=== PATIENT | male | born 1960 | race Caucasian/White ===

== ENCOUNTER → 2018-03-10 | Outpatient (CLI) | payer OTHER ==
[~2018-03-10] MED LIST: ASPI81TA28 PO; CIPR-255 PO; GLC/500 PO; GLIP2.5T11 PO; MAGN400T6 PO; OPTIRAY 320 IV PRN; SIMV5TAB2 PO
--- NOTE | 2018-03-10 11:16 | DIAGNOSTIC IMAGING REPORT ---
CT OF THE ABDOMEN AND PELVIS WITH AND WITHOUT CONTRAST HEMATURIA PROTOCOL CLINICAL HISTORY: Benign prostatic hyperplasia. Hematuria. COMPARISON STUDY: Renal ultrasound February 18, 2018. TECHNIQUE: Unenhanced and split bolus phase imaging of the abdomen and pelvis was performed. Injection of 119 cc Optiray 320 IV was uneventful. A dose lowering technique was utilized adhering to the principles of ALARA. CT DOSE: 1830.88 mGycm FINDINGS: Visualized portions of the lower chest demonstrate a 5 mm left lower lobe nodule on image 3 of 456 and a 4 mm right middle lobe nodule on image 16. The liver, spleen and pancreas are normal. There is no biliary or pancreatic ductal dilatation. Both adrenal glands are hypodense and enlarged. This represents a benign finding. These may reflect adenomas or hyperplasia. Caliber and wall thickness of small and large bowel are normal. Postoperative findings within the right colon are noted. A fat-containing hernia is noted. No abdominal or pelvic lymphadenopathy is present. Note is made of mild left hydroureteronephrosis with dilatation of the distal left ureter which may reflect a ureterocele. There is masslike abnormality within the left posterior inferior aspect the bladder which corresponds to the finding on renal ultrasound of February 18, 2018. This measures approximately 3.5 cm in size. There is no right hydronephrosis. Note is made of a tiny apparent filling defect within the anterior aspect of an upper pole calyx of the left kidney shown on axial image 140 of 456. No additional upper tract urothelial abnormality are present. There is extensive plaque of the abdominal aorta and branch vessels. No suspicious osseous lesions are present. IMPRESSION: 1. Mild left hydroureteronephrosis with dilatation of the distal left ureter suggestive of a ureterocele which is likely related to a left posterior inferior bladder mass, measuring approximately 3.5 cm. This is suspicious for a urothelial lesion such as transitional cell carcinoma. 2. Apparent tiny filling defect within an upper pole calyx of the left kidney. Although this may reflect a papilla, a tiny urothelial lesion could appear similar. 3. No evidence of metastatic disease within the abdomen or pelvis. 4. A few small nodules within visualized portions of the lower lungs which are likely benign. A follow-up chest CT in 6 months could be obtained to ensure stability. Electronically signed by: Ming Lemus M.D. 03/10/2018 11:15 AM Dictated Date/Time: 03/10/2018 10:44 AM
== END | disposition home or self-care (01) ==
LOC: C.CTS 09:49
PROVIDERS: ATTEND Urology
DX: N40.0 Benign prostatic hyperplasia without lower urinary tract symptoms (principal); N20.1 Calculus of ureter; R91.8 Other nonspecific abnormal finding of lung field

== ENCOUNTER → 2018-04-06 | Day surgery (SDC) | payer OTHER ==
[2018-03-24 09:19] VITALS: BMI 34.0
[2018-03-27 08:18] VITALS: BMI 31.0
--- NOTE | 2018-03-27 08:52 | PAT Medication Instructions ---
Service Date Mar 27, 2018. Current Home Medication List Aspirin (Aspirin Ec), 81 MG PO QPM Glipizide (Glipizide Er), 1 TAB PO BID Lisinopril/Hctz (Zestoretic 20MG/25MG), 1 TAB PO QAM Magnesium Oxide (Mag-Ox), 400 MG PO QPM Metformin Hcl (Glucophage), 1,000 MG PO BID Omeprazole (Omeprazole Dr), 400 MG PO QAM Simvastatin (Zocor), 20 MG PO QPM Medication Instructions For Your Scheduled Surgery - Check with surgeon for instructions: Aspirin (Aspirin Ec), 81 MG PO QPM - Hold the following medications the morning of surgery: Metformin Hcl (Glucophage), 1,000 MG PO BID Lisinopril/Hctz (Zestoretic 20MG/25MG), 1 TAB PO QAM Glipizide (Glipizide Er), 1 TAB PO BID - Take the following medications the morning of surgery with a sip of water: Omeprazole (Omeprazole Dr), 400 MG PO QAM - Take the following medications as scheduled the night before surgery: Simvastatin (Zocor), 20 MG PO QPM Metformin Hcl (Glucophage), 1,000 MG PO BID Magnesium Oxide (Mag-Ox), 400 MG PO QPM Glipizide (Glipizide Er), 1 TAB PO BID If you have any questions please call us at [phone] or [phone] or [phone]
--- NOTE | 2018-03-27 09:24 | DIAGNOSTIC IMAGING REPORT ---
CHEST 2 VIEWS ROUTINE CLINICAL HISTORY: pat preoperative evaluation COMPARISON STUDY: No previous studies for comparison. FINDINGS: The bones soft tissues and hemidiaphragms are normal. The cardiomediastinal silhouette is normal. The lungs are clear. The pulmonary vasculature is normal. IMPRESSION: Negative chest. The above report was generated using voice recognition software. It may contain grammatical, syntax or spelling errors. Electronically signed by: Silvestre James M.D. 03/27/2018 9:22 AM Dictated Date/Time: 03/27/2018 9:22 AM
[2018-03-27 10:06] LABS: BASO % 0.3 %; BASO ABS # 0.03 K/uL (0-0.2); EOS % 1.4 %; EOS ABS # 0.16 K/uL (0-0.5); HEMATOCRIT 44.9 % (42-52); HEMOGLOBIN 15.8 g/dL (14.0-18.0); IG# 0.05 K/uL (0.00-0.02); LYMPH % 22.6 %; LYMPH ABS # 2.66 K/uL (1.2-3.4); MEAN CELL VOLUME 87.4 fL (80-100); MEAN CORPUSCULAR HEMOGLOBIN 30.7 pg (25-34); MEAN CORPUSCULAR HGB CONC 35.2 g/dl (32-36); MEAN PLATELET VOLUME 11.1 fL (7.4-10.4); MONO % 8.8 %; MONO ABS # 1.04 K/uL (0.11-0.59); NEUT % 66.5 %; NEUT ABS # 7.85 K/uL (1.4-6.5); PLATELET COUNT 328 K/uL (130-400); RED CELL DISTRIBUTION WIDTH CV 12.8 % (11.5-14.5); WHITE BLOOD COUNT 11.79 K/uL (4.8-10.8)
[2018-03-27 10:11] LABS: CREATININE 1.4 mg/dl (0.60-1.40); POTASSIUM 4.5 mmol/L (3.5-5.1)
[2018-03-27 10:12] LABS: CALCIUM 9.8 mg/dl (8.5-10.1)
[2018-03-27 10:36] LABS: HEMOGLOBIN A1C 11.8 % (4.5-5.6)
[~2018-04-06] VITALS: Ht 170.2 cm; Wt 89.8 kg
[~2018-04-06] MED LIST changes: +ATROPINE SULFATE 0.1 MG/ML 5ML SYR IV PRN; -CIPR-255 PO; +CIPROFLOXACIN / D5W 400 MG IV SCH; +DEXAMETHASONE SOD INJ 4 MG/ML VIAL ONE; +EpHEDrine SULFATE INJ 50 MG/ML AMP IV PRN; +FENTANYL CITRATE INJ 50 MCG/1 ML 2 ML VIAL IV PRN; +FENTANYL CITRATE INJ 50 MCG/1 ML 2 ML VIAL ONE; +GLIP-199 PO; -GLIP2.5T11 PO; +HYDROmorphone INJ 1 MG/ML SYR IV PRN; +LACTATED RINGER'S 1000ML 1,000 ML IV SCH; +LIDOCAINE HCL 2% 2 ML VIAL (20MG/ML) ONE; +LISI-788 PO; +METHYLENE BLUE 0.5% 10 ML VIAL ONE; +MIDAZOLAM HCL 1 MG/ML 2ML VIAL ONE; +NURSING VERBAL MED ORDER ONE; +NovoLIN-R INSULIN PER UNIT CHARGE ONE; +OMEP-334 PO; +OMEPRAZOLE PO; +ONDANSETRON INJ 2 MG/ML 2 ML VIAL IV PRN; +ONDANSETRON INJ 2 MG/ML 2 ML VIAL ONE; -OPTIRAY 320 IV PRN; +OXYC-57 PO; +OXYCODONE/ACETAMINOPHEN 5-325 TAB PO PRN; +PHEN-876 PO; +PROPOFOL IV EMULSION 10 MG/ML 20 ML VIAL ONE; +SIMV20TA2 PO; -SIMV5TAB2 PO
[2018-04-06 08:25] VITALS: BP 153/81; PULSE 68; TEMP 36.7; O2SAT 96; Ht 170.2 cm; Wt 89.8 kg
--- NOTE | 2018-04-06 10:47 | History & Physical Bridge Note ---
H&P Re-Evaluation Bridge Note: I have examined the patient, reviewed the History & Physical and in the interval since the performance of the History & Physical I have noted the following changes of clinical significance: No changes noted
--- NOTE | 2018-04-06 12:19 | Discharge Instructions ---
Discharge Instructions Date of Service Apr 06, 2018. Visit Reason for Visit: Bladder Cancer Discharge Discharge Diagnosis / Problem: bladder tumor Discharge Goals Goal(s): Therapeutic intervention Activity Recommendations Activity Limitations: per Instructions/Follow-up section Lifting Limitations: gradually increase as tolerated Exercise/Sports Limitations: rest today May Resume Sexual Activity: after one week Shower/Bathe: no limitations Driving or Machine Use: resume 1 day after discharge Anesthesia . Post Anesthesia Instructions: If you have had General Anesthesia or IV Sedation: * Do not drive today. * Resume driving when surgeon permits. * Do not make important decisions or sign legal documents today. * Call surgeon for: 1. Temperature elevations greater than 101 degrees F. 2. Uncontrollable pain. 3. Excessive bleeding. 4. Persistent nausea and vomiting. 5. Medication intolerance (nausea, vomiting or rash). * For nausea and vomiting use only clear liquids such as: tea, soda, bouillon until nausea subsides, then gradually increase diet as tolerated. * If you have any concerns or questions, call your surgeon's office. If physician is unavailable and it is an emergency, call 911 or go to the nearest emergency room. . Diet Recommendations Recommended Home Diet: resume previous diet Procedures Procedures Performed: Transurethral Resection Bladder Tumor Pending Studies Studies pending at discharge: no Medical Emergencies . Who to Call and When: Medical Emergencies: If at any time you feel your situation is an emergency, please call 911 immediately. . Non-Emergent Contact Non-Emergency issues call your: Urologist Call Non-Emergent contact if: temperature is above 101.5, your pain is not controlled . . "Provider Documentation" section prepared by Estuardo Turner. . [place] Drug Monitoring Program Search Results: patient reviewed within database
--- NOTE | 2018-04-06 12:23 | [facility] Operative Report ---
Operative Report Operative Date Apr 06, 2018. Pre-Operative Diagnosis Bladder tumor Post-Operative Diagnosis Bladder tumor Procedure(s) Performed Transurethral Resection Bladder Tumor Surgeon Dr. Turner Kettle Room Helper Surgeon(s) none Estimated Blood Loss 0 cc Findings Cystoscopic exam revealed a normal anterior urethra prostatic fossa was moderately obstructing with kissing lateral lobes bladder showed a large tumor on the left lateral wall near the bladder neck. I was unable to locate a left ureteral orifice Specimens A: Bladder tumor Drains None Anesthesia Type General Complication(s) none Disposition yes Recovery Room / PACU Indications 58-year-old white male on evaluation for hematuria was found to have a bladder tumor being brought in for TURBT Description of Procedure After the induction of an adequate general anesthetic and appropriate timeout patient placed in the dorsolithotomy position. Lower abdomen and genitalia were prepped with Hibiclens and draped in a sterile fashion. Using a 22 Norwegian cystoscope routine cystoscopic exam was performed the above-noted findings with the 30 and 70 lenses. Next using a 24 Norwegian resection scope and bipolar loop the tumors resected in its entirety. I stayed away from the left trigone because I could not identify a left ureteral orifice bladder tumor fragments were evacuated from the bladder with an Bluwan evacuator any bleeding points were electrocoagulated final view revealed no bleeding from resection site patient's bladder was drained cystoscope and sheath were removed. All needle sponge and instrument counts were correct at the end of the case. Patient tolerated the procedure well was taken recovery room in stable condition I attest to the content of the Intraoperative Record and any orders documented therein. Any exceptions are noted below.
--- NOTE | 2018-04-06 12:55 | Anesthesiology Progress Note ---
Anesthesia Post Op Note Date & Time Apr 06, 2018 at 12:55 Vital Signs Pain Intensity: 0 Vital Signs Past 12 Hours Date Time Temp Pulse Resp B/P (MAP) Pulse Ox O2 Delivery O2 Flow Rate FiO2 04/06/18 12:47 63 18 04/06/18 12:47 62 18 92 04/06/18 12:46 36.5 64 19 124/67 (83) 94 Room Air 04/06/18 12:46 124/67 04/06/18 12:42 61 18 94 04/06/18 12:42 61 18 04/06/18 12:41 117/72 04/06/18 12:38 68 17 92 04/06/18 12:38 66 17 04/06/18 12:36 126/75 04/06/18 12:33 68 17 04/06/18 12:33 68 17 95 04/06/18 12:32 71 16 04/06/18 12:32 72 16 96 04/06/18 12:31 70 22 04/06/18 12:31 70 22 95 04/06/18 12:26 78 24 129/77 96 04/06/18 12:26 79 24 04/06/18 12:26 36.6 89 14 122/70 (82) 97 Oxymask 10 04/06/18 12:22 123/100 04/06/18 12:21 87 20 04/06/18 12:21 87 20 97 04/06/18 12:17 122/70 04/06/18 12:16 87 97 04/06/18 12:16 87 04/06/18 08:25 36.7 68 20 153/81 (105) 96 Room Air Notes Mental Status: alert / awake / arousable, participated in evaluation Pt Amnestic to Procedure: Yes Nausea / Vomiting: adequately controlled Pain: adequately controlled Airway Patency, RR, SpO2: stable & adequate BP & HR: stable & adequate Hydration State: stable & adequate Anesthetic Complications: no major complications apparent
[2018-04-06 13:05] VITALS: BP 129/62; PULSE 59; TEMP 36.3; O2SAT 96
[2018-04-06 13:35] VITALS: BP 123/72; PULSE 68; TEMP 36.5; O2SAT 92
== END | disposition home or self-care (01) ==
LOC: C.ACU 07:13
PROVIDERS: ATTEND Urology
DX: C67.2 Malignant neoplasm of lateral wall of bladder (principal); I10 Essential (primary) hypertension; E11.9 Type 2 diabetes mellitus without complications; F17.200 Nicotine dependence, unspecified, uncomplicated; E78.00 Pure hypercholesterolemia, unspecified; E66.9 Obesity, unspecified; Z68.31 Body mass index [BMI] 31.0-31.9, adult; Z79.82 Long term (current) use of aspirin

== ENCOUNTER 2019-01-29 09:14 | Inpatient (IN) ==
--- NOTE | 2019-01-29 05:58 | History & Physical Report ---
Date of Service January 29, 2019 History of Present Illness Chief Complaint: Gangene of right foot and right iliac artery occlusion Primary Care Provider: Donna Cano DO Chief Complaint rm#7 here for necrotic toe, right 5th. Has ulcerations on the left foot as well. States necrotic dark started a few months ago. Has pain prior. Wound clinic on Friday was placed on doxy and cipro bid for 21 says. Continues to smoke History of Present Illness I the pleasure of seeing Carlos today for evaluation of his lower extremities. As you know he is a 59-year-old diabetic white male with metastatic bladder cancer. He claims that about 3 months ago he started developing color changes in his feet. He is now developed a gangrene of the right foot and gangrenous ulcers of the left foot. He claims that the right foot has been getting red for the last week or so. He denies any drainage from the either foot. He claims that the ulcer on the heels started first during his chemotherapy. He does complain of claudication at various distances in both lower extremities. He does not have any rest pain at night. Review of Systems Review of systems 10 systems reviewed only positive findings are nausea loss of appetite diarrhea blood in his urine prostate problems and as per the HPI. Physical Exam Vitals & Measurements HR: 101 (Monitored) BP: 116/68 SpO2: 96% WT: 68.95 kg On physical exam patient is alert oriented x3 he is in no apparent distress. His blood pressure 122/68 on the left 160/60 in the right. He has normal body habitus. His lungs were clear. His rate has a regular rate and rhythm. Abdominal exam is benign without any aneurysmal dilatation of the aorta. His radials and carotids were +2 bilaterally. There are no carotid bruits. Femorals are +2. I cannot appreciate pedal pulses in the foot. Neurologic exam is grossly intact. Examinations of his feet shows gangrenous changes of the right fifth toe and gangrenous ulcer in the fifth metatarsal head. He also has gangrenous ulcers of the heels and lateral aspect of his right foot and metatarsal area. There is no drainage from either of these lesions. The right foot is erythematous to the dorsum of the foot. Assessment/Plan 1. Gangrene 2. Aorto-iliac disease 3. Atherosclerosis of [place] arteries of extremities with gangrene, bilateral legs At this point we ordered noninvasive lower extremity as well as a CTA of his abdominal aorta and runoff. Further treatment will be determined by these studies. He will require an amputation of the fifth toe of the right foot at the least. Thank you very much for letting us participate in the care of this patient. We will keep you informed as to his progress. Sincerely, Jordon Rajan MD Ordered: CT Angio Abdomen and Pelvis Problem List/Past Medical History Ongoing Arthritis Bladder cancer Diabetes mellitus, type II Diverticulitis Frequent urination GERD (gastroesophageal reflux disease) H/O sepsis Hematuria Hypercholesteremia Hypertension Rupture of bowel Spinal stenosis Tobacco user Ventral hernia Historical No qualifying data Procedure/Surgical History TURBT - Transurethral resection of bladder tumor (2018), Bladder, Colectomy, Colostomy, Insertion of implantable venous access port, Revision of colostomy. Medications Home acetaminophen-HYDROcodone 325 mg-10 mg oral tablet, 1 tab, PO, bid, PRN amLODIPine 10 mg oral tablet, 10 mg= 1 tab, PO, Daily Augmentin 500 mg-125 mg oral tablet, 1 tab, PO, q12h, Not taking ciprofloxacin 500 mg oral tablet, 500 mg= 1 tab, PO, q12h Colace 100 mg oral capsule, 100 mg= 1 cap, PO, bid doxycycline hyclate 100 mg oral tablet, 100 mg= 1 tab, PO, bid HumaLOG KwikPen 100 units/mL injectable solution, 6 unit, subQ, ac, 1 refills MiraLax oral powder for reconstitution, 17 g, PO, Daily Normal Saline Flush 0.9% injectable solution, See Instructions, 2 refills ondansetron 8 mg oral tablet, 8 mg= 1 tab, PO, tid, PRN oxyCODONE 5 mg oral tablet, 5 mg, PO, q4h, PRN prochlorperazine 10 mg oral tablet, 10 mg= 1 tab, PO, tid, PRN simvastatin 20 mg oral tablet, 20 mg= 1 tab, PO, qhs Tresiba FlexTouch 100 units/mL subcutaneous solution, 24 unit, subQ, Daily Tylenol 500 mg oral tablet, 1000 mg= 2 tab, PO, q8h Allergies NKA No Known Medication Allergies Social History Tobacco Current every day smoker Family History Diabetes...: Mother and Brother. Hypertension: Mother and Brother. Lyme disease: Brother. Prostate carcinoma: Father. Stroke: Brother. Signature Line Electronic Signature on File Electronically Reviewed/Signed by: Rafael Rajan MD Author Signature Dt/Tm:01/27/2019 11:51 AM Terrazzo Mechanic Zack Hernandez [facility] [place] [address], [address] [place] [address] EJS Result Type: Physician Consult Date of Service: January 27, 2019 11:51 EDT Authorization Status: Final Subject: Consult Note Author or Import Date: MD Rajan Eugene J on January 27, 2019 11:51 EDT Verified By: MD Rajan Eugene J on January 27, 2019 11:51 EDT Encounter info: [id number], [facility] [facility], 01/27/2019 - 01/27/2019 Allergies Allergy/AdvReac Type Severity Reaction Status Date / Time No Known Allergies Allergy Verified 11/30/18 09:42 Home Medications Home Medications Medication Instructions Recorded Confirmed Type magnesium oxide 500 mg PO HS 05/13/18 01/25/19 History simvastatin 20 mg PO HS 05/13/18 01/25/19 History amlodipine 10 mg tablet 10 mg PO DAILY 10/30/18 01/25/19 History insulin degludec (U-100) 100 24 units SQ DAILY ml 10/30/18 01/25/19 History unit/mL (3 mL) subcutaneous pen hydrocodone 10 mg-acetaminophen 1 tab PO Q12H PRN #60 tab 01/22/19 01/25/19 Rx 325 mg tablet ciprofloxacin 500 mg tablet 500 mg PO q12h 21 Days #42 tab 01/25/19 01/25/19 Rx doxycycline hyclate 100 mg tablet 100 mg PO bid 21 Days #42 tab 01/25/19 01/25/19 Rx Past Med/Surg History Medical History Bladder cancer (Chronic) Cancer (Chronic) NEWLY DX WITH BLADDER CANCER, BLOODY URINE, STARTED CHEMO APR 2018, FINISHED JULY 2018 Diabetes mellitus, type 2 (Chronic) Diverticulitis (Chronic) GERD (gastroesophageal reflux disease) (Chronic) Hypercholesteremia (Chronic) Hypertension (Chronic) Malignant neoplasm of bladder (Chronic) 04/06/19 TURBT 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 Hematuria (Resolved) Rupture of bowel (Resolved) H/O ruptured sigmoid colon which resulted in right transverse colostomy, a later surgery for sigmoid resection, and later colostomy reversal; Surgical History H/O cystoscopy (Resolved) History of colostomy reversal (Resolved) History of surgery (Resolved) A-PORT PLACEMENT Hx of colostomy (Resolved) RUPTURED DIVERTICULITIS Status post chemotherapy (Resolved) Chemo 05/20/18 thru 08/12/18 for bladder cancer Family History Mother Hypertension Diabetes Father , in his 60's Prostate cancer Brother Stroke Hypertension Diabetes Lyme disease Brother No problems noted. Brother No problems noted. Sister No problems noted. Sister No problems noted. Daughter Skin cancer Hypertension Hypothyroidism Social History Preferred Language: Sammarinese Communication Ability: Effective Visual Impairment: No Limitations Hearing Ability: Normal Beliefs That Will Affect Care: None marital status: Current Living Situation: Family current occupational status: unemployed current occupation: Disability Feels Safe at Home: Yes Smoking Status: Current every day smoker Tobacco Type: cigarettes Cigarettes Per Day: HX OF 1PPD X45 YEARS Second Hand Exposure: No Hx Alcohol Use: No Hx Substance Use: No caffeine: Yes (4 cups/day) during the past year weight has: decreased > 10 lbs
[~2019-01-29 09:14] MED LIST changes: -ASPI81TA28 PO; -ATROPINE SULFATE 0.1 MG/ML 5ML SYR IV PRN; +CEFAZOLIN 1000MG 1,000 MG/7.5 ML SYR IV SCH; +CEFAZOLIN 2000MG 2,000 MG/15 ML SYR IV SCH; -CIPROFLOXACIN / D5W 400 MG IV SCH; -DEXAMETHASONE SOD INJ 4 MG/ML VIAL ONE; -EpHEDrine SULFATE INJ 50 MG/ML AMP IV PRN; -FENTANYL CITRATE INJ 50 MCG/1 ML 2 ML VIAL IV PRN; -FENTANYL CITRATE INJ 50 MCG/1 ML 2 ML VIAL ONE; -GLC/500 PO; -GLIP-199 PO; -HYDROmorphone INJ 1 MG/ML SYR IV PRN; -LACTATED RINGER'S 1000ML 1,000 ML IV SCH; -LIDOCAINE HCL 2% 2 ML VIAL (20MG/ML) ONE; -LISI-788 PO; -MAGN400T6 PO; -METHYLENE BLUE 0.5% 10 ML VIAL ONE; -MIDAZOLAM HCL 1 MG/ML 2ML VIAL ONE; -NURSING VERBAL MED ORDER ONE; -NovoLIN-R INSULIN PER UNIT CHARGE ONE; -OMEP-334 PO; -OMEPRAZOLE PO; -ONDANSETRON INJ 2 MG/ML 2 ML VIAL IV PRN; -ONDANSETRON INJ 2 MG/ML 2 ML VIAL ONE; -OXYC-57 PO; -OXYCODONE/ACETAMINOPHEN 5-325 TAB PO PRN; +PATIENT'S HEIGHT AND/OR WEIGHT NEEDED SCH; -PHEN-876 PO; -PROPOFOL IV EMULSION 10 MG/ML 20 ML VIAL ONE; -SIMV20TA2 PO; +SODIUM CHLORIDE 0.9% 1000ML 1,000 ML IV SCH
--- NOTE | 2019-01-29 10:20 | History & Physical Bridge Note ---
Date of Service January 29, 2019 History & Physical Bridge Note I have examined the patient, reviewed the History & Physical and in the interval since the performance of the History & Physical I have noted the following changes of clinical significance: no changes noted
[2019-01-29 10:29] LABS: Creatinine Clr Calc Pharmacy 55.5 ml/min; Est GFR (African American) 66.7; Est GFR (Non-African American) 57.6
[2019-01-29] MEDS ORDERED: HEPARIN SOD (PORCINE) 1000 UNIT/ML 10 ML VIAL ONE (12:24)
[2019-01-29] MEDS ORDERED: LIDOCAINE HCL 1% 20 ML VIAL ONE (12:24)
[2019-01-29] MEDS ORDERED: fentaNYL citrate 100 MCG/2 ML VIAL ONE ×2 (12:43→13:35)
[2019-01-29] MEDS ORDERED: MIDAZOLAM HCL 1 MG/ML 2ML VIAL ONE ×2 (12:43→13:35)
[2019-01-29] MEDS ORDERED: VISIPAQUE IV PRN (14:08)
--- NOTE | 2019-01-29 14:09 | Post Operative Brief Note ---
Immediate Post Op Note v1 Date of Surgery January 29, 2019 Pre & Post Diagnosis Operation Date: 01/29/19 12:00 Pre-Op Diagnosis: Aortoiliac and lower extremity occlusive disease with gangrene Post-Op Diagnosis: Aortoiliac and lower extremity occlusive disease with gangrene Procedure Operation Date: 01/29/19 12:00 Actual Procedures p Aortogram, Bilateral Lower Extremity Runoff, Moderate Concious Sedation 1257 to(Bilateral) - Rafael Rajan MD Surgeon Rafael Rajan MD Timber Buyer none Estimated Blood Loss 20 Findings Consistent with Post-Op Diagnosis Anesthesia Type RN Sedation Complications none Disposition Accompanied Patient To Recovery: No Disposition: Recovery Room
--- NOTE | 2019-01-29 14:25 | Post Anesthesia Assessment ---
Date of Service January 29, 2019 Post Sedation Assessment Vital Signs Temp Pulse Pulse Resp BP BP Pulse Ox 01/29/19 14:22 90 01/29/19 14:20 99 H 20 142/82 H 90 01/29/19 14:15 101 H 20 143/87 H 94 01/29/19 14:10 102 H 20 145/89 H 94 01/29/19 14:05 99 H 20 148/80 H 94 01/29/19 14:00 93 H 20 139/84 92 01/29/19 13:55 100 H 20 153/86 H 92 01/29/19 13:50 100 H 20 148/89 H 92 01/29/19 13:45 100 H 20 154/97 H 92 01/29/19 13:40 97 H 20 134/81 92 01/29/19 13:35 102 H 21 143/81 H 96 01/29/19 13:30 100 H 21 143/86 H 96 01/29/19 13:25 98 H 20 121/81 93 01/29/19 13:20 102 H 20 144/86 H 93 01/29/19 13:15 88 20 147/83 H 92 01/29/19 13:10 99 H 18 120/75 91 01/29/19 13:05 95 H 18 122/75 94 01/29/19 13:00 94 H 18 129/78 94 01/29/19 12:55 94 H 18 144/91 H 95 01/29/19 12:50 95 H 18 136/96 93 01/29/19 12:48 94 H 18 133/84 91 01/29/19 09:50 36.9 C 94 H 20 134/78 99 Recovery Score Activity: Moves 4 extremities Respiration: Deep Breath/Cough Circulation: +/-20% PreAnes Value Consciousness: Fully Awake Oxygen Saturation: > 92% On Room Air Post Anesthesia Score: 10 Discharge Sedation Level of Care: Fast Track Phase II Post Sedation Plan On clinical assessment, the patient appears to have tolerated the sedation without complications. Patient is recovering as anticipated. Patient will continue to be monitored by nursing and may be discharged when sedation discharge criteria are met per below protocol. Upon Completions of procedure and additional 15 minutes continue every 5 minute vital signs and the P.A.R. score; then discharge to a Phase I or Fast Track to Phase II per the following guidelines: * Discharge Patient to appropriate Phase II area if PAR is 8 or greater or return to pre- procedure baseline. The post - procedure orders will be as directed. * If PAR score is less than 8 or not return to pre-procedure baseline then patient will follow Phase I monitoring till PAR is reached for Phase II. The Phase I may be done in procedure room or may call to secure a Phase I area. * If naloxone or flumazenil are used for reversal, hold in Phase I for continued monitoring from when last reversal dose was given for a minimum of 60 minutes or longer pending the nurse and/or physician discretion of patient condition before discharge to Phase II. Please call the Sedation Physician to re-evaluate and complete post-note for discharge to Phase II area. Do NOT discharge from procedure sedation or Phase 1 until post- sedation evaluation note is complete by procedure /sedation MD Sedation Discharge Instructions to be given to the patient at discharge to home.
[2019-01-29] MEDS ORDERED: OXYCODONE/ACETAMINOPHEN 5mg/325mg TAB PO PRN (14:35)
[2019-01-29] MEDS ORDERED: SODIUM CHLORIDE 0.9% 500 ML IV SCH (14:45)
--- NOTE | 2019-01-29 14:48 | Operative Report ---
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 Last few weeks he developed color changes in his feet. He has esch ars on his heels and his left lateral foot. He is also developed gangrene of the right fifth toe recently. When seen today he is now complaining of rest pain which is new. Aortography and possible intervention was recommended. I have discussed the risks options and benefits of the procedure with the patient. The patient understands the risks options and benefits and agrees to the procedure. Description of Procedure The patient was taken the angiogram suite placed in the supine position. After groins were prepped and draped in a sterile manner the patient was identified and a timeout was performed. Local anesthetic was administered to the right groin. Percutaneous puncture was made in right common femoral artery and a 5 [place] sheath inserted. 035 wire to pick there was passed up into the abdominal aorta. Aortography was performed which showed moderate disease of the right common iliac artery. There was occlusion just beyond the puncture site in the common femoral artery at the origin of the profunda femoral artery. The common femoral artery and right side does have filling defects consistent with heaped up plaque within the artery. we then anesthetized left groin puncture in the left common femoral artery again inserting a 5 [place] sheath. The left side had an occluded iliac artery from its origin down to the proximal external iliac artery. The distal external iliac artery was small in caliber. We tried multiple catheters multiple wires to get through the iliac occlusion all were unsuccessful. Wires were made some minimal. That point we did arteriography of the lower extremities. On the right side the superficial femoral artery is occluded from its origin down to the popliteal. There is a very short segment of popliteal its pain but then occluded again distally and reconstitutes at the trifurcation. Anterior tibial artery appears patent at least down to the distal third of the leg. On 1 of the views there is a hint that the dorsalis pedis artery is patent. The profunda femoris right side has the first branch patent and the rest of it is occluded with reconstitution distally. Left side as st ated previously left common iliac artery is occluded down to the proximal portion of the external iliac. The superficial femoral artery is patent down to just above the adductor hiatus and then occluded with reconstitution of the popliteal. It was hard to get contrast down below the popliteal however it appears to have severe infrapopliteal artery occlusive disease in all the infrapopliteal vessels. Both 5 [place] sheath was were pulled and pressure was applied to the groins. Sterile dressings were applied. Adequate hemostasis was noted. The patient left the operation room in satisfactory condition and tolerated the procedure well. All needle and sponge counts were correct at the end of the procedure. I attest to the content of the Intraoperative Record and any orders documented therein. Any exceptions are noted below.
[2019-01-29] MEDS ORDERED: HYDROCODONE/ACETAMINOPHEN 10/325 TAB PO PRN (15:03)
[2019-01-29] MEDS ORDERED: CARBOHYDRATES FOR HYPOGLYCEMIA PO PRN (15:05)
[2019-01-29] MEDS ORDERED: GLUCOSE 40% GEL 15 GM TUBE PO PRN (15:05)
[2019-01-29] MEDS ORDERED: GLUCAGON FOR INJ 1 MG VIAL SQ PRN (15:05)
[2019-01-29] MEDS ORDERED: GLUCOSE 10 TABS/TUBE PO PRN (15:05)
[2019-01-29] MEDS ORDERED: DEXTROSE 50% 50 ML SYRINGE IV PRN (15:05)
[2019-01-29] MEDS ORDERED: PHARMACY GLYCEMIC MGMT CONSULT PRN (15:22)
[2019-01-29] MEDS ORDERED: INSULIN GLARGINE SOLOSTAR 100 UNITS/ML 3 ML PEN SC ONE (16:30)
[2019-01-29] MEDS: NICOTINE 21 MG/24 HR TDSY TD SCH (18:38)
[2019-01-29] MEDS: INSULIN ASPART 100 UNITS/ML 3 ML PEN SC SCH ×2 (18:42→21:06)
[2019-01-29 18:53] LABS: Basophils # (auto) 0.02 K/uL (0-0.2); Basophils % (auto) 0.2 %; Eosinophils % (auto) 1.9 %; Hematocrit (blood only) 31.5 % (42-52); Hemoglobin 10.9 g/dL (14.0-18.0); Immature Granulocytes # (auto) 0.05 K/uL (0.00-0.02); Immature Granulocytes % (auto) 0.5 %; Lymphocytes # (auto) 1.78 K/uL (1.2-3.4); Lymphocytes % (auto) 16.9 %; Mean Corpuscular Volume 82.9 fL (80-100); Mean Platelet Volume 8.3 fL (7.4-10.4); Monocytes # (auto) 1.02 K/uL (0.11-0.59); Monocytes % (auto) 9.7 %; Neutrophils # (auto) 7.48 K/uL (1.4-6.5); Neutrophils % (auto) 70.8 %; Platelet Count 254 K/uL (130-400); RDW Coefficient of Variation 14.7 % (11.5-14.5); RDW Standard Deviation 44.8 fL (36.4-46.3); White Blood Count 10.55 K/uL (4.8-10.8)
[2019-01-29] MEDS ORDERED: HEPARIN IV BOLUS 5,000 UNITS in SYRINGE 0 ML IV ONE (19:00)
[2019-01-29 19:04] LABS: INR 1.1 (0.9-1.1); Partial Thromboplastin Ratio 0.9; Prothrombin Time 10.9 Seconds (9.0-12.0)
[2019-01-29 19:06] LABS: Mean Corpuscular Hgb Conc 34.6 g/dL (32-36)
[2019-01-29] MEDS: Heparin Adult STANDARD Wt-Based Dextrose 5% 25,000 units/500 mL IV SCH (19:28)
[2019-01-29] MEDS ORDERED: SIMVASTATIN 20 MG TAB PO SCH (21:00)
[2019-01-29] MEDS: CIPROFLOXACIN 500 MG TAB PO SCH (21:05)
[2019-01-29] MEDS ORDERED: MAGNESIUM OXIDE 400 MG TAB PO SCH (22:00)
[2019-01-30] MEDS ORDERED: INSULIN ASPART 100 UNITS/ML 3 ML PEN SC SCH
[2019-01-30 01:42] LABS: Partial Thromboplastin Ratio 1.3; Partial Thromboplastin Time 36.5 Seconds (21.0-31.0)
[2019-01-30] MEDS ORDERED: HEPARIN 100 UNIT/ML 5ML FLUSH FLUSH PRN (01:46)
[2019-01-30] MEDS ORDERED: Nursing to Pharmacy Communication ONE (01:50)
[2019-01-30] MEDS ORDERED: HEPARIN IV BOLUS 5,000 UNITS in SYRINGE 0 ML IV ONE (02:00)
[2019-01-30 08:33] LABS: Partial Thromboplastin Time 54.8 Seconds (21.0-31.0)
[2019-01-30] MEDS: CIPROFLOXACIN 500 MG TAB PO SCH (08:46)
[2019-01-30] MEDS: INSULIN ASPART 100 UNITS/ML 3 ML PEN SC SCH ×2 (08:49→13:16)
[2019-01-30] MEDS: NICOTINE 21 MG/24 HR TDSY TD SCH (08:49)
[2019-01-30] MEDS ORDERED: INSULIN GLARGINE SOLOSTAR 100 UNITS/ML 3 ML PEN SC SCH (09:00)
[2019-01-30] MEDS ORDERED: AMLODIPINE BESYLATE 5 MG TAB PO SCH (09:00)
--- NOTE | 2019-01-30 09:01 | Surgery Progress Note ---
Date of Service January 30, 2019 Assessment & Plan (1) Ischemic ulcer of both feet: Awaiting transfer to [facility] for surgical intervention of the lower extremities. Will transfer on heparin. Dr. Coates to receive patient. Subjective No new complaints Physical Exam Constitutional: WD/WN, vitals as above Respiratory: normal respiratory effort Auscultation: lungs clear to auscultation bilaterally Cardiovascular: RRR, no murmur, no edema Musculoskeletal: No changes in gangrenous changes. Erythema almost totally resolved. Neurologic: moves all extremities; no focal motor deficits Psychiatric: A+Ox3, euthymic affect Results & Data Vital Signs (Past 12 Hours) Vital Signs Temp Pulse Pulse Resp BP Pulse Ox 01/30/19 08:00 36.8 C 99 H 17 130/82 94 01/30/19 03:53 36.9 C 97 H 14 121/71 93 01/29/19 22:58 36.9 C 98 H 14 128/80 96 (1) Ischemic ulcer of both feet Non-pressure ulcer stage: unspecified non-pressure ulcer stage Qualified Code(s): L97.519 - Non-pressure chronic ulcer of other part of right foot with unspecified severity; L97.529 - Non-pressure chronic ulcer of other part of left foot with unspecified severity
--- NOTE | 2019-01-30 09:55 | Pharmacy Report ---
Glycemic Control Consultation - Date of Service January 30, 2019 - Scope Scope: Glycemic Pharmacist consulted by Dr Rajan on 01/29/19 for glycemic control and to write orders per [facility] inpatient glycemic control protocol - Objective Weight: 70 kg Accuchecks BSG (last 24hrs): 01/29/19 01/29/19 01/29/19 09:44 09:46 14:58 POC Glucose 392 H* 387 H* 310 H* 01/29/19 01/29/19 01/29/19 17:34 20:30 23:54 POC Glucose 293 H 270 H 90 01/30/19 01/30/19 01:55 08:24 POC Glucose 108 H 165 H Laboratory Data (last 24hrs): 01/29/19 10:04 Creatinine 1.34 Est Cr Clr Drug Dosing 55.5 - Recent Pertinent Medications Outpatient Anti-diabetic Regimen: * insulin degludec 24 units daily * A1c = 10.3 % 09/25/18 The patient is currently receiving: * Basal insulin: Lantus 24 units every 24 hours (given at dinnertime yesterday) * Correctional Insulin: Novolog Correction per scale ACHS Goal Range: Low 110 mg/dL - High 140 mg/dL Correction Factor: 20 mg/dL/unit * Prandial insulin: Per carb ratio of 1 unit per 7 grams CHO consumed Risk Factors for Insulin Resistance: * IV fluids: heparin infusion * Recent Surgery: POD 1 * Diet: T2DM - Assessment & Plan Assessment & Plan: ASSESSMENT: * Mr Bucio is a 59 y/o M with presumably poor diabetes control (recent HbA1C not available) who presents for an aortogram. Pre-surgical BSG was almost 400 mg/dL. Pharmacy consulted after surgery - blood sugar at dinner was 293 mg/dL. Started patient's home dose of Lantus (which actually equals weight-based stress of 2 lantus) plus weight-based stress of 3 Novolog. * Blood sugars dropped well overnight with patient receiving only 39 units of insulin yesterday. Fasting this morning was 165 mg/dL. Uncertain of patient's PO intake so reduced Lantus dose slightly to 20 units. Continue weight-based stress of 3 Novolog dosing. Patient for transfer today to [facility]. PLAN FOR INPATIENT GLYCEMIC CONTROL: * Basal insulin * Lantus 20 units SQ daily * Bolus insulin * NovoLog per scale ACHS or Q6hrs while NPO * Goal Range: Low 110 mg/dL - High 140 mg/dL * Correction Factor: 20 mg/dL/unit * Nutritional / Prandial insulin per carb ratio of 1 unit per 7 grams CHO consumed RECOMMENDATIONS FOR DISCHARGE * obtain more recent HbA1C. * unable to make more specific recommendations without understanding patient's current control. * Please note that the plan above was derived based on current level of insulin resistance and hospital stress. These recommendations are appropriate for inpatient admission only. Plan of care upon discharge will need to be reassessed to avoid potential outpatient hypo/hyperglycemia. Thank you.
[2019-01-30] MEDS: Heparin Adult STANDARD Wt-Based Dextrose 5% 25,000 units/500 mL IV SCH (13:18)
--- NOTE | 2019-02-02 10:58 | Discharge Summary ---
Date of Service February 02, 2019 Admission HPI Per Admitting Provider Chief Complaint rm#[id number] here for necrotic toe, right 5th. Has ulcerations on the left foot as well. States necrotic dark started a few months ago. Has pain prior. Wound clinic on Friday was placed on doxy and cipro bid for 21 says. Continues to smoke History of Present Illness I the pleasure of seeing Carlos today for evaluation of his lower extremities. As you know he is a 59-year-old diabetic white male with metastatic bladder cancer. He claims that about 3 months ago he started developing color changes in his feet. He is now developed a gangrene of the right foot and gangrenous ulcers of the left foot. He claims that the right foot has been getting red for the last week or so. He denies any drainage from the either foot. He claims that the ulcer on the heels started first during his chemotherapy. He does complain of claudication at various distances in both lower extremities. He does not have any rest pain at night. Admission Exam Per Admitting Provider On physical exam patient is alert oriented x3 he is in no apparent distress. His blood pressure 122/68 on the left 160/60 in the right. He has normal body habitus. His lungs were clear. His rate has a regular rate and rhythm. Abdominal exam is benign without any aneurysmal dilatation of the aorta. His radials and carotids were +2 bilaterally. There are no carotid bruits. Femorals are +2. I cannot appreciate pedal pulses in the foot. Neurologic exam is grossly intact. Examinations of his feet shows gangrenous changes of the right fifth toe and gangrenous ulcer in the fifth metatarsal head. He also has gangrenous ulcers of the heels and lateral aspect of his right foot and metatarsal area. There is no drainage from either of these lesions. The right foot is erythematous to the dorsum of the foot. Principal Diagnosis 1. s/p aortogram without intervention 2. Severe atherosclerosis with BLE ischemia and gangrene Discharge Exam Constitutional WD/WN, vitals as above Respiratory normal respiratory effort Auscultation: lungs clear to auscultation bilaterally Cardiovascular RRR, no murmur, no edema Neurologic moves all extremities; no focal motor deficits Psychiatric A+Ox3, euthymic affect Discharge Data Allergies Allergy/AdvReac Type Severity Reaction Status Date / Time No Known Allergies Allergy Verified 01/29/19 09:43 Consultations 01/30/19 11:52 Burn CD for patient Routine Procedures Performed Operation Date: 01/29/19 12:00 Actual Procedures p Aortogram, Bilateral Lower Extremity Runoff, Moderate Concious Sedation 1257 to 1422(Bilateral) - Rafael Rajan MD Ordered Studies 01/29/19 07:32 EV angio UE BI Routine Hospital Course (1) Ischemic ulcer of both feet: Pt underwent aortogram without intervention d/t severity of atherosclerotic disease. D/T severity of BLE ischemia and severity of disease, pt will require open surgery and is accepted in transfer to [facility]. Awaiting transfer to [facility] for surgical intervention of the lower extremities. Will transfer on heparin. Dr. Coates to receive patient. 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 and rest pain right foot Discharge Goals: Therapeutic intervention Activity: As commented below Activity Comment: transferred to acute care facility Non-emergency contact: Surgeon Call non-emergency contact if: you have any medication questions Follow-up/Referrals: Donna Cano DO [Primary Care Provider] - Diet: Carb Consistent or DM2 and Heart Healthy Addtl Provider Instructions: Patient to be transferred to [facility] Prescriptions: New nicotine [Nicoderm CQ] 21 mg/24 hr Patch 24 Hour 21 mg transdermal QAM Qty: 14 RF: 0 Continued amlodipine 10 mg tablet 10 mg PO DAILY RF: 0 Tresiba FlexTouch U-100 100 unit/mL (3 mL) insulin pen 24 units SQ DAILY RF: 0 ciprofloxacin HCl 500 mg tablet 500 mg PO q12h 21 Days Qty: 42 RF: 0 hydrocodone-acetaminophen 10-325 mg tablet 1 tab PO Q12H PRN (Reason: pain) Qty: 60 RF: 0 simvastatin 20 mg Tablet 20 mg PO HS RF: 0 magnesium oxide 500 mg Tablet 500 mg PO HS RF: 0 Stand-Alone Forms: [facility] Discharge Orders: Discharge Order (Routine); Ordered 01/29/19 Ordered By: Rafael Rajan Admission Data Admit Date/Time: 01/29/19 14:35 Attending Provider: Rafael Rajan Admit Provider: Rafael Rajan Primary Care Provider: Donna Cano Service: Surgical Services Other Interventions: Discharge Summary Assessment (RN) Last Done: 01/29/19 16:02 Discharge Summary Assessment (RN) Last Done: 01/30/19 13:24 DC Date/Time DO NOT enter until pt leaves facility: 01/30/19 14:30
== END 2019-01-30 14:30 | disposition short-term general hospital (02) | DRG 594 ==
LOC: ASU 09:14 → 3N 14:35
DX: I10 Essential (primary) hypertension; E78.00 Pure hypercholesterolemia, unspecified; C67.5 Malignant neoplasm of bladder neck; I77.9 Disorder of arteries and arterioles, unspecified; K21.9 Gastro-esophageal reflux disease without esophagitis; Z83.3 Family history of diabetes mellitus; Z80.42 Family history of malignant neoplasm of prostate; F17.210 Nicotine dependence, cigarettes, uncomplicated; Z82.49 Family history of ischemic heart disease and other diseases of the circulatory system; L97.519 Non-pressure chronic ulcer of other part of right foot with unspecified severity; M48.061 Spinal stenosis, lumbar region without neurogenic claudication; L97.529 Non-pressure chronic ulcer of other part of left foot with unspecified severity

== ENCOUNTER 2019-04-22 10:26 | Inpatient (IN) ==
[2019-04-22 11:15] LABS: Basophils # (auto) 0.04 K/uL (0-0.2); Basophils % (auto) 0.4 %; Eosinophils # (auto) 0.55 K/uL (0-0.5); Eosinophils % (auto) 5.7 %; Hematocrit (blood only) 30.5 % (42-52); Hemoglobin 10.3 g/dL (14.0-18.0); Immature Granulocytes # (auto) 0.02 K/uL (0.00-0.02); Immature Granulocytes % (auto) 0.2 %; Lymphocytes # (auto) 1.47 K/uL (1.2-3.4); Lymphocytes % (auto) 15.3 %; Mean Corpuscular Hgb Conc 33.8 g/dL (32-36); Mean Corpuscular Volume 82.7 fL (80-100); Mean Platelet Volume 8.9 fL (7.4-10.4); Monocytes # (auto) 0.98 K/uL (0.11-0.59); Monocytes % (auto) 10.2 %; Neutrophils # (auto) 6.55 K/uL (1.4-6.5); Neutrophils % (auto) 68.2 %; Platelet Count 342 K/uL (130-400); RDW Standard Deviation 48.4 fL (36.4-46.3); Red Blood Count 3.69 M/uL (4.7-6.1); White Blood Count 9.61 K/uL (4.8-10.8)
[2019-04-22 11:29] LABS: Partial Thromboplastin Ratio 1.1; Partial Thromboplastin Time 29.6 Seconds (21.0-31.0)
[2019-04-22 11:31] LABS: Alanine Aminotransferase 52 U/L (12-78); Albumin Level 3.2 gm/dl (3.4-5.0); Aspartate Aminotransferase 21 U/L (15-37); BUN Creatinine Ratio 21.8 (10-20); Blood Urea Nitrogen 34 mg/dl (7-18); Calcium 8.2 mg/dl (8.5-10.1); Carbon Dioxide 18 mmol/L (21-32); Chloride 112 mmol/L (98-107); Est GFR (African American) 55.1; Est GFR (Non-African American) 47.5; Glucose 170 mg/dl (70-99); Potassium 4.1 mmol/L (3.5-5.1); Sodium 138 mmol/L (136-145)
[2019-04-22 11:34] LABS: Albumin Globulin Ratio 0.8 (0.9-2); Alkaline Phosphatase 111 U/L (45-117); Bilirubin,Total 0.2 mg/dl (0.2-1); Total Protein 7.2 gm/dl (6.4-8.2)
[2019-04-22 11:55] LABS: INR 1.1 (0.9-1.1); Prothrombin Time 11.4 Seconds (9.0-12.0)
--- NOTE | 2019-04-22 13:10 | Ultrasound Report ---
ULTRASOUND RIGHT GROIN VASCULAR CLINICAL HISTORY: Recent arterial bypass and angioplasty. Bleeding. COMPARISON STUDY: Right lower extremity arterial ultrasound dated 01/28/2019. The CT angiogram of the right lower extremity dated 04/18/2019. TECHNIQUE: Real-time, grayscale, and color Doppler sonography of the right groin is performed. FINDINGS: There is a large complex collection identified in the right groin at the site of interest w hich measures 12.8 x 4.8 x 4.3 cm. There is a pseudoaneurysm at this site which measures 2.8 x 1.1 x 1.9 cm, and this is located near the common femoral artery anastomosis of the lower externally bypass . The neck of the pseudoaneurysm measures 0.2 cm. The right common femoral artery is patent with [place] measuring up to 349 cm/s. The right external iliac artery is patent with velocities measuring up to 221 cm/s. The bypass in the right groin is patent with velocities measuring up to 594 cm/s in t he proximal thigh. IMPRESSION: 1. There is a large hematoma in the right groin with associated pseudocyst as detailed above. The hem atoma appears increased in size from the 04/18/2019 CT scan. 2. The bypass is patent noting elevated velocities. Dictated: 04/22/2019 12:52 PM Transcribed: 04/22/2019 1:03 PM Sharla [id number] Ranjit Electronically signed by: Antwon Osborn M.D. 04/22/2019 1:08 PM
[2019-04-22] MEDS ORDERED: fentaNYL citrate 100 MCG/2 ML VIAL IV STA (16:17)
[2019-04-22] MEDS ORDERED: SODIUM CHLORIDE 0.9% 1000ML 500 ML IV ONE (16:54)
--- NOTE | 2019-04-22 16:54 | Emergency Department Note ---
Entered by Yolanda Morris acting as a scribe for Matthew Singh MD History of Present Illness General Chief complaint: Bleeding Stated complaint: BLEEDING FROM LEGS Time Seen by Provider: 04/22/19 11:11 Source: patient History of Present Illness Provider complaint: bleeding Onset (ago): day(s) 1 Location: abdomen, lower extremity and right Pain Consistency: + intermittent Maximum Pain Intensity: 10 Quality: + other (bleeding) Associated symptoms: + denies other symptoms The patient is a 59 y/o male w/ PMHx of hematomas and diabetes, who presents to the ED w/ CC of intermittent bleeding wounds on the right leg beginning prior to arrival. The patient states that his two smaller wounds were redressed yesterday by the home nurse and at 1am the bandages were soaked with blood when he changed them, then this morning prior to arrival the bleeding became worse and he came to the emergency department. He was seen three days ago for the same issue by Dr. Singh. Denies any other symptoms. Home Medications Home Medications Medication Instructions Recorded Confirmed Type ondansetron HCl 4 mg tablet 4 mg PO BID PRN 03/10/19 04/22/19 History insulin glargine (U-100) 100 22 unit SUBCUT BID #1 ml 03/19/19 04/22/19 History unit/mL (3 mL) subcutaneous pen simvastatin 20 mg tablet 20 mg PO HS #90 tab 04/12/19 04/22/19 Rx amlodipine [Norvasc] 10 mg PO QAM 04/18/19 04/22/19 History cadexomer iodine [Iodosorb] 40 g TOP MOWEFR 04/18/19 04/22/19 History insulin lispro [Humalog KwikPen 12 units SQ AC 04/18/19 04/22/19 History Insulin] prochlorperazine maleate 10 mg PO Q6H PRN 04/18/19 04/22/19 History [Compazine] rivaroxaban [Xarelto] 20 mg PO QAM 04/18/19 04/22/19 History sulfamethoxazole-trimethoprim 2 tab PO BID 04/18/19 04/22/19 History [Bactrim DS] hydrocodone 5 mg-acetaminophen 325 1 tab PO Q6H PRN #30 tab 04/21/19 04/22/19 Rx mg tablet Allergies Allergy/AdvReac Type Severity Reaction Status Date / Time No Known Allergies Allergy Verified 04/22/19 12:06 Past Med/Surg History Medical History Ischemic ulcer of both feet (Acute) Bladder cancer metastasized to bone (Chronic) Bladder cancer (Chronic) Cancer (Chronic) NEWLY DX WITH BLADDER CANCER, BLOODY URINE, STARTED CHEMO APR 2018, FINISHED JULY 2018 Diabetes mellitus, type 2 (Chronic) Diverticulitis (Chronic) GERD (gastroesophageal reflux disease) (Chronic) Hypercholesteremia (Chronic) Hypertension (Chronic) Malignant neoplasm of bladder (Chronic) 04/06/19 TURBT 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 Hematuria (Resolved) Rupture of bowel (Resolved) H/O ruptured sigmoid colon which resulted in right transverse colostomy, a later surgery for sigmoid resection, and later colostomy reversal; Surgical History H/O cystoscopy (Resolved) History of colostomy reversal (Resolved) History of surgery (Resolved) A-PORT PLACEMENT Hx of colostomy (Resolved) RUPTURED DIVERTICULITIS Status post chemotherapy (Resolved) Chemo 05/20/18 thru 08/12/18 for bladder cancer Family History Mother Hypertension Diabetes Father , in his 60's Prostate cancer Brother Stroke Hypertension Diabetes Lyme disease Brother No problems noted. Brother No problems noted. Sister No problems noted. Sister No problems noted. Daughter Skin cancer Hypertension Hypothyroidism Social History Preferred Language: [place] Communication Ability: Effective Visual Impairment: No Limitations Hearing Ability: Normal Lap Regulator Required: No Beliefs That Will Affect Care: None marital status: Current Living Situation: Family current occupational status: unemployed current occupation: Disability Feels Safe at Home: Yes Smoking Status: Current every day smoker Tobacco Type: cigarettes ; Cigarettes Per Day: HX OF 1PPD X45 YEARS ; Second Hand Exposure: No ; Hx Alcohol Use: No Hx Substance Use: No caffeine: Yes (4 cups/day) during the past year weight has: decreased > 10 lbs Review of Systems See HPI for pertinent positives & negatives. and A total of 10 systems reviewed and were otherwise negative Physical Exam Vital Signs Vital Signs - 24 hr 04/22/19 10:36 04/22/19 10:53 04/22/19 10:54 Temperature 36.7 C Temperature Source Oral Sepsis Recent Fever Within 48 Hours No Sepsis New/Unexplained Change in Mental Status No Sepsis Action Taken by Nursing No Action Required Pulse Rate 91 H 84 79 Pulse Rate from SpO2 Sensor 84 79 Respiratory Rate 20 19 18 Blood Pressure 133/67 157/72 H Blood Pressure Mean 89 100 Pulse Oximetry 99 97 97 Oxygen Delivery Method Room Air 04/22/19 11:00 04/22/19 11:10 04/22/19 11:20 Temperature Temperature Source Sepsis Recent Fever Within 48 Hours Sepsis New/Unexplained Change in Mental Status Sepsis Action Taken by Nursing Pulse Rate 79 85 84 Pulse Rate from SpO2 Sensor 76 86 84 Respiratory Rate 18 19 14 Blood Pressure 142/86 H Blood Pressure Mean 104 Pulse Oximetry 97 96 96 Oxygen Delivery Method 04/22/19 11:30 04/22/19 11:33 04/22/19 11:40 Temperature Temperature Source Sepsis Recent Fever Within 48 Hours Sepsis New/Unexplained Change in Mental Status Sepsis Action Taken by Nursing Pulse Rate 78 80 Pulse Rate from SpO2 Sensor 78 80 Respiratory Rate 19 17 Blood Pressure 145/84 H Blood Pressure Mean 104 Pulse Oximetry 98 94 94 Oxygen Delivery Method Room Air 04/22/19 11:50 04/22/19 12:00 04/22/19 12:59 Temperature Temperature Source Sepsis Recent Fever Within 48 Hours Sepsis New/Unexplained Change in Mental Status Sepsis Action Taken by Nursing Pulse Rate 84 80 89 Pulse Rate from SpO2 Sensor 85 80 Respiratory Rate 18 22 Blood Pressure 152/72 H 143/71 H Blood Pressure Mean 98 95 Pulse Oximetry 93 96 Oxygen Delivery Method 04/22/19 13:00 04/22/19 13:10 04/22/19 13:20 Temperature Temperature Source Sepsis Recent Fever Within 48 Hours Sepsis New/Unexplained Change in Mental Status Sepsis Action Taken by Nursing Pulse Rate 89 92 H 85 Pulse Rate from SpO2 Sensor Respiratory Rate Blood Pressure 138/71 Blood Pressure Mean 93 Pulse Oximetry Oxygen Delivery Method 04/22/19 13:30 04/22/19 13:40 04/22/19 13:50 Temperature Temperature Source Sepsis Recent Fever Within 48 Hours Sepsis New/Unexplained Change in Mental Status Sepsis Action Taken by Nursing Pulse Rate 95 H 92 H 97 H Pulse Rate from SpO2 Sensor Respiratory Rate Blood Pressure 147/81 H Blood Pressure Mean 103 Pulse Oximetry Oxygen Delivery Method 04/22/19 14:00 04/22/19 14:10 04/22/19 14:20 Temperature Temperature Source Sepsis Recent Fever Within 48 Hours Sepsis New/Unexplained Change in Mental Status Sepsis Action Taken by Nursing Pulse Rate 90 90 92 H Pulse Rate from SpO2 Sensor Respiratory Rate Blood Pressure 127/70 Blood Pressure Mean 89 Pulse Oximetry Oxygen Delivery Method 04/22/19 14:30 04/22/19 14:40 04/22/19 14:50 Temperature Temperature Source Sepsis Recent Fever Within 48 Hours Sepsis New/Unexplained Change in Mental Status Sepsis Action Taken by Nursing Pulse Rate 94 H 95 H 91 H Pulse Rate from SpO2 Sensor Respiratory Rate Blood Pressure 142/77 H Blood Pressure Mean 98 Pulse Oximetry Oxygen Delivery Method 04/22/19 15:00 04/22/19 15:30 04/22/19 16:00 Temperature Temperature Source Sepsis Recent Fever Within 48 Hours Sepsis New/Unexplained Change in Mental Status Sepsis Action Taken by Nursing Pulse Rate 88 88 97 H Pulse Rate from SpO2 Sensor Respiratory Rate Blood Pressure 139/72 151/75 H 145/76 H Blood Pressure Mean 94 100 99 Pulse Oximetry Oxygen Delivery Method 04/22/19 16:30 Temperature Temperature Source Sepsis Recent Fever Within 48 Hours Sepsis New/Unexplained Change in Mental Status Sepsis Action Taken by Nursing Pulse Rate 92 H Pulse Rate from SpO2 Sensor Respiratory Rate Blood Pressure 142/74 H Blood Pressure Mean 96 Pulse Oximetry Oxygen Delivery Method GENERAL: Well appearing, well nourished, NAD, non-toxic. EYE EXAM: Normal conjunctiva. PERRL, no anisocoria and EOM's grossly intact w/o pain. OROPHARYNX: Moist mucus membranes. Grossly normal dentition. NECK: Supple, no nuchal rigidity, no adenopathy, non-tender. No signs of meningismus. LUNGS: Clear to auscultation. Normal chest wall mechanics. HEART: NSR, no MRG. ABDOMEN: Abdomen soft, non-tender, normo-active bowel sounds, no masses, no rebound or guarding. Non-healing but noninfectious appearing wound 2 x 2cm on right lower abdomen. BACK: No CVA TTP. SKIN: No rashes and no bruising. UPPER EXTREMITIES: Upper extremities are grossly normal. LOWER EXTREMITIES: No pitting edema. No calf pain. Bilateral foot bandages in place. Two separate slightly bleeding wounds over medial thigh .5 cm x.5 cm each . NEURO EXAM: A&O x3, cranial nerves II-XII grossly intact, normal speech, moves all 4 extremities on command w/o issue. Course 1123: Past medical records reviewed. The patient was evaluated in room C03. A complete history and physical exam was performed. 1408: I spoke with Gisele Durán vascular COURTNEY, she recommends no compression and continued blood thinner for the patient. 1431: I spoke with Dr. [facility] vascular. He will evaluate for further management. Administered Medications Discontinued Medications Fentanyl Citrate (Fentanyl Citrate) 50 mcg IV NOW STA Stop: 04/22/19 16:18 Last Admin: 04/22/19 16:44 Dose: 50 mcg Documented by: [id number] Medical Decision Making Medical Records Attestation: I reviewed the patient's medical records. Transferred to [facility] where he had a right iliofemoral endarterectomy. 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 Completed in January. Home Medications Current Medication List: was personally reviewed by me Laboratory Data Attestation: I reviewed the patient's lab results. Result diagrams: 04/22/19 10:54 04/22/19 10:54 Lab Results 04/22/19 04/22/19 04/22/19 Range/Units 10:15 10:54 10:54 WBC 9.61 (4.8-10.8) K/uL RBC 3.69 L (4.7-6.1) M/uL Hgb 10.3 L (14.0-18.0) g/dL Hct 30.5 L (42-52) % MCV 82.7 (80-100) fL MCH 27.9 (25-34) pg MCHC 33.8 (32-36) g/dL RDW Std Deviation 48.4 H (36.4-46.3) fL RDW Coeff of Diane 16.0 H (11.5-14.5) % Plt Count 342 (130-400) K/uL MPV 8.9 (7.4-10.4) fL Immature Gran % (Auto) 0.2 % Neut % (Auto) 68.2 % Lymph % (Auto) 15.3 % [place] % (Auto) 10.2 % Eos % (Auto) 5.7 % Baso % (Auto) 0.4 % Immature Gran # (Auto) 0.02 (0.00-0.02) K/uL Neut # (Auto) 6.55 H (1.4-6.5) K/uL Lymph # (Auto) 1.47 (1.2-3.4) K/uL [place] # (Auto) 0.98 H (0.11-0.59) K/uL Eos # (Auto) 0.55 H (0-0.5) K/uL Baso # (Auto) 0.04 (0-0.2) K/uL PT 11.4 (9.0-12.0) Seconds INR 1.1 (0.9-1.1) APTT (21.0-31.0) Seconds PTT Ratio Sodium (136-145) mmol/L Potassium (3.5-5.1) mmol/L Chloride (98-107) mmol/L Carbon Dioxide (21-32) mmol/L Anion Gap (3-11) BUN (7-18) mg/dl Creatinine (0.6-1.4) mg/dl Est Cr Clr Drug Dosing Est GFR ( Amer) Est GFR (Non-Af Amer) BUN/Creatinine Ratio (10-20) Glucose (70-99) mg/dl Calcium (8.5-10.1) mg/dl Total Bilirubin (0.2-1) mg/dl AST (15-37) U/L ALT (12-78) U/L Alkaline Phosphatase (45-117) U/L Total Protein (6.4-8.2) gm/dl Albumin (3.4-5.0) gm/dl Globulin (2.5-4.0) gm/dl Albumin/Globulin Ratio (0.9-2) Blood Type A Positive Antibody Screen NEGATIVE 04/22/19 04/22/19 Range/Units 10:54 10:54 WBC (4.8-10.8) K/uL RBC (4.7-6.1) M/uL Hgb (14.0-18.0) g/dL Hct (42-52) % MCV (80-100) fL MCH (25-34) pg MCHC (32-36) g/dL RDW Std Deviation (36.4-46.3) fL RDW Coeff of Diane (11.5-14.5) % Plt Count (130-400) K/uL MPV (7.4-10.4) fL Immature Gran % (Auto) % Neut % (Auto) % Lymph % (Auto) % [place] % (Auto) % Eos % (Auto) % Baso % (Auto) % Immature Gran # (Auto) (0.00-0.02) K/uL Neut # (Auto) (1.4-6.5) K/uL Lymph # (Auto) (1.2-3.4) K/uL [place] # (Auto) (0.11-0.59) K/uL Eos # (Auto) (0-0.5) K/uL Baso # (Auto) (0-0.2) K/uL PT (9.0-12.0) Seconds INR (0.9-1.1) APTT 29.6 (21.0-31.0) Seconds PTT Ratio 1.1 Sodium 138 (136-145) mmol/L Potassium 4.1 (3.5-5.1) mmol/L Chloride 112 H (98-107) mmol/L Carbon Dioxide 18 L (21-32) mmol/L Anion Gap 8.0 (3-11) BUN 34 H (7-18) mg/dl Creatinine 1.57 H (0.6-1.4) mg/dl Est Cr Clr Drug Dosing Not Reportable Est GFR ( Amer) 55.1 Est GFR (Non-Af Amer) 47.5 BUN/Creatinine Ratio 21.8 H (10-20) Glucose 170 H (70-99) mg/dl Calcium 8.2 L (8.5-10.1) mg/dl Total Bilirubin 0.2 (0.2-1) mg/dl AST 21 (15-37) U/L ALT 52 (12-78) U/L Alkaline Phosphatase 111 (45-117) U/L Total Protein 7.2 (6.4-8.2) gm/dl Albumin 3.2 L (3.4-5.0) gm/dl Globulin 4.0 (2.5-4.0) gm/dl Albumin/Globulin Ratio 0.8 L (0.9-2) Blood Type Antibody Screen Imaging Data Radiologist's Impression: Radiology results as stated below per my review and the radiologist's interpretation: ULTRASOUND RIGHT GROIN VASCULAR CLINICAL HISTORY: Recent arterial bypass and angioplasty. Bleeding. COMPARISON STUDY: Right lower extremity arterial ultrasound dated 01/28/2019. The CT angiogram of the right lower extremity dated 04/18/2019. TECHNIQUE: Real-time, grayscale, and color Doppler sonography of the right groin is performed. FINDINGS: There is a large complex collection identified in the right groin at the site of interest which measures 12.8 x 4.8 x 4.3 cm. There is a pseudoaneu rysm at this site which measures 2.8 x 1.1 x 1.9 cm, and this is located near the common femoral artery anastomosis of the lower externally bypass. The neck of the pseudoaneurysm measures 0.2 cm. The right common femoral artery is patent with velocities measuring up to 349 cm/s. The right external iliac artery is patent with velocities measuring up to 221 cm/s. The bypass in the right groin is patent with velocities measuring up to 594 cm/s in the proximal thigh. IMPRESSION: 1. There is a large hematoma in the right groin with associated pseudocyst as detailed above. The hematoma appears increased in size from the 04/18/2019 CT scan. 2. The bypass is patent noting elevated velocities. Dictated: 04/22/2019 12:52 PM Transcribed: 04/22/2019 1:03 PM Sharla [id number] [email or web address] Electronically signed by: Antwon Osborn M.D. 04/22/2019 1:08 PM Blood Pressure Blood Pressure Findings: Elevated blood pressure Blood Pressure Disposition: Referred to patients primary care provider MDM Narrative Differential diagnosis: coagulopathy, med side effect, pseudoaneurysm, non- healing wound, hematoma The patient is a 59 y/o male w/ PMHx of hematomas and diabetes, who presents to the ED w/ CC of intermittent bleeding wounds on the right leg beginning prior to arrival. Patient was seen and evaluated the bedside. I did see and evaluate this patient several days ago and the patient presented with similar symptoms with bleeding from the right lower extremity. The patient did have a prior angioplasty. Patient did have an ultrasound completed which does show a pseudo-aneurysm and associated hematoma which is enlarging. I did speak with the on-call vascular surgery PA and then subsequently did speak with the on-call vascular surgeon Dr. Rajan who will admit the patient. Patient was admitted to Dr. Rajan. They stated that they would hold the Xarelto but no further compression measures to be applied. Patient did have a slightly decreased bicarb and creatinine was rising but still showed CKD stage III. Patient was ordered some IV fluids. Impression & Plan Bleeding from wound, Anemia, Hematoma of thigh, History of anticoagulant use Discharge Plan Visit Data Chief Complaint: Bleeding Stated Complaint: BLEEDING FROM LEGS ED Provider: Matthew Singh Discharge Problem: Bleeding from wound, Anemia, Hematoma of thigh, History of anticoagulant use Patient Disposition: Being Evaluated by Hospitalist Forms Stand Alone Forms: My [facility] Prescriptions Prescriptions: No Action ondansetron HCl [Zofran] 4 mg tablet 4 mg PO BID PRN (Reason: Nausea) RF: 0 simvastatin 20 mg tablet 20 mg PO HS Qty: 90 RF: 3 hydrocodone-acetaminophen 5-325 mg tablet 1 tab PO Q6H PRN (Reason: pain) Qty: 30 RF: 0 Lantus Solostar U-100 Insulin 100 unit/mL (3 mL) insulin pen 22 unit subcut BID Qty: 1 RF: 0 Iodosorb 0.9 % gel 40 g TOP MOWEFR RF: 0 prochlorperazine maleate [Compazine] 10 mg tablet 10 mg PO Q6H PRN (Reason: nausea and vomiting) RF: 0 sulfamethoxazole-trimethoprim [Bactrim DS] 800-160 mg tablet 2 tab PO BID RF: 0 amlodipine [Norvasc] 10 mg tablet 10 mg PO QAM RF: 0 insulin lispro [Humalog KwikPen Insulin] 100 unit/mL insulin pen 12 units SQ AC RF: 0 Xarelto 20 mg tablet 20 mg PO QAM RF: 0 Referrals Referrals: Donna Cano DO [Primary Care Provider] - Discharge Problem: Anemia Qualifiers: Anemia type: unspecified type Qualified Code(s): D64.9 - Anemia, unspecified Hematoma of thigh Qualifiers: Encounter type: initial encounter Laterality: right Qualified Code(s): S70.11XA - Contusion of right thigh, initial encounter The scribe's documentation has been prepared under my direction and personally reviewed by me in its entirety. I confirm that the note above accurately reflects all work, treatment, procedures, and medical decision making performed by me.
[2019-04-22] MEDS ORDERED: SODIUM CHLORIDE 0.9% 1000ML 1,000 ML IV SCH (18:00)
[2019-04-22] MEDS ORDERED: ONDANSETRON 4 MG TAB PO PRN (18:01)
[2019-04-22] MEDS ORDERED: PROCHLORPERAZINE MALEATE 10 MG TAB PO PRN (18:01)
[2019-04-22] MEDS ORDERED: DEXTROSE 50% 50 ML SYRINGE IV PRN (18:30)
[2019-04-22] MEDS ORDERED: GLUCOSE 10 TABS/TUBE PO PRN (18:30)
[2019-04-22] MEDS ORDERED: GLUCAGON FOR INJ 1 MG VIAL IM PRN (18:30)
[2019-04-22] MEDS ORDERED: GLUCOSE 40% GEL 15 GM TUBE PO PRN (18:30)
[2019-04-22] MEDS: INSULIN ASPART 100 UNITS/ML 3 ML PEN SC SCH (19:13)
[2019-04-22 19:30] LABS: Basophils # (auto) 0.05 K/uL (0-0.2); Basophils % (auto) 0.6 %; Eosinophils # (auto) 0.43 K/uL (0-0.5); Eosinophils % (auto) 5.1 %; Hematocrit (blood only) 29.3 % (42-52); Hemoglobin 9.8 g/dL (14.0-18.0); Immature Granulocytes # (auto) 0.03 K/uL (0.00-0.02); Immature Granulocytes % (auto) 0.4 %; Lymphocytes # (auto) 1.61 K/uL (1.2-3.4); Lymphocytes % (auto) 19.1 %; Mean Corpuscular Hgb Conc 33.4 g/dL (32-36); Mean Corpuscular Volume 82.8 fL (80-100); Mean Platelet Volume 8.7 fL (7.4-10.4); Monocytes # (auto) 0.69 K/uL (0.11-0.59); Monocytes % (auto) 8.2 %; Neutrophils % (auto) 66.6 %; Platelet Count 320 K/uL (130-400); RDW Coefficient of Variation 15.9 % (11.5-14.5); Red Blood Count 3.54 M/uL (4.7-6.1); White Blood Count 8.41 K/uL (4.8-10.8)
[2019-04-22 19:50] LABS: BUN Creatinine Ratio 20.9 (10-20); Calcium 8.3 mg/dl (8.5-10.1); Creatinine Clr Calc Pharmacy 46.2 ml/min; Est GFR (African American) 53.5; Est GFR (Non-African American) 46.1; Potassium 4.3 mmol/L (3.5-5.1)
[2019-04-22 19:53] LABS: INR 1.2 (0.9-1.1); Prothrombin Time 11.7 Seconds (9.0-12.0)
[2019-04-22] MEDS: INSULIN GLARGINE SOLOSTAR 100 UNITS/ML 3 ML PEN SQ SCH (21:04)
[2019-04-22] MEDS: SULFAMETHOXAZOLE/TRIMETHOPRIM DS 800/160MG TAB PO SCH (21:07)
[2019-04-22] MEDS: SIMVASTATIN 20 MG TAB PO SCH (21:07)
[2019-04-22 21:33] LABS: Appearance Urine Turbid (Clear); Bacteria Urine Automated 3+ (Negative); Bilirubin Urine Negative (Negative); Blood Urine 3+ (Negative); Color Urine Orange; Epithelial Cell Urine Auto 20-30 /lpf (0-5); Glucose Urine UA Negative (Negative); Ketones Urine Negative (Negative); Leukocyte Esterase Urine 3+ (Negative); Nitrite Urine Positive (Negative); Specific Gravity Urine 1.018 (1.000-1.030); Urobilinogen Urine Negative (Negative); WBC Urine Automated >30 /hpf (0-5)
[2019-04-22 22:03] LABS: Protein Urine 2+ (Negative)
[2019-04-22 22:06] LABS: Triple Phosphate Crystal Urine Present (None Prsent)
[2019-04-22] MEDS: OXYCODONE/ACETAMINOPHEN 5mg/325mg TAB PO PRN (22:46)
[2019-04-23] MEDS ORDERED: VANCOMYCIN HCL 1,500 MG in SODIUM CHLORIDE 0.9% 500 ML IV SCH (06:00)
[2019-04-23] MEDS ORDERED: CEFAZOLIN 1000MG 1,000 MG/7.5 ML SYR IV SCH (06:00)
--- NOTE | 2019-04-23 07:35 | History & Physical Report ---
Date of Service April 23, 2019 Assessment & Plan (1) Pseudoaneurysm of femoral artery: Patient is admitted at this time. Will undergo exploration of the groin in the a.m. He will be started on antibiotics. I have discussed the risks options and benefits of the procedure with the patient. The patient understands the risks options and benefits and agrees to the procedure. History of Present Illness Chief Complaint: Bleeding right groin. Primary Care Provider: Donna Cano DO This is a 59-year-old gentleman who underwent right iliofemoral endarterectomy and patch as well as a right femoropopliteal bypass in January of this year at [place]. He returns to the hospital today with bleeding from his right groin and increasing hematoma of the thigh. He does have a small opening in the thigh wound. Claims the bleeding has been off and on but has been gotten progressively worse. Is admitted this time for observation and exploration of the wound. Allergies Allergy/AdvReac Type Severity Reaction Status Date / Time No Known Allergies Allergy Verified 04/22/19 12:06 Home Medications Home Medications Medication Instructions Recorded Confirmed Type ondansetron HCl 4 mg tablet 4 mg PO BID PRN 03/10/19 04/22/19 History insulin glargine (U-100) 100 22 unit SUBCUT BID #1 ml 03/19/19 04/22/19 History unit/mL (3 mL) subcutaneous pen simvastatin 20 mg tablet 20 mg PO HS #90 tab 04/12/19 04/22/19 Rx amlodipine [Norvasc] 10 mg PO QAM 04/18/19 04/22/19 History cadexomer iodine [Iodosorb] 40 g TOP MOWEFR 04/18/19 04/22/19 History insulin lispro [Humalog KwikPen 12 units SQ AC 04/18/19 04/22/19 History Insulin] prochlorperazine maleate 10 mg PO Q6H PRN 04/18/19 04/22/19 History [Compazine] rivaroxaban [Xarelto] 20 mg PO QAM 04/18/19 04/22/19 History sulfamethoxazole-trimethoprim 2 tab PO BID 04/18/19 04/22/19 History [Bactrim DS] hydrocodone 5 mg-acetaminophen 325 1 tab PO Q6H PRN #30 tab 04/21/19 04/22/19 Rx mg tablet Past Med/Surg History Medical History Ischemic ulcer of both feet (Acute) Bladder cancer metastasized to bone (Chronic) Bladder cancer (Chronic) Cancer (Chronic) NEWLY DX WITH BLADDER CANCER, BLOODY URINE, STARTED CHEMO APR 2018, FINISHED JULY 2018 Diabetes mellitus, type 2 (Chronic) Diverticulitis (Chronic) GERD (gastroesophageal reflux disease) (Chronic) Hypercholesteremia (Chronic) Hypertension (Chronic) Malignant neoplasm of bladder (Chronic) 04/06/19 TURBT 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 Hematuria (Resolved) Rupture of bowel (Resolved) H/O ruptured sigmoid colon which resulted in right transverse colostomy, a later surgery for sigmoid resection, and later colostomy reversal; Surgical History H/O cystoscopy (Resolved) History of colostomy reversal (Resolved) History of surgery (Resolved) A-PORT PLACEMENT Hx of colostomy (Resolved) RUPTURED DIVERTICULITIS Status post chemotherapy (Resolved) Chemo 05/20/18 thru 08/12/18 for bladder cancer Family History Mother Hypertension Diabetes Father , in his 60's Prostate cancer Brother Stroke Hypertension Diabetes Lyme disease Brother No problems noted. Brother No problems noted. Sister No problems noted. Sister No problems noted. Daughter Skin cancer Hypertension Hypothyroidism Social History Preferred Language: Sudanese Communication Ability: Effective Visual Impairment: No Limitations Hearing Ability: Normal Kid Club Attendant Required: No Beliefs That Will Affect Care: None marital status: Current Living Situation: Family Current Living Situation Comment: mother and brother current occupational status: unemployed current occupation: Disability Other Information That Helps Us Care for You: No Feels Safe at Home: Yes Safety Concerns: Feels Safe At This Time Smoking Status: Current every day smoker Tobacco Type: cigarettes ; Cigarettes Per Day: HX OF 1PPD X45 YEARS ; Do You Dip or Chew Tobacco: No ; Second Hand Exposure: No ; Tobacco Cessation Education Requested by Patient: No Hx Alcohol Use: No Hx Substance Use: No caffeine: Yes (4 cups/day) during the past year weight has: decreased > 10 lbs Review of Systems All systems reviewed & are unremarkable except as noted in HPI & below Physical Exam Constitutional: WD/WN, vitals as above Neck: trachea midline Respiratory: normal respiratory effort, lungs clear to auscultation Cardiovascular: RRR, no murmur, no edema Extremities: normal capillary refill There is bleeding noted on the dressing from the right groin. The thigh wound also has a small open area. Gastrointestinal (Abdomen): normal bowel sounds, soft, nontender, no hepatosplenomegaly Skin: no rashes, warm and dry Neurologic: patellar DTR's 2+ bilat, sensation intact and PERRL, EOMI, accommodation nl, no face palsy, no dysarthria Psychiatric: A+Ox3, euthymic affect Results & Data Vital Signs (Past 12 Hours) Vital Signs Temp Pulse Resp BP Pulse Ox 04/22/19 23:07 36.7 C 88 16 154/73 H 95 Ultrasound shows pseudoaneurysm right groin.
[2019-04-23] MEDS ORDERED: VANCOMYCIN CONSULT ACTIVE PRN ×2 (07:40→14:49)
--- NOTE | 2019-04-23 07:42 | History & Physical Bridge Note ---
Date of Service April 23, 2019 History & Physical Bridge Note I have examined the patient, reviewed the History & Physical and in the interval since the performance of the History & Physical I have noted the following changes of clinical significance: no changes noted
[2019-04-23] MEDS: INSULIN GLARGINE SOLOSTAR 100 UNITS/ML 3 ML PEN SQ SCH ×2 (08:46→20:03)
[2019-04-23] MEDS: SULFAMETHOXAZOLE/TRIMETHOPRIM DS 800/160MG TAB PO SCH (08:47)
[2019-04-23] MEDS: AMLODIPINE BESYLATE 5 MG TAB PO SCH (08:47)
--- NOTE | 2019-04-23 10:30 | Anesthesiology Consultation ---
Date of Service April 23, 2019 Assessment & Plan (1) Encounter for pre-operative examination: Chart Review Chart Review: Acceptable Risk for Surgery and Patient NOT seen in Pre Admission Testing Consults Requested none History Surgery Operation Date: 04/23/19 11:10 Proposed Procedures p Right Groin Exploration - aRfael Rajan MD Height/Weight Height: 5 ft 7 in Weight: 78.6 kg Allergies Allergy/AdvReac Type Severity Reaction Status Date / Time No Known Allergies Allergy Verified 04/22/19 12:06 Medications Home Medications Medication Instructions Recorded Confirmed Last Taken ondansetron HCl 4 mg tablet 4 mg PO BID PRN 03/10/19 04/22/19 04/18/19 insulin glargine (U-100) 100 22 unit SUBCUT BID #1 ml 03/19/19 04/22/19 04/22/19 unit/mL (3 mL) subcutaneous pen simvastatin 20 mg tablet 20 mg PO HS #90 tab 04/12/19 04/22/19 04/21/19 amlodipine [Norvasc] 10 mg PO QAM 04/18/19 04/22/19 04/22/19 cadexomer iodine [Iodosorb] 40 g TOP MOWEFR 04/18/19 04/22/19 04/21/19 insulin lispro [Humalog KwikPen 12 units SQ AC 04/18/19 04/22/19 04/22/19 08:00 Insulin] prochlorperazine maleate 10 mg PO Q6H PRN 04/18/19 04/22/19 Unknown [Compazine] rivaroxaban [Xarelto] 20 mg PO QAM 04/18/19 04/22/19 04/22/19 sulfamethoxazole-trimethoprim 2 tab PO BID 04/18/19 04/22/19 04/22/19 [Bactrim DS] hydrocodone 5 mg-acetaminophen 325 1 tab PO Q6H PRN #30 tab 04/21/19 04/22/19 04/22/19 08:00 mg tablet Active Medications Generic Name Dose Route Start Last Admin Trade Name Freq PRN Reason Stop Dose Admin Amlodipine Besylate 10 mg 04/23/19 09:00 04/23/19 08:47 Norvasc PO 05/23/19 08:59 10 mg QAM REYNALDO Administration Sodium Chloride 1,000 mls @ 50 mls/hr 04/22/19 18:00 04/23/19 08:50 Nss 1000ml IV 04/23/19 13:59 0 mls/hr .Q20H REYNALDO Infusion Vancomycin HCl 1,500 mg/ 530 mls @ 200 mls/hr 04/23/19 06:00 04/23/19 08:45 Sodium Chloride IV 04/23/19 18:00 200 mls/hr PREOP REYNALDO Administration Insulin Aspart 12 units 04/22/19 19:00 04/22/19 19:13 Novolog Flexpen SC 05/22/19 18:59 12 units AC REYNALDO Administration Insulin Glargine 22 units 04/22/19 21:00 04/23/19 08:46 Lantus Solostar Pen SQ 05/22/19 20:59 22 units BID REYNALDO Administration Miscellaneous 1 ea 04/23/19 00:00 04/22/19 23:22 Order Awaiting Action N/A 05/23/19 00:00 Not Given QS REYNALDO Oxycodone/Acetaminophen 1 tab 04/22/19 22:33 04/22/19 22:46 Percocet 5mg/325mg PO 05/06/19 22:32 1 tab Q4H PRN Administration Pain Simvastatin 20 mg 04/22/19 21:00 04/22/19 21:07 Zocor PO 05/22/19 20:59 20 mg HS REYNALDO Administration Trimethoprim/Sulfamethoxazole 2 tab 04/22/19 21:00 04/23/19 08:47 Septra Ds 800/160mg Tab PO 05/02/19 20:59 2 tab BID REYNALDO Administration NPO Date Last Intake of Fluids: 04/23/19 Time Last Intake of Fluids: 00:00 Date Last Intake of Solids: 04/23/19 Time Last Intake of Solids: 00:00 Past Medical History Medical History Ischemic ulcer of both feet (Acute) Bladder cancer metastasized to bone (Chronic) Bladder cancer (Chronic) Cancer (Chronic) NEWLY DX WITH BLADDER CANCER, BLOODY URINE, STARTED CHEMO APR 2018, FINISHED JULY 2018 Diabetes mellitus, type 2 (Chronic) Diverticulitis (Chronic) GERD (gastroesophageal reflux disease) (Chronic) Hypercholesteremia (Chronic) Hypertension (Chronic) Malignant neoplasm of bladder (Chronic) 04/06/19 TURBT 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 Hematuria (Resolved) Rupture of bowel (Resolved) H/O ruptured sigmoid colon which resulted in right transverse colostomy, a later surgery for sigmoid resection, and later colostomy reversal; Exercise / Class Metabolic Activity III < 4 Walking/Shop/Light housework Past Family History Family History Mother Hypertension Diabetes Father , in his 60's Prostate cancer Brother Stroke Hypertension Diabetes Lyme disease Brother No problems noted. Brother No problems noted. Sister No problems noted. Sister No problems noted. Daughter Skin cancer Hypertension Hypothyroidism Past Surgical History Surgical History H/O cystoscopy (Resolved) History of colostomy reversal (Resolved) History of surgery (Resolved) A-PORT PLACEMENT Hx of colostomy (Resolved) RUPTURED DIVERTICULITIS Status post chemotherapy (Resolved) Chemo 05/20/18 thru 08/12/18 for bladder cancer Past Anesthesia History No Hx of Anesthesia Complications and No Family Hx of Anesthesia Complications History of PONV No Hx of PONV and No Hx of Motion Sickness Social History Smoking Status: Current every day smoker tobacco type: cigarettes Smoking cigarettes per day: HX OF 1PPD X45 YEARS Do You Dip or Chew Tobacco: No Hx Alcohol Use: No Alcohol type: beer alcohol intake frequency: holidays/special occasions only Hx Substance Use: No substance use type: does not use Physical Exam Vital Signs Last Vital Signs Temp 36.9 C 04/23/19 10:50 Pulse 94 H 04/23/19 10:50 Resp 20 04/23/19 10:50 BP 109/82 04/23/19 10:50 Pulse Ox 95 04/23/19 10:50 Testing Laboratory Results 04/22/19 19:09 04/22/19 19:09 PT 11.7 Seconds (9.0-12.0) 04/22/19 19:09 INR 1.2 (0.9-1.1) H 04/22/19 19:09 APTT 29.6 Seconds (21.0-31.0) 04/22/19 10:54 Urine Color [place] 04/22/19 20:08 Urine Appearance Turbid (Clear) A 04/22/19 20:08 Urine pH 8.0 (4.5-7.5) H 04/22/19 20:08 Ur Specific [place] 1.018 (1.000-1.030) 04/22/19 20:08 Urine Protein 2+ (Negative) H 04/22/19 20:08 Urine Glucose (UA) Negative (Negative) 04/22/19 20:08 Urine Ketones Negative (Negative) 04/22/19 20:08 Urine Nitrite Positive (Negative) A 04/22/19 20:08 Ur Leukocyte Esterase 3+ (Negative) H 04/22/19 20:08 Urine WBC (Auto) >30 /hpf (0-5) H 04/22/19 20:08 Urine RBC (Auto) 10-30 /hpf (0-4) H 04/22/19 20:08 U Hyaline Cast (Auto) 1-5 /lpf (0-5) 04/22/19 20:08 U Epithel Cells (Auto) 20-30 /lpf (0-5) H 04/22/19 20:08 Urine Bacteria (Auto) 3+ (Negative) H 04/22/19 20:08 Blood Type A Positive 04/22/19 10:54 Antibody Screen NEGATIVE 04/22/19 10:54 04/23/19 06:02 POC Glucose 112 H Electrocardiogram Date: 03/27/18 Findings: + NSR @ (72) and + RBBB 09/11/2018. HR 72. Normal sinus rhythm Right superior axis deviation Incomplete right bundle branch block Abnormal ECG When compared with ECG of 27-MAR-2018 08:09, No significant change was found Confirmed by SARAN CASAREZ ([id number]) on 09/11/2018 6:15:54 PM Echocardiogram Date: 02/02/19 LV Function: normal RWMA: + none EF 60%
[2019-04-23] MEDS ORDERED: SODIUM CHLORIDE 0.9% 250 ML IV PRN (11:35)
[2019-04-23] MEDS ORDERED: VISIPAQUE IV PRN (12:15)
[2019-04-23] MEDS ORDERED: SURGICEL ABSORB HEMOSTAT 2IN X 14IN TOP ONE (12:15)
[2019-04-23] MEDS ORDERED: BUPIVACAINE/EPINEPHRINE 0.5% MPF 1:200,000 10 ML VIAL INFIL PRN (12:18)
[2019-04-23] MEDS ORDERED: XYLOCAINE 1%/SOD BICARB 20 ML VIAL INFIL ONE (12:19)
[2019-04-23] MEDS ORDERED: HEPARIN SOD (PORCINE) 1000 UNIT/ML 10 ML VIAL IV ONE (12:20)
[2019-04-23] MEDS ORDERED: GELATIN SPONGE SZ 100 EXT PRN (12:20)
[2019-04-23] MEDS ORDERED: BACITRACIN INJ 50,000 UNIT VIAL ONE (12:43)
[2019-04-23] MEDS ORDERED: GELATIN SPONGE SZ 100 EXT ONE (13:10)
[2019-04-23] MEDS ORDERED: BUPIVACAINE/EPINEPHRINE 0.5% MPF 1:200,000 10 ML VIAL INFIL ONE (13:11)
[2019-04-23] MEDS ORDERED: VISIPAQUE IV ONE (13:12)
--- NOTE | 2019-04-23 13:14 | Post Operative Brief Note ---
Immediate Post Op Note v1 Date of Surgery April 23, 2019 Pre & Post Diagnosis Operation Date: 04/23/19 11:10 Pre-Op Diagnosis: Pseudoaneurysm of right femoral artery Post-Op Diagnosis: Pseudoaneurysm of right femoral artery Procedure Operation Date: 04/23/19 11:10 Actual Procedures p Repair of Pseduoaneurysm of Right Femoral Artery with bovine patch(Right) - Rafael Rajan MD Surgeon Rafael Rajan MD Sponge Diver MD E[facility],PAC Estimated Blood Loss 200 Findings Consistent with Post-Op Diagnosis Drains Ricardo Catheter Anesthesia Type General Complications none Disposition Accompanied Patient To Recovery: No Disposition: Recovery Room
--- NOTE | 2019-04-23 13:30 | Operative Report ---
Post Operative Report Pre & Post Diagnosis Operation Date: 04/23/19 11:10 Pre-Op Diagnosis: Pseudoaneurysm of right femoral artery Post-Op Diagnosis: Pseudoaneurysm of right femoral artery Procedure Operation Date: 04/23/19 11:10 Actual Procedures p Repair of Pseduoaneurysm of Right Femoral Artery with bovine patch(Right) - Rafael Rajan MD Surgeon Rafael Rajan MD Manager Solution MD Cassandra L.Minarchick,PAC Estimated Blood Loss 200 Findings Consistent with Post-Op Diagnosis Specimens Wound cultures Description of Procedure Indications: Carlos Bucio is a 59-year-old gentleman who underwent right iliofemoral endarterectomy and patch as well as a right femoropopliteal bypass in January of this year at [facility]. He returns to the hospital today with bleeding from his right groin and increasing hematoma of the thigh. The decision was made to take him to the operating room for operative expiration of the right groin. The risks and benefits of this procedure were explained to the patient, and consent was obtained. The right leg was marked prior to the patient proceed to the operating room. Operative Details: The patient was brought to the operating room laid in supine position with his arms extended. General anesthesia was induced the patient was safely endotracheal intubated. The right groin was then prepped extending onto the right lower abdomen. Patient was then draped in standard fashion. A surgical timeout was performed at this time and the patient identified.. A #10 scalpel was then used to open right groin along the prior incision, our incision was carried slightly above and below the previous incision. Electrocautery was then used to carry incision down through subcutaneous tissues until the hematoma cavity was encountered. This was entered bluntly with a finger, clot was immediately evacuated followed by pulsatile bleeding. He was controlled with finger pressure will remainder of the cavity was opened to expose the common femoral artery, prior anastomosis, and vein graft. Blunt dissection was then used to isolate the common femoral, taking care on the medial portion as there is adherence of the femoral vein noted. Once sufficient space have been cleared a clamp was then placed across the common femoral artery. This was able to control the bleeding and we have to inspect the area of the anastomosis closely. A hole was identified just distal to anastomosis on the vein, measuring approximately 2 mm. This area was not continuous with the arterial anastomosis. There did not appear to be any evidence of gross infection or purulence present, but wound cultures were taken at the level of the anastomosis. Based on the location and size of the defect the decision was made to repair this with a bovine pericardial patch. Angled Robison scissors were then used to extend the hole in the vein distally and proximally onto the common femoral. There is no significant clot or thrombus present within the ANIMAL HUSBANDMAN, but there is also noted to be minimal backbleeding from the graft. 3000 units of IV heparin were given at this time. A #3 Axel catheter was used to perform thrombectomy of the graft, and after 2 passes there was noted to be improvement in the backbleeding. A bulldog clamp was then placed across the vein graft for distal control. Prior to sewing in the bovine patch there was noted to be a hole on the other side of the graft directly opposite of the original hole noted.. This was closed in a running longitudinal fashion using 6-0 Prolene. Next the the permanent pericardial patch was sewn into place in a running fashion using 6-0 Prolene. Prior to completing this the area was flushed with heparinized saline. Our clamps were removed there is prompt filling of the graft with excellent pulse, and Doppler signals present in the profunda and distal graft. There were 3 areas of bleeding along the suture line of the bovine graft which were controlled with interrupted 6-0 Prolene in a [id number] fashion. We next used electrocautery to control small areas of hemorrhage from the hematoma cavity. Once we were satisfied with hemostasis the wound was irrigated with 500 cc of antibiotic infused irrigation. The wound was then closed with a deep layer of 20 Vicryl to reapproximate the tissues overlying the artery and graft. A layer of 3-0 Vicryl was then used to close the superficial subcutaneous tissues. The skin was then closed with a stapler. A clean dressing was then applied. At the end of the procedure the patient had a strong Doppler signals presents the DP on the right foot. All sponge, needle and instrument counts were correct. The patient was then awakened from general anesthesia, safely extubated, and transported to PACU. Dr. Rajan was scrubbed and present for the duration of the procedure. I attest to the content of the Intraoperative Record and any orders documented therein. Any exceptions are noted below.
--- NOTE | 2019-04-23 14:48 | Anesthesiology Progress Note ---
Date of Service April 23, 2019 Anesthesia Post Procedure Vital Signs Vital Signs: Temp Pulse Pulse Pulse Pulse Resp BP 04/23/19 14:20 73 16 04/23/19 14:05 36.5 C 73 16 04/23/19 13:55 78 18 04/23/19 13:45 78 18 04/23/19 13:37 36.3 C L 86 18 04/23/19 10:50 36.9 C 94 H 20 04/23/19 07:44 36.4 C L 92 H 22 04/22/19 23:07 36.7 C 88 16 04/22/19 17:13 36.2 C L 95 H 18 04/22/19 16:30 92 H 142/74 H 04/22/19 16:00 97 H 145/76 H 04/22/19 15:30 88 151/75 H 04/22/19 15:00 88 139/72 04/22/19 14:50 91 H BP Pulse Ox 04/23/19 14:20 133/67 100 04/23/19 14:05 139/75 100 04/23/19 13:55 134/73 100 04/23/19 13:45 127/72 100 04/23/19 13:37 133/79 100 04/23/19 10:50 109/82 95 04/23/19 07:44 150/80 H 95 04/22/19 23:07 154/73 H 95 04/22/19 17:13 155/71 H 94 04/22/19 16:30 04/22/19 16:00 04/22/19 15:30 04/22/19 15:00 04/22/19 14:50 Pain Intensity Generalized: Pain Intensity: 7 Right Groin: Pain Intensity: 6 Transfer of Care Handoff Completed per policy Notes Mental Status: alert / awake / arousable and participated in evaluation Patient Amnestic to Procedure: Yes Nausea / Vomiting: adequately controlled Pain: adequately controlled Airway Patency, RR, SpO2: stable & adequate BP & HR: stable & adequate Hydration State: stable & adequate Anesthetic Complications: no major complications apparent and Pt Satisfied with anesthetic care
[2019-04-23] MEDS ORDERED: LACTATED RINGER'S 1,000 ML IV SCH (14:49)
[2019-04-23] MEDS ORDERED: MoRPHine SULFATE 4 MG/ML 1 ML CARP\\VIAL IV PRN (14:49)
--- NOTE | 2019-04-23 14:56 | Critical Care Consultation ---
Date of Consultation April 23, 2019 Assessment & Plan (1) Pseudoaneurysm of femoral artery: Reasonal Critically Ill: Carlos is a 59-year-old male with a past medical history of bladder cancer with metastasis to bone (TCC and SCC), type 2 diabetes mellitus, hypertension, hyperlipidemia, and sigmoid colon rupture status post right transverse colectomy who had a right iliofemoral endarterectomy and patch with right femoropopliteal January 2019 at [facility]. He has had intermittent bleeding and pain at his right surgical site and was admitted to [facility] today for a right groin bleeding and hematoma, now status post bovine patch repair of a right femoral pseudoaneurysm. He has been transferred to the ICU for postoperative care. Neuro - [facility] ICU: NEGATIVE Analgesia: Oxycodone/APAP 5/325 Q4H PRN, Morphine 1-2mg IV Q2H PRN Cardiac/Vascular - Right femoral pseudoaneurysm s/p bovine patch repair Hemodynamically stable, operative site with surgical dressing C/D/I 200 cc Intra-Op blood loss, hemoglobin stable Neurovascular checks per protocol CBC daily HTN - Continue LIBRARY PAGE amlodipine 10 mg every morning Respiratory - No history of pulmonary disease Current daily tobacco use Nicotine 7 mcg patch as needed GI - History of transverse colectomy 2/2 sigmoid rupture No ostomy Type II diabetic diet as tolerated RENAL/LYTES - Sodium 140, potassium 4.3 Acute kidney injury, suspect prerenal - Creatinine 1.61 from baseline of approximately 1, BUN 20 with ratio 22.820.9 this month CBC as above Encourage p.o. intake -Renal dose adjustments for creatinine clearance 46.2 BMP daily UTI as noted below - Urinary tract infection Turbid urine with 2+ protein, 3+ blood, nitrites, 3+ leukocyte esterase, and 3+ bacteria on admission High colony counts of to 2x gram-negative bacilli, on Bactrim LIBRARY PAGE ?resistance Rocephin 2 g daily, will also cover wound infections as noted below Pending speciation/sensitivities ENDO - Type 2 diabetes mellitus, insulin-dependent Continue glargine 22 units twice daily Continue LIBRARY PAGE aspart 12 units AC/at bedtime Glucose checks per protocol BMP daily Continue simvastatin 20 mg daily Patient has a history of type 2 diabetes with hypertension, may benefit from addition of BETHANIE as outpatient. Would not recommend this at this time in the setting of JEAN. HEME - Preop hemoglobin 9.8, repeat on transfer 9.9. Currently stable CBC daily Continue to monitor for clinical signs of bleeding ID - UTI as above, Rocephin 1g daily Bilateral diabetic wound infections on Bactrim LIBRARY PAGE. On vancomycin per surgical team, Rocephin on board as above INTEGUMENTARY - Bilateral diabetic wound infections Right foot status post fifth amputation with ulceration at amputation site. Well dressed with surgical dressing and without surrounding erythema. - Left heel with grade 2-3 foot ulcer, no surrounding erythema or purulent discharge Known to wound clinic and on Bactrim LIBRARY PAGE. Antibiotic treatment as above. LINES/IV ACCESS - PIVs intact. DVT PROPHYLAXIS - Pharmacologic anticoagulation held in the postoperative period with 200 cc Intra-Op bleeding and hematoma presentation. SCDs/ambulate. Code Status: Full Code Thank you for allowing us to be part of this patient's care. Please refer to Dr. Muñoz's documentation for any further recommendations. (2) Hematoma: (3) Bleeding from wound: (4) Surgical wound, non healing: (5) Bladder cancer metastasized to bone: (6) Ischemic ulcer of both feet: (7) Hematoma of thigh: (8) History of anticoagulant use: (9) Peripheral arterial disease: Supervising Physician Co-Signing Physician Notes Asked by Dr. Rajan to assist in critical care management of this patient status post repair of a pseudoaneurysm recent femoral endarterectomy. Patient was seen and examined at the bedside. EMR was reviewed. History is obtained from the patient as well as review the EMR. The patient is a 59-year-old male who underwent endarterectomy in January at [facility]. He presented to the hospital with bleeding from the right groin and a an enlarging thigh hematoma. He was taken to the OR where he was found to have a small hole just distal to the anastomosis. This was repaired using bovine pericardial patch. Patient was extubated and transferred to the ICU for monitoring. Evaluation in the emergency room did reveal evidence of a urinary tract infection but the patient did not have clear symptoms. He is under the care of infectious disease for several diabetic foot ulcers and has been on Bactrim therapy and followed at the wound care clinic. Recommendations: 1. Postoperative repair of a pseudoaneurysm: Management per vascular surgery. Continue to trend hemoglobin and hematocrit. 2. Evidence of urinary tract infection on labs. Seems reasonable to continue Rocephin and Bactrim for now. Cultures from the patient's surgical repair are also pending and will be followed. 3. Diabetes: Continue glycemic control per protocol. 4. Hypertension: Continue outpatient medications and follow. 5. Activity and diet per surgery. We will continue to follow in the ICU overnight. If he does well, he can likely transfer to the floor in the morning. Will sign off once he leaves the intensive care History of Present Illness Reason for Consultation: post op pseudoaneurysm Requesting Physician: Rafael Rajan MD Attending Physician: Rafael Rajan MD History of Present Illness Carlos is a 59-year-old male with a past medical history of bladder cancer with metastasis to bone (TCC and SCC), type 2 diabetes mellitus, hypertension, hyperlipidemia, and sigmoid colon rupture status post right transverse colectomy who had a right iliofemoral endarterectomy and patch with right femoropopliteal January 2019 at [facility]. He has had intermittent bleeding and pain at his right surgical site and was admitted to [facility] today for a right groin bleeding and hematoma, now status post bovine patch r epair of a right femoral pseudoaneurysm. He has been transferred to the ICU for postoperative care. He reports he has 1/10 pain in his right groin at the surgical site, improved from prior. He also reports he is a little bit tired. Denies other symptoms. Denies fever, chills, sweats. Denies nausea, vomiting, diarrhea, constipation. Denies chest pain, chest pressure, shortness of breath, difficulty breathing, lightheadedness, dizziness, and sore throat. He does not have a cough. He endorses groin pain at the surgical site, but denies abdominal pain. He endorses chronic swelling in his legs and feet which he believes are baseline for him. Denies focal weakness, denies numbness/tingling. Denies rash. He is hungry and would like something to eat and drink at time of visit. No other questions or concerns at bedside. Past medical history: As above LIBRARY PAGE medications: Amlodipine 10 mg daily, hydrocodoneacetaminophen, insulin glargine, insulin lispro, Compazine, rivaroxaban, simvastatin. He was started on Bactrim "not too long ago "but is not sure why, thinks it was related to his groin. Social history: Current tobacco use. 1 pack/day, since teenage years (at least 40 years). Denies alcohol use. Reports last drink was greater than 1 year ago. Denies recreational drugs. Lives in [place] with his mother. Should he be unable to make decisions he would prefer his mother or his daughter to be his decision maker. Family history: Reviewed. Endorses family history of hypertension, diabetes, prostate cancer, stroke, and hypothyroidism as noted in his chart. CODE STATUS: Full code. Reviewed with patient. Allergies Allergy/AdvReac Type Severity Reaction Status Date / Time No Known Allergies Allergy Verified 04/22/19 12:06 Home Medications Home Medications Medication Instructions Recorded Confirmed Type ondansetron HCl 4 mg tablet 4 mg PO BID PRN 03/10/19 04/22/19 History insulin glargine (U-100) 100 22 unit SUBCUT BID #1 ml 03/19/19 04/22/19 History unit/mL (3 mL) subcutaneous pen simvastatin 20 mg tablet 20 mg PO HS #90 tab 04/12/19 04/22/19 Rx amlodipine [Norvasc] 10 mg PO QAM 04/18/19 04/22/19 History cadexomer iodine [Iodosorb] 40 g TOP MOWEFR 04/18/19 04/22/19 History insulin lispro [Humalog KwikPen 12 units SQ AC 04/18/19 04/22/19 History Insulin] prochlorperazine maleate 10 mg PO Q6H PRN 04/18/19 04/22/19 History [Compazine] rivaroxaban [Xarelto] 20 mg PO QAM 04/18/19 04/22/19 History sulfamethoxazole-trimethoprim 2 tab PO BID 04/18/19 04/22/19 History [Bactrim DS] hydrocodone 5 mg-acetaminophen 325 1 tab PO Q6H PRN #30 tab 04/21/19 04/22/19 Rx mg tablet Patient History Medical History Ischemic ulcer of both feet (Acute) Bladder cancer metastasized to bone (Chronic) Bladder cancer (Chronic) Cancer (Chronic) NEWLY DX WITH BLADDER CANCER, BLOODY URINE, STARTED CHEMO APR 2018, FINISHED JULY 2018 Diabetes mellitus, type 2 (Chronic) Diverticulitis (Chronic) GERD (gastroesophageal reflux disease) (Chronic) Hypercholesteremia (Chronic) Hypertension (Chronic) Malignant neoplasm of bladder (Chronic) 04/06/19 TURBT 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 Hematuria (Resolved) Rupture of bowel (Resolved) H/O ruptured sigmoid colon which resulted in right transverse colostomy, a later surgery for sigmoid resection, and later colostomy reversal; Surgical History H/O cystoscopy (Resolved) History of colostomy reversal (Resolved) History of surgery (Resolved) A-PORT PLACEMENT Hx of colostomy (Resolved) RUPTURED DIVERTICULITIS Status post chemotherapy (Resolved) Chemo 05/20/18 thru 08/12/18 for bladder cancer Family History Mother Hypertension Diabetes Father , in his 60's Prostate cancer Brother Stroke Hypertension Diabetes Lyme disease Brother No problems noted. Brother No problems noted. Sister No problems noted. Sister No problems noted. 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 Beliefs That Will Affect Care: None marital status: Current Living Situation: Family Current Living Situation Comment: mother and brother current occupational status: unemployed current occupation: Disability Other Information That Helps Us Care for You: No Feels Safe at Home: Yes Safety Concerns: Feels Safe At This Time Smoking Status: Current every day smoker Tobacco Type: cigarettes ; Cigarettes Per Day: HX OF 1PPD X45 YEARS ; Do You Dip or Chew Tobacco: No ; Second Hand Exposure: No ; Tobacco Cessation Education Requested by Patient: No Hx Alcohol Use: No Hx Substance Use: No caffeine: Yes (4 cups/day) during the past year weight has: decreased > 10 lbs Review of Systems Review of Systems: All systems reviewed & are unremarkable except as noted in HPI & below Physical Exam Physical Exam: General: A&Ox3. NAD. Cooperative. HEENT: Atraumatic, normocephalic. EOM intact without nystagmus. Acuity grossly intact. No visual field cuts. Pupils constricted, 1-2 mm equal and reactive to light. No facial asymmetry. Facial sensation intact. Facial strength intact to eyebrow raise, squint, smile without asymmetry or deficit. Hearing grossly intact. Pulm: Crackles appreciated in right lower lobe, coarse breath sounds bilaterally in upper anterior mohr. Symmetrical chest rise. No increased work of breathing. Cardiac: RRR, -mrg. Radial pulses intact and symmetrical. Abdominal: Nontender, nondistended, soft. BS present. : Left nephrostomy bag in place draining turbid fluid. Ricardo catheter in place draining clear yellow urine. Extremity: Surgical dressing over right groin, C/D/I. No surrounding warmth or erythema. No purulence or discharge. Surrounding area nontender to palpation. 1+ edema in the ankles bilaterally. Healed ulcerations of the right anterior medrano appreciated. PT pulses intact bilaterally. Tour Leader strength, finger flexion/extension, elbow flexion, ankle plantar flexion/dorsiflexion intact 5/5. Sensation to soft touch intact in distal extremities bilaterally without deficit. Right fifth toe status post amputation, covered with dressing. Underlying skin of the right toe with ulcer, well-dressed. Left posterior lateral heel with wound dressing in place, ulcer without surrounding erythema/discharge present underneath Results & Data Vital Signs (Past 12 Hours) Vital Signs Temp Pulse Resp BP Pulse Ox 04/23/19 14:20 73 16 133/67 100 04/23/19 14:05 36.5 C 73 16 139/75 100 04/23/19 13:55 78 18 134/73 100 04/23/19 13:45 78 18 127/72 100 04/23/19 13:37 36.3 C L 86 18 133/79 100 04/23/19 10:50 36.9 C 94 H 20 109/82 95 04/23/19 07:44 36.4 C L 92 H 22 150/80 H 95 PG Care Time/CCT Total # of Minutes Spent Total Time Spent with Patient: Total time spent is greater than 50% in coordination of care (as documented) at patient's floor/unit and/or counseling patient: Resident Activity Tracking Resident Involvement: Resident Care Provided Care Provided: Adult Hospital Medicine (1) Ischemic ulcer of both feet Non-pressure ulcer stage: unspecified non-pressure ulcer stage Qualified Code(s): L97.519 - Non-pressure chronic ulcer of other part of right foot with unspecified severity; L97.529 - Non-pressure chronic ulcer of other part of left foot with unspecified severity (2) Surgical wound, non healing Encounter type: initial encounter Qualified Code(s): T81.89XA - Other complications of procedures, not elsewhere classified, initial encounter (3) Hematoma of thigh Encounter type: initial encounter Laterality: right Qualified Code(s): S70.11XA - Contusion of right thigh, initial encounter
[2019-04-23] MEDS ORDERED: MoRPHine SULFATE 2 MG/ML CARP IV PRN (14:58)
[2019-04-23 15:17] LABS: Basophils # (auto) 0.05 K/uL (0-0.2); Basophils % (auto) 0.5 %; Eosinophils % (auto) 5.2 %; Hematocrit (blood only) 30.4 % (42-52); Hemoglobin 9.9 g/dL (14.0-18.0); Immature Granulocytes # (auto) 0.01 K/uL (0.00-0.02); Immature Granulocytes % (auto) 0.1 %; Lymphocytes # (auto) 1.94 K/uL (1.2-3.4); Mean Corpuscular Hgb Conc 32.6 g/dL (32-36); Mean Corpuscular Volume 84.7 fL (80-100); Mean Platelet Volume 8.3 fL (7.4-10.4); Monocytes # (auto) 0.96 K/uL (0.11-0.59); Monocytes % (auto) 9.9 %; Neutrophils # (auto) 6.24 K/uL (1.4-6.5); Neutrophils % (auto) 64.3 %; Platelet Count 278 K/uL (130-400); RDW Coefficient of Variation 15.8 % (11.5-14.5); RDW Standard Deviation 49.3 fL (36.4-46.3); Red Blood Count 3.59 M/uL (4.7-6.1)
--- NOTE | 2019-04-23 16:10 | Pharmacy Report ---
Pharmacy Abx Initial Consult - Date of Service April 23, 2019 - Pharmacy Dosing Scope Date of Consult: 04/23/19 Consultation requested by: Dr. Rajan Pharmacy is consulted to initiate Vancomycin IV dosing therapy, order appropriate labs and adjust drug dose/frequency. - Subjective The patient is a 59 year old M admitted on 04/22/19 14:35. - Objective Height: 5 ft 7 in Weight: 78.6 kg Vital Signs (Past 12hrs): Vital Signs Temp Pulse Pulse Resp BP BP Pulse Ox 04/23/19 15:15 36.7 C 72 16 133/71 90 04/23/19 15:00 68 8 L 130/66 95 04/23/19 14:45 36.4 C L 72 10 L 131/71 94 04/23/19 14:31 80 15 04/23/19 14:20 73 16 133/67 100 04/23/19 14:05 36.5 C 73 16 139/75 100 04/23/19 13:55 78 18 134/73 100 04/23/19 13:45 78 18 127/72 100 04/23/19 13:37 36.3 C L 86 18 133/79 100 04/23/19 10:50 36.9 C 94 H 20 109/82 95 04/23/19 07:44 36.4 C L 92 H 22 150/80 H 95 Lab Results (24hrs): Laboratory Tests (24 Hours) 04/23/19 04/22/19 04/22/19 15:05 19:09 19:09 WBC 9.70 8.41 Neut # (Auto) 6.24 5.60 Creatinine 1.61 H Est Cr Clr Drug Dosing 46.2 Micro Results: 04/23/19 12:05 Gram Stain - Final Leg,Right Aerobic and Anaerobic Culture - Pending - Risk Factors for Resistance * Antimicrobial use within the last 90 days: Bactrim - Assessment & Plan Assessment 59 year old M admitted for bleeding from thigh wound after recent surgery. He is currently post op after repair of R femoral artery pseudoaneurysm. 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 Of note, patient has history of Bladder cancer with bone mets. Urine culture indicates UTI as well- Rocephin IV ordered for this. Vancomycin started preop and continued post op for possible Cellulitis. Renal function is poor with S.Creatinine = 1.61 Crcl = 46 today. Plan Vancomycin IV * Estimated PK Parameters: Vd 0.7 L/kg, Sameer 0.043 hr-1, t1/2 16 hr * Loading dose: 1500 mg (19 mg/kg) IV given at 08:45 AM today. * Maintenance dose: 1250 mg IV (15 mg/kg) every 24 hours started for tomorrow at 06:00 AM * If renal function worsens, may need to stop ongoing q24h Vanc and order single doses based on random levels. Will monitor. * Goal trough level for Cellulitis: ~ 15 mcg/mL * A trough level was not ordered today. If renal function remains stable or improves, will order a trough before 3rd dose of Vanc. Pharmacy will continue to follow and will adjust dose/frequency as necessary. Thank you.
[2019-04-23] MEDS: cefTRIAXone SODIUM 1,000 MG in DEXTROSE 5% 50 ML IV SCH (16:15)
[2019-04-23] MEDS: INSULIN ASPART 100 UNITS/ML 3 ML PEN SC SCH (17:10)
[2019-04-23] MEDS: OXYCODONE/ACETAMINOPHEN 5mg/325mg TAB PO PRN ×2 (18:10→23:55)
[2019-04-23] MEDS: SIMVASTATIN 20 MG TAB PO SCH (20:04)
[2019-04-24 04:23] LABS: Basophils # (auto) 0.07 K/uL (0-0.2); Basophils % (auto) 0.8 %; Eosinophils # (auto) 0.48 K/uL (0-0.5); Eosinophils % (auto) 5.3 %; Hematocrit (blood only) 28.3 % (42-52); Hemoglobin 9.3 g/dL (14.0-18.0); Immature Granulocytes # (auto) 0.02 K/uL (0.00-0.02); Immature Granulocytes % (auto) 0.2 %; Lymphocytes # (auto) 1.56 K/uL (1.2-3.4); Lymphocytes % (auto) 17.1 %; Mean Corpuscular Hgb Conc 32.9 g/dL (32-36); Mean Corpuscular Volume 84.2 fL (80-100); Mean Platelet Volume 8.5 fL (7.4-10.4); Monocytes # (auto) 0.94 K/uL (0.11-0.59); Monocytes % (auto) 10.3 %; Neutrophils # (auto) 6.03 K/uL (1.4-6.5); Neutrophils % (auto) 66.3 %; Platelet Count 288 K/uL (130-400); RDW Coefficient of Variation 16.1 % (11.5-14.5); RDW Standard Deviation 49.3 fL (36.4-46.3); Red Blood Count 3.36 M/uL (4.7-6.1)
[2019-04-24 04:41] LABS: BUN Creatinine Ratio 23.4 (10-20); Calcium 7.8 mg/dl (8.5-10.1); Creatinine Clr Calc Pharmacy 53.5 ml/min; Est GFR (African American) 63.8; Est GFR (Non-African American) 55.1; Potassium 4.4 mmol/L (3.5-5.1)
[2019-04-24] MEDS: OXYCODONE/ACETAMINOPHEN 5mg/325mg TAB PO PRN ×4 (05:28→19:42)
[2019-04-24] MEDS ORDERED: VANCOMYCIN HCL 1,250 MG in SODIUM CHLORIDE 0.9% 250 ML IV SCH (06:00)
[2019-04-24] MEDS: CARBOHYDRATES FOR HYPOGLYCEMIA PO PRN ×4 (07:51→17:55)
[2019-04-24] MEDS: AMLODIPINE BESYLATE 5 MG TAB PO SCH (07:55)
[2019-04-24] MEDS: cefTRIAXone SODIUM 1,000 MG in DEXTROSE 5% 50 ML IV SCH (07:56)
--- NOTE | 2019-04-24 08:53 | Surgery Progress Note ---
Date of Service April 24, 2019 Assessment & Plan (1) Pseudoaneurysm of femoral artery: Patient is postoperative day 1 from repair of a pseudoaneurysm right femoral artery. The anastomotic site was intact and incorporated. There were 2 holes in the vein graft itself approximately 2 to 3 cm beyond the anastomosis. These were repaired with a patch of bovine pericardium. Culture results are still pending but the Gram stain showed no organisms seen. We will transfer him to the floor and continue his antibiotics until the final culture results are known. Subjective Patient has no complaints today. He claims his right groin right leg are feeling much better today. Physical Exam Constitutional: WD/WN, vitals as above Respiratory: normal respiratory effort, lungs clear to auscultation Cardiovascular: RRR, no murmur, no edema Extremities: normal capillary refill Skin: + incision (Dressing is dry and intact.) Psychiatric: Orientation: alert and oriented x 3 Results & Data Vital Signs (Past 12 Hours) Vital Signs Temp Pulse Resp BP Pulse Ox 04/24/19 06:00 82 12 119/63 91 04/24/19 05:00 96 H 14 129/70 94 04/24/19 04:00 36.7 C 88 16 139/69 94 04/24/19 03:00 82 16 113/71 93 04/24/19 02:00 83 14 142/62 H 92 04/24/19 01:00 88 14 133/68 95 04/24/19 00:00 36.7 C 87 18 109/54 L 96 04/23/19 23:00 84 18 135/73 95 04/23/19 22:00 83 16 117/66 93 04/23/19 21:00 86 19 109/66 94
[2019-04-24] MEDS: INSULIN GLARGINE SOLOSTAR 100 UNITS/ML 3 ML PEN SQ SCH ×2 (09:30→20:46)
[2019-04-24] MEDS: INSULIN ASPART 100 UNITS/ML 3 ML PEN SC SCH ×3 (09:30→16:30)
--- NOTE | 2019-04-24 09:34 | Critical Care Progress Note ---
Date of Service April 24, 2019 Assessment & Plan (1) Pseudoaneurysm of femoral artery: (2) Hematoma: (3) Bleeding from wound: (4) Surgical wound, non healing: (5) Bladder cancer metastasized to bone: (6) Ischemic ulcer of both feet: (7) Hematoma of thigh: (8) History of anticoagulant use: (9) Peripheral arterial disease: Review of Systems Review of Systems: All systems reviewed & are unremarkable except as noted in HPI & below Results & Data Vital Signs (Past 12 Hours) Vital Signs Temp Pulse Resp BP Pulse Ox 04/24/19 09:00 83 12 122/70 93 04/24/19 08:00 36.9 C 76 8 L 127/69 93 04/24/19 07:00 84 10 L 129/65 92 04/24/19 06:00 82 12 119/63 91 04/24/19 05:00 96 H 14 129/70 94 04/24/19 04:00 36.7 C 88 16 139/69 94 04/24/19 03:00 82 16 113/71 93 04/24/19 02:00 83 14 142/62 H 92 04/24/19 01:00 88 14 133/68 95 04/24/19 00:00 36.7 C 87 18 109/54 L 96 04/23/19 23:00 84 18 135/73 95 04/23/19 22:00 83 16 117/66 93 PG Care Time/CCT Total # of Minutes Spent Total Time Spent with Patient: Total time spent is greater than 50% in coordination of care (as documented) at patient's floor/unit and/or counseling patient: (1) Surgical wound, non healing Encounter type: initial encounter Qualified Code(s): T81.89XA - Other complications of procedures, not elsewhere classified, initial encounter (2) Ischemic ulcer of both feet Non-pressure ulcer stage: unspecified non-pressure ulcer stage Qualified Code(s): L97.519 - Non-pressure chronic ulcer of other part of right foot with unspecified severity; L97.529 - Non-pressure chronic ulcer of other part of left foot with unspecified severity (3) Hematoma of thigh Encounter type: initial encounter Laterality: right Qualified Code(s): S70.11XA - Contusion of right thigh, initial encounter
[2019-04-24] MEDS: ERTAPENEM SODIUM 1,000 MG in SODIUM CHLORIDE 0.9% 50 ML IV SCH (16:02)
[2019-04-24] MEDS: HEPARIN 100 UNIT/ML 5ML FLUSH FLUSH PRN (16:45)
[2019-04-24] MEDS: SIMVASTATIN 20 MG TAB PO SCH (20:44)
[2019-04-25] MEDS: OXYCODONE/ACETAMINOPHEN 5mg/325mg TAB PO PRN ×3 (06:29→20:00)
--- NOTE | 2019-04-25 09:11 | Surgery Progress Note ---
Date of Service April 25, 2019 Assessment & Plan (1) Pseudoaneurysm of femoral artery: Patient is postoperative day 2 from repair of a pseudoaneurysm right femoral artery. Cultures taken from the groin at the time of surgery were positive. Antibiotics were changed yesterday to appropriate coverage. We will consult infectious disease for their input as far as antibiotic therapy. Patient is eager to go home but I convinced him to stay until disease evaluates to see what type of antibiotic coverage is needed. Subjective Patient has no complaints today. Right leg is feeling much better. Physical Exam Skin: no rashes, warm and dry + incision (There is a moderate amount of serosanguineous drainage on the dressing right groin. This is the first postop dressing. There is no drainage noted on inspection of the wound at this point.) Psychiatric: A+Ox3, euthymic affect Orientation: alert and oriented x 3 Results & Data Vital Signs (Past 12 Hours) Vital Signs Temp Pulse Resp BP Pulse Ox 04/25/19 07:14 36.6 C 82 18 136/71 95 04/25/19 00:00 37.1 C 92 H 16 128/66 95
[2019-04-25] MEDS: INSULIN ASPART 100 UNITS/ML 3 ML PEN SC SCH ×3 (09:30→17:18)
[2019-04-25] MEDS: INSULIN GLARGINE SOLOSTAR 100 UNITS/ML 3 ML PEN SQ SCH ×2 (09:30→17:17)
[2019-04-25] MEDS: RIVAROXABAN 20 MG TAB PO SCH (10:39)
[2019-04-25] MEDS: AMLODIPINE BESYLATE 5 MG TAB PO SCH (10:39)
[2019-04-25] MEDS: ERTAPENEM SODIUM 1,000 MG in SODIUM CHLORIDE 0.9% 50 ML IV SCH (15:06)
[2019-04-25] MEDS: HEPARIN 100 UNIT/ML 5ML FLUSH FLUSH PRN (15:45)
[2019-04-25] MEDS: SIMVASTATIN 20 MG TAB PO SCH (19:58)
[2019-04-26] MEDS: OXYCODONE/ACETAMINOPHEN 5mg/325mg TAB PO PRN (07:32)
[2019-04-26] MEDS: INSULIN ASPART 100 UNITS/ML 3 ML PEN SC SCH ×2 (08:53→11:48)
[2019-04-26] MEDS: INSULIN GLARGINE SOLOSTAR 100 UNITS/ML 3 ML PEN SQ SCH (08:54)
[2019-04-26] MEDS: AMLODIPINE BESYLATE 5 MG TAB PO SCH (08:58)
[2019-04-26] MEDS: RIVAROXABAN 20 MG TAB PO SCH (08:59)
[2019-04-26] MEDS ORDERED: LINEZOLID 600 MG TAB PO SCH (10:45)
--- NOTE | 2019-04-26 10:45 | Surgery Progress Note ---
Date of Service April 26, 2019 Assessment & Plan (1) Pseudoaneurysm of femoral artery: doing well ID saw patient today. Suggested a course of antibiotics. Will d/c today on antibiotics. He will follow up with ID and us as outpatient. Subjective Patient has no complaints today. Physical Exam Skin: + wound and + incision (only minimal drainage from wound. Foot viable.) Results & Data Vital Signs (Past 12 Hours) Vital Signs Temp Pulse Pulse Resp BP Pulse Ox 04/26/19 07:45 36.7 C 77 14 144/74 H 95 04/25/19 23:39 36.7 C 77 16 137/66 94
--- NOTE | 2019-04-26 10:55 | Infectious Disease Consult ---
Date of Consultation April 26, 2019 Assessment & Plan (1) Pseudoaneurysm of femoral artery: will start zyvox. unclear significance of rare corynebacterium but has been > 1 culture resently, will treatt. can stop ertapenem. would give 14 days abx and follow in wound center. ok for d/c from ID standpoint. Discussed with primary. If zyvox is too espensive, clinda 300mg po tid would be alternative. History of Present Illness Attending Physician: Rafael Rajan MD pt admitted after he noted bleeding from recent right groin surgical site (surgery done in January at [facility] [place]). denies trauma to area. was last seen by ID at wound center on 04/07 - being treated with bactrim for foot infection, doing well. denies f/c. was taking to OR for repair, tolerated well. now has min pain, no bleeding, no drainage. OR culture growing rare corynebacterium, has had oupt cultures 03/31 and 04/07 growing the same. He did have urine culture here as well growing protesu and EBBL K. oxytoca, on ertapenem, tolerating well. lara r emains in place. denies cp, sob, cough, najera, no abd pain, no n/v/d. For d/c later today, ID consulted for abx for d/c Allergies Allergy/AdvReac Type Severity Reaction Status Date / Time No Known Allergies Allergy Verified 04/22/19 12:06 Home Medications Home Medications Medication Instructions Recorded Confirmed Type ondansetron HCl 4 mg tablet 4 mg PO BID PRN 03/10/19 04/22/19 History insulin glargine (U-100) 100 22 unit SUBCUT BID #1 ml 03/19/19 04/22/19 History unit/mL (3 mL) subcutaneous pen simvastatin 20 mg tablet 20 mg PO HS #90 tab 04/12/19 04/22/19 Rx amlodipine [Norvasc] 10 mg PO QAM 04/18/19 04/22/19 History cadexomer iodine [Iodosorb] 40 g TOP MOWEFR 04/18/19 04/22/19 History insulin lispro [Humalog KwikPen 12 units SQ AC 04/18/19 04/22/19 History Insulin] prochlorperazine maleate 10 mg PO Q6H PRN 04/18/19 04/22/19 History [Compazine] rivaroxaban [Xarelto] 20 mg PO QAM 04/18/19 04/22/19 History sulfamethoxazole-trimethoprim 2 tab PO BID 04/18/19 04/22/19 History [Bactrim DS] hydrocodone 5 mg-acetaminophen 325 1 tab PO Q6H PRN #30 tab 04/21/19 04/22/19 Rx mg tablet blood sugar diagnostic strips #10 ea 04/23/19 04/23/19 History lancets 33 gauge #100 ea 04/23/19 04/23/19 History pen needle, diabetic 32 gauge x #10 ea 04/23/19 04/23/19 History 5" hydrocodone-acetaminophen 1 tab PO Q6H PRN #30 tab 04/26/19 Rx Patient History Medical History Ischemic ulcer of both feet (Acute) Bladder cancer metastasized to bone (Chronic) Bladder cancer (Chronic) Cancer (Chronic) NEWLY DX WITH BLADDER CANCER, BLOODY URINE, STARTED CHEMO APR 2018, FINISHED JULY 2018 Diabetes mellitus, type 2 (Chronic) Diverticulitis (Chronic) GERD (gastroesophageal reflux disease) (Chronic) Hypercholesteremia (Chronic) Hypertension (Chronic) Malignant neoplasm of bladder (Chronic) 04/06/19 TURBT 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 Hematuria (Resolved) Rupture of bowel (Resolved) H/O ruptured sigmoid colon which resulted in right transverse colostomy, a later surgery for sigmoid resection, and later colostomy reversal; Surgical History H/O cystoscopy (Resolved) History of colostomy reversal (Resolved) History of surgery (Resolved) A-PORT PLACEMENT Hx of colostomy (Resolved) RUPTURED DIVERTICULITIS Status post chemotherapy (Resolved) Chemo 05/20/18 thru 08/12/18 for bladder cancer Family History Mother Hypertension Diabetes Father , in his 60's Prostate cancer Brother Stroke Hypertension Diabetes Lyme disease Brother No problems noted. Brother No problems noted. Sister No problems noted. Sister No problems noted. 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 Beliefs That Will Affect Care: None marital status: Current Living Situation: Family Current Living Situation Comment: mother and brother current occupational status: unemployed current occupation: Disability Other Information That Helps Us Care for You: No Feels Safe at Home: Yes Safety Concerns: Feels Safe At This Time Smoking Status: Current every day smoker Tobacco Type: cigarettes ; Cigarettes Per Day: HX OF 1PPD X45 YEARS ; Do You Dip or Chew Tobacco: No ; Second Hand Exposure: No ; Tobacco Cessation Education Requested by Patient: No Hx Alcohol Use: No Hx Substance Use: No caffeine: Yes (4 cups/day) during the past year weight has: decreased > 10 lbs Review of Systems Review of Systems: All systems reviewed & are unremarkable except as noted in HPI & below Physical Exam Constitutional: WD/WN, vitals as above Eyes: PERRL, conjunctivae normal, anicteric sclerae ENMT: external ear and nose normal, oropharynx normal Neck: normal visual inspection Respiratory: normal respiratory effort, lungs clear to auscultation Cardiovascular: RRR, no murmur, no edema Gastrointestinal (Abdomen): normal bowel sounds, soft, nontender, no hepatosplenomegaly Musculoskeletal: no cyanosis or clubbing, extremities motor strength 5/5 Skin: no rashes, warm and dry Psychiatric: A+Ox3, euthymic affect Results & Data Vital Signs (Past 12 Hours) Vital Signs Temp Pulse Pulse Resp BP Pulse Ox 04/26/19 07:45 36.7 C 77 14 144/74 H 95 04/25/19 23:39 36.7 C 77 16 137/66 94 Laboratory Results Microbiology 04/23/19 12:05 Leg,Right Gram Stain - Final 04/23/19 12:05 Leg,Right Aerobic and Anaerobic Culture - Preliminary Corynebacterium species 04/22/19 20:08 Urine,Clean Catch Urine Culture - Final Klebsiella oxytoca ESBL Proteus mirabilis PG Care Time/CCT Total # of Minutes Spent Total Time Spent with Patient: Total time spent is greater than 50% in coordination of care (as documented) at patient's floor/unit and/or counseling patient:
--- NOTE | 2019-04-28 15:17 | Discharge Summary ---
Date of Service April 28, 2019 Admission HPI Per Admitting Provider This is a 59-year-old gentleman who underwent right iliofemoral endarterectomy and patch as well as a right femoropopliteal bypass in January of this year at [facility]. He returns to the hospital today with bleeding from his right groin and increasing hematoma of the thigh. He does have a small opening in the thigh wound. Claims the bleeding has been off and on but has been gotten progressively worse. Is admitted this time for observation and exploration of the wound. Admission Exam Per Admitting Provider Constitutional: WD/WN, vitals as above Neck: trachea midline Respiratory: normal respiratory effort, lungs clear to auscultation Cardiovascular: RRR, no murmur, no edema Extremities: normal capillary refill There is bleeding noted on the dressing from the right groin. The thigh wound also has a small open area. Gastrointestinal (Abdomen): normal bowel sounds, soft, nontender, no hepatosplenomegaly Skin: no rashes, warm and dry Neurologic: patellar DTR's 2+ bilat, sensation intact and PERRL, EOMI, accommodation nl, no face palsy, no dysarthria Psychiatric: A+Ox3, euthymic affect Principal Diagnosis 1. s/p R groin pseudoaneurysm repair with bovine patch 2. R groin pseudoaneurysm Discharge Exam Constitutional WD/WN, vitals as above Neck trachea midline Respiratory normal respiratory effort, lungs clear to auscultation Cardiovascular RRR, no murmur, no edema Extremities: normal capillary refill Gastrointestinal (Abdomen) normal bowel sounds, soft, nontender, no hepatosplenomegaly Skin no rashes, warm and dry + wound and + incision (only minimal drainage from wound. Foot viable.) Neurologic patellar DTR's 2+ bilat, sensation intact and PERRL, EOMI, accommodation nl, no face palsy, no dysarthria Psychiatric A+Ox3, euthymic affect Orientation: alert and oriented x 3 Discharge Data Allergies Allergy/AdvReac Type Severity Reaction Status Date / Time No Known Allergies Allergy Verified 04/22/19 12:06 Consultations 04/22/19 14:29 ED Decision to Admit Stat 04/23/19 14:49 Consult Infection Prevention Coordinator Routine 04/24/19 08:00 Consult Case Management - Discharge Planning Routine 04/25/19 09:06 Consult Infectious Diseases Routine Procedures Performed Operation Date: 04/23/19 11:10 Actual Procedures p Repair of Pseduoaneurysm of Right Femoral Artery with bovine patch(Right) - Rafael Rajan MD Ordered Studies 04/22/19 11:33 US arterial duplex LE RT Stat Hospital Course (1) Pseudoaneurysm of femoral artery: Pt doing well POD #2. ID saw patient today. Suggested a course of antibiotics. Will d/c today on antibiotics. He will follow up with ID and us as outpatient. Total Time Total Time Spent Total Time Spent (In Minutes): 15 minutes Total Time Includes: Examination of the Patient, Discharge Planning, Medication Reconciliation and Communication With Other Providers Discharge Plan Discharge Items Patient Disposition: Home - Home Health Services Reason For Visit: THIGH HEMATOMA, HX OF ANTOCOAGULANT THERAPY,ANEMIA Activity: Per Instructions section Bathing Comment: May shower Non-emergency contact: Surgeon Follow-up/Referrals: Donna Cano DO [Primary Care Provider] - Carine Rizzo DO [Physician] - (Follow up with Infectious Diseae. 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 Pending Studies at Discharge: No Stand-Alone Forms: My [facility] Medications and DC Order Prescriptions: New hydrocodone-acetaminophen 5-300 mg tablet 1 tab PO Q6H PRN (Reason: pain) Qty: 30 RF: 0 clindamycin HCl 300 mg capsule 300 mg PO TID 21 Days Qty: 63 RF: 0 Continued ondansetron HCl [Zofran] 4 mg tablet 4 mg PO BID PRN (Reason: Nausea) RF: 0 simvastatin 20 mg tablet 20 mg PO HS Qty: 90 RF: 3 hydrocodone-acetaminophen 5-325 mg tablet 1 tab PO Q6H PRN (Reason: pain) Qty: 30 RF: 0 insulin glargine 100 unit/mL (3 mL) insulin pen 22 unit subcut BID Qty: 1 RF: 0 pen needle, diabetic [BD Ultra-Fine Fely Pen Needle] 32 gauge x 5/32" needle .ROUTE .MEDSUPPLY Qty: 10 RF: 0 lancets [OneTouch Delica Lancets] 33 gauge misc .ROUTE .MEDSUPPLY Qty: 100 RF: 0 OneTouch Ultra Blue Test Strip strip .ROUTE .MEDSUPPLY Qty: 10 RF: 0 Iodosorb 0.9 % gel 40 g TOP MOWEFR RF: 0 prochlorperazine maleate [Compazine] 10 mg tablet 10 mg PO Q6H PRN (Reason: nausea and vomiting) RF: 0 amlodipine [Norvasc] 10 mg tablet 10 mg PO QAM RF: 0 insulin lispro [Humalog KwikPen Insulin] 100 unit/mL insulin pen 12 units SQ AC RF: 0 Discontinued sulfamethoxazole-trimethoprim [Bactrim DS] 800-160 mg tablet 2 tab PO BID RF: 0 No Action Xarelto 20 mg tablet 20 mg PO QAM Qty: 30 RF: 5 Discharge Orders: Discharge Order (Routine); Ordered 04/26/19 Ordered By: Rafael Rajan Admission Data Admit Date/Time: 04/25/19 14:46 Attending Provider: Rafael Rajan Admit Provider: Rafael Rajan Primary Care Provider: Donna Cano Other Providers: Rafael Rajan ; Antwon Osorio ; Kenneth Yepez ; Pete Petersen ; Evan Whelan ; Oseas Ruiz ; Randy Muñoz ; Joo Marin ; Dionicio Beth ; Shannan Smith ; Cm Ruth ; Fransisco Tran ; Estuardo Moreno ; Raciel Lynn ; Jamir Jameson ; Stef Lebron ; Carine Rizzo Other Interventions: Discharge Summary Assessment (RN) Last Done: 04/26/19 11:51 DC Date/Time DO NOT enter until pt leaves facility: 04/26/19 16:00
--- NOTE | 2019-04-29 10:56 | Communication Note ---
Date of Service: April 29, 2019 Pseudoaneurysm of right femoral artery, a complication of care secondary to right femoropopliteal bypass. The pseudoaneurysm was from disruption of the distal end of an infected graft.
== END 2019-04-26 16:00 | disposition home health service (06) | DRG 253 ==
LOC: 3N 10:26 → ED 10:26 → 3N 16:57 → 1E 04-23 14:57 → 3N 04-24 10:06

== ENCOUNTER 2020-12-05 17:26 | Inpatient (IN) ==
[2020-12-05 18:23] LABS: Basophils # (auto) 0.06 K/uL (0-0.2); Basophils % (auto) 0.6 %; Eosinophils % (auto) 7.9 %; Hematocrit (blood only) 40.3 % (42-52); Hemoglobin 14.3 g/dL (14.0-18.0); Immature Granulocytes # (auto) 0.02 K/uL (0.00-0.02); Immature Granulocytes % (auto) 0.2 %; Lymphocytes # (auto) 1.81 K/uL (1.2-3.4); Lymphocytes % (auto) 17.8 %; Mean Corpuscular Hemoglobin 30.6 pg (25-34); Mean Corpuscular Hgb Conc 35.5 g/dL (32-36); Mean Corpuscular Volume 86.1 fL (80-100); Mean Platelet Volume 9.7 fL (7.4-10.4); Monocytes # (auto) 1.09 K/uL (0.11-0.59); Monocytes % (auto) 10.7 %; Neutrophils # (auto) 6.38 K/uL (1.4-6.5); Neutrophils % (auto) 62.8 %; Platelet Count 314 K/uL (130-400); RDW Coefficient of Variation 13.5 % (11.5-14.5); RDW Standard Deviation 42.7 fL (36.4-46.3); Red Blood Count 4.68 M/uL (4.7-6.1); White Blood Count 10.16 K/uL (4.8-10.8)
[2020-12-05 18:26] LABS: Base Excess VBG -10.3 mEq/L; Oxygen Saturation VBG 80.1 %; pH VBG 7.3 (7.36-7.41)
[2020-12-05 18:44] LABS: Alanine Aminotransferase 79 U/L (12-78); Albumin Level 3.4 gm/dl (3.4-5.0); Aspartate Aminotransferase 29 U/L (15-37); BUN Creatinine Ratio 23.5 (10-20); Blood Urea Nitrogen 72 mg/dl (7-18); Calcium 7.8 mg/dl (8.5-10.1); Carbon Dioxide 15 mmol/L (21-32); Chloride 116 mmol/L (98-107); Creatinine Clr Calc Pharmacy 26.6 ml/min; Est GFR (African American) 24.4; Est GFR (Non-African American) 21.1; Glucose 87 mg/dl (70-99); Lipase 365 U/L (73-393); Potassium 4.2 mmol/L (3.5-5.1); Sodium 140 mmol/L (136-145)
[2020-12-05 18:49] LABS: Albumin Globulin Ratio 0.9 (0.9-2); Alkaline Phosphatase 121 U/L (45-117); Bilirubin,Total 0.2 mg/dl (0.2-1); Total Protein 7.4 gm/dl (6.4-8.2); Troponin I < 0.015 ng/ml (0-0.045)
--- NOTE | 2020-12-05 18:59 | Emergency Department Note ---
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 Patient states he went for routine blood work and has a follow-up appoint with the cancer center this coming week. Evidently kidney function was much worse and referred here. Patient states been eating and drinking okay. States has been urinating normally without hematuria. Patient s tates he has some chronic lower abdominal discomfort but also noted a little bit of right flank pain that is new. Denies any significant shortness of breath or chest pain. Denies any fever or URI symptoms. Patient denies significant NSAID usage. Patient is on lisinopril. Patient reports she has some intermittent chronic watery diarrhea. REVIEW OF SYSTEMS: A total of 10 review of systems was obtained and negative except as stated above in the HPI. PAST MEDICAL HISTORY: As noted above MEDICATIONS: Reviewed home medication list SOCIAL HISTORY: Smoker, lives at home PHYSICAL EXAM: GENERAL: alert and oriented in no acute distress in chair in room Head: normocephalic and atraumatic EYES: No injection, discharge or icterus. NECK: Trachea midline. Supple. LUNGS: Airway patent. No retractions. Breath sounds clear with good air entry bilaterally. HEART: Regular rate and rhythm. No chest wall tenderness ABDOMEN: Soft and non-tender, without guarding or rebound. Prior surgical scars are appreciated without significant surrounding erythema. BACK: . No bilateral flank tenderness. SKIN: Acyanotic, warm, dry, without rashes EXTREMITIES: Without swelling, tenderness or deformity in the lower extremities NEUROLOGICAL: No focal deficits. No aphasia. No facial droop or slurred speech. Ambulatory. EK beats minute sinus rhythm with occasional PVC. No acute ST segment elevation or depression appreciated with a right bundle branch block and a left axis. QTC 447. CONTINUOUS CARDIAC MONITORING: was ordered and showed a heart rate of 70s to 90s bpm in normal sinus rhythm rare PVC Patient's laboratory studies and imaging reviewed. Differential includes Infection, dehydration, metabolic abnormality, hypo/hyperglycemia, electrolyte disturbance, anemia, hypoxia, cardiac sources, intracerebral event, toxicologic, neurologic, as well as other pathologies. IMPRESSION/MEDICAL DECISION MAKING: Given the patient's significant history as well as some complaint of right flank pain with renal dysfunction CT abdomen pelvis was ordered. Repeat blood work to ensure no lab abnormality was completed. No significant leukocytosis or anemia noted. Slight acidosis with pH of 7.3 and a CO2 of 71 is noted. Elevated BUN at 72 with a creatinine of 3 is noted. No evidence of significant cardiac dysfunction and no hyperkalemia noted. Urinalysis questionable for infection an d given a dose of Rocephin. Patient does report a little bit of burning with urination. Covid test was completed and negative. Chest x-ray obtained of the patient's not having significant symptoms of pulmonary edema or fluid overload. Radiology report for this reviewed. CT of the abdomen pelvis per radiology report shows likely some chronic perinephric stranding without evidence of ureteral stones or hydronephrosis. We will challenge the patient with a small IV fluid bolus. Given the significant change in renal dysfunction discussed with the patient further observation here. The hospitalist was contacted as he was in agreement for further observation. Unclear etiology of his right flank pain at this point but it is fairly minimal. DIAGNOSIS: Acute on chronic renal dysfunction, acute UTI, right flank pain DISPOSITION: Hospitalist will evaluate Patient was agreeable with this plan. Past Med/Surg History Medical History Bladder cancer metastasized to bone Cancer Chronic kidney disease, stage 3 (moderate) Diabetes mellitus, type 2 Diverticulitis Elevated liver enzymes GERD (gastroesophageal reflux disease) H/O sepsis Hematuria History of pseudoaneurysm Hypercholesteremia Hypertension Ischemic ulcer of both feet Malignant neoplasm of bladder Rupture of bowel Spinal stenosis Ventral hernia Surgical History H/O cystoscopy History of bladder surgery (04/06/18) History of colostomy reversal History of surgery Hx of colostomy S/P aneurysm repair (04/2019) S/P femoropopliteal bypass surgery (01/2019) Status post chemotherapy Family History Mother Hypertension Diabetes Father , in his 60's Prostate cancer Brother Stroke Hypertension Diabetes Lyme disease Brother No problems noted. Brother No problems noted. Sister No problems noted. Sister No problems noted. Daughter Skin cancer Hypertension Hypothyroidism Social History Smoking Status: Heavy tobacco smoker Tobacco Type: Cigarettes Age Started Using Tobacco: 14; packs per day: 1; Years Smoked: 46; Cigarettes Per Day: 20; Second Hand Exposure: Yes; Hx Alcohol Use: No Hx Substance Use: No Preferred Language: [place] Communication Ability: Effective Visual Impairment: No Limitations Hearing Ability: Normal Piece Hand Required: No Beliefs That Will Affect Care: None marital status: Current Living Situation: Parent Current Living Situation Comment: Lives at home with mom current occupational status: unemployed current occupation: Disability Feels Safe at Home: Yes Childhood Exposure to Second-Hand Smoke: No caffeine: Yes (4 cups/day) during the past year weight has: decreased > 10 lbs Dental Care, Regularly: No Physical Activity Frequency: Daily Physical Activity Frequency Comment: house work Seatbelt Use: always Sunscreen Use: No Assistive Devices: None Allergies Allergies Allergy/AdvReac Type Severity Reaction Status Date / Time No Known Allergies Allergy Verified 12/05/20 18:31 Home Meds Home Medications Medication Instructions Recorded Confirmed aspirin 81 mg tablet,delayed 81 mg PO DAILY 06/30/20 12/05/20 release simvastatin 20 mg PO QDD 12/05/20 12/05/20 Previous Rx's Medication Instructions Recorded blood sugar diagnostic #360 ea 04/14/20 pen needle, diabetic 32 gauge x #100 ea 09/11/20" insulin glargine 100 unit/mL (3 12 unit SUBCUT BIDM 90 Days #18 ml 10/04/20 mL) subcutaneous pen insulin lispro 100 unit/mL 6 unit SQ BIDM #15 ml 10/04/20 subcutaneous pen amlodipine 10 mg tablet 10 mg PO DAILY #90 tab 10/24/20 lancets 33 gauge #100 ea 11/02/20 lisinopril 2.5 mg tablet 2.5 mg PO DAILY #90 tab 11/02/20 Results & Data (ED) Vital Signs Vital Signs - 24 hr 12/05/20 17:30 12/05/20 18:19 12/05/20 19:59 Temperature 36.3 C L Temperature Source Temporal Artery Scan Pulse Rate 90 73 71 Pulse Rate from SpO2 Sensor 73 71 Respiratory Rate 20 14 10 L Respiratory Effort / Characteristics Non-Labored Respiratory Depth Normal Blood Pressure 124/68 157/71 H 162/69 H Blood Pressure Mean 86 99 100 Pulse Oximetry 97 97 97 Oxygen Delivery Method Room Air Sepsis Recent Fever Within 48 Hours No Sepsis New/Unexplained Change in Mental Status N/A Sepsis Action Taken by Nursing No Action Required 12/05/20 20:00 Temperature Temperature Source Pulse Rate 67 Pulse Rate from SpO2 Sensor 67 Respiratory Rate 12 Respiratory Effort / Characteristics Respiratory Depth Blood Pressure 159/72 H Blood Pressure Mean 101 Pulse Oximetry 98 Oxygen Delivery Method Sepsis Recent Fever Within 48 Hours Sepsis New/Unexplained Change in Mental Status Sepsis Action Taken by Nursing Laboratory Data Result diagrams: 12/05/20 18:13 12/05/20 18:13 Lab Results 12/05/20 12/05/20 12/05/20 Range/Units 18:13 18:13 18:13 WBC 10.16 (4.8-10.8) K/uL RBC 4.68 L (4.7-6.1) M/uL Hgb 14.3 (14.0-18.0) g/dL Hct 40.3 L (42-52) % MCV 86.1 (80-100) fL MCH 30.6 (25-34) pg MCHC 35.5 (32-36) g/dL RDW Std Deviation 42.7 (36.4-46.3) fL RDW Coeff of Diane 13.5 (11.5-14.5) % Plt Count 314 (130-400) K/uL MPV 9.7 (7.4-10.4) fL Immature Gran % (Auto) 0.2 % Neut % (Auto) 62.8 % Lymph % (Auto) 17.8 % Bibb % (Auto) 10.7 % Eos % (Auto) 7.9 % Baso % (Auto) 0.6 % Neut # (Auto) 6.38 (1.4-6.5) K/uL Lymph # (Auto) 1.81 (1.2-3.4) K/uL Bibb # (Auto) 1.09 H (0.11-0.59) K/uL Eos # (Auto) 0.80 H (0-0.5) K/uL Baso # (Auto) 0.06 (0-0.2) K/uL Immature Gran # (Auto) 0.02 (0.00-0.02) K/uL VBG pH (7.36-7.41) VBG pCO2 (38-50) mmHg VBG pO2 mmHg VBG HCO3 mmol/L VBG O2 Saturation % VBG Base Excess mEq/L Barometric Pressure mm/Hg Sodium 140 (136-145) mmol/L Potassium 4.2 (3.5-5.1) mmol/L Chloride 116 H (98-107) mmol/L Carbon Dioxide 15 L (21-32) mmol/L Anion Gap 9.0 (3-11) BUN 72 H (7-18) mg/dl Creatinine 3.06 H (0.6-1.4) mg/dl Est Cr Clr Drug Dosing 26.6 ml/min Est GFR ( Amer) 24.4 Est GFR (Non-Af Amer) 21.1 BUN/Creatinine Ratio 23.5 H (10-20) Glucose 87 (70-99) mg/dl Lactate 0.6 (0.4-2.0) mmol/L Calcium 7.8 L (8.5-10.1) mg/dl Phosphorus 5.2 H (2.5-4.9) mg/dl Magnesium 2.0 (1.8-2.4) mg/dl Total Bilirubin 0.2 (0.2-1) mg/dl AST 29 (15-37) U/L ALT 79 H (12-78) U/L Alkaline Phosphatase 121 H (45-117) U/L Total Creatine Kinase 270 (39-308) U/L Troponin I < 0.015 (0-0.045) ng/ml Total Protein 7.4 (6.4-8.2) gm/dl Albumin 3.4 (3.4-5.0) gm/dl Globulin 4.0 (2.5-4.0) gm/dl Albumin/Globulin Ratio 0.9 (0.9-2) Lipase 365 (73-393) U/L Urine Color Urine Appearance (Clear) Urine pH (4.5-7.5) Ur Specific [place] (1.000-1.030) Urine Protein (Negative) Urine Glucose (UA) (Negative) Urine Ketones (Negative) Urine Blood (Negative) Urine Nitrite (Negative) Urine Bilirubin (Negative) Urine Urobilinogen (Negative) Ur Leukocyte Esterase (Negative) Urine WBC (Auto) (0-5) /hpf Urine RBC (Auto) (0-4) /hpf U Hyaline Cast (Auto) (0-5) /lpf U Epithel Cells (Auto) (0-5) /lpf Urine Bacteria (Auto) (Negative) Urine Yeast COVID-19 Eval Order SARS-CoV-2 (PCR) (Negative) Influenza Type A (PCR) (Neg) Influenza Type B (PCR) (Neg) RSV (RT-PCR) (Neg) 12/05/20 12/05/20 12/05/20 Range/Units 18:13 18:50 18:51 WBC (4.8-10.8) K/uL RBC (4.7-6.1) M/uL Hgb (14.0-18.0) g/dL Hct (42-52) % MCV (80-100) fL MCH (25-34) pg MCHC (32-36) g/dL RDW Std Deviation (36.4-46.3) fL RDW Coeff of Diane (11.5-14.5) % Plt Count (130-400) K/uL MPV (7.4-10.4) fL Immature Gran % (Auto) % Neut % (Auto) % Lymph % (Auto) % Bibb % (Auto) % Eos % (Auto) % Baso % (Auto) % Neut # (Auto) (1.4-6.5) K/uL Lymph # (Auto) (1.2-3.4) K/uL Bibb # (Auto) (0.11-0.59) K/uL Eos # (Auto) (0-0.5) K/uL Baso # (Auto) (0-0.2) K/uL Immature Gran # (Auto) (0.00-0.02) K/uL VBG pH 7.30 L (7.36-7.41) VBG pCO2 31 L (38-50) mmHg VBG pO2 43 mmHg VBG HCO3 15 mmol/L VBG O2 Saturation 80.1 % VBG Base Excess -10.3 mEq/L Barometric Pressure 727.5 mm/Hg Sodium (136-145) mmol/L Potassium (3.5-5.1) mmol/L Chloride (98-107) mmol/L Carbon Dioxide (21-32) mmol/L Anion Gap (3-11) BUN (7-18) mg/dl Creatinine (0.6-1.4) mg/dl Est Cr Clr Drug Dosing ml/min Est GFR ( Amer) Est GFR (Non-Af Amer) BUN/Creatinine Ratio (10-20) Glucose (70-99) mg/dl Lactate (0.4-2.0) mmol/L Calcium (8.5-10.1) mg/dl Phosphorus (2.5-4.9) mg/dl Magnesium (1.8-2.4) mg/dl Total Bilirubin (0.2-1) mg/dl AST (15-37) U/L ALT (12-78) U/L Alkaline Phosphatase (45-117) U/L Total Creatine Kinase (39-308) U/L Troponin I (0-0.045) ng/ml Total Protein (6.4-8.2) gm/dl Albumin (3.4-5.0) gm/dl Globulin (2.5-4.0) gm/dl Albumin/Globulin Ratio (0.9-2) Lipase (73-393) U/L Urine Color Yellow Urine Appearance Turbid A (Clear) Urine pH 6.0 (4.5-7.5) Ur Specific [place] 1.017 (1.000-1.030) Urine Protein 3+ H (Negative) Urine Glucose (UA) Trace H (Negative) Urine Ketones Negative (Negative) Urine Blood 2+ H (Negative) Urine Nitrite Negative (Negative) Urine Bilirubin Negative (Negative) Urine Urobilinogen Negative (Negative) Ur Leukocyte Esterase 3+ H (Negative) Urine WBC (Auto) >30 H (0-5) /hpf Urine RBC (Auto) 10-30 H (0-4) /hpf U Hyaline Cast (Auto) 5-10 H (0-5) /lpf U Epithel Cells (Auto) 10-20 H (0-5) /lpf Urine Bacteria (Auto) 2+ H (Negative) Urine Yeast Not Reportable COVID-19 Eval Order CovFluRsv at [facility] SARS-CoV-2 (PCR) (Negative) Influenza Type A (PCR) (Neg) Influenza Type B (PCR) (Neg) RSV (RT-PCR) (Neg) 12/05/20 Range/Units 18:51 WBC (4.8-10.8) K/uL RBC (4.7-6.1) M/uL Hgb (14.0-18.0) g/dL Hct (42-52) % MCV (80-100) fL MCH (25-34) pg MCHC (32-36) g/dL RDW Std Deviation (36.4-46.3) fL RDW Coeff of Diane (11.5-14.5) % Plt Count (130-400) K/uL MPV (7.4-10.4) fL Immature Gran % (Auto) % Neut % (Auto) % Lymph % (Auto) % Bibb % (Auto) % Eos % (Auto) % Baso % (Auto) % Neut # (Auto) (1.4-6.5) K/uL Lymph # (Auto) (1.2-3.4) K/uL Bibb # (Auto) (0.11-0.59) K/uL Eos # (Auto) (0-0.5) K/uL Baso # (Auto) (0-0.2) K/uL Immature Gran # (Auto) (0.00-0.02) K/uL VBG pH (7.36-7.41) VBG pCO2 (38-50) mmHg VBG pO2 mmHg VBG HCO3 mmol/L VBG O2 Saturation % VBG Base Excess mEq/L Barometric Pressure mm/Hg Sodium (136-145) mmol/L Potassium (3.5-5.1) mmol/L Chloride (98-107) mmol/L Carbon Dioxide (21-32) mmol/L Anion Gap (3-11) BUN (7-18) mg/dl Creatinine (0.6-1.4) mg/dl Est Cr Clr Drug Dosing ml/min Est GFR ( Amer) Est GFR (Non-Af Amer) BUN/Creatinine Ratio (10-20) Glucose (70-99) mg/dl Lactate (0.4-2.0) mmol/L Calcium (8.5-10.1) mg/dl Phosphorus (2.5-4.9) mg/dl Magnesium (1.8-2.4) mg/dl Total Bilirubin (0.2-1) mg/dl AST (15-37) U/L ALT (12-78) U/L Alkaline Phosphatase (45-117) U/L Total Creatine Kinase (39-308) U/L Troponin I (0-0.045) ng/ml Total Protein (6.4-8.2) gm/dl Albumin (3.4-5.0) gm/dl Globulin (2.5-4.0) gm/dl Albumin/Globulin Ratio (0.9-2) Lipase (73-393) U/L Urine Color Urine Appearance (Clear) Urine pH (4.5-7.5) Ur Specific [place] (1.000-1.030) Urine Protein (Negative) Urine Glucose (UA) (Negative) Urine Ketones (Negative) Urine Blood (Negative) Urine Nitrite (Negative) Urine Bilirubin (Negative) Urine Urobilinogen (Negative) Ur Leukocyte Esterase (Negative) Urine WBC (Auto) (0-5) /hpf Urine RBC (Auto) (0-4) /hpf U Hyaline Cast (Auto) (0-5) /lpf U Epithel Cells (Auto) (0-5) /lpf Urine Bacteria (Auto) (Negative) Urine Yeast COVID-19 Eval Order SARS-CoV-2 (PCR) NEGATIVE (Negative) Influenza Type A (PCR) Negative (Neg) Influenza Type B (PCR) Negative (Neg) RSV (RT-PCR) Negative (Neg) Administered Medications Lactated Ringer's (Lr) 1,000 mls @ 125 mls/hr IV .Q8H [facility] Stop: 12/06/20 13:57 Last Admin: 12/05/20 22:37 Dose: 125 mls/hr Documented by: [id number] Miscellaneous (Carbohydrates For Hypoglycemia ) 15 - 30 gm PO UD PRN PRN Reason: Hypoglycemia Protocol Stop: 01/04/21 21:57 Last Admin: 12/05/20 22:15 Dose: 15 gm Documented by: [id number] Discontinued Medications Ceftriaxone Sodium (Rocephin) 2,000 mg in 70 mls @ 140 mls/hr IV NOW STA Stop: 12/05/20 20:07 Last Infusion: 12/05/20 20:29 Dose: 0 mls/hr Documented by: [id number] Admin: 12/05/20 19:59 Dose: 140 mls/hr Documented by: [id number] Sodium Chloride (Nss 1000ml) 1,000 mls @ 999 mls/hr IV .Q1H1M ONE Stop: 12/05/20 20:56 Last Infusion: 12/05/20 22:38 Dose: 0 mls/hr Documented by: [id number] Admin: 12/05/20 19:59 Dose: 999 mls/hr Documented by: [id number] Imaging Data Radiologist's Impression: Abdomen/Pelvis CT 12/05/20 18:[address] WITHOUT CONTRAST CT DOSE: 599.49 mGy.cm HISTORY: R flank pain, acute renal dysfx , hx bladder cancer TECHNIQUE: Multiaxial CT images of the abdomen and pelvis were performed without contrast. A dose lowering technique was utilized adhering to the principles of ALARA. COMPARISON STUDY: Abdomen and pelvis CT 08/15/2020. FINDINGS: The lung bases are clear. No pneumoperitoneum. No pneumatosis. There are few scattered patchy areas of sclerosis seen within the visualized osseous structures. This is consistent with osteoblastic metastatic disease and is not significantly changed. This most pronounced at the S1 level and left inferior pubic ramus. No fractures. Small fat-containing right-sided ventral hernia, unchanged. Postoperative changes again noted within the right groin. Slight prominent low-density right inguinal lymph nodes remain stable. Mild bladder wall thickening, unchanged. Bilateral adrenal gland nodule/adenomatous are also stable. No change in the bilateral perinephric edema. There is a punctate nonobstructing stone within the lower pole the left kidney. No right renal calculi identified. No ureteral stones. No hydronephrosis. The unenhanced liver, gallbladder, pancreas, spleen are unremarkable. Mild retroperitoneal lymphadenopathy remains unchanged. There is dense calcified plaque within the normal caliber abdominal aorta. Suboptimal evaluation for bowel pathology due to the lack of intravenous and oral contrast. However, there is no definite bowel w all thickening or obstruction. A few colonic diverticula. No evidence for acute diverticulitis. Postoperative changes within the right colon. IMPRESSION: 1. Left-sided nephrolithiasis. No ureteral stones. No hydronephrosis. 2. No change in the mild perinephric fat stranding/edema. This is likely chronic. Recommend correlation with urinalysis to exclude an infectious process. 3. No change in the mild retroperitoneal lymphadenopathy. 4. Stable osteoblastic metastatic disease. 5. Stable mild bladder wall thickening. 6. Additional findings as described above. ACT 112: Negative or not required by law. Electronically signed by: Raman Ramon M.D. 12/05/2020 7:29 PM Chest X-Ray 12/05/20 18:33 XR chest 1V portable HISTORY: flank pain COMPARISON: Chest 04/18/2019. FINDINGS: Left subclavian Port-A-Cath terminates in the distal SVC. The heart is normal in size. No pleural effusions. No pneumothorax. No new focal lung consolidations to suggest pneumonia. No evidence for pulmonary edema. IMPRESSION: No acute process. ACT 112: Negative or not required by law. Electronically signed by: Raman Ramon M.D. 12/05/2020 7:02 PM Discharge Plan Visit Data Chief Complaint: Abnormal Labs/Diagnostic Testing Stated Complaint: BAD KIDNEY LAB/SENT [facility] ED Provider: Kushal Templeton Discharge Problem: Acute kidney injury superimposed on CKD, Acute UTI Patient Disposition: Admitted As Inpatient Discharge Instructions Interventions: ED Discharge Assessment Last Done: 12/05/20 21:43
--- NOTE | 2020-12-05 19:04 | XRay Report ---
XR chest 1V portable HISTORY: flank pain COMPARISON: Chest 04/18/2019. FINDINGS: Left subclavian Port-A-Cath terminates in the distal SVC. The heart is normal in size. No p leural effusions. No pneumothorax. No new focal lung consolidations to suggest pneumonia. No evidence for pulmonary edema. IMPRESSION: No acute process. ACT 112: Negative or not required by law. Electronically signed by: Raman Ramon M.D. 12/05/2020 7:02 PM
[2020-12-05 19:07] LABS: Appearance Urine Turbid (Clear); Bacteria Urine Automated 2+ (Negative); Bilirubin Urine Negative (Negative); Blood Urine 2+ (Negative); Color Urine Yellow; Glucose Urine UA Trace (Negative); Ketones Urine Negative (Negative); Leukocyte Esterase Urine 3+ (Negative); Nitrite Urine Negative (Negative); Protein Urine 3+ (Negative); Specific Gravity Urine 1.017 (1.000-1.030); Urobilinogen Urine Negative (Negative); WBC Urine Automated >30 /hpf (0-5)
--- NOTE | 2020-12-05 19:30 | CT Scan Report ---
ABDOMEN AND PELVIS CT WITHOUT CONTRAST CT DOSE: 599.49 mGy.cm HISTORY: R flank pain, acute renal dysfx , hx bladder cancer TECHNIQUE: Multiaxial CT images of the abdomen and pelvis were performed without contrast. A dose lo wering technique was utilized adhering to the principles of ALARA. COMPARISON STUDY: Abdomen and pelvis CT 08/15/2020. FINDINGS: The lung bases are clear. No pneumoperitoneum. No pneumatosis. There are few scattered patc hy areas of sclerosis seen within the visualized osseous structures. This is consistent with osteobla stic metastatic disease and is not significantly changed. This most pronounced at the S1 level and le ft inferior pubic ramus. No fractures. Small fat-containing right-sided ventral hernia, unchanged. Po stoperative changes again noted within the right groin. Slight prominent low-density right inguinal l ymph nodes remain stable. Mild bladder wall thickening, unchanged. Bilateral adrenal gland nodule/isrrael nomatous are also stable. No change in the bilateral perinephric edema. There is a punctate nonobstru cting stone within the lower pole the left kidney. No right renal calculi identified. No ureteral sto reinaldo. No hydronephrosis. The unenhanced liver, gallbladder, pancreas, spleen are unremarkable. Mild re troperitoneal lymphadenopathy remains unchanged. There is dense calcified plaque within the normal ca liber abdominal aorta. Suboptimal evaluation for bowel pathology due to the lack of intravenous and o ral contrast. However, there is no definite bowel wall thickening or obstruction. A few colonic diver ticula. No evidence for acute diverticulitis. Postoperative changes within the right colon. IMPRESSION: 1. Left-sided nephrolithiasis. No ureteral stones. No hydronephrosis. 2. No change in the mild perinephric fat stranding/edema. This is likely chronic. Recommend correlati on with urinalysis to exclude an infectious process. 3. No change in the mild retroperitoneal lymphadenopathy. 4. Stable osteoblastic metastatic disease. 5. Stable mild bladder wall thickening. 6. Additional findings as described above. ACT 112: Negative or not required by law. Electronically signed by: Raman Ramon M.D. 12/05/2020 7:29 PM
[2020-12-05 19:33] LABS: Influenza A virus by PCR Negative (Neg); Influenza B virus by PCR Negative (Neg); RSV by PCR Negative (Neg); SARS CoV2 RNA(COVID-19) InHosp NEGATIVE (Negative)
[2020-12-05] MEDS ORDERED: cefTRIAXone SODIUM 2,000 MG/70 ML BAG IV STA (19:38)
[2020-12-05] MEDS ORDERED: SODIUM CHLORIDE 0.9% 1000ML 1,000 ML IV ONE (19:56)
--- NOTE | 2020-12-05 20:40 | History & Physical Report ---
Date of Service December 05, 2020 Assessment & Plan (1) Acute kidney injury superimposed on CKD: Elevated BUN and Cr on routine labs today. BUN=72 from baseline of appx 35 and Cr of 3.06 from baseline of 1.5. Suspect multifactorial cause to include volume loss from dehydration, decreased PO intake as well as Lisinopril use. Patient does not take NSAIDS. -Check CK -Check urine Na and Cr to calculate FeNA -LR at 125mL/hr x 2 liters -BMP q 12 hours -Avoid nephrotoxic agents -Renal dosing where needed Present on Admission?: Yes (2) Diarrhea: Patient endorses intermittent watery diarrhea. No recent antibiotic use. No medication changes. Patient drinks bottled water only. He has history of immune mediated colitis associated with Nivolumab. Patient with non-anion gap metabolic acidosis with pH=7.3 on VBG, HCO3=15. -Check c. diff -Check stool culture -IVF and electrolyte repletion Present on Admission?: Yes (3) Hypercholesteremia: Chronic. Stable -Continue Simvastatin Present on Admission?: Yes (4) Hypertension: Mildly elevated BP at present -Continue Amlodipine -Hold Lisinopril for now in setting of JEAN Present on Admission?: Yes (5) Diabetes mellitus, type 2: Chronic. BSG=87 at present -Will reduce Lantus to 10 u BID for now -ISS -Goal blood sugar 100 - 140 Present on Admission?: Yes (6) Bladder cancer metastasized to bone: Chronic. 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 Patient had routine blood work performed today at the request of the [facility] and was called this afternoon and instructed to come to the ER due to abnormal kidney function. Patient states that he overall feels well. He reports a slight change in the taste of food as well as decreased PO intake. He does admit to intermittent diarrhea, watery, non-bloody which has been ongoing for months as well as intermittent chills, dysuria and right flank pain. He denies CP/palpitations /cough/SOB. Denies abdominal pain/nausea/vomiting. He has received his Covid- 19 vaccination. No additional complaints at this time. ER Course: Ceftriaxone, NSS Allergies Allergy/AdvReac Type Severity Reaction Status Date / Time No Known Allergies Allergy Verified 12/05/20 18:31 Home Medications Medication Instructions Recorded Confirmed Type blood sugar diagnostic #360 ea 04/14/20 06/30/20 Rx aspirin 81 mg tablet,delayed 81 mg PO DAILY 06/30/20 12/05/20 History release pen needle, diabetic 32 gauge x #100 ea 09/11/20 Rx /32" insulin glargine 100 unit/mL (3 12 unit SUBCUT BIDM 90 Days #18 ml 10/04/20 12/05/20 Rx mL) subcutaneous pen insulin lispro 100 unit/mL 6 unit SQ BIDM #15 ml 10/04/20 12/05/20 Rx subcutaneous pen amlodipine 10 mg tablet 10 mg PO DAILY #90 tab 10/24/20 12/05/20 Rx lancets 33 gauge #100 ea 11/02/20 Rx lisinopril 2.5 mg tablet 2.5 mg PO DAILY #90 tab 11/02/20 12/05/20 Rx simvastatin 20 mg PO QDD 12/05/20 12/05/20 History Past Med/Surg History Medical History Bladder cancer metastasized to bone Cancer Chronic kidney disease, stage 3 (moderate) Diabetes mellitus, type 2 Diverticulitis Elevated liver enzymes GERD (gastroesophageal reflux disease) H/O sepsis Hematuria History of pseudoaneurysm Hypercholesteremia Hypertension Ischemic ulcer of both feet Malignant neoplasm of bladder Rupture of bowel Spinal stenosis Ventral hernia Surgical History H/O cystoscopy History of bladder surgery (04/06/18) History of colostomy reversal History of surgery Hx of colostomy S/P aneurysm repair (04/2019) S/P femoropopliteal bypass surgery (01/2019) Status post chemotherapy Family History Mother Hypertension Diabetes Father , in his 60's Prostate cancer Brother Stroke Hypertension Diabetes Lyme disease Brother No problems noted. Brother No problems noted. Sister No problems noted. Sister No problems noted. Daughter Skin cancer Hypertension Hypothyroidism Social History Smoking Status: Current every day smoker Tobacco Type: Cigarettes Age Started Using Tobacco: 14; packs per day: 1; Years Smoked: 46; Cigarettes Per Day: 20; Second Hand Exposure: No; Hx Alcohol Use: No Hx Substance Use: No Preferred Language: [place]an Communication Ability: Effective Visual Impairment: No Limitations Hearing Ability: Normal Sales Representative Public Utilities Required: No Beliefs That Will Affect Care: None marital status: Current Living Situation: Family Current Living Situation Comment: mother and brother current occupational status: unemployed current occupation: Disability Feels Safe at Home: Yes Childhood Exposure to Second-Hand Smoke: No caffeine: Yes (4 cups/day) during the past year weight has: decreased > 10 lbs Dental Care, Regularly: No Physical Activity Frequency: Daily Physical Activity Frequency Comment: house work Seatbelt Use: always Sunscreen Use: No Assistive Devices: None Review of Systems Review of Systems: All systems reviewed & are unremarkable except as noted in HPI & below +dysuria +chills +decreased oral intake Physical Exam Physical Exam: General: patient resting comfortably, NAD, non-toxic in appearance, AA&O x 4 Skin: warm, dry, intact, scattered bruising on forearms HEENT: NC/AT, PERRL, EOMI, anicteric sclera, conjunctiva without injection, external ear normal to inspection and nontender, nares patent, slightly dry mucus membranes, dentition intact, no oropharyngeal lesions, neck supple, trachea midline, no LAD, no thyromegaly, no JVD Heart: +S1/S2, regular, no m/r/g Lungs: coarse rhonchi bilaterally with scattered end-expiratory wheezing Abd: +BS, soft, NT/ND, no masses/organomegaly/ascites Ext: warm, 2+ pulses in UE/LE bilaterally, no clubbing/cyanosis, trace pitting edema on RLE Neuro: nonfocal, patient AA&O x 4, speech intact, no facial droop, moving all extremities on command with equal strength 5/5 Results & Data Results & Data ([facility]) Vital Signs (Past 12 Hours) Vital Signs Temp Pulse Resp BP Pulse Ox 12/05/20 17:30 36.3 C L 90 20 124/68 97 Laboratory Results Lab Results 12/05/20 12/05/20 12/05/20 Range/Units 18:13 18:13 18:13 WBC 10.16 (4.8-10.8) K/uL RBC 4.68 L (4.7-6.1) M/uL Hgb 14.3 (14.0-18.0) g/dL Hct 40.3 L (42-52) % MCV 86.1 (80-100) fL MCH 30.6 (25-34) pg MCHC 35.5 (32-36) g/dL RDW Std Deviation 42.7 (36.4-46.3) fL RDW Coeff of Diane 13.5 (11.5-14.5) % Plt Count 314 (130-400) K/uL MPV 9.7 (7.4-10.4) fL Immature Gran % (Auto) 0.2 % Neut % (Auto) 62.8 % Lymph % (Auto) 17.8 % [place] % (Auto) 10.7 % Eos % (Auto) 7.9 % Baso % (Auto) 0.6 % Neut # (Auto) 6.38 (1.4-6.5) K/uL Lymph # (Auto) 1.81 (1.2-3.4) K/uL [place] # (Auto) 1.09 H (0.11-0.59) K/uL Eos # (Auto) 0.80 H (0-0.5) K/uL Baso # (Auto) 0.06 (0-0.2) K/uL Immature Gran # (Auto) 0.02 (0.00-0.02) K/uL VBG pH (7.36-7.41) VBG pCO2 (38-50) mmHg VBG pO2 mmHg VBG HCO3 mmol/L VBG O2 Saturation % VBG Base Excess mEq/L Barometric Pressure mm/Hg Sodium 140 (136-145) mmol/L Potassium 4.2 (3.5-5.1) mmol/L Chloride 116 H (98-107) mmol/L Carbon Dioxide 15 L (21-32) mmol/L Anion Gap 9.0 (3-11) BUN 72 H (7-18) mg/dl Creatinine 3.06 H (0.6-1.4) mg/dl Est Cr Clr Drug Dosing 26.6 ml/min Est GFR ( Amer) 24.4 Est GFR (Non-Af Amer) 21.1 BUN/Creatinine Ratio 23.5 H (10-20) Glucose 87 (70-99) mg/dl Lactate 0.6 (0.4-2.0) mmol/L Calcium 7.8 L (8.5-10.1) mg/dl Magnesium 2.0 (1.8-2.4) mg/dl Total Bilirubin 0.2 (0.2-1) mg/dl AST 29 (15-37) U/L ALT 79 H (12-78) U/L Alkaline Phosphatase 121 H (45-117) U/L Troponin I < 0.015 (0-0.045) ng/ml Total Protein 7.4 (6.4-8.2) gm/dl Albumin 3.4 (3.4-5.0) gm/dl Globulin 4.0 (2.5-4.0) gm/dl Albumin/Globulin Ratio 0.9 (0.9-2) Lipase 365 (73-393) U/L Urine Color Urine Appearance (Clear) Urine pH (4.5-7.5) Ur Specific [place] (1.000-1.030) Urine Protein (Negative) Urine Glucose (UA) (Negative) Urine Ketones (Negative) Urine Blood (Negative) Urine Nitrite (Negative) Urine Bilirubin (Negative) Urine Urobilinogen (Negative) Ur Leukocyte Esterase (Negative) Urine WBC (Auto) (0-5) /hpf Urine RBC (Auto) (0-4) /hpf U Hyaline Cast (Auto) (0-5) /lpf U Epithel Cells (Auto) (0-5) /lpf Urine Bacteria (Auto) (Negative) Urine Yeast COVID-19 Eval Order SARS-CoV-2 (PCR) (Negative) Influenza Type A (PCR) (Neg) Influenza Type B (PCR) (Neg) RSV (RT-PCR) (Neg) 12/05/20 12/05/20 12/05/20 Range/Units 18:13 18:50 18:51 WBC (4.8-10.8) K/uL RBC (4.7-6.1) M/uL Hgb (14.0-18.0) g/dL Hct (42-52) % MCV (80-100) fL MCH (25-34) pg MCHC (32-36) g/dL RDW Std Deviation (36.4-46.3) fL RDW Coeff of Diane (11.5-14.5) % Plt Count (130-400) K/uL MPV (7.4-10.4) fL Immature Gran % (Auto) % Neut % (Auto) % Lymph % (Auto) % [place] % (Auto) % Eos % (Auto) % Baso % (Auto) % Neut # (Auto) (1.4-6.5) K/uL Lymph # (Auto) (1.2-3.4) K/uL [place] # (Auto) (0.11-0.59) K/uL Eos # (Auto) (0-0.5) K/uL Baso # (Auto) (0-0.2) K/uL Immature Gran # (Auto) (0.00-0.02) K/uL VBG pH 7.30 L (7.36-7.41) VBG pCO2 31 L (38-50) mmHg VBG pO2 43 mmHg VBG HCO3 15 mmol/L VBG O2 Saturation 80.1 % VBG Base Excess -10.3 mEq/L Barometric Pressure 727.5 mm/Hg Sodium (136-145) mmol/L Potassium (3.5-5.1) mmol/L Chloride (98-107) mmol/L Carbon Dioxide (21-32) mmol/L Anion Gap (3-11) BUN (7-18) mg/dl Creatinine (0.6-1.4) mg/dl Est Cr Clr Drug Dosing ml/min Est GFR ( Amer) Est GFR (Non-Af Amer) BUN/Creatinine Ratio (10-20) Glucose (70-99) mg/dl Lactate (0.4-2.0) mmol/L Calcium (8.5-10.1) mg/dl Magnesium (1.8-2.4) mg/dl Total Bilirubin (0.2-1) mg/dl AST (15-37) U/L ALT (12-78) U/L Alkaline Phosphatase (45-117) U/L Troponin I (0-0.045) ng/ml Total Protein (6.4-8.2) gm/dl Albumin (3.4-5.0) gm/dl Globulin (2.5-4.0) gm/dl Albumin/Globulin Ratio (0.9-2) Lipase (73-393) U/L Urine Color Yellow Urine Appearance Turbid A (Clear) Urine pH 6.0 (4.5-7.5) Ur Specific [place] 1.017 (1.000-1.030) Urine Protein 3+ H (Negative) Urine Glucose (UA) Trace H (Negative) Urine Ketones Negative (Negative) Urine Blood 2+ H (Negative) Urine Nitrite Negative (Negative) Urine Bilirubin Negative (Negative) Urine Urobilinogen Negative (Negative) Ur Leukocyte Esterase 3+ H (Negative) Urine WBC (Auto) >30 H (0-5) /hpf Urine RBC (Auto) 10-30 H (0-4) /hpf U Hyaline Cast (Auto) 5-10 H (0-5) /lpf U Epithel Cells (Auto) 10-20 H (0-5) /lpf Urine Bacteria (Auto) 2+ H (Negative) Urine Yeast Not Reportable COVID-19 Eval Order CovFluRsv at [facility] SARS-CoV-2 (PCR) (Negative) Influenza Type A (PCR) (Neg) Influenza Type B (PCR) (Neg) RSV (RT-PCR) (Neg) 12/05/20 Range/Units 18:51 WBC (4.8-10.8) K/uL RBC (4.7-6.1) M/uL Hgb (14.0-18.0) g/dL Hct (42-52) % MCV (80-100) fL MCH (25-34) pg MCHC (32-36) g/dL RDW Std Deviation (36.4-46.3) fL RDW Coeff of Diane (11.5-14.5) % Plt Count (130-400) K/uL MPV (7.4-10.4) fL Immature Gran % (Auto) % Neut % (Auto) % Lymph % (Auto) % [place] % (Auto) % Eos % (Auto) % Baso % (Auto) % Neut # (Auto) (1.4-6.5) K/uL Lymph # (Auto) (1.2-3.4) K/uL [place] # (Auto) (0.11-0.59) K/uL Eos # (Auto) (0-0.5) K/uL Baso # (Auto) (0-0.2) K/uL Immature Gran # (Auto) (0.00-0.02) K/uL VBG pH (7.36-7.41) VBG pCO2 (38-50) mmHg VBG pO2 mmHg VBG HCO3 mmol/L VBG O2 Saturation % VBG Base Excess mEq/L Barometric Pressure mm/Hg Sodium (136-145) mmol/L Potassium (3.5-5.1) mmol/L Chloride (98-107) mmol/L Carbon Dioxide (21-32) mmol/L Anion Gap (3-11) BUN (7-18) mg/dl Creatinine (0.6-1.4) mg/dl Est Cr Clr Drug Dosing ml/min Est GFR ( Amer) Est GFR (Non-Af Amer) BUN/Creatinine Ratio (10-20) Glucose (70-99) mg/dl Lactate (0.4-2.0) mmol/L Calcium (8.5-10.1) mg/dl Magnesium (1.8-2.4) mg/dl Total Bilirubin (0.2-1) mg/dl AST (15-37) U/L ALT (12-78) U/L Alkaline Phosphatase (45-117) U/L Troponin I (0-0.045) ng/ml Total Protein (6.4-8.2) gm/dl Albumin (3.4-5.0) gm/dl Globulin (2.5-4.0) gm/dl Albumin/Globulin Ratio (0.9-2) Lipase (73-393) U/L Urine Color Urine Appearance (Clear) Urine pH (4.5-7.5) Ur Specific [place] (1.000-1.030) Urine Protein (Negative) Urine Glucose (UA) (Negative) Urine Ketones (Negative) Urine Blood (Negative) Urine Nitrite (Negative) Urine Bilirubin (Negative) Urine Urobilinogen (Negative) Ur Leukocyte Esterase (Negative) Urine WBC (Auto) (0-5) /hpf Urine RBC (Auto) (0-4) /hpf U Hyaline Cast (Auto) (0-5) /lpf U Epithel Cells (Auto) (0-5) /lpf Urine Bacteria (Auto) (Negative) Urine Yeast COVID-19 Eval Order SARS-CoV-2 (PCR) NEGATIVE (Negative) Influenza Type A (PCR) Negative (Neg) Influenza Type B (PCR) Negative (Neg) RSV (RT-PCR) Negative (Neg) Diagnostic Findings XR chest 1V portable HISTORY: flank pain COMPARISON: Chest 04/18/2019. FINDINGS: Left subclavian Port-A-Cath terminates in the distal SVC. The heart is normal in size. No pleural effusions. No pneumothorax. No new focal lung consolidations to suggest pneumonia. No evidence for pulmonary edema. IMPRESSION: No acute process. ACT 112: Negative or not required by law. Electronically signed by: Raman Ramon M.D. 12/05/2020 7:02 PM Dictated: 12/05/201900 ABDOMEN AND PELVIS CT WITHOUT CONTRAST CT DOSE: 599.49 mGy.cm HISTORY: R flank pain, acute renal dysfx , hx bladder cancer TECHNIQUE: Multiaxial CT images of the abdomen and pelvis were performed without contrast. A dose lowering technique was utilized adhering to the principles of ALARA. COMPARISON STUDY: Abdomen and pelvis CT 08/15/2020. FINDINGS: The lung bases are clear. No pneumoperitoneum. No pneumatosis. There are few scattered patchy areas of sclerosis seen within the visualized osseous structures. This is consistent with osteoblastic metastatic disease and is not significantly changed. This most pronounced at the S1 level and left inferior pubic ramus. No fractures. Small fat-containing right-sided ventral hernia, unchanged. Postoperative changes again noted within the right groin. Slight prominent low-density right inguinal lymph nodes remain stable. Mild bladder wall thickening, unchanged. Bilateral adrenal gland nodule/adenomatous are also stable. No change in the bilateral perinephric edema. There is a punctate nonobstructing stone within the lower pole the left kidney. No right renal calculi identified. No ureteral stones. No hydronephrosis. The unenhanced liver, gallbladder, pancreas, spleen are unremarkable. Mild retroperitoneal lymphadenopathy remains unchanged. There is dense calcified plaque within the normal caliber abdominal aorta. Suboptimal evaluation for bowel pathology due to the lack of intravenous and oral contrast. However, there is no definite bowel wall thickening or obstruction. A few colonic diverticula. No evidence for acute diverticulitis. Postoperative changes within the right colon. IMPRESSION: 1. Left-sided nephrolithiasis. No ureteral stones. No hydronephrosis. 2. No change in the mild perinephric fat stranding/edema. This is likely chronic. Recommend correlation with urinalysis to exclude an infectious process. 3. No change in the mild retroperitoneal lymphadenopathy. 4. Stable osteoblastic metastatic disease. 5. Stable mild bladder wall thickening. 6. Additional findings as described above. ACT 112: Negative or not required by law. Electronically signed by: Raman Ramon M.D. 12/05/2020 7:29 PM Dictated: 12/05/201913Transcribed: 12/05/201913 ECG Additional Comments: SR at 73 bpm with PVCs, left axis deviation, RBBB, no acute ischemic changes Code Status & VTE Plan VTE Prophylaxis Plan VTE Prophylaxis will be ordered: Yes PG Care Time/CCT Total # of Minutes Spent Total Time Spent with Patient: Total time spent is greater than 50% in coordination of care (as documented) at patient's floor/unit and/or counseling patient: Coding Level of Care Code 30809 Initial Inpt Care Lvl 3 Diagnoses Acute kidney injury superimposed on CKD N17.9; N18.9 Diarrhea R19.7 Diarrhea type: unspecified type Hypercholesteremia E78.00 Hypertension I10 Hypertension type: unspecified Diabetes mellitus, type 2 E11.42; Z79.4 Diabetes mellitus terminal system operator insulin use: with terminal system operator use Diabetes mellitus complication status: with neurologic complications Diabetes mellitus complication detail: with polyneuropathy Bladder cancer metastasized to bone C67.9; C79.51 (1) Hypertension Hypertension type: unspecified Qualified Code(s): I10 - Essential (primary) hypertension (2) Diabetes mellitus, type 2 Diabetes mellitus terminal system operator insulin use: with halfway use Diabetes mellitus complication status: with neurologic complications Diabetes mellitus complication detail: with polyneuropathy Qualified Code(s): E11.42 - Type 2 diabetes mellitus with diabetic polyneuropathy; Z79.4 - skilled nursing (current) use of insulin (3) Diarrhea Diarrhea type: unspecified type Qualified Code(s): R19.7 - Diarrhea, unspecified
[2020-12-05] MEDS ORDERED: GLUCOSE 40% GEL 15 GM TUBE PO PRN (21:58)
[2020-12-05] MEDS ORDERED: GLUCOSE 10 TABS/TUBE PO PRN (21:58)
[2020-12-05] MEDS ORDERED: GLUCAGON FOR INJ 1 MG VIAL SQ PRN (21:58)
[2020-12-05] MEDS ORDERED: ACETAMINOPHEN 325 MG TAB PO PRN (21:58)
[2020-12-05] MEDS ORDERED: DEXTROSE 50% 50 ML SYRINGE IV PRN (21:58)
[2020-12-05] MEDS: CARBOHYDRATES FOR HYPOGLYCEMIA PO PRN (22:15)
[2020-12-05 22:23] LABS: Creatine Kinase 270 U/L (39-308); Phosphorus 5.2 mg/dl (2.5-4.9)
[2020-12-05] MEDS: LACTATED RINGER'S 1,000 ML IV SCH (22:37)
[2020-12-05] MEDS: INSULIN ASPART 100 UNITS/ML 3 ML PEN SC SCH (22:51)
[2020-12-05] MEDS: HEPARIN SOD 5,000 UNIT/0.5 ML VIAL SQ SCH (23:49)
[2020-12-06] MEDS: LACTATED RINGER'S 1,000 ML IV SCH ×2 (07:12→17:38)
[2020-12-06 07:42] LABS: Alanine Aminotransferase 62 U/L (12-78); Albumin Level 2.7 gm/dl (3.4-5.0); Aspartate Aminotransferase 29 U/L (15-37); BUN Creatinine Ratio 25.4 (10-20); Bilirubin Direct < 0.1 mg/dl (0-0.2); Blood Urea Nitrogen 67 mg/dl (7-18); Calcium 7.7 mg/dl (8.5-10.1); Carbon Dioxide 16 mmol/L (21-32); Chloride 118 mmol/L (98-107); Creatinine Clr Calc Pharmacy 30.8 ml/min; Est GFR (African American) 29.1; Est GFR (Non-African American) 25.1; Glucose 107 mg/dl (70-99); Potassium 4.1 mmol/L (3.5-5.1); Sodium 141 mmol/L (136-145)
[2020-12-06 07:51] LABS: Alkaline Phosphatase 101 U/L (45-117); Bilirubin,Total 0.2 mg/dl (0.2-1); Total Protein 5.8 gm/dl (6.4-8.2)
--- NOTE | 2020-12-06 07:57 | Hospitalist Progress Note ---
Date of Service December 06, 2020 Assessment & Plan (1) Acute kidney injury superimposed on CKD: baseline ckd 3. jean improving with hydration and cessation of lory i Elevated BUN and Cr. Suspect multifactorial cause to include volume loss from dehydration, decreased PO intake as well as Lisinopril use. Patient does not take NSAIDS. -abnormal urine will check for infection Continues on-LR at 125mL/hr -Renal dosing where needed (2) Diarrhea: Patient endorses intermittent watery diarrhea. No recent antibiotic use. No medication changes. Patient drinks bottled water only. He has history of immune mediated colitis associated with Nivolumab. Patient with non-anion gap metabolic acidosis -negative c. diff -pending stool culture -IVF and electrolyte repletion (3) Hypercholesteremia: Chronic. Stable -Continue Simvastatin (4) Hypertension: Mildly elevated BP at present -Continue Amlodipine -Hold Lisinopril for now in setting of JEAN (5) Diabetes mellitus, type 2: Chronic. BSG=87 at present -Will reduce Lantus to 10 u BID for now -ISS -Goal blood sugar 100 - 140 (6) Bladder cancer metastasized to bone: Chronic. Patient follows with Oncology Ppx - Heparin due to renal dysfunction Code - Full per discussion with patient Dispo - Admit to medical Admission and Anticipated Discharge Date Admission Date: December 05, 2020 Subjective Patient feels diarrhea has resolved his stool starting to firm up he wants to go home however he was educated that his renal function although improved is not near his baseline it would be better for him to spend another day in the hospital to continue his hydration improve his renal function. He is agreeable to stay till the morning on 10/09/2020 Review of Systems Review of Systems: Mild distress and fatigue no headache, blurry or double vision no speech or swallowing issues no chest pain, pressure or palpitations no shortness of breath, cough or wheezes no abdominal pain, nausea or vomiting, resolving diarrhea no dysuria, hematuria or frequency no focal joint pain or swelling no back pain, CVA tenderness or radicular pain no bruising, bleeding or rashes no focal signs of weakness or numbness or altered sensation no complaints of anxiety or depression.. Physical Exam Physical Exam: The patient appeared well nourished and normally developed. Vital signs as documented. Head exam is normocephalic atraumatic no scleral icterus Neck is without JVD, thyromegaly, or carotid bruits. Lungs are clear to auscultation, no focal loss of breath sounds Cardiac exam, Rhythm is regular.. No murmurs, rubs or gallops. Abdominal exam reveals normal bowel sounds, soft non tender, no masses Extremities are nonedematous and both pedal pulses are present Neurologic exam is alert and oriented, no focal loss of strength or sensation Skin is without bruises or rashes Psychologically is without concerns for anxiety or depression Results & Data Results & Data ([facility]) Vital Signs (Past 12 Hours) Vital Signs Temp Pulse Pulse Resp BP BP BP 12/06/20 07:31 97.7 F 70 20 161/76 H 12/05/20 22:01 97.5 F L 86 16 139/89 12/05/20 21:00 71 14 146/79 H 12/05/20 20:30 75 16 174/78 H 12/05/20 20:00 67 12 159/72 H 12/05/20 19:59 71 10 L 162/69 H Pulse Ox 12/06/20 07:31 97 12/05/20 22:01 96 12/05/20 21:00 96 12/05/20 20:30 97 12/05/20 20:00 98 12/05/20 19:59 97 PG Care Time/CCT Total # of Minutes Spent Total Time Spent with Patient: Total time spent is greater than 50% in coordination of care (as documented) at patient's floor/unit and/or counseling patient: Coding Level of Care Code 52249 Subseq Hosp Care Lvl 2 Diagnoses Acute kidney injury superimposed on CKD N17.9; N18.9 Diarrhea R19.7 Diarrhea type: unspecified type Hypercholesteremia E78.00 Hypertension I10 Hypertension type: unspecified Diabetes mellitus, type 2 E11.42; Z79.4 Diabetes mellitus complication detail: with polyneuropathy Diabetes mellitus complication status: with neurologic complications Diabetes mellitus fci insulin use: with fci use Bladder cancer metastasized to bone C67.9; C79.51 (1) Diabetes mellitus, type 2 Diabetes mellitus complication detail: with polyneuropathy Diabetes mellitus complication status: with neurologic complications Diabetes mellitus intermediate project manager insulin use: with intermediate project manager use Qualified Code(s): E11.42 - Type 2 diabetes mellitus with diabetic polyneuropathy; Z79.4 - [facility]DC (current) use of insulin (2) Diarrhea Diarrhea type: unspecified type Qualified Code(s): R19.7 - Diarrhea, unspecified (3) Hypertension Hypertension type: unspecified Qualified Code(s): I10 - Essential (primary) hypertension
[2020-12-06] MEDS: amLODIPine BESYLATE 5 MG TAB PO SCH (08:28)
[2020-12-06] MEDS: HEPARIN SOD 5,000 UNIT/0.5 ML VIAL SQ SCH ×2 (08:29→21:15)
[2020-12-06] MEDS: ASPIRIN 81 MG ECTAB PO SCH (08:29)
[2020-12-06] MEDS: INSULIN GLARGINE SOLOSTAR 100 UNITS/ML 3 ML PEN SQ SCH ×2 (08:48→18:06)
[2020-12-06] MEDS: INSULIN ASPART 100 UNITS/ML 3 ML PEN SC SCH ×4 (08:49→21:26)
--- NOTE | 2020-12-06 14:32 | Electrocardiogram Report ---
Test Reason : Blood Pressure : / mmHG Vent. Rate : 073 BPM Atrial Rate : 073 BPM P-R Int : 188 ms QRS Dur : 112 ms QT Int : 406 ms P-R-T Axes : -24 -87 043 degrees QTc Int : 447 ms Sinus rhythm with occasional Premature ventricular complexes Left axis deviation Incomplete right bundle branch block Inferior infarct , age undetermined Abnormal ECG When compared with ECG of 25-DEC-2019 13:38, Premature ventricular complexes are now Present Confirmed by Blane Box ([id number]) on 12/06/2020 2:31:35 PM Referred By: Donna Cano Confirmed By:Tony Box
[2020-12-06] MEDS ORDERED: SIMVASTATIN 20 MG TAB PO SCH (16:30)
[2020-12-06] MEDS ORDERED: cefTRIAXone SODIUM 2,000 MG in DEXTROSE 5% 50 ML IV SCH (20:00)
[2020-12-07] MEDS: LACTATED RINGER'S 1,000 ML IV SCH (02:14)
[2020-12-07] MEDS: CARBOHYDRATES FOR HYPOGLYCEMIA PO PRN (07:39)
[2020-12-07 07:43] LABS: BUN Creatinine Ratio 24.9 (10-20); Calcium 7.3 mg/dl (8.5-10.1); Creatinine Clr Calc Pharmacy 34.2 ml/min; Est GFR (African American) 33.1; Est GFR (Non-African American) 28.5; Potassium 3.9 mmol/L (3.5-5.1)
[2020-12-07 08:10] LABS: BUN Creatinine Ratio 23.6 (10-20); Creatinine Clr Calc Pharmacy 33.1 ml/min; Est GFR (African American) 31.8; Est GFR (Non-African American) 27.4; Magnesium 1.7 mg/dl (1.8-2.4); Potassium 4.1 mmol/L (3.5-5.1)
[2020-12-07] MEDS: ASPIRIN 81 MG ECTAB PO SCH (09:25)
[2020-12-07] MEDS: amLODIPine BESYLATE 5 MG TAB PO SCH (09:25)
[2020-12-07] MEDS: INSULIN ASPART 100 UNITS/ML 3 ML PEN SC SCH (09:44)
[2020-12-07] MEDS: INSULIN GLARGINE SOLOSTAR 100 UNITS/ML 3 ML PEN SQ SCH (09:45)
--- NOTE | 2020-12-07 16:10 | Discharge Summary ---
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 Patient had routine blood work performed today at [facility] of [facility] and was called this afternoon and instructed to come to the ER due to abnormal kidney function. Patient states that he overall feels well. He reports a slight change in the taste of food as well as decreased PO intake. He does admit to intermittent diarrhea, watery, non-bloody which has been ongoing for months as well as intermittent chills, dysuria and right flank pain. He denies C P/palpitations/cough/SOB. Denies abdominal pain/nausea/vomiting. He has received his Covid-19 vaccination. No additional complaints at this time. ER Course: Ceftriaxone, NSS Principal Diagnosis ATN with acute kidney injury superimposed on CKD 3 secondary to volume losses from diarrhea resolving Discharge Exam The patient appeared well Vital signs as documented. Lungs are clear to auscultation and appear unlabored Cardiac exam, Rhythm is regular.. No murmurs, rubs or gallops. Abdominal exam reveals normal bowel sounds, soft non tender, no masses Extremities are nonedematous and both pedal pulses are normal. Neurologic exam is alert and oriented, no focal loss of strength or sensation Skin is without bruises or rashes Psychologically is without concerns for anxiety or depression. Discharge Data Allergies Allergy/AdvReac Type Severity Reaction Status Date / Time No Known Allergies Allergy Verified 12/05/20 18:31 Consultations 12/05/20 19:56 ED Decision to Admit Stat Ordered Studies 12/05/20 18:03 CT abd pelvis wo con Stat Hospital Course (1) Acute kidney injury superimposed on CKD: baseline ckd 3. jean improving with hydration and cessation of lory i Elevated BUN and Cr. Suspect multifactorial cause to include volume loss from dehydration, decreased PO intake as well as Lisinopril use. Patient does not take NSAIDS. -abnormal urine shows Proteus mirabilis treated with amoxicillin for infection Patient was requested to stay in the hospital slightly bit longer for hydration and improvement of his renal functions he demanded to go home was subsequently discharged (2) Diarrhea: Resolved negative for infectious etiologies -negative c. diff (3) Hypercholesteremia: Chronic. Stable -Continue Simvastatin (4) Hypertension: Mildly elevated BP at present -Continue Amlodipine -Hold Lisinopril at the time of discharge (5) Diabetes mellitus, type 2: Continue home diabetic management (6) Bladder cancer metastasized to bone: Chronic. Patient follows with Oncology Code - Full per discussion with patient Total Time Total Time Spent Total Time Spent (In Minutes): It required greater than 30 minutes to prepare this patient for discharge Discharge Plan Discharge Items Patient Disposition: Home - Self-Care Reason For Visit: JEAN Discharge Diagnosis: acute kidney injury Activity: Resume your previous activity Non-emergency contact: Primary Care Provider Call non-emergency contact if: you have any medication questions and your symptoms worsen Follow-up/Referrals: Donna Cano DO [Primary Care Provider] - 12/14/20 3:20 pm Diet: Regular Ambulatory Orders: Basic Metabolic Panel (Routine) Timeframe: 1 Day Location: Determined by Patient Ordered By: Jb Ferrell Attending Provider Instructions: drink plenty of fluids have outpt lab work 12/08/[address] Cano in one week do not take your lisinopril until instructed otherwise by Dr Cano you have a urinary tract infection and need to complete your antibiotics that are sent to your pharmacy Pending Studies at Discharge: No Stand-Alone Forms: [employer], Smoking Cessation Medications and DC Order Prescriptions: New amoxicillin 500 mg tablet 500 mg PO TID 10 Days Qty: 30 RF: 0 Continued (DME) OneTouch Ultra Blue Test Strip Strip See Dose Instructions .ROUTE .MEDSUPPLY Qty: 360 RF: 3 (DME) pen needle, diabetic [BD Ultra-Fine Fely Pen Needle] 32 gauge x 5/32" needle See Dose Instructions .ROUTE .MEDSUPPLY Qty: 100 RF: 3 insulin lispro [Humalog KwikPen Insulin] 100 unit/mL insulin pen 6 unit SQ BIDM Qty: 15 RF: 3 insulin glargine 100 unit/mL (3 mL) insulin pen 12 unit subcut BIDM 90 Days Qty: 18 RF: 1 amlodipine [Norvasc] 10 mg tablet 10 mg PO DAILY Qty: 90 RF: 1 (DME) lancets [OneTouch Delica Lancets] 33 gauge misc See Dose Instructions .ROUTE .MEDSUPPLY Qty: 100 RF: 3 aspirin 81 mg tablet,delayed release (DR/EC) 81 mg PO DAILY RF: 0 simvastatin 20 mg tablet 20 mg PO QDD RF: 0 Discontinued lisinopril 2.5 mg tablet 2.5 mg PO DAILY Qty: 90 RF: 1 Discharge Orders: Discharge Order (Routine); Ordered 12/07/20 Ordered By: Jb Hudson/Other Patient Handouts: Healthy Kidneys Admission Data Admit Date/Time: 12/05/20 20:29 Attending Provider: Jb Moralez Admit Provider: Sharon Marcial Primary Care Provider: Donna Cano Other Providers: Sharon Marcial Other Interventions: Discharge Summary Assessment (RN) Last Done: 12/07/20 09:33 Coding Level of Care Code D/C Day Management >30 mins Diagnoses Acute kidney injury superimposed on CKD N17.9; N18.9 Diarrhea R19.7 Diarrhea type: unspecified type Hypercholesteremia E78.00 Hypertension I10 Hypertension type: unspecified Diabetes mellitus, type 2 E11.42; Z79.4 Diabetes mellitus nursing home insulin use: with nursing home use Diabetes mellitus complication status: with neurologic complications Diabetes mellitus complication detail: with polyneuropathy Bladder cancer metastasized to bone C67.9; C79.51
== END 2020-12-07 11:20 | disposition home or self-care (01) | DRG 683 ==
LOC: ED 17:26 → 3N 20:29 → SUATTDRO 20:29 → 3N 21:43

== ENCOUNTER 2022-08-30 23:15 | Inpatient (IN) ==
[2022-08-30] MEDS ORDERED: ALBUT/IPRATROP 3MG/0.5MG NEB 3 ML VIAL NEB STA (23:56)
[2022-08-30] MEDS ORDERED: methylPREDNISolone 125 MG/2 ML VIAL IV STA (23:56)
--- NOTE | 2022-08-30 23:58 | Emergency Department Note ---
Impression & Plan Acute renal failure ADMIT ED Provider Note HPI: The patient is a chronically ill-appearing 62-year-old gentleman with history of COPD, hypertension, type 2 diabetes, peripheral artery disease, who presents emergency department with a chief complaint of fall and confusion. Patient also complains of shortness of breath on arrival. He is a poor historian. Patient has diminished breath sounds bilaterally, he was placed on oxygen mask on arrival secondary to increased work of breathing and difficulty with pulse ox. On my initial assessment the patient is alert to verbal stimuli, ambulates all extremities spontaneously, he is unable to provide me with much useful history otherwise. Patient arrives with blood pressure greater than 100 systolic, he is not tachycardic. ROS: - Per HPI *Outpatient medications and allergy history reviewed. *Pertinent external medical records reviewed. PE: General: Alert, frail-appearing HEENT: Normocephalic, trachea midline Eyes: Extraocular eye movement is intact, no scleral erythema Pulmonary: Clear to auscultation bilaterally, no wheezing Cardio: Regular rate and rhythm GI: Abdomen is soft, nontender : No suprapubic tenderness MSK: No evidence of trauma or malformation of the extremities, no edema Skin: No evidence of rash, multiple contusions to the bilateral upper extremities Neuro: Alert, no focal deficits Psychiatric: Cooperative compliance monitor: - An order was placed for continuous cardiac monitoring - Patient was noted to be in sinus rhythm with a rate of 85 EKG: (As interpreted by myself): Rate: 69 Rhythm: Normal sinus rhythm Intervals: PA interval 200 ms, QRS 138 ms, QTC [address] changes: No ST elevation Time: 2336 Interventions provided in ED: -Sodium bicarbonate drip, calcium gluconate, IV fluid bolus Medical Decision Making: Patient presented to the emergency department with altered mentation, on my initial assessment the patient is alert to verbal stimuli but unable to provide me with any coherent history. IV was established, lab work obtained, patient was placed on pvc monitor, he remained stable with oxygen mask in place. Patient was briefly trialed on BiPAP but despite IV Ativan he was unable to tolerate the mask. He was therefore placed back on oxygen mask. Lab work shows evidence of metabolic derangement, patient has creatinine of approximately 15, serum bicarbonate level of 4, BUN of 277, potassium is within normal limits, calcium is low at 4.5, blood sugar slightly elevated at 202, anion gap elevation at 36 likely secondary to uremia. Patient was also noted to be hypothermic and therefore Josue hugger warming blanket was placed. Troponin is elevated at 151, EKG does not show any acute ischemic changes, patient did not complain of any chest discomfort. I suspect this may be demand ischemia also in the setting of renal failure. Patient was initiated on a sodium bicarbonate drip as his venous blood gas does show a pH of 7.03 with attempt at respiratory compensation with CO2 of 18. I suspect that his metabolic acidosis is secondary to his renal failure. We will send for toxic alcohol work-up and serum awesome. Ricardo catheter was placed with approximately 500 cc of urine drained. CT imaging of the head does not show any evidence of any acute intracranial process, CT imaging of the abdomen pelvis otherwise does not show any evidence of any acute surgical abnormality. Patient's last creatinine on record was from April was approximately 3, unclear if this was a chronic/ongoing process or if there was an issue that caused him to acutely become uremic with renal failure. I suspect this has been ongoing. His hemoglobin is also noted to be low at 8.5, occult stool is positive however the patient has not had any gross GI bleeding, he has not had any hematemesis or blood per rectum while here in the ED. I discussed the patient's presentation with on-call nephrology, Dr. Crespo, he was in agreement for evaluation of the patient in the morning for possible dialysis. Patient will be admitted to the ICU overnight. Case was also discussed with Dr. Marcial of the [facility] group hospitalist service as well as the ICU midlevel provider, Oseas Ramirez. Patient was placed for admission to the ICU in fair condition. * CRITICAL CARE TIME: ( 120 ) minutes -Time spent at the bedside, interpretation of diagnostic studies, EKG, and lab work, management of patient with metabolic acidosis secondary to renal failure with significantly low serum bicarbonate level (4) requiring initiation of sodium bicarbonate drip, discussion with subspecialty physicians/nephrology, discussion with other physicians and arrangement of admission to the ICU Diagnosis: 1. Acute renal failure 2. Uremia, acute 3. Metabolic acidosis 4. Anemia, acute 5. Occult positive stool 6. Elevated troponin level 7. Hypocalcemia, acute Disposition: Admission Silvestre Medina DO Emergency Medicine Past Med/Surg History Medical History Bladder cancer metastasized to bone Cancer NEWLY DX WITH BLADDER CANCER, BLOODY URINE, STARTED CHEMO APR 2018, FINISHED JULY 2018 Chronic kidney disease, stage 3 (moderate) COPD (chronic obstructive pulmonary disease) Diabetes mellitus, type 2 Diverticulitis Elevated liver enzymes GERD (gastroesophageal reflux disease) H/O sepsis Related to ruptured sigmoid colon. Hematuria History of pseudoaneurysm 04/23/19- Repair of pseudoaneurysm of right femoral artery with bovine patch by Dr. 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 Rupture of bowel H/O ruptured sigmoid colon which resulted in right transverse colostomy, a later surgery for sigmoid resection, and later colostomy reversal; Spinal stenosis LUMBAR Stage 3b chronic kidney disease Ventral hernia Vitamin D deficiency Surgical History H/O cystoscopy History of bladder surgery (04/06/18) TURBT History of colostomy reversal History of surgery A-PORT PLACEMENT Hx of colostomy RUPTURED DIVERTICULITIS S/P aneurysm repair (04/2019) repair of pseudoaneurysm at the end of the bypass graft in right lower extremity S/P femoropopliteal bypass surgery (01/2019) right iliofemoral endarterectomy, right common femoral to popliteal artery bypass Status post chemotherapy Chemo 05/20/18 thru 08/12/18 for bladder cancer Family History Mother Hypertension Diabetes Father , in his 60's Prostate cancer Brother Stroke Hypertension Diabetes Lyme disease Brother No problems noted. Brother No problems noted. Sister No problems noted. Sister No problems noted. Daughter Skin cancer Hypertension Hypothyroidism Denies family history of Ovarian cancer Myocardial infarction Breast cancer Colorectal cancer Social History Smoking Status: Current every day smoker Tobacco Type: Cigarettes Age Started Using Tobacco: 14; packs per day: 1; Cigarettes Per Day: 20; Second Hand Exposure: Yes; Hx Alcohol Use: No Hx Substance Use: No Preferred Language: French Communication Ability: Effective Visual Impairment: No Limitations Hearing Ability: Normal Oracle Database Administrator Required: No Beliefs That Will Affect Care: None marital status: Current Living Situation: Parent Current Living Situation Comment: Lives at home with mom current occupational status: unemployed current occupation: Disability Feels Safe at Home: Yes Childhood Exposure to Second-Hand Smoke: No Diet Comment: regular caffeine: Yes (4 cups/day) during the past year weight has: remained stable Dental Care, Regularly: No Physical Activity Frequency: Daily Physical Activity Frequency Comment: house work Seatbelt Use: always Sunscreen Use: No Assistive Devices: None Allergies Allergies Allergy/AdvReac Type Severity Reaction Status Date / Time lisinopril AdvReac Intermediate diarrhea, Verified 08/31/22 02:11 stomach cramping and pain losartan AdvReac Intermediate Diarrhea Verified 08/31/22 02:11 Home Meds Home Medications Medication Instructions Recorded Confirmed bumetanide 2 mg tablet 2 mg PO DAILY 07/03/22 08/31/22 valsartan 320 mg tablet (Diovan) 320 mg PO DAILY 07/03/22 08/31/22 amlodipine 10 mg tablet 10 mg PO DAILY 08/31/22 08/31/22 furosemide 20 mg tablet 40 mg PO DAILY 08/31/22 08/31/22 simvastatin 40 mg tablet 40 mg PO QPM 08/31/22 08/31/22 Previous Rx's Medication Instructions Recorded aspirin 81 mg tablet,delayed 81 mg PO DAILY #90 tabs 04/26/21 release pen needle, diabetic 32 gauge x #100 ea 03/14/22" (BD Ultra-Fine Fely Pen Needle) hydralazine 25 mg tablet 25 mg PO TID #90 tabs 05/06/22 blood sugar diagnostic #360 ea 06/17/22 lancets 33 gauge (OneTouch Delica #100 ea 07/02/22 Lancets) ipratropium 20 mcg-albuterol 100 1 puff inhalation QID #4 grams 07/03/22 mcg/actuation mist for inhalation (Combivent Respimat) insulin lispro 100 unit/mL 6 unit (0.06 mL) subcut BIDM #15 mL 07/15/22 subcutaneous pen (Humalog KwikPen (U-100) Insulin) insulin glargine 100 unit/mL (3 12 unit (0.12 mL) subcut BIDM 90 08/05/22 mL) subcutaneous pen days #18 mL Results & Data (ED) Vital Signs Vital Signs - 24 hr 08/30/22 23:20 08/30/22 23:07 08/31/22 00:15 Temperature Temperature Source Pulse Rate 69 69 Pulse Rate [Apical] 69 Pulse Rate from SpO2 Sensor Respiratory Rate 20 19 26 H Respiratory Effort / Characteristics Labored Short of Breath Labored Short of Breath Spontaneous Labored Respiratory Depth Deep Deep Deep Respiratory Pattern Tachypnea Blood Pressure 101/49 L Blood Pressure [Right Arm] 101/49 L Blood Pressure Mean 66 Blood Pressure Mean [Right Arm] 66 Pulse Oximetry 100 100 98 Oxygen Delivery Method Oxymask Oxymask Oxygen Flow Rate 4 2 Fraction of Inspired Oxygen 100 Sepsis New/Unexplained Change in Mental Status Yes Sepsis Action Taken by Nursing No Action Required Oxygen Flow Rate - Titration Fraction of Inspired Oxygen - Titration Pulse Oximetry Post Tiitration 08/31/22 00:17 08/31/22 02:05 08/30/22 23:30 Temperature 31.4 C L Temperature Source Rectal Pulse Rate 67 Pulse Rate [Apical] 69 Pulse Rate from SpO2 Sensor 67 Respiratory Rate 26 H 24 Respiratory Effort / Characteristics Spontaneous Labored Respiratory Depth Respiratory Pattern Blood Pressure Blood Pressure [Right Arm] Blood Pressure Mean Blood Pressure Mean [Right Arm] Pulse Oximetry 98 100 Oxygen Delivery Method BiPAP Oxygen Flow Rate Fraction of Inspired Oxygen 100 Sepsis New/Unexplained Change in Mental Status Sepsis Action Taken by Nursing Oxygen Flow Rate - Titration Fraction of Inspired Oxygen - Titration Pulse Oximetry Post Tiitration 08/31/22 00:00 08/31/22 00:30 08/31/22 01:00 Temperature Temperature Source Pulse Rate 67 67 68 Pulse Rate [Apical] Pulse Rate from SpO2 Sensor 68 Respiratory Rate 19 20 18 Respiratory Effort / Characteristics Respiratory Depth Respiratory Pattern Blood Pressure 106/59 L Blood Pressure [Right Arm] Blood Pressure Mean 74 Blood Pressure Mean [Right Arm] Pulse Oximetry 100 Oxygen Delivery Method Oxygen Flow Rate Fraction of Inspired Oxygen Sepsis New/Unexplained Change in Mental Status Sepsis Action Taken by Nursing Oxygen Flow Rate - Titration Fraction of Inspired Oxygen - Titration Pulse Oximetry Post Tiitration 08/31/22 01:20 08/31/22 02:01 08/31/22 02:32 Temperature Temperature Source Pulse Rate 67 72 Pulse Rate [Apical] Pulse Rate from SpO2 Sensor 70 Respiratory Rate 20 20 Respiratory Effort / Characteristics Respiratory Depth Respiratory Pattern Blood Pressure 130/57 L 109/51 L Blood Pressure [Right Arm] Blood Pressure Mean 81 70 Blood Pressure Mean [Right Arm] Pulse Oximetry 100 Oxygen Delivery Method Oxygen Flow Rate Fraction of Inspired Oxygen Sepsis New/Unexplained Change in Mental Status Sepsis Action Taken by Nursing Oxygen Flow Rate - Titration Fraction of Inspired Oxygen - Titration Pulse Oximetry Post Tiitration 08/31/22 02:32 08/31/22 03:00 08/31/22 03:00 Temperature 32.2 C L Temperature Source Pulse Rate 72 72 Pulse Rate [Apical] Pulse Rate from SpO2 Sensor 71 Respiratory Rate 28 H 24 Respiratory Effort / Characteristics Respiratory Depth Respiratory Pattern Blood Pressure 109/51 L 114/64 114/64 Blood Pressure [Right Arm] Blood Pressure Mean 70 80 80 Blood Pressure Mean [Right Arm] Pulse Oximetry 100 100 Oxygen Delivery Method Oxymask Oxymask Oxygen Flow Rate 10 10 Fraction of Inspired Oxygen Sepsis New/Unexplained Change in Mental Status Sepsis Action Taken by Nursing Oxygen Flow Rate - Titration Fraction of Inspired Oxygen - Titration Pulse Oximetry Post Tiitration 08/31/22 03:30 08/31/22 04:00 08/31/22 04:32 Temperature 32.4 C L Temperature Source Pulse Rate 76 76 Pulse Rate [Apical] Pulse Rate from SpO2 Sensor 76 Respiratory Rate 18 22 Respiratory Effort / Characteristics Respiratory Depth Respiratory Pattern Blood Pressure 120/48 L 121/61 Blood Pressure [Right Arm] Blood Pressure Mean 72 81 Blood Pressure Mean [Right Arm] Pulse Oximetry 100 100 Oxygen Delivery Method Oxymask Oxygen Flow Rate 10 Fraction of Inspired Oxygen Sepsis New/Unexplained Change in Mental Status Sepsis Action Taken by Nursing Oxygen Flow Rate - Titration 8 Fraction of Inspired Oxygen - Titration Pulse Oximetry Post Tiitration 96 08/31/22 06:14 08/31/22 04:30 08/31/22 05:00 Temperature Temperature Source Pulse Rate 78 79 Pulse Rate [Apical] Pulse Rate from SpO2 Sensor 82 79 Respiratory Rate 20 18 Respiratory Effort / Characteristics Respiratory Depth Respiratory Pattern Blood Pressure 117/64 117/60 Blood Pressure [Right Arm] Blood Pressure Mean 81 79 Blood Pressure Mean [Right Arm] Pulse Oximetry 100 100 100 Oxygen Delivery Method Oxymask Oxygen Flow Rate 10 Fraction of Inspired Oxygen Sepsis New/Unexplained Change in Mental Status Sepsis Action Taken by Nursing Oxygen Flow Rate - Titration Fraction of Inspired Oxygen - Titration 4 Pulse Oximetry Post Tiitration 100 08/31/22 05:30 08/31/22 06:00 Temperature Temperature Source Pulse Rate 80 81 Pulse Rate [Apical] Pulse Rate from SpO2 Sensor 81 82 Respiratory Rate 20 24 Respiratory Effort / Characteristics Respiratory Depth Respiratory Pattern Blood Pressure 104/54 L 118/62 Blood Pressure [Right Arm] Blood Pressure Mean 70 80 Blood Pressure Mean [Right Arm] Pulse Oximetry 100 100 Oxygen Delivery Method Oxygen Flow Rate Fraction of Inspired Oxygen Sepsis New/Unexplained Change in Mental Status Sepsis Action Taken by Nursing Oxygen Flow Rate - Titration Fraction of Inspired Oxygen - Titration Pulse Oximetry Post Tiitration Laboratory Data 08/30/22 23:45 08/30/22 23:45 Lab Results 08/30/22 08/30/22 08/30/22 Range/Units 00:28 00:28 23:45 WBC 13.79 H (4.8-10.8) K/ul RBC 2.92 L (4.63-6.08) M/uL Hgb 8.5 L (14.0-18.0) g/dl Hct 23.6 L (40.1-51.0) % MCV 80.8 (80.0-100.0) fL MCH 29.1 (25.0-34.0) pg MCHC 36.0 (32.0-36.0) g/dL RDW Std Deviation 46.8 H (36.4-46.3) fL RDW Coeff of Diane 16.0 H (11.5-14.5) % Plt Count 390 (130-400) K/uL MPV 10.7 (9.4-12.4) fL Immature Gran % (Auto) 1.9 % Neut % (Auto) 89.1 % Lymph % (Auto) 2.9 % Giles % (Auto) 5.9 % Eos % (Auto) 0.1 % Baso % (Auto) 0.1 % Neut # (Auto) 12.27 H (1.4-6.5) K/uL Lymph # (Auto) 0.40 L (1.2-3.4) K/uL Giles # (Auto) 0.82 (0.24-0.82) K/uL Eos # (Auto) 0.02 (0-0.50) K/uL Baso # (Auto) 0.02 (0-0.2) K/uL Immature Gran # (Auto) 0.26 H (0.00-0.02) K/uL Absolute Nucleated RBC 0.02 H (0-0) K/uL Nucleated RBC % (auto) 0.1 % PT (9.0-12.0) Seconds INR (0.9-1.1) VBG pH (7.36-7.41) VBG pCO2 (38-50) mmHg VBG pO2 mmHg VBG HCO3 mmol/L VBG O2 Saturation % VBG Base Excess mEq/L Sodium (136-145) mmol/L Potassium (3.5-5.1) mmol/L Chloride (98-107) mmol/L Carbon Dioxide (21-32) mmol/L Anion Gap (3-11) BUN (6-23) mg/dl Creatinine (0.6-1.4) mg/dl Est Cr Clr Drug Dosing ml/min Est GFR ( Amer) ml/min Est GFR (Non-Af Amer) ml/min BUN/Creatinine Ratio (10-20) Glucose (70-99(Fasting)) mg/dl Osmolality (280-300) mOsm/kg Lactate 1.7 (0.4-2.0) mmol/L Calcium (8.5-10.1) mg/dl Magnesium (1.7-2.4) mg/dl Total Bilirubin (0.2-1.0) mg/dl Direct Bilirubin AST (13-39) U/L ALT (7-52) U/L Alkaline Phosphatase (34-104) U/L Troponin I High Sens (0-20) pg/ml Total Protein (6.0-8.3) gm/dl Albumin (3.4-5.0) gm/dl Procalcitonin 1.11 H (0-0.5) ng/ml Urine Color Urine Appearance (Clear) Urine pH (4.5-7.5) Ur Specific [place] (1.000-1.030) Urine Protein (Negative) Urine Glucose (UA) (Negative) Urine Ketones (Negative) Urine Blood (Negative) Urine Nitrite (Negative) Urine Bilirubin (Negative) Urine Urobilinogen (Negative) Ur Leukocyte Esterase (Negative) Urine WBC (Auto) (0-5) /hpf Urine RBC (Auto) (0-4) /hpf U Hyaline Cast (Auto) (0-5) /lpf U Epithel Cells (Auto) (0-5) /lpf Urine Bacteria (Auto) (Negative) Ethyl Alcohol mg/dL (<10.0) mg/dl SARS-CoV-2 (PCR) (Negative) Influenza Type A (PCR) (Neg) Influenza Type B (PCR) (Neg) RSV (RT-PCR) (Neg) Blood Type Antibody Screen 08/30/22 08/30/22 08/31/22 Range/Units 23:45 23:45 00:59 WBC (4.8-10.8) K/ul RBC (4.63-6.08) M/uL Hgb (14.0-18.0) g/dl Hct (40.1-51.0) % MCV (80.0-100.0) fL MCH (25.0-34.0) pg MCHC (32.0-36.0) g/dL RDW Std Deviation (36.4-46.3) fL RDW Coeff of Diane (11.5-14.5) % Plt Count (130-400) K/uL MPV (9.4-12.4) fL Immature Gran % (Auto) % Neut % (Auto) % Lymph % (Auto) % Giles % (Auto) % Eos % (Auto) % Baso % (Auto) % Neut # (Auto) (1.4-6.5) K/uL Lymph # (Auto) (1.2-3.4) K/uL Giles # (Auto) (0.24-0.82) K/uL Eos # (Auto) (0-0.50) K/uL Baso # (Auto) (0-0.2) K/uL Immature Gran # (Auto) (0.00-0.02) K/uL Absolute Nucleated RBC (0-0) K/uL Nucleated RBC % (auto) % PT 16.5 H (9.0-12.0) Seconds INR 1.6 H (0.9-1.1) VBG pH 7.03 L (7.36-7.41) VBG pCO2 18 L (38-50) mmHg VBG pO2 77 mmHg VBG HCO3 5 mmol/L VBG O2 Saturation 93.7 % VBG Base Excess -24.3 mEq/L Sodium 141 (136-145) mmol/L Potassium 3.7 (3.5-5.1) mmol/L Chloride 101 (98-107) mmol/L Carbon Dioxide 4 L* (21-32) mmol/L Anion Gap 36 H (3-11) BUN 277 H (6-23) mg/dl Creatinine 14.48 H* (0.6-1.4) mg/dl Est Cr Clr Drug Dosing 5.5 ml/min Est GFR ( Amer) 3.7 ml/min Est GFR (Non-Af Amer) 3.2 ml/min BUN/Creatinine Ratio 19.1 (10-20) Glucose 202 H (70-99(Fasting)) mg/dl Osmolality (280-300) mOsm/kg Lactate (0.4-2.0) mmol/L Calcium 4.5 L* (8.5-10.1) mg/dl Magnesium 1.5 L (1.7-2.4) mg/dl Total Bilirubin 0.4 (0.2-1.0) mg/dl Direct Bilirubin TNP AST 32 (13-39) U/L ALT 93 H (7-52) U/L Alkaline Phosphatase 140 H (34-104) U/L Troponin I High Sens 151.2 H* (0-20) pg/ml Total Protein 6.6 (6.0-8.3) gm/dl Albumin 3.1 L (3.4-5.0) gm/dl Procalcitonin (0-0.5) ng/ml Urine Color Urine Appearance (Clear) Urine pH (4.5-7.5) Ur Specific [place] (1.000-1.030) Urine Protein (Negative) Urine Glucose (UA) (Negative) Urine Ketones (Negative) Urine Blood (Negative) Urine Nitrite (Negative) Urine Bilirubin (Negative) Urine Urobilinogen (Negative) Ur Leukocyte Esterase (Negative) Urine WBC (Auto) (0-5) /hpf Urine RBC (Auto) (0-4) /hpf U Hyaline Cast (Auto) (0-5) /lpf U Epithel Cells (Auto) (0-5) /lpf Urine Bacteria (Auto) (Negative) Ethyl Alcohol mg/dL (<10.0) mg/dl SARS-CoV-2 (PCR) (Negative) Influenza Type A (PCR) (Neg) Influenza Type B (PCR) (Neg) RSV (RT-PCR) (Neg) Blood Type Antibody Screen 08/31/22 08/31/22 08/31/22 Range/Units 00:59 00:59 01:52 WBC (4.8-10.8) K/ul RBC (4.63-6.08) M/uL Hgb (14.0-18.0) g/dl Hct (40.1-51.0) % MCV (80.0-100.0) fL MCH (25.0-34.0) pg MCHC (32.0-36.0) g/dL RDW Std Deviation (36.4-46.3) fL RDW Coeff of Dinae (11.5-14.5) % Plt Count (130-400) K/uL MPV (9.4-12.4) fL Immature Gran % (Auto) % Neut % (Auto) % Lymph % (Auto) % Giles % (Auto) % Eos % (Auto) % Baso % (Auto) % Neut # (Auto) (1.4-6.5) K/uL Lymph # (Auto) (1.2-3.4) K/uL Giles # (Auto) (0.24-0.82) K/uL Eos # (Auto) (0-0.50) K/uL Baso # (Auto) (0-0.2) K/uL Immature Gran # (Auto) (0.00-0.02) K/uL Absolute Nucleated RBC (0-0) K/uL Nucleated RBC % (auto) % PT (9.0-12.0) Seconds INR (0.9-1.1) VBG pH (7.36-7.41) VBG pCO2 (38-50) mmHg VBG pO2 mmHg VBG HCO3 mmol/L VBG O2 Saturation % VBG Base Excess mEq/L Sodium (136-145) mmol/L Potassium (3.5-5.1) mmol/L Chloride (98-107) mmol/L Carbon Dioxide (21-32) mmol/L Anion Gap (3-11) BUN (6-23) mg/dl Creatinine (0.6-1.4) mg/dl Est Cr Clr Drug Dosing ml/min Est GFR ( Amer) ml/min Est GFR (Non-Af Amer) ml/min BUN/Creatinine Ratio (10-20) Glucose (70-99(Fasting)) mg/dl Osmolality (280-300) mOsm/kg Lactate (0.4-2.0) mmol/L Calcium (8.5-10.1) mg/dl Magnesium 1.4 L (1.7-2.4) mg/dl Total Bilirubin (0.2-1.0) mg/dl Direct Bilirubin AST (13-39) U/L ALT (7-52) U/L Alkaline Phosphatase (34-104) U/L Troponin I High Sens (0-20) pg/ml Total Protein (6.0-8.3) gm/dl Albumin (3.4-5.0) gm/dl Procalcitonin (0-0.5) ng/ml Urine Color Yellow Urine Appearance Clear (Clear) Urine pH 5.0 (4.5-7.5) Ur Specific [place] 1.014 (1.000-1.030) Urine Protein 2+ H (Negative) Urine Glucose (UA) Trace H (Negative) Urine Ketones Negative (Negative) Urine Blood 3+ H (Negative) Urine Nitrite Negative (Negative) Urine Bilirubin Negative (Negative) Urine Urobilinogen Negative (Negative) Ur Leukocyte Esterase Negative (Negative) Urine WBC (Auto) 1-5 (0-5) /hpf Urine RBC (Auto) 0-4 (0-4) /hpf U Hyaline Cast (Auto) 0 (0-5) /lpf U Epithel Cells (Auto) 0-5 (0-5) /lpf Urine Bacteria (Auto) Negative (Negative) Ethyl Alcohol mg/dL (<10.0) mg/dl SARS-CoV-2 (PCR) (Negative) Influenza Type A (PCR) (Neg) Influenza Type B (PCR) (Neg) RSV (RT-PCR) (Neg) Blood Type A Positive Antibody Screen NEGATIVE 08/31/22 08/31/22 08/31/22 Range/Units 01:53 01:53 04:40 WBC (4.8-10.8) K/ul RBC (4.63-6.08) M/uL Hgb (14.0-18.0) g/dl Hct (40.1-51.0) % MCV (80.0-100.0) fL MCH (25.0-34.0) pg MCHC (32.0-36.0) g/dL RDW Std Deviation (36.4-46.3) fL RDW Coeff of Diane (11.5-14.5) % Plt Count (130-400) K/uL MPV (9.4-12.4) fL Immature Gran % (Auto) % Neut % (Auto) % Lymph % (Auto) % Giles % (Auto) % Eos % (Auto) % Baso % (Auto) % Neut # (Auto) (1.4-6.5) K/uL Lymph # (Auto) (1.2-3.4) K/uL Giles # (Auto) (0.24-0.82) K/uL Eos # (Auto) (0-0.50) K/uL Baso # (Auto) (0-0.2) K/uL Immature Gran # (Auto) (0.00-0.02) K/uL Absolute Nucleated RBC (0-0) K/uL Nucleated RBC % (auto) % PT (9.0-12.0) Seconds INR (0.9-1.1) VBG pH (7.36-7.41) VBG pCO2 (38-50) mmHg VBG pO2 mmHg VBG HCO3 mmol/L VBG O2 Saturation % VBG Base Excess mEq/L Sodium (136-145) mmol/L Potassium (3.5-5.1) mmol/L Chloride (98-107) mmol/L Carbon Dioxide (21-32) mmol/L Anion Gap (3-11) BUN (6-23) mg/dl Creatinine (0.6-1.4) mg/dl Est Cr Clr Drug Dosing ml/min Est GFR ( Amer) ml/min Est GFR (Non-Af Amer) ml/min BUN/Creatinine Ratio (10-20) Glucose (70-99(Fasting)) mg/dl Osmolality 393 H* (280-300) mOsm/kg Lactate (0.4-2.0) mmol/L Calcium (8.5-10.1) mg/dl Magnesium (1.7-2.4) mg/dl Total Bilirubin (0.2-1.0) mg/dl Direct Bilirubin AST (13-39) U/L ALT (7-52) U/L Alkaline Phosphatase (34-104) U/L Troponin I High Sens (0-20) pg/ml Total Protein (6.0-8.3) gm/dl Albumin (3.4-5.0) gm/dl Procalcitonin (0-0.5) ng/ml Urine Color Urine Appearance (Clear) Urine pH (4.5-7.5) Ur Specific [place] (1.000-1.030) Urine Protein (Negative) Urine Glucose (UA) (Negative) Urine Ketones (Negative) Urine Blood (Negative) Urine Nitrite (Negative) Urine Bilirubin (Negative) Urine Urobilinogen (Negative) Ur Leukocyte Esterase (Negative) Urine WBC (Auto) (0-5) /hpf Urine RBC (Auto) (0-4) /hpf U Hyaline Cast (Auto) (0-5) /lpf U Epithel Cells (Auto) (0-5) /lpf Urine Bacteria (Auto) (Negative) Ethyl Alcohol mg/dL < 10.0 (<10.0) mg/dl SARS-CoV-2 (PCR) NEGATIVE (Negative) Influenza Type A (PCR) Negative (Neg) Influenza Type B (PCR) Negative (Neg) RSV (RT-PCR) Negative (Neg) Blood Type Antibody Screen Administered Medications Sodium Bicarbonate 100 meq/ (Sterile Water) 1,100 mls @ 200 mls/hr IV .Q5H30M REYNALDO Stop: 09/30/22 00:59 Last Admin: 08/31/22 01:19 Dose: 200 mls/hr Documented By: ERMA Discontinued Medications Albuterol (Albut/Ipratrop 3mg/0.5mg Neb 3 Ml Vial) 3 ml NEB NOW STA; Protocol Stop: 08/30/22 23:57 Last Admin: 08/31/22 00:20 Dose: 3 ml Documented By: RAVI Sodium Chloride (Nss 1000ml) 1,000 mls @ 999 mls/hr IV .Q1H1M ONE Stop: 08/31/22 01:33 Last Infusion: 08/31/22 01:50 Dose: 0 mls/hr Documented By: Admin: 08/31/22 00:45 Dose: 999 mls/hr Documented By: RAISA Calcium Gluconate () 1,000 mg in 60 mls @ 240 mls/hr IV NOW STA Stop: 08/31/22 01:14 Last Infusion: 08/31/22 01:50 Dose: 0 mls/hr Documented By: Admin: 08/31/22 01:19 Dose: 240 mls/hr Documented By: ERMA Lorazepam (Lorazepam 2 Mg/1 Ml Vial) 1 mg IV NOW STA Stop: 08/31/22 00:10 Last Admin: 08/31/22 00:20 Dose: 1 mg Documented By: RAISA Lorazepam (Lorazepam 2 Mg/1 Ml Vial) 1 mg IV NOW STA Stop: 08/31/22 00:11 Last Admin: 08/31/22 00:38 Dose: Not Given Documented By: RAISA Methylprednisolone (Methylprednisolone 125 Mg/2 Ml Vial) 125 mg IV NOW STA Stop: 08/30/22 23:57 Last Admin: 08/31/22 00:09 Dose: 125 mg Documented By: RAISA Imaging Data Radiologist's Impression: Chest X-Ray 08/30/22 23:56 SINGLE VIEW CHEST CLINICAL HISTORY: Sepsis FINDINGS: An AP, portable, upright chest radiograph is compared to study dated 12/05/2020 and correlated with chest CT dated 05/04/2022. A left subclavian central venous infusion port is unchanged in position. The heart is enlarged noting atherosclerotic calcification of the thoracic aorta. There is pulmonary vascular congestion. Mild bilateral airspace opacities likely represent pulmonary edema. Emphysema and chronic interstitial thickening is similar to previous. No large pleural effusion is seen. There is dependent atelectasis. No pneumothorax is seen. The skeletal structures are osteopenic. The bony thorax is grossly intact. There is advanced atherosclerotic calcification of the carotid bulbs. IMPRESSION: 1. Cardiomegaly and emphysema with evidence of congestive failure. 2. Mild bilateral airspace opacities likely represent pulmonary edema. Correlate clinically for evidence of a superimposed infectious/inflammatory pneumonitis. Radiographic follow-up to resolution is recommended. ACT 112: Negative or not required by law. Electronically signed by: Antwon Osborn M.D. 08/31/2022 12:[address] 08/30/22 23:57 CT head/brain wo con CLINICAL HISTORY: 62 years-old Male with fall. Acute head trauma status post fall TECHNIQUE: Multiple axial CT images of the head were obtained without contrast. A dose lowering technique was utilized adhering to the principles of ALARA. CT DOSE: 1842.80 mGy.cm COMPARISON: None. FINDINGS: No acute intracranial hemorrhage, midline shift, intracranial mass, hydrocephalus, territorial ischemia or abnormal extra-axial collection. Motion degraded exam. The calvarium is intact. The paranasal sinuses, mastoid air cells, and middle ear cavities are clear. IMPRESSION: Motion degraded exam. No acute intracranial abnormality or calvarial fracture identified. ACT 112: Negative or not required by law. The above report was generated using voice recognition software. It may contain grammatical, syntax or spelling errors. Electronically signed by: Marlon Weller M.D. 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 A dose lowering technique was utilized adhering to the principles of ALARA. COMPARISON STUDY: CT abdomen and pelvis 05/06/2022 FINDINGS: Study is degraded by lack of contrast, upper extremity positioning and respiratory motion artifact. Cardiomegaly with coronary arterial calcifications. Trace pericardial effusion. Intralobular septal thickening with mild groundglass densities of the lung bases. No pneumatosis or pneumoperitoneum. The unenhanced spleen, mildly atrophic pancreas and unenhanced liver appear unremarkable. Distended gallbladder. Unchanged adrenal gland thickening. Bilateral renal vascular calcifications with nonspecific bilateral perinephric stranding. Mild prostamegaly. Unremarkable appearance of the urinary bladder. Extensive atherosclerosis of the aorta and branch vessels. Pathologic retroperitoneal lymphadenopathy appears generally stable. No bowel obstruction identified. Gastric wall thickening again noted. Trace perirectal stranding with nonspecific rectal wall thickening. Colonic diverticulosis without acute diverticulitis. The appendix is not definitively seen. Moderate generalized mesenteric and body wall edema. Multifocal osteoblastic skeletal metastasis redemonstrated. No acute pathologic fractures identified. Lumbar levoscoliosis. IMPRESSION: 1. Limited exam as above. No ureteral calculi or hydronephrosis identified. 2. Mild rectal wall thickening with perirectal stranding. Findings may be secondary to partial distention versus a nonspecific proctitis. 3. Cardiomegaly with pulmonary edema redemonstrated. 4. Stable appearance of the pathologic retroperitoneal lymphadenopathy with multifocal osteoblastic skeletal metastasis redemonstrated. 5. Additional findings as above. ACT 112: Negative or not required by law. The above report was generated using voice recognition software. It may contain grammatical, syntax or spelling errors. Electronically signed by: Marlon Weller M.D. 08/31/2022 3:09 AM Discharge Plan Visit Data Chief Complaint: Fall Stated Complaint: Weakness, Confusion, Fall ED Provider: Silvestre Medina Discharge Problem: Acute renal failure Patient Disposition: Admitted As Inpatient Forms Stand Alone Forms: My [facility] Prescriptions Prescriptions: No Action aspirin 81 mg tablet,delayed release (DR/EC) 81 mg PO DAILY Qty: 90 1RF (DME) pen needle, diabetic [BD Ultra-Fine Fely Pen Needle] 32 gauge x 5/32" needle See Dose Instructions .ROUTE .MEDSUPPLY Qty: 100 3RF Dose Instruction: As directed Rx Instructions: Test 1-3 times daily or as needed hydralazine 25 mg tablet 25 mg PO TID Qty: 90 2RF Rx Instructions: LAST FILLED 07/01/22 FOR 30 TABS/30 DAYS (DME) blood sugar diagnostic Strip See Dose Instructions .ROUTE .MEDSUPPLY Qty: 360 3RF Rx Instructions: Test blood sugars 4 times a day (DME) lancets [OneTouch Delica Lancets] 33 gauge misc See Dose Instructions .ROUTE .MEDSUPPLY Qty: 100 3RF Rx Instructions: Testing blood sugar 4 times daily insulin lispro [Humalog KwikPen Insulin] 100 unit/mL insulin pen 6 unit SQ BIDM Qty: 15 3RF Rx Instructions: Takes with breakfast and evening meal insulin glargine 100 unit/mL (3 mL) insulin pen 12 unit subcut BIDM 90 Days Qty: 18 1RF Rx Instructions: With breakfast and evening meal patient changed dose valsartan [Diovan] 320 mg tablet 320 mg PO DAILY bumetanide 2 mg tablet 2 mg PO DAILY Combivent Respimat 20-100 mcg/actuation mist 1 puff inhalation QID Qty: 4 4RF Rx Instructions: space evenly during waking hours simvastatin 40 mg tablet 40 mg PO QPM amlodipine 10 mg tablet 10 mg PO DAILY furosemide 20 mg tablet 40 mg PO DAILY Referrals Referrals: Donna Cano DO [Primary Care Provider] -
[2022-08-31 00:02] LABS: Basophils # (auto) 0.02 K/uL (0-0.2); Basophils % (auto) 0.1 %; Eosinophils # (auto) 0.02 K/uL (0-0.50); Eosinophils % (auto) 0.1 %; Hematocrit (blood only) 23.6 % (40.1-51.0); Hemoglobin 8.5 g/dl (14.0-18.0); Immature Granulocytes # (auto) 0.26 K/uL (0.00-0.02); Immature Granulocytes % (auto) 1.9 %; Lymphocytes % (auto) 2.9 %; Mean Corpuscular Hemoglobin 29.1 pg (25.0-34.0); Mean Corpuscular Volume 80.8 fL (80.0-100.0); Mean Platelet Volume 10.7 fL (9.4-12.4); Monocytes # (auto) 0.82 K/uL (0.24-0.82); Monocytes % (auto) 5.9 %; Neutrophils # (auto) 12.27 K/uL (1.4-6.5); Neutrophils % (auto) 89.1 %; Nucleated RBC # (auto) 0.02 K/uL (0-0); Nucleated RBC % (auto) 0.1 %; Platelet Count 390 K/uL (130-400); RDW Standard Deviation 46.8 fL (36.4-46.3); Red Blood Count 2.92 M/uL (4.63-6.08); White Blood Count 13.79 K/ul (4.8-10.8)
[2022-08-31] MEDS ORDERED: LORazepam 2 MG/1 ML VIAL IV STA ×2 (00:09→00:10)
[2022-08-31 00:12] LABS: INR 1.6 (0.9-1.1); Prothrombin Time 16.5 Seconds (9.0-12.0)
[2022-08-31] MEDS ORDERED: SODIUM CHLORIDE 0.9% 1000ML 1,000 ML IV ONE (00:33)
[2022-08-31 00:47] LABS: Creatinine Clr Calc Pharmacy 5.5 ml/min; Est GFR (African American) 3.7 ml/min; Est GFR (Non-African American) 3.2 ml/min
[2022-08-31 00:48] LABS: Alanine Aminotransferase 93 U/L (7-52); Albumin Level 3.1 gm/dl (3.4-5.0); Alkaline Phosphatase 140 U/L (34-104); Anion Gap 36 (3-11); Aspartate Aminotransferase 32 U/L (13-39); BUN Creatinine Ratio 19.1 (10-20); Bilirubin,Total 0.4 mg/dl (0.2-1.0); Blood Urea Nitrogen 277 mg/dl (6-23); Calcium 4.5 mg/dl (8.5-10.1); Carbon Dioxide 4 mmol/L (21-32); Chloride 101 mmol/L (98-107); Glucose 202 mg/dl (70-99(Fasting)); Magnesium 1.5 mg/dl (1.7-2.4); Potassium 3.7 mmol/L (3.5-5.1); Sodium 141 mmol/L (136-145); Total Protein 6.6 gm/dl (6.0-8.3); Troponin I High Sensitivity 151.2 pg/ml (0-20)
--- NOTE | 2022-08-31 00:49 | XRay Report ---
SINGLE VIEW CHEST CLINICAL HISTORY: Sepsis FINDINGS: An AP, portable, upright chest radiograph is compared to study dated 12/05/2020 and correlat ed with chest CT dated 05/04/2022. A left subclavian central venous infusion port is unchanged in posi tion. The heart is enlarged noting atherosclerotic calcification of the thoracic aorta. There is pulm onary vascular congestion. Mild bilateral airspace opacities likely represent pulmonary edema. Emphys ramila and chronic interstitial thickening is similar to previous. No large pleural effusion is seen. Th ere is dependent atelectasis. No pneumothorax is seen. The skeletal structures are osteopenic. The [place] thorax is grossly intact. There is advanced atherosclerotic calcification of the carotid bulbs. IMPRESSION: 1. Cardiomegaly and emphysema with evidence of congestive failure. 2. Mild bilateral airspace opacities likely represent pulmonary edema. Correlate clinically for evide nce of a superimposed infectious/inflammatory pneumonitis. Radiographic follow-up to resolution is re commended. ACT 112: Negative or not required by law. Electronically signed by: Antwon Osborn M.D. 08/31/2022 12:47 AM
[2022-08-31] MEDS ORDERED: CALCIUM GLUCONATE 1,000 MG/60 ML BAG IV STA (01:00)
[2022-08-31 01:13] LABS: Base Excess VBG -24.3 mEq/L; HCO3 VBG 5 mmol/L; Oxygen Saturation VBG 93.7 %; PCO2 VBG 18 mmHg (38-50); PO2 VBG 77 mmHg; pH VBG 7.03 (7.36-7.41)
[2022-08-31] MEDS: SODIUM BICARBONATE 8.4% 100 MEQ in WATER, STERILE 1,000 ML IV SCH ×2 (01:19→06:35)
[2022-08-31 02:45] LABS: Appearance Urine Clear (Clear); Bacteria Urine Automated Negative (Negative); Bilirubin Urine Negative (Negative); Blood Urine 3+ (Negative); Cast Urine Automated 0 /lpf (0-5); Color Urine Yellow; Epithelial Cell Urine Auto 0-5 /lpf (0-5); Glucose Urine UA Trace (Negative); Ketones Urine Negative (Negative); Leukocyte Esterase Urine Negative (Negative); Nitrite Urine Negative (Negative); Protein Urine 2+ (Negative); RBC Urine Automated 0-4 /hpf (0-4); Specific Gravity Urine 1.014 (1.000-1.030); Urobilinogen Urine Negative (Negative)
--- NOTE | 2022-08-31 02:48 | CT Scan Report ---
CT head/brain wo con CLINICAL HISTORY: 62 years-old Male with fall. Acute head trauma status post fall TECHNIQUE: Multiple axial CT images of the head were obtained without contrast. A dose lowering tech nique was utilized adhering to the principles of ALARA. CT DOSE: 1842.80 mGy.cm COMPARISON: None. FINDINGS: No acute intracranial hemorrhage, midline shift, intracranial mass, hydrocephalus, territorial ischem ia or abnormal extra-axial collection. Motion degraded exam. The calvarium is intact. The paranasal sinuses, mastoid air cells, and middle ear cavities are clear . IMPRESSION: Motion degraded exam. No acute intracranial abnormality or calvarial fracture identified . ACT 112: Negative or not required by law. The above report was generated using voice recognition software. It may contain grammatical, syntax o r spelling errors. Electronically signed by: Marlon Weller M.D. 08/31/2022 2:46 AM
--- NOTE | 2022-08-31 03:11 | CT Scan Report ---
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 A dose lo wering technique was utilized adhering to the principles of ALARA. COMPARISON STUDY: CT abdomen and pelvis 05/06/2022 FINDINGS: Study is degraded by lack of contrast, upper extremity positioning and respiratory motion a rtifact. Cardiomegaly with coronary arterial calcifications. Trace pericardial effusion. Intralobular septal t hickening with mild groundglass densities of the lung bases. No pneumatosis or pneumoperitoneum. The unenhanced spleen, mildly atrophic pancreas and unenhanced liver appear unremarkable. Distended gallb ladder. Unchanged adrenal gland thickening. Bilateral renal vascular calcifications with nonspecific bilateral perinephric stranding. Mild prostamegaly. Unremarkable appearance of the urinary bladder. E xtensive atherosclerosis of the aorta and branch vessels. Pathologic retroperitoneal lymphadenopathy appears generally stable. No bowel obstruction identified. Gastric wall thickening again noted. Trace perirectal stranding with nonspecific rectal wall thickening. Colonic diverticulosis without acute diverticulitis. The appendi x is not definitively seen. Moderate generalized mesenteric and body wall edema. Multifocal osteoblas tic skeletal metastasis redemonstrated. No acute pathologic fractures identified. Lumbar levoscoliosi s. IMPRESSION: 1. Limited exam as above. No ureteral calculi or hydronephrosis identified. 2. Mild rectal wall thickening with perirectal stranding. Findings may be secondary to partial disten tion versus a nonspecific proctitis. 3. Cardiomegaly with pulmonary edema redemonstrated. 4. Stable appearance of the pathologic retroperitoneal lymphadenopathy with multifocal osteoblastic s keletal metastasis redemonstrated. 5. Additional findings as above. ACT 112: Negative or not required by law. The above report was generated using voice recognition software. It may contain grammatical, syntax o r spelling errors. Electronically signed by: Marlon Weller M.D. 08/31/2022 3:09 AM
--- NOTE | 2022-08-31 03:16 | History & Physical Report ---
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 Patient is unable to provide history or participate with exam at this time given severity of illness and recent Ativan administration. History obtained through chart review and discussion with ER staff. 1. Neurology - patient nearly obtunded. Multifactorial. Mostly secondary to uremia and acute renal failure superimposed on chronic kidney disease. HDJ=821 and Cr=14.48. No focal deficits reported during ER evaluation. CT of the head is NEGATIVE for acute intracranial abnormality. -Will follow cultures although doubt infectious etiology at this time -Check Procalcitonin -Check TSH -Check Ammonia level -Frequent orientation -Management of acute renal failure as below 2. Cardiovascular - Patient with extensive history of peripheral vascular disease. 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 He had repair of pseudoaneurysm with bovine patch in 04/2019. He was previously following with Dr. Rajan. He has history of HTN as well as HLP Elevated troponin today of 151.2 in setting of JEAN on CKD. No acute ischemic changes present on EKG -Telemetry monitoring -Repeat troponin with AM labs -Continue ASA 81mg po daily -Continue Simvastatin 40mg po daily -Holding antihypertensive agents for now to include Valsartan, Hydralazine and Amlodipine -Holding diuretics Lasix and Bumex 3. Pulmonary - patient with COPD diagnosis based on history and exam. PFTs recommended in the past and declined. He continues to smoke. Diffuse wheezing present on exam. -DuoNebs q 4 hours -Albuterol q 2 hours PRN -Supplemental O2 as needed with goal O2 of 90% 4. Gastrointestinal - Patient with Heme POSITIVE stools in the ER. No brent blood per rectum. Hemorrhoids appreciated. Hgb presently 8.5, Hct=23.8. CT of the abdomen with mild rectal wall thickening with perirectal stranding possibly secondary to partial distention versus nonspecific proctitis. -Monitor CBC -Transfuse for active bleeding or significant drop in Hgb <8 5. Nephrology - patient with CKD-III at baseline with baseline BUN of appx 50 and Cr of 2.5. He presents today in acute renal failure - BUN of 277 and Cr of 14.48. Ricardo has been placed with return of 450mL of urine. Most likely multifactorial - prerenal in setting of poor oral intake, potentially renal toxic medications Valsartan, Bumex and Lasix as well. CT of the abdomen comments on bilateral renal vascular calcifications with non specific bilateral perinephric stranding. Mild prostamegaly. UA with 3+ blood and protein, absence of RBCs - ?myoglobinuria. No suggestion for UTI. Labs with high anion gap metabolic acidosis with pH=7.03 and HCO3=4, AG of 36. K is normal at 3.7 -Maintain Ricardo catheter with strict I/Os -Check CK -Check Lactate -Check serum osmolality to calculate osmolar gap -Check PO4 and ionized calcium -Check Urine microscopic, Na and Urea -Continue Bicarbonate drip -Trend BMP and VBG q 4 hours -Placement of HD catheter when patient is transferred to MICU (will need to obtain consent from family) -Plan for HD in AM -Nephrology consultation appreciated 6. Heme - patient with normochromic, normocytic anemia with Hgb=8.5 and Hct=23.8 - significantly decreased from prior values of 12.2 and 36.4, resp ectively on 04/25/22. Heme + stools with hemorrhoids - may be contributing to GI losses Coagulopathy with INR of 1.6 History of metastatic bladder cancer - he follows with [facility]. 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 He completed chemotherapy x 4 cycles in 2017 with recurrence in 2018. He was treated with immunotherapy and developed colitis in 2019. Followup CTs with no evidence of progressive metastatic disease. Known pulmonary nodules, sclerotic T10 vertebra, multifocal osseous disease and shotty retroperitoneal lymph nodes -Monitor -Transfusion if active bleed, Hgb <8 -Monitor INR 7. Endocrine - patient with Type II DM on insulin therapy at home. Overall well controlled. Last HgbA1C= 6.1 on 04/25/22 -Hyperglycemia protocol per MICU 8. ID - patient with leukocytosis WBC=13.79, he is tachypneic and hypothermic as well. No obvious source of infection -Cultures sent will follow -Check procalcitonin -Hold antibiotics for now -Continue warming blanket, core temperature monitoring History of Present Illness Chief Complaint: fall and confusion Primary Care Provider: Donna Cano DO Carlos Bucio is a 62yo male with history of COPD, HTN, DM, CKD-III, Peripheral arterial disease and bladder cancer presenting from home with confusion. Patient nearly obtunded during my encounter. Is unable to provide history or participate in exam. History obtained through discussion with ER staff, nursing and chart review. Patient reportedly slid out of a chair at home and was very confused. He has not been eating or drinking over the last week. His mother called EMS. Per EMS, patient with increased work of breathing. He was administered a DuoNeb in the field as well as a trial of CPAP and NRB. Blood sugar 267. Upon arrival to the ER patient hypothermic with T=31.6, tachypneic, HD stable. He had a brief trial of BiPAP but was unable to tolerate the mask. Currently on Oxymask 10 L/m with adequate oxygenation. Josue hugger warming blanket in place. Lab values as below show acute renal failure with high anion gap metabolic acidosis. pH=7.03, initial serum HCO3=4. AEP=061 and Cr=14.48. Ricardo catheter was placed with return of appx 450mL of clear, yellow urine. Bicarbonate drip started in the ER. ER Course: Solumedrol 125mg IV Albuterol 3mL neb Ativan 1mg IV NSS x 1L bolus Sodium bicarbonate 100mEq in H20 at 200mL/hr Calcium gluconate 1gm Allergies Allergy/AdvReac Type Severity Reaction Status Date / Time lisinopril AdvReac Intermediate diarrhea, Verified 08/31/22 02:11 stomach cramping and pain losartan AdvReac Intermediate Diarrhea Verified 08/31/22 02:11 Home Medications Medication Instructions Recorded Confirmed Type aspirin 81 mg tablet,delayed 81 mg PO DAILY #90 tabs 04/26/21 08/31/22 Rx release pen needle, diabetic 32 gauge x #100 ea 03/14/22 07/03/22 Rx 5/32" (BD Ultra-Fine Fely Pen Needle) hydralazine 25 mg tablet 25 mg PO TID #90 tabs 05/06/22 08/31/22 Rx blood sugar diagnostic #360 ea 06/17/22 07/03/22 Rx lancets 33 gauge (OneTouch Delica #100 ea 07/02/22 07/03/22 Rx Lancets) bumetanide 2 mg tablet 2 mg PO DAILY 07/03/22 08/31/22 History ipratropium 20 mcg-albuterol 100 1 puff inhalation QID #4 grams 07/03/22 08/31/22 Rx mcg/actuation mist for inhalation (Combivent Respimat) valsartan 320 mg tablet (Diovan) 320 mg PO DAILY 07/03/22 08/31/22 History insulin lispro 100 unit/mL 6 unit (0.06 mL) subcut BIDM #15 mL 07/15/22 08/31/22 Rx subcutaneous pen (Humalog KwikPen (U-100) Insulin) insulin glargine 100 unit/mL (3 12 unit (0.12 mL) subcut BIDM 90 08/05/22 08/31/22 Rx mL) subcutaneous pen days #18 mL amlodipine 10 mg tablet 10 mg PO DAILY 08/31/22 08/31/22 History furosemide 20 mg tablet 40 mg PO DAILY 08/31/22 08/31/22 History simvastatin 40 mg tablet 40 mg PO QPM 08/31/22 08/31/22 History Past Med/Surg History Medical History Bladder cancer metastasized to bone Cancer NEWLY DX WITH BLADDER CANCER, BLOODY URINE, STARTED CHEMO APR 2018, FINISHED JULY 2018 Chronic kidney disease, stage 3 (moderate) COPD (chronic obstructive pulmonary disease) Diabetes mellitus, type 2 Diverticulitis Elevated liver enzymes GERD (gastroesophageal reflux disease) H/O sepsis Related to ruptured sigmoid colon. Hematuria History of pseudoaneurysm 04/23/19- Repair of pseudoaneurysm of right femoral artery with bovine patch by Dr. 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 Rupture of bowel H/O ruptured sigmoid colon which resulted in right transverse colostomy, a later surgery for sigmoid resection, and later colostomy reversal; Spinal stenosis LUMBAR Stage 3b chronic kidney disease Ventral hernia Vitamin D deficiency Surgical History H/O cystoscopy History of bladder surgery (04/06/18) TURBT History of colostomy reversal History of surgery A-PORT PLACEMENT Hx of colostomy RUPTURED DIVERTICULITIS S/P aneurysm repair (04/2019) repair of pseudoaneurysm at the end of the bypass graft in right lower extremity S/P femoropopliteal bypass surgery (01/2019) right iliofemoral endarterectomy, right common femoral to popliteal artery bypass Status post chemotherapy Chemo 05/20/18 thru 08/12/18 for bladder cancer Family History Mother Hypertension Diabetes Father , in his 60's Prostate cancer Brother Stroke Hypertension Diabetes Lyme disease Brother No problems noted. Brother No problems noted. Sister No problems noted. Sister No problems noted. Daughter Skin cancer Hypertension Hypothyroidism Denies family history of Ovarian cancer Myocardial infarction Breast cancer Colorectal cancer Social History Smoking Status: Current every day smoker Tobacco Type: Cigarettes Age Started Using Tobacco: 14; packs per day: 1; Cigarettes Per Day: 20; Second Hand Exposure: Yes; Hx Alcohol Use: No Hx Substance Use: No Preferred Language: Bulgarian Communication Ability: Effective Visual Impairment: No Limitations Hearing Ability: Normal Weaving Instructor Required: No Beliefs That Will Affect Care: None marital status: Current Living Situation: Parent Current Living Situation Comment: Lives at home with mom current occupational status: unemployed current occupation: Disability Feels Safe at Home: Yes Childhood Exposure to Second-Hand Smoke: No Diet Comment: regular caffeine: Yes (4 cups/day) during the past year weight has: remained stable Dental Care, Regularly: No Physical Activity Frequency: Daily Physical Activity Frequency Comment: house work Seatbelt Use: always Sunscreen Use: No Assistive Devices: None Review of Systems Review of Systems: Unobtainable due to reduced consciousness Physical Exam Physical Exam: General: ill appearing male patient, confused and nearly obtunded, unable to answer questions or follow commands Skin: warm, dry, intact, bruising present on bilateral forearms, some mild dusky discoloration noted on plantar surfaces of feet bilaterally HEENT: NC/AT, PERRL, anicteric sclera, conjunctiva without injection, external ear normal to inspection and nontender, nares patent, dry mucus membranes, no oropharyngeal lesions, neck supple, trachea midline, no LAD, no thyromegaly, no JVD Heart: +S1/S2, regular, no m/r/g, left chest port in place Lungs: equal air entry bilaterally, diffuse wheezing, no rales Abd: +BS, soft, ND, patient winces with deep abdominal palpation, no organomegaly, reducible umbilical hernia Ext: warm, 2+ pulses in UE/LE bilaterally 1+ pitting edema of bilateral LE, surgical absence of right 5th toe Neuro: nearly obtunded. Patient opens eyes to verbal and tactile stimuli, moving all extremities with equal strength Results & Data Results & Data ([facility]) Vital Signs (Past 12 Hours) Vital Signs Temp Pulse Pulse Resp BP BP Pulse Ox 08/31/22 03:00 32.2 C L 72 24 114/64 100 08/31/22 03:00 114/64 08/31/22 02:32 72 28 H 109/51 L 100 08/31/22 02:32 109/51 L 08/31/22 02:01 72 20 130/57 L 100 08/31/22 01:20 67 20 08/31/22 01:00 68 18 100 08/31/22 00:30 67 20 106/59 L 08/31/22 00:00 67 19 08/30/22 23:30 67 24 100 08/31/22 02:05 31.4 C L 08/31/22 00:17 69 26 H 98 08/31/22 00:15 69 26 H 98 08/30/22 23:07 69 19 101/49 L 100 08/30/22 23:20 69 20 101/49 L 100 O2 Del Method O2 Flow Rate FiO2 08/31/22 03:00 Oxymask 10 08/31/22 03:00 08/31/22 02:32 Oxymask 10 08/31/22 02:32 08/31/22 02:01 08/31/22 01:20 08/31/22 01:00 08/31/22 00:30 08/31/22 00:00 08/30/22 23:30 08/31/22 02:05 08/31/22 00:17 BiPAP 100 08/31/22 00:15 100 08/30/22 23:07 Oxymask 2 08/30/22 23:20 Oxymask 4 Laboratory Results Laboratory Results WBC 13.79 K/ul (4.8-10.8) H 08/30/22 23:45 RBC 2.92 M/uL (4.63-6.08) L 08/30/22 23:45 Hgb 8.5 g/dl (14.0-18.0) L 08/30/22 23:45 Hct 23.6 % (40.1-51.0) L 08/30/22 23:45 MCV 80.8 fL (80.0-100.0) 08/30/22 23:45 MCH 29.1 pg (25.0-34.0) 08/30/22 23:45 MCHC 36.0 g/dL (32.0-36.0) 08/30/22 23:45 RDW Std Deviation 46.8 fL (36.4-46.3) H 08/30/22 23:45 RDW Coeff of Diane 16.0 % (11.5-14.5) H 08/30/22 23:45 Plt Count 390 K/uL (130-400) 08/30/22 23:45 MPV 10.7 fL (9.4-12.4) 08/30/22 23:45 Immature Gran % (Auto) 1.9 % 08/30/22 23:45 Neut % (Auto) 89.1 % 08/30/22 23:45 Lymph % (Auto) 2.9 % 08/30/22 23:45 [place] % (Auto) 5.9 % 08/30/22 23:45 Eos % (Auto) 0.1 % 08/30/22 23:45 Baso % (Auto) 0.1 % 08/30/22 23:45 Neut # (Auto) 12.27 K/uL (1.4-6.5) H 08/30/22 23:45 Lymph # (Auto) 0.40 K/uL (1.2-3.4) L 08/30/22 23:45 [place] # (Auto) 0.82 K/uL (0.24-0.82) 08/30/22 23:45 Eos # (Auto) 0.02 K/uL (0-0.50) 08/30/22 23:45 Baso # (Auto) 0.02 K/uL (0-0.2) 08/30/22 23:45 Immature Gran # (Auto) 0.26 K/uL (0.00-0.02) H 08/30/22 23:45 Absolute Nucleated RBC 0.02 K/uL (0-0) H 08/30/22 23:45 Nucleated RBC % (auto) 0.1 % 08/30/22 23:45 PT 16.5 Seconds (9.0-12.0) H 08/30/22 23:45 INR 1.6 (0.9-1.1) H 08/30/22 23:45 VBG pH 7.03 (7.36-7.41) L 08/31/22 00:59 VBG pCO2 18 mmHg (38-50) L 08/31/22 00:59 VBG pO2 77 mmHg 08/31/22 00:59 VBG HCO3 5 mmol/L 08/31/22 00:59 VBG O2 Saturation 93.7 % 08/31/22 00:59 VBG Base Excess -24.3 mEq/L 08/31/22 00:59 Sodium 141 mmol/L (136-145) 08/30/22 23:45 Potassium 3.7 mmol/L (3.5-5.1) 08/30/22 23:45 Chloride 101 mmol/L (98-107) 08/30/22 23:45 Carbon Dioxide 4 mmol/L (21-32) L* 08/30/22 23:45 Anion Gap 36 (3-11) H 08/30/22 23:45 BUN 277 mg/dl (6-23) H 08/30/22 23:45 Creatinine 14.48 mg/dl (0.6-1.4) H* 08/30/22 23:45 Est Cr Clr Drug Dosing 5.5 ml/min 08/30/22 23:45 Est GFR ( Amer) 3.7 ml/min 08/30/22 23:45 Est GFR (Non-Af Amer) 3.2 ml/min 08/30/22 23:45 BUN/Creatinine Ratio 19.1 (10-20) 08/30/22 23:45 Glucose 202 mg/dl (70-99(Fasting)) H 08/30/22 23:45 Lactate 1.7 mmol/L (0.4-2.0) 08/30/22 00:28 Calcium 4.5 mg/dl (8.5-10.1) L* 08/30/22 23:45 Magnesium 1.4 mg/dl (1.7-2.4) L 08/31/22 00:59 Total Bilirubin 0.4 mg/dl (0.2-1.0) 08/30/22 23:45 Direct Bilirubin TNP 08/30/22 23:45 AST 32 U/L (13-39) 08/30/22 23:45 ALT 93 U/L (7-52) H 08/30/22 23:45 Alkaline Phosphatase 140 U/L (34-104) H 08/30/22 23:45 Troponin I High Sens 151.2 pg/ml (0-20) H* 08/30/22 23:45 Total Protein 6.6 gm/dl (6.0-8.3) 08/30/22 23:45 Albumin 3.1 gm/dl (3.4-5.0) L 08/30/22 23:45 Procalcitonin 1.11 ng/ml (0-0.5) H 08/30/22 00:28 Urine Color Yellow 08/31/22 01:52 Urine Appearance Clear (Clear) 08/31/22 01:52 Urine pH 5.0 (4.5-7.5) 08/31/22 01:52 Ur Specific [place] 1.014 (1.000-1.030) 08/31/22 01:52 Urine Protein 2+ (Negative) H 08/31/22 01:52 Urine Glucose (UA) Trace (Negative) H 08/31/22 01:52 Urine Ketones Negative (Negative) 08/31/22 01:52 Urine Blood 3+ (Negative) H 08/31/22 01:52 Urine Nitrite Negative (Negative) 08/31/22 01:52 Urine Bilirubin Negative (Negative) 08/31/22 01:52 Urine Urobilinogen Negative (Negative) 08/31/22 01:52 Ur Leukocyte Esterase Negative (Negative) 08/31/22 01:52 Urine WBC (Auto) 1-5 /hpf (0-5) 08/31/22 01:52 Urine RBC (Auto) 0-4 /hpf (0-4) 08/31/22 01:52 U Hyaline Cast (Auto) 0 /lpf (0-5) 08/31/22 01:52 U Epithel Cells (Auto) 0-5 /lpf (0-5) 08/31/22 01:52 Urine Bacteria (Auto) Negative (Negative) 08/31/22 01:52 Ethyl Alcohol mg/dL < 10.0 mg/dl (<10.0) 08/31/22 01:53 Blood Type A Positive 08/31/22 00:59 Antibody Screen NEGATIVE 08/31/22 00:59 Impressions Chest X-Ray 08/30/22 23:56 SINGLE VIEW CHEST CLINICAL HISTORY: Sepsis FINDINGS: An AP, portable, upright chest radiograph is compared to study dated 12/05/2020 and correlated with chest CT dated 05/04/2022. A left subclavian central venous infusion port is unchanged in position. The heart is enlarged noting atherosclerotic calcification of the thoracic aorta. There is pulmonary vascular congestion. Mild bilateral airspace opacities likely represent pulmonary edema. Emphysema and chronic interstitial thickening is similar to previous. No large pleural effusion is seen. There is dependent atelectasis. No pneumothorax is seen. The skeletal structures are osteopenic. The bony thorax is grossly intact. There is advanced atherosclerotic calcification of the carotid bulbs. IMPRESSION: 1. Cardiomegaly and emphysema with evidence of congestive failure. 2. Mild bilateral airspace opacities likely represent pulmonary edema. Correlate clinically for evidence of a superimposed infectious/inflammatory pneumonitis. Radiographic follow-up to resolution is recommended. ACT 112: Negative or not required by law. Electronically signed by: Antwon Osborn M.D. 08/31/2022 12:[address] 08/30/22 23:57 CT head/brain wo con CLINICAL HISTORY: 62 years-old Male with fall. Acute head trauma status post fall TECHNIQUE: Multiple axial CT images of the head were obtained without contrast. A dose lowering technique was utilized adhering to the principles of ALARA. CT DOSE: 1842.80 mGy.cm COMPARISON: None. FINDINGS: No acute intracranial hemorrhage, midline shift, intracranial mass, hydrocephalus, territorial ischemia or abnormal extra-axial collection. Motion degraded exam. The calvarium is intact. The paranasal sinuses, mastoid air cells, and middle ear cavities are clear. IMPRESSION: Motion degraded exam. No acute intracranial abnormality or calvaria l fracture identified. ACT 112: Negative or not required by law. The above report was generated using voice recognition software. It may contain grammatical, syntax or spelling errors. Electronically signed by: Marlon Weller M.D. 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 A dose lowering technique was utilized adhering to the principles of ALARA. COMPARISON STUDY: CT abdomen and pelvis 05/06/2022 FINDINGS: Study is degraded by lack of contrast, upper extremity positioning and respiratory motion artifact. Cardiomegaly with coronary arterial calcifications. Trace pericardial effusion. Intralobular septal thickening with mild groundglass densities of the lung bases. No pneumatosis or pneumoperitoneum. The unenhanced spleen, mildly atrophic pancreas and unenhanced liver appear unremarkable. Distended ga llbladder. Unchanged adrenal gland thickening. Bilateral renal vascular calcifications with nonspecific bilateral perinephric stranding. Mild prostamegaly. Unremarkable appearance of the urinary bladder. Extensive atherosclerosis of the aorta and branch vessels. Pathologic retroperitoneal lymphadenopathy appears generally stable. No bowel obstruction identified. Gastric wall thickening again noted. Trace perirectal stranding with nonspecific rectal wall thickening. Colonic diverticulosis without acute diverticulitis. The appendix is not definitively seen. Moderate generalized mesenteric and body wall edema. Multifocal osteoblastic skeletal metastasis redemonstrated. No acute pathologic fractures identified. Lumbar levoscoliosis. IMPRESSION: 1. Limited exam as above. No ureteral calculi or hydronephrosis identified. 2. Mild rectal wall thickening with perirectal stranding. Findings may be secondary to partial distention versus a nonspecific proctitis. 3. Cardiomegaly with pulmonary edema redemonstrated. 4. Stable appearance of the pathologic retroperitoneal lymphadenopathy with multifocal osteoblastic skeletal metastasis redemonstrated. 5. Additional findings as above. ACT 112: Negative or not required by law. The above report was generated using voice recognition software. It may contain grammatical, syntax or spelling errors. Electronically signed by: Marlon Weller M.D. 08/31/2022 3:09 AM Code Status & VTE Plan VTE Prophylaxis Plan VTE Prophylaxis will be ordered: Yes Critical Care Time 65 minutes PG Care Time/CCT Total # of Minutes Spent Total Time Spent with Patient: Total time spent is greater than 50% in coordination of care (as documented) at patient's floor/unit and/or counseling patient: Coding Level of Care Code None Diagnoses Acute kidney injury superimposed on CKD N17.9; N18.9 COPD (chronic obstructive pulmonary disease) J44.9 Hypercholesteremia E78.00 Hypertension I10 Hypertension type: unspecified Diabetes mellitus, type 2 E11.42; Z79.4 Diabetes mellitus [facility] insulin use: with rn long term care use Diabetes mellitus complication status: with neurologic complications Diabetes mellitus complication detail: with polyneuropathy GERD (gastroesophageal reflux disease) K21.9 (1) Hypertension Hypertension type: unspecified Qualified Code(s): I10 - Essential (primary) hypertension (2) Diabetes mellitus, type 2 Diabetes mellitus [facility] insulin use: with rn long term care use Diabetes mellitus complication status: with neurologic complications Diabetes mellitus complication detail: with polyneuropathy Qualified Code(s): E11.42 - Type 2 diabetes mellitus with diabetic polyneuropathy; Z79.4 - detention (current) use of insulin
[2022-08-31 05:37] LABS: Influenza A virus by PCR Negative (Neg); Influenza B virus by PCR Negative (Neg); RSV by PCR Negative (Neg); SARS CoV2 RNA(COVID-19) Ceph NEGATIVE (Negative)
[2022-08-31 06:22] LABS: Base Excess VBG -22.2 mEq/L; HCO3 VBG 6 mmol/L; Oxygen Saturation VBG 60.4 %; PCO2 VBG 19 mmHg (38-50); PO2 VBG 38 mmHg; pH VBG 7.09 (7.36-7.41)
--- NOTE | 2022-08-31 06:36 | Critical Care Consultation ---
Date of Consultation August 31, 2022 Assessment & Plan (1) Acute on chronic renal failure: Reason Critically Ill: 62-year-old male presents to the ICU with acute on chronic renal failure and severe metabolic acidosis, now on bicarb drip and plan to undergo dialysis early this morning. Neuro - Altered mental statussecondary to metabolic encephalopathy. Patient has significantly elevated BUN to 277.. His CT head was negative for any acute intracranial process. Expect this to improve with dialysis. Cardiac - PVDhistory of RLE Phampop bypass 2019 and amputation of right fifth toe. Repair of pseudoaneurysm with bovine patch in 2019. Follows with Dr. Rajan. -Continue ASA, statin HTNhold antihypertensives for now Respiratory - Hypoxiapatient currently on 4 L O FM and maintaining oxygen saturation. -Chest x-ray consistent with volume overload/pulmonary congestion. -Hold on diuresis for now. Patient to undergo dialysis this a.m. -Continuous monitoring pulse ox. Wean oxygen as tolerated. COPDno issue at this time. Patient does continue to smoke and has refused PFTs in the past. -Continue nebs every 4 hours - hold on further Solu-Medrol GI - Patient with normocytic anemia and heme positive stools. No brent blood noted on exam -CT abdomen and pelvis with mild rectal wall thickening with perirectal stranding. -We will start on PPI -INR 1.6. -Trend H&H for now and monitor closely RENAL/LYTES - Acute on chronic renal failurepatient with CKD stage III and previous baseline creatinine of 2.5-3 and BUN of 50. Presents today with BUN to 77 and creatinine of 14.48 -Ricardo catheter placed and did return 450 mL of urine -Unsure of etiology at this time but patient is on diuretics and has poor oral intake over the past week. No hypotension on exam. No hydronephrosis on CT abdomen and pelvis -Nephrology consulted and patient to undergo emergent dialysis this morning. Will insert HD cath on arrival to ICU -Severe metabolic acidosis with pH 7.03/HCO3 4. Started on bicarb drip. Trend VBG -Potassium 3.7, trend BMP every 4 hours -Labs pending: CPK, lactate, ionized calcium - Foleystrict I's and O's ENDO - DM type II (uncontrolled)last hemoglobin A1c 08/08 was 10.9. HEME - Hemoglobin 8.6. Patient with normocytic anemia witH hemoglobin of 12 on last admission. INR 1.6. Trend CBC and transfuse if indicated for hemoglobin less than 8. ID - We will hold on antibiotics for the time being. Blood cultures pending. UA unremarkable History of metastatic bladder cancerfollows with [facility] and previously had TURP in March 2018. Completed chemotherapy 2017 and follow-up CTs without evidence of progressive metastatic disease. LINES/IV ACCESS - Peripheral IVs, will need HD cath DVT PROPHYLAXIS - SCDs I have personally spent 55 minutes of critical care time in the direct management of this patient. This is a life/limb threatening event. This includes time spent evaluating patient, direct bedside care, chart review, placing orders, interpretation of diagnostic studies, discussion with consultants, patient, and family members, as well as other required patient management activities. This time is exclusive of all separately billable procedures, and teaching time and separate from and in addition to any other critical care service time. Thank you for allowing us to participate in the care of this patient. Please refer to my attending physician's documentation for any further recommendations. (2) COPD (chronic obstructive pulmonary disease): (3) Hypercholesteremia: (4) Hypertension: (5) Diabetes mellitus, type 2: (6) GERD (gastroesophageal reflux disease): (7) Bladder cancer metastasized to bone: (8) Peripheral arterial disease: (9) Pseudoaneurysm of femoral artery: Supervising Physician Co-Signing Physician Notes Patient seen and examined. MAR reviewed. Discussed with bedside critical care nurse and with CATARINA. Temporary HD line was placed on arrival. See separate procedure note. Patient has acute renal failure of unclear etiology. His underlying diabetes and diabetic nephropathy is possible. Cannot exclude potential component of ATN as well. Regardless, renal replacement is warranted given the patient's m arkedly elevated BUN and encephalopathy as well as acidosis. Continue bicarb drip. No evidence of active ongoing bleeding however his hemoglobin is significantly decreased. Unclear if this is related to his kidney disease or not. We will check iron stores and retake count. Glycemic control per protocol. Unclear significance of elevated procalcitonin. Cannot rule out component of DKA although difficult to assess with his severe concomitant renal failure. Will initiate insulin infusion and follow labs closely. Difficult case as he may need fluids and typically potassium however given his acute renal failure, these may need to be adjusted judiciously. Trend troponin. Check echocardiogram. Patient's overall critically ill with significant possibility of clinical deterioration and/or . An additional 50 minutes in critical care time evaluating managing and stabilizing patient in addition to the critical care time billed by CATARINA. History of Present Illness History of Present Illness Patient is a 62-year-old male with past medical history significant for COPD, HTN, DM type II, CKD stage III, PAD, and bladder cancer who presented to the emergency department earlier this evening via EMS. Patient was found at home to be confused and obtunded. He was reported by his mother who he lives with to not be eating or drinking over the last week and had increased work of breathing. Patient's BSG was 267 he was initially on CPAP and was given DuoNeb and IV Solu-Medrol in the ED. He was hypothermic with temperature 31.6. CT head negative for acute intracranial findings. BMP revealed acute on chronic renal failure and VBG showed severe metabolic acidosis. Patient was started on bicarb drip. Ricardo was inserted and did return 450 mL of clear, yellow urine. Nephrology consulted and patient to undergo hemodialysis this morning and will admit to ICU and insert HD cath. Allergies Allergy/AdvReac Type Severity Reaction Status Date / Time lisinopril AdvReac Intermediate diarrhea, Verified 08/31/22 02:11 stomach cramping and pain losartan AdvReac Intermediate Diarrhea Verified 08/31/22 02:11 Home Medications Medication Instructions Recorded Confirmed Type aspirin 81 mg tablet,delayed 81 mg PO DAILY #90 tabs 04/26/21 08/31/22 Rx release pen needle, diabetic 32 gauge x #100 ea 03/14/22 07/03/22 Rx 5/32" (BD Ultra-Fine Fely Pen Needle) hydralazine 25 mg tablet 25 mg PO TID #90 tabs 05/06/22 08/31/22 Rx blood sugar diagnostic #360 ea 06/17/22 07/03/22 Rx lancets 33 gauge (OneTouch Delica #100 ea 07/02/22 07/03/22 Rx Lancets) bumetanide 2 mg tablet 2 mg PO DAILY 07/03/22 08/31/22 History ipratropium 20 mcg-albuterol 100 1 puff inhalation QID #4 grams 07/03/22 08/31/22 Rx mcg/actuation mist for inhalation (Combivent Respimat) valsartan 320 mg tablet (Diovan) 320 mg PO DAILY 07/03/22 08/31/22 History insulin lispro 100 unit/mL 6 unit (0.06 mL) subcut BIDM #15 mL 07/15/22 08/31/22 Rx subcutaneous pen (Humalog KwikPen (U-100) Insulin) insulin glargine 100 unit/mL (3 12 unit (0.12 mL) subcut BIDM 90 08/05/22 08/31/22 Rx mL) subcutaneous pen days #18 mL amlodipine 10 mg tablet 10 mg PO DAILY 08/31/22 08/31/22 History furosemide 20 mg tablet 40 mg PO DAILY 08/31/22 08/31/22 History simvastatin 40 mg tablet 40 mg PO QPM 08/31/22 08/31/22 History Patient History Medical History Bladder cancer metastasized to bone Cancer NEWLY DX WITH BLADDER CANCER, BLOODY URINE, STARTED CHEMO APR 2018, FINISHED JULY 2018 Chronic kidney disease, stage 3 (moderate) COPD (chronic obstructive pulmonary disease) Diabetes mellitus, type 2 Diverticulitis Elevated liver enzymes GERD (gastroesophageal reflux disease) H/O sepsis Related to ruptured sigmoid colon. Hematuria History of pseudoaneurysm 04/23/19- Repair of pseudoaneurysm of right femoral artery with bovine patch by Dr. 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 Rupture of bowel H/O ruptured sigmoid colon which resulted in right transverse colostomy, a later surgery for sigmoid resection, and later colostomy reversal; Spinal stenosis LUMBAR Stage 3b chronic kidney disease Ventral hernia Vitamin D deficiency Surgical History H/O cystoscopy History of bladder surgery (04/06/18) TURBT History of colostomy reversal History of surgery A-PORT PLACEMENT Hx of colostomy RUPTURED DIVERTICULITIS S/P aneurysm repair (04/2019) repair of pseudoaneurysm at the end of the bypass graft in right lower extremity S/P femoropopliteal bypass surgery (01/2019) right iliofemoral endarterectomy, right common femoral to popliteal artery bypass Status post chemotherapy Chemo 10/3/18 thru 08/12/18 for bladder cancer Family History Mother Hypertension Diabetes Father , in his 60's Prostate cancer Brother Stroke Hypertension Diabetes Lyme disease Brother No problems noted. Brother No problems noted. Sister No problems noted. Sister No problems noted. Daughter Skin cancer Hypertension Hypothyroidism Denies family history of Ovarian cancer Myocardial infarction Breast cancer Colorectal cancer Social History Smoking Status: Current every day smoker Tobacco Type: Cigarettes Age Started Using Tobacco: 14; packs per day: 1; Cigarettes Per Day: 20; Second Hand Exposure: Yes; Hx Alcohol Use: No Hx Substance Use: No Preferred Language: Ecuadorean Communication Ability: Effective Visual Impairment: No Limitations Hearing Ability: Normal Continuous Loft Operator Required: No Beliefs That Will Affect Care: None marital status: Current Living Situation: Parent Current Living Situation Comment: Lives at home with mom current occupational status: unemployed current occupation: Disability Feels Safe at Home: Yes Childhood Exposure to Second-Hand Smoke: No Diet Comment: regular caffeine: Yes (4 cups/day) during the past year weight has: remained stable Dental Care, Regularly: No Physical Activity Frequency: Daily Physical Activity Frequency Comment: house work Seatbelt Use: always Sunscreen Use: No Assistive Devices: None Review of Systems Review of Systems: Unobtainable due to cognitive status Physical Exam Constitutional: + altered mental status, + frail appearing and + malnourished Eyes: PERRL, conjunctivae normal, anicteric sclerae ENMT: external ear and nose normal, oropharynx normal Neck: trachea midline, no thyromegaly Respiratory: + tachypneic and symmetric chest movement; no labored breathing, does not use accessory muscles and no cough Rhonchi auscultated bilaterally Cardiovascular: Rate/Rhythm: regular rate and regular rhythm Heart Sounds: normal S1 and normal S2; no murmur Bilateral lower extremity edema +1 Gastrointestinal (Abdomen): normal bowel sounds, soft, nontender, no hepatosplenomegaly Musculoskeletal: no cyanosis or clubbing, extremities motor strength 5/5 Skin: Extensive bruising on forearms, skin is thin and pallor Neurologic: Obtunded, PERRLA, face symmetrical Genitourinary: Indwelling Ricardo catheter, urine clear yellow Results & Data Results & Data ([facility]) Vital Signs (Past 12 Hours) Vital Signs Temp Pulse Pulse Resp BP BP Pulse Ox 08/31/22 04:32 100 08/31/22 04:00 76 22 121/61 100 08/31/22 03:30 32.4 C L 76 18 120/48 L 08/31/22 03:00 32.2 C L 72 24 114/64 100 08/31/22 03:00 114/64 08/31/22 02:32 72 28 H 109/51 L 100 08/31/22 02:32 109/51 L 08/31/22 02:01 72 20 130/57 L 100 08/31/22 01:20 67 20 08/31/22 01:00 68 18 100 08/31/22 00:30 67 20 106/59 L 08/31/22 00:00 67 19 08/30/22 23:30 67 24 100 08/31/22 02:05 31.4 C L 08/31/22 00:17 69 26 H 98 08/31/22 00:15 69 26 H 98 08/30/22 23:07 69 19 101/49 L 100 08/30/22 23:20 69 20 101/49 L 100 O2 Del Method O2 Flow Rate FiO2 08/31/22 04:32 Oxymask 10 08/31/22 04:00 08/31/22 03:30 08/31/22 03:00 Oxymask 10 08/31/22 03:00 08/31/22 02:32 Oxymask 10 08/31/22 02:32 08/31/22 02:01 08/31/22 01:20 08/31/22 01:00 08/31/22 00:30 08/31/22 00:00 08/30/22 23:30 08/31/22 02:05 08/31/22 00:17 BiPAP 100 08/31/22 00:15 100 08/30/22 23:07 Oxymask 2 08/30/22 23:20 Oxymask 4 Coding Level of Care Code Critical Care 1st 30-74 mins Diagnoses Acute on chronic renal failure N17.9; N18.9 COPD (chronic obstructive pulmonary disease) J44.9 Hypercholesteremia E78.00 Hypertension I10 Hypertension type: unspecified Diabetes mellitus, type 2 E11.42; Z79.4 Diabetes mellitus complication detail: with polyneuropathy Diabetes mellitus complication status: with neurologic complications Diabetes mellitus intermediate accountant insulin use: with longterm use GERD (gastroesophageal reflux disease) K21.9 Bladder cancer metastasized to bone C67.9; C79.51 Peripheral arterial disease I73.9 Pseudoaneurysm of femoral artery I72.4 Time Spent (min) 105 (1) Diabetes mellitus, type 2 Diabetes mellitus complication detail: with polyneuropathy Diabetes mellitus complication status: with neurologic complications Diabetes mellitus longterm insulin use: with intermediate accountant use Qualified Code(s): E11.42 - Type 2 diabetes mellitus with diabetic polyneuropathy; Z79.4 - terminal carman (current) use of insulin (2) Hypertension Hypertension type: unspecified Qualified Code(s): I10 - Essential (primary) hypertension
[2022-08-31] MEDS ORDERED: CALCIUM GLUCONATE 10% 3,000 MG in DEXTROSE 5% 100 ML IV ONE (06:49)
[2022-08-31] MEDS ORDERED: SODIUM BICARB 8.4% INJ 50 MEQ/50 ML SYR IV STA (06:49)
[2022-08-31] MEDS ORDERED: STAT IV STA ×3 (06:49→22:40)
[2022-08-31 07:05] LABS: Calcium 4.3 mg/dl (8.5-10.1); Creatinine Clr Calc Pharmacy 5.6 ml/min; Est GFR (African American) 3.8 ml/min; Est GFR (Non-African American) 3.2 ml/min; Potassium 3.2 mmol/L (3.5-5.1)
[2022-08-31] MEDS ORDERED: ALBUTEROL 0.5% NEB SOLN 2.5 MG/0.5 ML VIAL NEB PRN (07:51)
[2022-08-31] MEDS ORDERED: GLUCOSE 10 TAB/TUBE PO PRN (07:51)
[2022-08-31] MEDS ORDERED: DEXTROSE 50% 50 ML SYRINGE IV PRN (07:51)
[2022-08-31] MEDS ORDERED: GLUCOSE 40% GEL 15 GM TUBE PO PRN (07:51)
[2022-08-31] MEDS ORDERED: GLUCAGON FOR INJ 1 MG VIAL SQ PRN (07:51)
[2022-08-31] MEDS ORDERED: CARBOHYDRATES FOR HYPOGLYCEMIA PO PRN (07:51)
--- NOTE | 2022-08-31 07:56 | Procedure Note ---
Procedure Note Date of Service August 31, 2022 Note CENTRAL LINE PROCEDURE NOTE: Procedure: Temporary hemodialysis Line Placement Provider: Randy Muñoz MD Indication: Central Drug Administration, Poor Venous Access, Multiple Lab Draws Necessary, etc. Anesthesia: 5 mL lidocaine 1% Site: Right internal jugular Consent was signed and placed on the chart prior to procedure. Indication, risks, and benefits were explained at length. Consent was obtained from patient's daughter by the PA as the patient was obtunded and unable to provide consent A time-out was completed verifying correct patient, procedure, site, positioning, and implants(s) or special equipment if applicable. Patients right neck was cleansed and draped in the typical sterile fashion using Chloraprep. The Internal Jugular Vein and Carotid Artery were identified using ultrasound. The superficial tissue was anesthetized using 5 mL of 1% lidocaine without epinephrine under direct visualization with the ultrasound. After adequate anesthetization was achieved, the Internal Jugular vein was cannulated under direct ultrasound guidance using an introducer needle on a syringe. Good venous blood return was maintained prior to removal of syringe from introducer needle. Using Seldinger Technique, a guide wire was advanced through the introducer needle without resistance. The introducer needle was removed leaving the wire in place. A small incision was made in penetrating fashion at the guide wire insertion site utilizing an 11 blade scalpel. Serial dilators were advanced to the vessel without resistance. The dilator was exchanged for the 16 cm temporary HD catheter which was advanced into the vessel without resistance. The guide wire was removed intact from the catheter without issue. confirmation of good blood flow from each lumen. Each port was easily flushed with sterile saline. The catheter was placed at the hub and sutured in place. BioPatch was applied to the catheter and a sterile Tegaderm dressing was applied over the catheter with careful attention to sterility. Patient tolerated procedure well. No immediate complications were met. Post procedure x-ray is currently pending Estimated blood loss: 5 mL Coding CPT Codes Tubes, Drains, and Vasc Access - Tubes, Drains, and Vasc Access: [id number] Insertion of cannula for hemodialysis ([id number]) Tubes, Drains, and Vasc Access - Tubes, Drains, and Vasc Access: [id number] [facility] asound Guidance For Vascular ([id number]) [facility] Procedure Codes (Charges) Tubes, Drains, and Vasc Access Procedure 1: Tubes, Drains, and Vasc Access: [id number] Insertion of cannula for hemodialysis Procedure 2: Tubes, Drains, and Vasc Access: [id number] Ultrasound Guidance For Vascular
[2022-08-31] MEDS ORDERED: STAT IV Infusion **Titration per Protocol STA (08:02)
[2022-08-31] MEDS ORDERED: PHARMACY GLYCEMIC MGMT CONSULT PRN (08:02)
[2022-08-31] MEDS ORDERED: NORMOSOL-R 1,000 ML IV SCH (08:15)
[2022-08-31] MEDS: SODIUM BICARBONATE 8.4% 150 MEQ in WATER, STERILE 1,000 ML IV SCH ×2 (08:16→12:03)
[2022-08-31] MEDS: ICU Protocol for HYPERglycemia SCH ×4 (08:16→22:07)
[2022-08-31] MEDS: ALBUT/IPRATROP 3MG/0.5MG NEB 3 ML VIAL NEB SCH ×5 (08:20→22:33)
[2022-08-31 08:23] LABS: Base Excess VBG -22.4 mEq/L; HCO3 VBG 5 mmol/L; Oxygen Saturation VBG 84.9 %; PCO2 VBG 16 mmHg (38-50); PO2 VBG 57 mmHg; pH VBG 7.11 (7.36-7.41)
[2022-08-31] MEDS ORDERED: INSULIN ASPART PER UNIT SC SCH (08:30)
[2022-08-31] MEDS ORDERED: HEPARIN 100 UNIT/ML 5ML FLUSH FLUSH PRN (08:52)
[2022-08-31] MEDS ORDERED: INSULIN REGULAR 250 UNITS in SODIUM CHLORIDE 0.9% 247.5 ML IV SCH (09:15)
--- NOTE | 2022-08-31 09:17 | XRay Report ---
XR chest 1V portable CLINICAL HISTORY: line placement TECHNIQUE: Single frontal radiograph of the chest was obtained. Comparison: Comparison is made to chest radiograph 08/31/2012 FINDINGS: A port catheter is seen. A right venous central line terminates in the mid SVC. The cardiomediastinal silhouette is stable. Prominence and cephalization of the vasculature is seen. No evidence of pleura l effusion or pneumothorax. IMPRESSION: Right venous central line terminates in the mid SVC. Stable cardiomegaly and mild pulmonary edema. ACT 112: Negative or not required by law. Electronically signed by: Fritz You M.D. 08/31/2022 9:16 AM
[2022-08-31 09:24] LABS: BUN Creatinine Ratio 19.5 (10-20); Calcium 4.2 mg/dl (8.5-10.1); Creatinine Clr Calc Pharmacy 5.7 ml/min; Est GFR (African American) 3.8 ml/min; Est GFR (Non-African American) 3.3 ml/min; Magnesium 1.4 mg/dl (1.7-2.4); Phosphorus 19.1 mg/dl (2.5-4.9); Potassium 3.1 mmol/L (3.5-5.1)
[2022-08-31] MEDS ORDERED: HEPARIN SOD (PORCINE) 1000 UNIT/ML IV ONE (09:39)
[2022-08-31] MEDS ORDERED: HEPARIN BOLUS IV ONE (09:39)
[2022-08-31 09:45] LABS: Troponin I High Sensitivity 212.3 pg/ml (0-20)
[2022-08-31] MEDS: ASPIRIN 81 MG ECTAB PO SCH (09:53)
[2022-08-31] MEDS: POTASSIUM CHLORIDE / WTR 10 MEQ/100 ML PLCT IV SCH ×6 (09:53→20:23)
[2022-08-31] MEDS: PANTOprazole 40 MG in SYRINGE 0 ML IV SCH ×2 (09:53→20:11)
--- NOTE | 2022-08-31 10:29 | Nephrology Consultation ---
Date of Consultation August 31, 2022 Assessment & Plan (1) Acute on chronic renal failure: Non-oliguric. Advanced CKD at baseline. Clinical findings unfortunately suggestive of ESKD. Advanced CKD complicated by poor oral intake, diuretics, ARB use, elevated CK, and suspected superimposed ATN. Likelihood of renal recovery is very poor. 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 Emergent HD was coordinated this morning. RIJ Non tunneled dialysis catheter placed by Dr. Muñoz at the bedside this AM. Placement confirmed by Xray prior to initiation of dialysis. Orders for short HD treatment (2.5 hours) with low Qb placed. 160 optiflux. Low clearance to avoid disequilibrium syndrome. Will evaluate tomorrow for additional clearance as needed. 4 K bath for hypokalemia. HCO3 and calcium replacement with dialysis. Repeat metabolic profile to be obtained post dialysis. In the interim, continue IVF as tolerated. IV potassium replacement is also being provided. Plan of care was discussed with the patient's daughter and severity of illness communicated. Prognosis is guarded. DNR/DNI documented in chart. CKD attributed to DKD as above. Prior imaging did not demonstrate KRISTY. CT obtained in the ER does not demonstrate obstruction. Ricardo draining clear yellow urine. No osmolar gap to suggest toxic ingestion. CK elevated. Statin appropriately held. Hold valsartan and diuretics. Medications are currently appropriately dosed for kidney dysfunction. (2) Hypocalcemia: I suspect this is secondary to a combination of vitamin D deficiency and CKD/MBD, complicated by severe hypophosphatemia, and osteoblastic mets. Aggressive calcium replacement is being provided appropriately. Additional replacement with HD. Calcitriol and Ergocalciferol to be started when able to tolerate PO. (3) Hypokalemia: IV KCl ordered. High potassium bath. Repeat labs this afternoon but avoid agrressive replacement post dialysis while monitoring for rebound. Please leave added replacement post dialysis for nephrology management. (4) Hyperosmolality: Insulin gtt per ICU team. Low clearance with HD to avoid DDS. (5) Metabolic acidosis: HCO3 started pending HD and to be resumed post. No osmolar gap to suggestive toxic ingestion. Lactate elevated. (6) Goals of care, counseling/discussion: Given metastatic cancer and based on discussion with patient's daughter, I suspect additional consultation with palliative care may be helpful once critically acute illness improves. History of Present Illness Reason for Consultation: JEAN/CKD Requesting Physician: Rose Ann MD Attending Physician: Rose Ann MD History of Present Illness Mr. Carlos Bucio is a 62 year-old male with advanced chronic kidney disease. CKD IV A3 by history. Carlos had followed with Dr. Ding and records were available for review. He more recently transferred care to Dr. Maxwell Augustin. Most recent clinic visit with nephrology was in May. The note from this visit was reviewed. Creatinine was 2.99 mg/dL. CKD has been attributed to DKD, hypertensive nephropathy, and or sFSGS +/- nodular glomerular stenosis. Medical history is notable for metastatic bladder cancer with metastases to bone, peripheral arterial disease with vascular claudication (refused intervention in past), insulin dependent diabetes mellitus, hypertension, hyperlipidemia, and tobacco use. Carlos was not able to provide much history. Records from [facility] (including prior evaluation with Dr. Ding), Dr. Augustin from [facility], and Dr. Lopez at the [facility] in [place] were reviewed. I also spoke to the patient's daughter, Rachana, by phone. Carlos was disoriented and inarticulate at the time of my assessment. He answered some basic questions appropriately but was not oriented to place or time. He was agreeable to initiation of dialysis. I discussed the procedure with him early this morning and was present at the start of treatment. Carlos even mentioned that his [id number] had been on dialysis in the past. Rachana expressed agreement with the plan of care. She also expressed understanding of the severity of illness and with risks/benefits of HD. She understands that dialysis disequilibrium syndrome can be catastrophic and even fatal. HD catheter was placed in the ICU this morning by Dr. Muñoz. I reviewed the plan of care with Dr. Muñoz and Dr. Ann this morning in the ICU. When I reviewed goals of care with Rachana, she did tell me that her father does not have a living will or advanced directive but that he has mentioned that he would never want life support or to be maintained on a ventilator. Carlos seemed to confirm DNR by telling me that he just doesn't want any of it but he could not communicate an understanding of what this meant back to me or demonstrate comprehension. Rachana consented that her father should be a DNR/DNI and that this would be consistent with his wishes. He has been avoiding doctors or seeking medical attention for the past couple months. Rachana and her father have discussed end of life situations, notably after her mother a few years ago. Records from Dr. Augustin indicate several changes in medications made in May: 1) Switching furosemide to Bumex 2) Switching atorvastatin to rosuvastatin 20 mg daily 3) Starting valsartan Home medication list does not include rosuvastatin but does include atorvastatin. Rachana was not able to verify her father's medications but she mentioned that he may have not been taking any medications recently. Rachana states that her father suffered from a viral illness in July. This left him very weak. His BP started running low and he reported feeling weak and unsteady on his feet. More recently, he had developed symptoms of nausea, vomiting, and anorexia. His PO intake has been poor and he has lost a notable amount of weight. Carlos lives with his mother. He reportedly fell out of recliner yesterday and was unable to get up. He was somnolent and incoherent at that time. EMS were called to the home and found the patient obtunded. Carlos was transported to the ER at [facility] hypothermic with normal SaO2 but notably tachypneic. BP was acceptable. director multimedia notable for some PVC's. Laboratory studies confirmed advanced kidney failure complicated by severe AG/NAGMA with hypokalemia and severe hypocalcemia. IV calcium gluconate 4 grams has been provided. IV KCl 40 mEq has started infusing via port. HCO3 gtt and IV normosol are infusion. Carlos remains non-oliguric. 450 ml drained from the bladder when Ricardo initially placed in the ER. Additional 100 ml of clear yellow urine produced since. Allergies Allergy/AdvReac Type Severity Reaction Status Date / Time lisinopril AdvReac Intermediate diarrhea, Verified 08/31/22 02:11 stomach cramping and pain losartan AdvReac Intermediate Diarrhea Verified 08/31/22 02:11 Home Medications Medication Instructions Recorded Confirmed Type aspirin 81 mg tablet,delayed 81 mg PO DAILY #90 tabs 04/26/21 08/31/22 Rx release pen needle, diabetic 32 gauge x #100 ea 03/14/22 07/03/22 Rx 5/32" (BD Ultra-Fine Fely Pen Needle) hydralazine 25 mg tablet 25 mg PO TID #90 tabs 05/06/22 08/31/22 Rx blood sugar diagnostic #360 ea 06/17/22 07/03/22 Rx lancets 33 gauge (OneTouch Delica #100 ea 07/02/22 07/03/22 Rx Lancets) bumetanide 2 mg tablet 2 mg PO DAILY 07/03/22 08/31/22 History ipratropium 20 mcg-albuterol 100 1 puff inhalation QID #4 grams 07/03/22 08/31/22 Rx mcg/actuation mist for inhalation (Combivent Respimat) valsartan 320 mg tablet (Diovan) 320 mg PO DAILY 07/03/22 08/31/22 History insulin lispro 100 unit/mL 6 unit (0.06 mL) subcut BIDM #15 mL 07/15/22 08/31/22 Rx subcutaneous pen (Humalog KwikPen (U-100) Insulin) insulin glargine 100 unit/mL (3 12 unit (0.12 mL) subcut BIDM 90 08/05/22 08/31/22 Rx mL) subcutaneous pen days #18 mL amlodipine 10 mg tablet 10 mg PO DAILY 08/31/22 08/31/22 History furosemide 20 mg tablet 40 mg PO DAILY 08/31/22 08/31/22 History simvastatin 40 mg tablet 40 mg PO QPM 08/31/22 08/31/22 History Patient History Medical History (Updated 08/31/22 @ 11:14 by Christian Crespo DO) Bladder cancer metastasized to bone Cancer NEWLY DX WITH BLADDER CANCER, BLOODY URINE, STARTED CHEMO APR 2018, FINISHED JULY 2018 COPD (chronic obstructive pulmonary disease) Diabetes mellitus, type 2 Diverticulitis Elevated liver enzymes GERD (gastroesophageal reflux disease) H/O sepsis Related to ruptured sigmoid colon. Hematuria History of pseudoaneurysm 04/23/19- Repair of pseudoaneurysm of right femoral artery with bovine patch by Dr. 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 Rupture of bowel H/O ruptured sigmoid colon which resulted in right transverse colostomy, a later surgery for sigmoid resection, and later colostomy reversal; Spinal stenosis LUMBAR Ventral hernia Surgical History H/O cystoscopy History of bladder surgery (04/06/18) TURBT History of colostomy reversal History of surgery A-PORT PLACEMENT Hx of colostomy RUPTURED DIVERTICULITIS S/P aneurysm repair (04/2019) repair of pseudoaneurysm at the end of the bypass graft in right lower extremity S/P femoropopliteal bypass surgery (01/2019) right iliofemoral endarterectomy, right common femoral to popliteal artery bypass Status post chemotherapy Chemo 05/20/18 thru 08/12/18 for bladder cancer Family History Mother Hypertension Diabetes Father , in his 60's Prostate cancer Brother Stroke Hypertension Diabetes Lyme disease Brother No problems noted. Brother No problems noted. Sister No problems noted. Sister No problems noted. Daughter Skin cancer Hypertension Hypothyroidism Denies family history of Ovarian cancer Myocardial infarction Breast cancer Colorectal cancer Social History Smoking Status: Current every day smoker Tobacco Type: Cigarettes Age Started Using Tobacco: 14; packs per day: 1; Cigarettes Per Day: 20; Second Hand Exposure: Yes; Hx Alcohol Use: No Hx Substance Use: No Preferred Language: Gambian Communication Ability: Effective Visual Impairment: No Limitations Hearing Ability: Normal Wind Tunnel Technician Required: No Beliefs That Will Affect Care: None marital status: Current Living Situation: Parent Current Living Situation Comment: Lives at home with mom current occupational status: unemployed current occupation: Disability Feels Safe at Home: Yes Childhood Exposure to Second-Hand Smoke: No Diet Comment: regular caffeine: Yes (4 cups/day) during the past year weight has: remained stable Dental Care, Regularly: No Physical Activity Frequency: Daily Physical Activity Frequency Comment: house work Seatbelt Use: always Sunscreen Use: No Assistive Devices: None Review of Systems Review of Systems: Unobtainable due to reduced consciousness Constitutional: no fever and no chills Physical Exam Constitutional: well developed, + ill appearing and + lethargic Eyes: + anicteric sclerae and reactive pupils; eyes not dysmorphic and normal pupil size ENMT: Mouth: + muffled voice, + dry oral mucous membranes and + poor dentition Neck: normal visual inspection and trachea midline Respiratory: + labored breathing and + tachypneic Auscultation: lungs clear to auscultation bilaterally Cardiovascular: Rate/Rhythm: + tachycardic Heart Sounds: normal S1 and normal S2 Vessels: + JVD; + abnormal peripheral pulses (unable to feel DP or PT pulses ) Extremities: + pedal edema (1+ to mid medrano); + abnormal capillary refill Gastrointestinal (Abdomen): Inspection/Auscultation: + abdomen distended, + scaphoid and + abdominal surgical scar Percussion/Palpation: abdomen soft; no guarding and abdomen not rigid Musculoskeletal: Extremities: + cyanosis (capillary refill delayed) Skin: normal turgor; no lesions Neurologic: Motor/Sensory: + fasciculations and + asterixis; no tremor Psychiatric: Orientation: alert and oriented x 3 Results & Data ([facility]) Vital Signs (Past 12 Hours) Vital Signs Temp Pulse Pulse Resp BP BP Pulse Ox 08/31/22 08:22 83 20 100 08/31/22 06:50 33.5 C L 80 16 116/58 L 100 08/31/22 06:51 08/31/22 06:51 33.4 C L 08/31/22 06:00 81 24 118/62 100 08/31/22 05:30 80 20 104/54 L 100 08/31/22 05:00 79 18 117/60 100 08/31/22 04:30 78 20 117/64 100 08/31/22 06:14 100 08/31/22 04:32 100 08/31/22 04:00 76 22 121/61 100 08/31/22 03:30 32.4 C L 76 18 120/48 L 08/31/22 03:00 32.2 C L 72 24 114/64 100 08/31/22 03:00 114/64 08/31/22 02:32 72 28 H 109/51 L 100 08/31/22 02:32 109/51 L 08/31/22 02:01 72 20 130/57 L 100 08/31/22 01:20 67 20 08/31/22 01:00 68 18 100 08/31/22 00:30 67 20 106/59 L 08/31/22 00:00 67 19 08/30/22 23:30 67 24 100 08/31/22 02:05 31.4 C L 08/31/22 00:17 69 26 H 98 08/31/22 00:15 69 26 H 98 08/30/22 23:07 69 19 101/49 L 100 08/30/22 23:20 69 20 101/49 L 100 O2 Del Method O2 Flow Rate FiO2 08/31/22 08:22 Oxymask 5 08/31/22 06:50 Oxymask 10 08/31/22 06:51 Oxymask 2 08/31/22 06:51 08/31/22 06:00 08/31/22 05:30 08/31/22 05:00 08/31/22 04:30 08/31/22 06:14 Oxymask 10 08/31/22 04:32 Oxymask 10 08/31/22 04:00 08/31/22 03:30 08/31/22 03:00 Oxymask 10 08/31/22 03:00 08/31/22 02:32 Oxymask 10 08/31/22 02:32 08/31/22 02:01 08/31/22 01:20 08/31/22 01:00 08/31/22 00:30 08/31/22 00:00 08/30/22 23:30 08/31/22 02:05 08/31/22 00:17 BiPAP 100 08/31/22 00:15 100 08/30/22 23:07 Oxymask 2 08/30/22 23:20 Oxymask 4 Laboratory Results Laboratory Results - last 24 hr 08/30/22 08/30/22 08/30/22 00:28 00:28 23:45 WBC 13.79 H RBC 2.92 L Hgb 8.5 L Hct 23.6 L MCV 80.8 MCH 29.1 MCHC 36.0 RDW Std Deviation 46.8 H RDW Coeff of Diane 16.0 H Plt Count 390 MPV 10.7 Immature Gran % (Auto) 1.9 Neut % (Auto) 89.1 Lymph % (Auto) 2.9 [place] % (Auto) 5.9 Eos % (Auto) 0.1 Baso % (Auto) 0.1 Neut # (Auto) 12.27 H Lymph # (Auto) 0.40 L [place] # (Auto) 0.82 Eos # (Auto) 0.02 Baso # (Auto) 0.02 Immature Gran # (Auto) 0.26 H Absolute Nucleated RBC 0.02 H Nucleated RBC % (auto) 0.1 PT INR VBG pH VBG pCO2 VBG pO2 VBG HCO3 VBG O2 Saturation VBG Base Excess Sodium Potassium Chloride Carbon Dioxide Anion Gap BUN Creatinine Est Cr Clr Drug Dosing Est GFR ( Amer) Est GFR (Non-Af Amer) BUN/Creatinine Ratio Glucose POC Glucose Osmolality Lactate 1.7 Calcium Ionized Calcium Phosphorus Magnesium Total Bilirubin Direct Bilirubin AST ALT Alkaline Phosphatase Ammonia Total Creatine Kinase Troponin I High Sens Total Protein Albumin Lipase Procalcitonin 1.11 H TSH Urine Color Urine Appearance Urine pH Ur Specific [place] Urine Protein Urine Glucose (UA) Urine Ketones Urine Blood Urine Nitrite Urine Bilirubin Urine Urobilinogen Ur Leukocyte Esterase Urine WBC (Auto) Urine RBC (Auto) U Hyaline Cast (Auto) U Epithel Cells (Auto) Urine Bacteria (Auto) Ur Random Sodium Ur Random Urea Nitrogn Nasal Screen MRSA (PCR) Ethylene Glycol Ethyl Alcohol mg/dL SARS-CoV-2 (PCR) Influenza Type A (PCR) Influenza Type B (PCR) RSV (RT-PCR) Blood Type Antibody Screen 08/30/22 08/30/22 08/31/22 23:45 23:45 00:59 WBC RBC Hgb Hct MCV MCH MCHC RDW Std Deviation RDW Coeff of Diane Plt Count MPV Immature Gran % (Auto) Neut % (Auto) Lymph % (Auto) [place] % (Auto) Eos % (Auto) Baso % (Auto) Neut # (Auto) Lymph # (Auto) [place] # (Auto) Eos # (Auto) Baso # (Auto) Immature Gran # (Auto) Absolute Nucleated RBC Nucleated RBC % (auto) PT 16.5 H INR 1.6 H VBG pH 7.03 L VBG pCO2 18 L VBG pO2 77 VBG HCO3 5 VBG O2 Saturation 93.7 VBG Base Excess -24.3 Sodium 141 Potassium 3.7 Chloride 101 Carbon Dioxide 4 L* Anion Gap 36 H BUN 277 H Creatinine 14.48 H* Est Cr Clr Drug Dosing 5.5 Est GFR ( Amer) 3.7 Est GFR (Non-Af Amer) 3.2 BUN/Creatinine Ratio 19.1 Glucose 202 H POC Glucose Osmolality Lactate Calcium 4.5 L* Ionized Calcium Phosphorus Magnesium 1.5 L Total Bilirubin 0.4 Direct Bilirubin TNP AST 32 ALT 93 H Alkaline Phosphatase 140 H Ammonia Total Creatine Kinase Troponin I High Sens 151.2 H* Total Protein 6.6 Albumin 3.1 L Lipase Procalcitonin TSH Urine Color Urine Appearance Urine pH Ur Specific [place] Urine Protein Urine Glucose (UA) Urine Ketones Urine Blood Urine Nitrite Urine Bilirubin Urine Urobilinogen Ur Leukocyte Esterase Urine WBC (Auto) Urine RBC (Auto) U Hyaline Cast (Auto) U Epithel Cells (Auto) Urine Bacteria (Auto) Ur Random Sodium Ur Random Urea Nitrogn Nasal Screen MRSA (PCR) Ethylene Glycol Ethyl Alcohol mg/dL SARS-CoV-2 (PCR) Influenza Type A (PCR) Influenza Type B (PCR) RSV (RT-PCR) Blood Type Antibody Screen 08/31/22 08/31/22 08/31/22 00:59 00:59 01:52 WBC RBC Hgb Hct MCV MCH MCHC RDW Std Deviation RDW Coeff of Diane Plt Count MPV Immature Gran % (Auto) Neut % (Auto) Lymph % (Auto) [place] % (Auto) Eos % (Auto) Baso % (Auto) Neut # (Auto) Lymph # (Auto) [place] # (Auto) Eos # (Auto) Baso # (Auto) Immature Gran # (Auto) Absolute Nucleated RBC Nucleated RBC % (auto) PT INR VBG pH VBG pCO2 VBG pO2 VBG HCO3 VBG O2 Saturation VBG Base Excess Sodium Potassium Chloride Carbon Dioxide Anion Gap BUN Creatinine Est Cr Clr Drug Dosing Est GFR ( Amer) Est GFR (Non-Af Amer) BUN/Creatinine Ratio Glucose POC Glucose Osmolality Lactate Calcium Ionized Calcium Phosphorus Magnesium 1.4 L Total Bilirubin Direct Bilirubin AST ALT Alkaline Phosphatase Ammonia Total Creatine Kinase Troponin I High Sens Total Protein Albumin Lipase Procalcitonin TSH Urine Color Yellow Urine Appearance Clear Urine pH 5.0 Ur Specific [place] 1.014 Urine Protein 2+ H Urine Glucose (UA) Trace H Urine Ketones Negative Urine Blood 3+ H Urine Nitrite Negative Urine Bilirubin Negative Urine Urobilinogen Negative Ur Leukocyte Esterase Negative Urine WBC (Auto) 1-5 Urine RBC (Auto) 0-4 U Hyaline Cast (Auto) 0 U Epithel Cells (Auto) 0-5 Urine Bacteria (Auto) Negative Ur Random Sodium Ur Random Urea Nitrogn Nasal Screen MRSA (PCR) Ethylene Glycol Ethyl Alcohol mg/dL SARS-CoV-2 (PCR) Influenza Type A (PCR) Influenza Type B (PCR) RSV (RT-PCR) Blood Type A Positive Antibody Screen NEGATIVE 08/31/22 08/31/22 08/31/22 01:53 01:53 01:53 WBC RBC Hgb Hct MCV MCH MCHC RDW Std Deviation RDW Coeff of Diane Plt Count MPV Immature Gran % (Auto) Neut % (Auto) Lymph % (Auto) [place] % (Auto) Eos % (Auto) Baso % (Auto) Neut # (Auto) Lymph # (Auto) [place] # (Auto) Eos # (Auto) Baso # (Auto) Immature Gran # (Auto) Absolute Nucleated RBC Nucleated RBC % (auto) PT INR VBG pH VBG pCO2 VBG pO2 VBG HCO3 VBG O2 Saturation VBG Base Excess Sodium Potassium Chloride Carbon Dioxide Anion Gap BUN Creatinine Est Cr Clr Drug Dosing Est GFR ( Amer) Est GFR (Non-Af Amer) BUN/Creatinine Ratio Glucose POC Glucose Osmolality 393 H* Lactate Calcium Ionized Calcium Phosphorus Magnesium Total Bilirubin Direct Bilirubin AST ALT Alkaline Phosphatase Ammonia Total Creatine Kinase Troponin I High Sens Total Protein Albumin Lipase Procalcitonin TSH Urine Color Urine Appearance Urine pH Ur Specific [place] Urine Protein Urine Glucose (UA) Urine Ketones Urine Blood Urine Nitrite Urine Bilirubin Urine Urobilinogen Ur Leukocyte Esterase Urine WBC (Auto) Urine RBC (Auto) U Hyaline Cast (Auto) U Epithel Cells (Auto) Urine Bacteria (Auto) Ur Random Sodium Ur Random Urea Nitrogn Nasal Screen MRSA (PCR) Ethylene Glycol Pending Ethyl Alcohol mg/dL < 10.0 SARS-CoV-2 (PCR) Influenza Type A (PCR) Influenza Type B (PCR) RSV (RT-PCR) Blood Type Antibody Screen 08/31/22 08/31/22 08/31/22 04:40 06:04 06:04 WBC RBC Hgb Hct MCV MCH MCHC RDW Std Deviation RDW Coeff of Diane Plt Count MPV Immature Gran % (Auto) Neut % (Auto) Lymph % (Auto) [place] % (Auto) Eos % (Auto) Baso % (Auto) Neut # (Auto) Lymph # (Auto) [place] # (Auto) Eos # (Auto) Baso # (Auto) Immature Gran # (Auto) Absolute Nucleated RBC Nucleated RBC % (auto) PT INR VBG pH VBG pCO2 VBG pO2 VBG HCO3 VBG O2 Saturation VBG Base Excess Sodium 140 Potassium 3.2 L Chloride 99 Carbon Dioxide 6 L* Anion Gap 35 H BUN 271 H Creatinine 14.23 H* Est Cr Clr Drug Dosing 5.6 Est GFR ( Amer) 3.8 Est GFR (Non-Af Amer) 3.2 BUN/Creatinine Ratio 19.0 Glucose 248 H POC Glucose Osmolality Lactate Calcium 4.3 L* Ionized Calcium 0.49 L* Phosphorus Magnesium Total Bilirubin Direct Bilirubin AST ALT Alkaline Phosphatase Ammonia Total Creatine Kinase Troponin I High Sens Total Protein Albumin Lipase Procalcitonin TSH Urine Color Urine Appearance Urine pH Ur Specific [place] Urine Protein Urine Glucose (UA) Urine Ketones Urine Blood Urine Nitrite Urine Bilirubin Urine Urobilinogen Ur Leukocyte Esterase Urine WBC (Auto) Urine RBC (Auto) U Hyaline Cast (Auto) U Epithel Cells (Auto) Urine Bacteria (Auto) Ur Random Sodium Ur Random Urea Nitrogn Nasal Screen MRSA (PCR) Ethylene Glycol Ethyl Alcohol mg/dL SARS-CoV-2 (PCR) NEGATIVE Influenza Type A (PCR) Negative Influenza Type B (PCR) Negative RSV (RT-PCR) Negative Blood Type Antibody Screen 08/31/22 08/31/22 08/31/22 06:09 07:00 08:05 WBC RBC Hgb Hct MCV MCH MCHC RDW Std Deviation RDW Coeff of Diane Plt Count MPV Immature Gran % (Auto) Neut % (Auto) Lymph % (Auto) [place] % (Auto) Eos % (Auto) Baso % (Auto) Neut # (Auto) Lymph # (Auto) [place] # (Auto) Eos # (Auto) Baso # (Auto) Immature Gran # (Auto) Absolute Nucleated RBC Nucleated RBC % (auto) PT INR VBG pH 7.09 L VBG pCO2 19 L VBG pO2 38 VBG HCO3 6 VBG O2 Saturation 60.4 VBG Base Excess -22.2 Sodium Potassium Chloride Carbon Dioxide Anion Gap BUN Creatinine Est Cr Clr Drug Dosing Est GFR ( Amer) Est GFR (Non-Af Amer) BUN/Creatinine Ratio Glucose POC Glucose Osmolality Lactate Calcium Ionized Calcium Phosphorus Magnesium Total Bilirubin Direct Bilirubin AST ALT Alkaline Phosphatase Ammonia 62.0 Total Creatine Kinase Troponin I High Sens Total Protein Albumin Lipase Procalcitonin TSH Urine Color Urine Appearance Urine pH Ur Specific [place] Urine Protein Urine Glucose (UA) Urine Ketones Urine Blood Urine Nitrite Urine Bilirubin Urine Urobilinogen Ur Leukocyte Esterase Urine WBC (Auto) Urine RBC (Auto) U Hyaline Cast (Auto) U Epithel Cells (Auto) Urine Bacteria (Auto) Ur Random Sodium Ur Random Urea Nitrogn Nasal Screen MRSA (PCR) Negative Ethylene Glycol Ethyl Alcohol mg/dL SARS-CoV-2 (PCR) Influenza Type A (PCR) Influenza Type B (PCR) RSV (RT-PCR) Blood Type Antibody Screen 08/31/22 08/31/22 08/31/22 08:05 08:05 08:05 WBC RBC Hgb Hct MCV MCH MCHC RDW Std Deviation RDW Coeff of Diane Plt Count MPV Immature Gran % (Auto) Neut % (Auto) Lymph % (Auto) [place] % (Auto) Eos % (Auto) Baso % (Auto) Neut # (Auto) Lymph # (Auto) [place] # (Auto) Eos # (Auto) Baso # (Auto) Immature Gran # (Auto) Absolute Nucleated RBC Nucleated RBC % (auto) PT INR VBG pH VBG pCO2 VBG pO2 VBG HCO3 VBG O2 Saturation VBG Base Excess Sodium 139 Potassium 3.1 L Chloride 99 Carbon Dioxide 6 L* Anion Gap 34 H BUN 272 H Creatinine 13.97 H* Est Cr Clr Drug Dosing 5.7 Est GFR ( Amer) 3.8 Est GFR (Non-Af Amer) 3.3 BUN/Creatinine Ratio 19.5 Glucose 255 H POC Glucose Osmolality Lactate 0.8 Calcium 4.2 L* Ionized Calcium 0.47 L* Phosphorus 19.1 H Magnesium 1.4 L Total Bilirubin Direct Bilirubin AST ALT Alkaline Phosphatase Ammonia Total Creatine Kinase 8325 H Troponin I High Sens 212.3 H* D Total Protein Albumin Lipase 65 Procalcitonin TSH Urine Color Urine Appearance Urine pH Ur Specific [place] Urine Protein Urine Glucose (UA) Urine Ketones Urine Blood Urine Nitrite Urine Bilirubin Urine Urobilinogen Ur Leukocyte Esterase Urine WBC (Auto) Urine RBC (Auto) U Hyaline Cast (Auto) U Epithel Cells (Auto) Urine Bacteria (Auto) Ur Random Sodium Ur Random Urea Nitrogn Nasal Screen MRSA (PCR) Ethylene Glycol Ethyl Alcohol mg/dL SARS-CoV-2 (PCR) Influenza Type A (PCR) Influenza Type B (PCR) RSV (RT-PCR) Blood Type Antibody Screen 08/31/22 08/31/22 08/31/22 08:05 08:05 08:05 WBC RBC Hgb Hct MCV MCH MCHC RDW Std Deviation RDW Coeff of Diane Plt Count MPV Immature Gran % (Auto) Neut % (Auto) Lymph % (Auto) [place] % (Auto) Eos % (Auto) Baso % (Auto) Neut # (Auto) Lymph # (Auto) [place] # (Auto) Eos # (Auto) Baso # (Auto) Immature Gran # (Auto) Absolute Nucleated RBC Nucleated RBC % (auto) PT INR VBG pH 7.11 L VBG pCO2 16 L VBG pO2 57 VBG HCO3 5 VBG O2 Saturation 84.9 VBG Base Excess -22.4 Sodium Potassium Chloride Carbon Dioxide Anion Gap BUN Creatinine Est Cr Clr Drug Dosing Est GFR ( Amer) Est GFR (Non-Af Amer) BUN/Creatinine Ratio Glucose POC Glucose Osmolality Lactate Calcium Ionized Calcium Phosphorus Magnesium Total Bilirubin Direct Bilirubin AST ALT Alkaline Phosphatase Ammonia Total Creatine Kinase Troponin I High Sens Total Protein Albumin Lipase Procalcitonin 1.06 H TSH 1.766 Urine Color Urine Appearance Urine pH Ur Specific [place] Urine Protein Urine Glucose (UA) Urine Ketones Urine Blood Urine Nitrite Urine Bilirubin Urine Urobilinogen Ur Leukocyte Esterase Urine WBC (Auto) Urine RBC (Auto) U Hyaline Cast (Auto) U Epithel Cells (Auto) Urine Bacteria (Auto) Ur Random Sodium Ur Random Urea Nitrogn Nasal Screen MRSA (PCR) Ethylene Glycol Ethyl Alcohol mg/dL SARS-CoV-2 (PCR) Influenza Type A (PCR) Influenza Type B (PCR) RSV (RT-PCR) Blood Type Antibody Screen 08/31/22 08/31/22 08/31/22 08:05 08:24 08:25 WBC RBC Hgb Hct MCV MCH MCHC RDW Std Deviation RDW Coeff of Diane Plt Count MPV Immature Gran % (Auto) Neut % (Auto) Lymph % (Auto) [place] % (Auto) Eos % (Auto) Baso % (Auto) Neut # (Auto) Lymph # (Auto) [place] # (Auto) Eos # (Auto) Baso # (Auto) Immature Gran # (Auto) Absolute Nucleated RBC Nucleated RBC % (auto) PT INR VBG pH Cancelled VBG pCO2 VBG pO2 VBG HCO3 VBG O2 Saturation VBG Base Excess Sodium Potassium Chloride Carbon Dioxide Anion Gap BUN Creatinine Est Cr Clr Drug Dosing Est GFR ( Amer) Est GFR (Non-Af Amer) BUN/Creatinine Ratio Glucose POC Glucose 305 H* 291 H Osmolality Lactate Calcium Ionized Calcium Phosphorus Magnesium Total Bilirubin Direct Bilirubin AST ALT Alkaline Phosphatase Ammonia Total Creatine Kinase Troponin I High Sens Total Protein Albumin Lipase Procalcitonin TSH Urine Color Urine Appearance Urine pH Ur Specific [place] Urine Protein Urine Glucose (UA) Urine Ketones Urine Blood Urine Nitrite Urine Bilirubin Urine Urobilinogen Ur Leukocyte Esterase Urine WBC (Auto) Urine RBC (Auto) U Hyaline Cast (Auto) U Epithel Cells (Auto) Urine Bacteria (Auto) Ur Random Sodium Ur Random Urea Nitrogn Nasal Screen MRSA (PCR) Ethylene Glycol Ethyl Alcohol mg/dL SARS-CoV-2 (PCR) Influenza Type A (PCR) Influenza Type B (PCR) RSV (RT-PCR) Blood Type Antibody Screen 08/31/22 08/31/22 08/31/22 10:25 10:25 10:56 WBC RBC Hgb Hct MCV MCH MCHC RDW Std Deviation RDW Coeff of Diane Plt Count MPV Immature Gran % (Auto) Neut % (Auto) Lymph % (Auto) [place] % (Auto) Eos % (Auto) Baso % (Auto) Neut # (Auto) Lymph # (Auto) [place] # (Auto) Eos # (Auto) Baso # (Auto) Immature Gran # (Auto) Absolute Nucleated RBC Nucleated RBC % (auto) PT INR VBG pH VBG pCO2 VBG pO2 VBG HCO3 VBG O2 Saturation VBG Base Excess Sodium Potassium Chloride Carbon Dioxide Anion Gap BUN Creatinine Est Cr Clr Drug Dosing Est GFR ( Amer) Est GFR (Non-Af Amer) BUN/Creatinine Ratio Glucose POC Glucose 225 H Osmolality Lactate Calcium Ionized Calcium Phosphorus Magnesium Total Bilirubin Direct Bilirubin AST ALT Alkaline Phosphatase Ammonia Total Creatine Kinase Troponin I High Sens Total Protein Albumin Lipase Procalcitonin TSH Urine Color Urine Appearance Urine pH Ur Specific [place] Urine Protein Urine Glucose (UA) Urine Ketones Urine Blood Urine Nitrite Urine Bilirubin Urine Urobilinogen Ur Leukocyte Esterase Urine WBC (Auto) Urine RBC (Auto) U Hyaline Cast (Auto) U Epithel Cells (Auto) Urine Bacteria (Auto) Ur Random Sodium Pending Ur Random Urea Nitrogn Pending Nasal Screen MRSA (PCR) Ethylene Glycol Ethyl Alcohol mg/dL SARS-CoV-2 (PCR) Influenza Type A (PCR) Influenza Type B (PCR) RSV (RT-PCR) Blood Type Antibody Screen Diagnostic Findings ABDOMEN AND PELVIS CT WITHOUT CONTRAST COMPARISON STUDY: CT abdomen and pelvis 05/06/2022 Cardiomegaly with coronary arterial calcifications. Trace pericardial effusion. Intralobular septal thickening with mild groundglass densities of the lung bases. No pneumatosis or pneumoperitoneum. The unenhanced spleen, mildly atrophic pancreas and unenhanced liver appear unremarkable. Distended gallbladder. Unchanged adrenal gland thickening. Bilateral renal vascular calcifications with nonspecific bilateral perinephric stranding. Mild prostamegaly. Unremarkable appearance of the urinary bladder. Extensive atherosclerosis of the aorta and branch vessels. Pathologic retroperitoneal lymphadenopathy appears generally stable. No bowel obstruction identified. Gastric wall thickening again noted. Trace perirectal stranding with nonspecific rectal wall thickening. Colonic diver ticulosis without acute diverticulitis. The appendix is not definitively seen. Moderate generalized mesenteric and body wall edema. Multifocal osteoblastic skeletal metastasis redemonstrated. No acute pathologic fractures identified. Lumbar levoscoliosis. IMPRESSION: 1. Limited exam as above. No ureteral calculi or hydronephrosis identified. 2. Mild rectal wall thickening with perirectal stranding. Findings may be secondary to partial distention versus a nonspecific proctitis. 3. Cardiomegaly with pulmonary edema redemonstrated. 4. Stable appearance of the pathologic retroperitoneal lymphadenopathy with multifocal osteoblastic skeletal metastasis redemonstrated. 5. Additional findings as above. PG Care Time/CCT Total # of Minutes Spent Total Time Spent with Patient: Total time spent is greater than 50% in coordination of care (as documented) at patient's floor/unit and/or counseling patient: 70 minutes Coding Level of Care Code INP/OBS CONSULT LVL 5, 80 MIN Diagnoses Acute on chronic renal failure N17.9; N18.9 Hypocalcemia E83.51 Hypokalemia E87.6 Hyperosmolality E87.0 Metabolic acidosis E87.20 Goals of care, counseling/discussion Z71.89
[2022-08-31] MEDS ORDERED: PNEUMOCOCCAL POLYSACCHARIDES 25 MCG/0.5 ML VIAL/SYR IM ONE (10:53)
[2022-08-31] MEDS ORDERED: FLUARIX QUADRIVALENT 0.5 ML SYR IM ONE (10:53)
[2022-08-31] MEDS: INSULIN ASPART PER UNIT SC SCH ×2 (11:01→16:47)
[2022-08-31 11:08] LABS: Bacteria Urine Automated Negative (Negative); RBC Urine Automated >30 /hpf (0-4); WBC Urine Automated >30 /hpf (0-5)
[2022-08-31] MEDS ORDERED: D5W AND 1/2NSS + 20MEQ KCL 20 MEQ/1,000 ML BAG IV SCH (11:30)
--- NOTE | 2022-08-31 12:51 | History & Physical Bridge Note ---
Date of Service August 31, 2022 History & Physical Bridge Note I have examined the patient, reviewed the History & Physical and in the interval since the performance of the History & Physical I have noted the following changes of clinical significance: Patient admitted a few hours prior to when I saw him. He remains encephalopathic but was more awake and alert. He was receiving IV fluids and on bicarbonate drip. He was getting ready to start on urgent dialysis. I discussed his care with the magisterial district judge and the silviculturist. Ongoing care as per magisterial district judge and nephrology. Electrolyte replacement, urgent dialysis Insulin drip for DKA Serial labs Discontinue simvastatin for rhabdomyolysis, receiving IV fluids, check CK in the morning Hemoccult positive, follow hemoglobin and transfuse as needed Checking iron studies. B12 and folate were normal just 3 months ago Severe hypocalcemia. Check vitamin D level, intact PTH
[2022-08-31] MEDS: ONDANSETRON INJ 2 MG/ML 2 ML VIAL IV PRN ×2 (13:00→20:50)
--- NOTE | 2022-08-31 13:11 | Pharmacy Report ---
Pharmacy Glycemic Short Note 2 - Date of Service August 31, 2022 - Glycemic Short BSG Results (Last 24 hours): 08/30/22 08/31/22 08/31/22 23:45 06:04 08:05 Glucose 202 H 248 H 255 H POC Glucose 08/31/22 08/31/22 08/31/22 08:24 08:25 10:56 Glucose POC Glucose 305 H* 291 H 225 H 08/31/22 11:58 Glucose POC Glucose 171 H OUTPATIENT ANTIDIABETIC REGIMEN: * Insulin Glargine 12 units BID, Insulin lispro 6 units BIDM ASSESSMENT: * Patient admitted with acute renal failure, SCR 14.48, patient to undergo emergent Hemodialysis * Initial Bicarb 4, VpH 7.03, Anion gap 34 BSG 305 mg/dL : negative ketones in urine. Per Operations And Maintenance Supervisor unable to r/o DKA component with concomitant severe renal failure- to initiate insulin infusion at 2 units/ hr with goal range 150-250 mg/mL * Complicated by hypokalemia in renal failure; received replacement of 40 mEq, hemodialysis- monitoring closely. * Fluids adjust to D5 +1/2NS + 20 mEq KCl when BSG in goal range PLAN FOR INPATIENT GLYCEMIC CONTROL: * Insulin infusion per protocol following initial starting rate of 2 units/hr * Goal range 150-250 mg/dL
[2022-08-31 15:09] LABS: BUN Creatinine Ratio 19.5 (10-20); Calcium 5.3 mg/dl (8.5-10.1); Creatinine Clr Calc Pharmacy 9.9 ml/min; Est GFR (African American) 7.5 ml/min; Est GFR (Non-African American) 6.5 ml/min; Magnesium 1.2 mg/dl (1.7-2.4); Phosphorus 7.4 mg/dl (2.5-4.9); Potassium 5.7 mmol/L (3.5-5.1); Troponin I High Sensitivity 3233.1 pg/ml (0-20)
[2022-08-31] MEDS ORDERED: CALCIUM GLUCONATE 10% 2,000 MG in DEXTROSE 5% 50 ML IV ONE ×2 (16:25→22:40)
[2022-08-31 16:26] LABS: Base Excess VBG -10.9 mEq/L; HCO3 VBG 12 mmol/L; Oxygen Saturation VBG 76.9 %; PCO2 VBG 22 mmHg (38-50); PO2 VBG 45 mmHg; pH VBG 7.36 (7.36-7.41)
[2022-08-31] MEDS ORDERED: D5W AND 1/2NSS 1,000 ML IV SCH ×2 (16:30)
[2022-08-31] MEDS: SODIUM BICARBONATE 8.4% IV SCH ×2 (16:46→20:12)
[2022-08-31] MEDS: MAGNESIUM SULFATE / D5W 1 GM/100 ML BAG IV SCH ×3 (16:46→22:44)
[2022-08-31] MEDS: DEXTROSE 5% IV SCH ×2 (16:46→20:12)
[2022-08-31 17:00] LABS: BUN Creatinine Ratio 19.8 (10-20); Creatinine Clr Calc Pharmacy 9.1 ml/min; Est GFR (African American) 6.8 ml/min; Est GFR (Non-African American) 5.9 ml/min; Magnesium 1.2 mg/dl (1.7-2.4); Phosphorus 7.8 mg/dl (2.5-4.9)
[2022-08-31 18:45] LABS: BUN Creatinine Ratio 19.3 (10-20); Creatinine Clr Calc Pharmacy 9.1 ml/min; Est GFR (African American) 6.8 ml/min; Est GFR (Non-African American) 5.9 ml/min
[2022-08-31] MEDS ORDERED: POTASSIUM CHLORIDE / WTR 20 MEQ/100 ML PLCT IV STA (19:08)
[2022-08-31 20:49] LABS: Potassium 2.3 mmol/L (3.5-5.1)
[2022-08-31 20:50] LABS: Calcium 5.3 mg/dl (8.5-10.1)
[2022-08-31 20:52] LABS: Potassium 2.3 mmol/L (3.5-5.1)
[2022-08-31 20:53] LABS: Calcium 5.3 mg/dl (8.5-10.1)
[2022-08-31] MEDS ORDERED: SIMVASTATIN 40 MG TAB PO SCH (21:00)
[2022-08-31 21:48] LABS: HCO3 VBG 15 mmol/L; Oxygen Saturation VBG 74.3 %; PCO2 VBG 26 mmHg (38-50); PO2 VBG 44 mmHg; pH VBG 7.38 (7.36-7.41)
[2022-08-31 22:19] LABS: BUN Creatinine Ratio 18.6 (10-20); Calcium 5.4 mg/dl (8.5-10.1); Creatinine Clr Calc Pharmacy 8.9 ml/min; Est GFR (African American) 6.6 ml/min; Est GFR (Non-African American) 5.7 ml/min; Magnesium 1.6 mg/dl (1.7-2.4); Phosphorus 7.4 mg/dl (2.5-4.9); Potassium 2.2 mmol/L (3.5-5.1)
[2022-08-31] MEDS: POTASSIUM CHLORIDE / WTR 20 MEQ/100 ML PLCT IV SCH (22:44)
[2022-08-31] MEDS ORDERED: SODIUM BICARBONATE 8.4% 75 MEQ in DEXTROSE 5% 1,000 ML IV SCH (23:45)
[2022-09-01] MEDS: INSULIN ASPART PER UNIT SC SCH ×6 (00:06→20:51)
[2022-09-01] MEDS: POTASSIUM CHLORIDE / WTR 20 MEQ/100 ML PLCT IV SCH ×6 (00:48→23:17)
[2022-09-01] MEDS: MAGNESIUM SULFATE / D5W 1 GM/100 ML BAG IV SCH (00:49)
[2022-09-01] MEDS: D5W AND 1/2NSS 1,000 ML IV SCH ×3 (01:02→19:46)
[2022-09-01] MEDS: ALBUT/IPRATROP 3MG/0.5MG NEB 3 ML VIAL NEB SCH ×6 (03:11→22:49)
[2022-09-01 03:28] LABS: Base Excess VBG -7.7 mEq/L; HCO3 VBG 17 mmol/L; Oxygen Saturation VBG 73.4 %; PCO2 VBG 30 mmHg (38-50); PO2 VBG 43 mmHg; pH VBG 7.35 (7.36-7.41)
[2022-09-01 04:11] LABS: Alanine Aminotransferase 72 U/L (7-52); Albumin Level 2.7 gm/dl (3.4-5.0); Alkaline Phosphatase 112 U/L (34-104); Anion Gap 21 (3-11); Aspartate Aminotransferase 42 U/L (13-39); Bilirubin Direct 0.1 mg/dl (0-0.2); Bilirubin,Total 0.4 mg/dl (0.2-1.0); Blood Urea Nitrogen 175 mg/dl (6-23); Calcium 5.5 mg/dl (8.5-10.1); Carbon Dioxide 17 mmol/L (21-32); Chloride 95 mmol/L (98-107); Creatine Kinase 5662 U/L (30-223); Est GFR (African American) 6.7 ml/min; Est GFR (Non-African American) 5.8 ml/min; Ferritin 334.1 ng/ml (8-388); Glucose 239 mg/dl (70-99(Fasting)); Iron 132 mcg/dl (35-175); Potassium 2.3 mmol/L (3.5-5.1); Sodium 133 mmol/L (136-145); Total Protein 5.5 gm/dl (6.0-8.3); Unsaturated Iron Binding Cap < 55 mcg/dl (155-355)
[2022-09-01 04:21] LABS: Basophils # (auto) 0.02 K/uL (0-0.2); Basophils % (auto) 0.2 %; Echinocytes 1+; Hematocrit (blood only) 17.4 % (40.1-51.0); Hemoglobin 6.5 g/dl (14.0-18.0); Immature Granulocytes # (auto) 0.05 K/uL (0.00-0.02); Immature Granulocytes % (auto) 0.4 %; Lymphocytes # (auto) 0.11 K/uL (1.2-3.4); Lymphocytes % (auto) 0.9 %; Mean Corpuscular Hemoglobin 28.6 pg (25.0-34.0); Mean Corpuscular Hgb Conc 37.4 g/dL (32.0-36.0); Mean Corpuscular Volume 76.7 fL (80.0-100.0); Mean Platelet Volume 10.1 fL (9.4-12.4); Monocytes # (auto) 0.65 K/uL (0.24-0.82); Monocytes % (auto) 5.2 %; Neutrophils # (auto) 11.78 K/uL (1.4-6.5); Neutrophils % (auto) 93.3 %; Nucleated RBC # (auto) 0.03 K/uL (0-0); Nucleated RBC % (auto) 0.2 %; Platelet Count 272 K/uL (130-400); RDW Coefficient of Variation 15.3 % (11.5-14.5); RDW Standard Deviation 41.8 fL (36.4-46.3); Red Blood Count 2.27 M/uL (4.63-6.08); Target Cells 1+; White Blood Count 12.61 K/ul (4.8-10.8)
[2022-09-01] MEDS ORDERED: POTASSIUM CHLORIDE 20 MEQ/15 ML UDC PO STA (04:35)
[2022-09-01] MEDS ORDERED: CALCIUM GLUCONATE 10% 3,000 MG in DEXTROSE 5% 100 ML IV ONE (04:36)
[2022-09-01] MEDS ORDERED: STAT IV STA ×3 (04:36→18:17)
[2022-09-01] MEDS ORDERED: SODIUM CHLORIDE 0.9% 250 ML IV PRN ×2 (04:37→09:58)
[2022-09-01 05:29] LABS: INR 1.5 (0.9-1.1); Prothrombin Time 15.9 Seconds (9.0-12.0)
--- NOTE | 2022-09-01 07:05 | XCELERA ---
[id number]
--- NOTE | 2022-09-01 08:25 | Critical Care Progress Note ---
Date of Service September 01, 2022 Assessment & Plan (1) Acute on chronic renal failure: Plan: Reason Critically Ill: 62-year-old male presents to the ICU with acute on chronic renal failure and severe metabolic acidosis, now on bicarb drip and plan to undergo dialysis early this morning. 24-hour events: Patient mated to the ICU from the ER. He underwent placement of a temporary HD catheter and underwent dialysis yesterday. He has had severe electrolyte abnormalities which are being repleted and replaced. His encephalopathy is improving. He was started on an insulin drip due to possibility of DKA. He appears overall slightly improved today Recommendations: Neuro -encephalopathy secondary to underlying metabolic derangements. Improved today. No indication for additional imaging or work-up. Continue to follow clinically. Cardiac -elevated troponin without ischemic changes identified on ECG. Echocardiogram showed EF 45-50 with akinesis of the inferior septum and basal inferior lima and hypokinesis of the inferior and lateral wall with concentric LVH. Probable diastolic dysfunction was noted. Troponin peaked at over 3000. Given the wall motion abnormalities, we will pursue cardiology consultation. No indication for anticoagulation currently. History of peripheral vascular disease. Continue antiplatelet agents. Blood pressure control with outpatient regiment. Respiratory -continue oxygen as tolerated. Reported history of COPD. No indication for steroids or additional therapies for now. As needed bronchodilators GI -continue PPI. No evidence of melena or hematochezia. If continues to drop, may consider GI consultation for potential endoscopy when stable. Advance diet to liquids as tolerated RENAL/LYTES -acute renal failure. Suspect multifactorial due to combinations of hypertensive nephropathy as well as diabetic nephropathy and potential ATN. Dialysis yesterday. Additional renal replacement per nephrology. Continue potassium calcium and magnesium replacement. -continue to monitor urine output. Defer Ricardo to nephrology ENDO -component of DKA on insulin drip. His gap is significantly closing today. We will be able to transition off the insulin drip onto a subcutaneous regiment. Will need close outpatient follow-up for management of diabetes. DM type II (uncontrolled)last hemoglobin A1c 08/08 was 10.9. HEME -slight drop in hemoglobin this morning without evidence of acute blood loss. Unclear significant of Hemoccult positive stools but no brent melena or hematochezia. Would favor following at this point time. Hemoglobin 8.6. Patient with normocytic anemia witH hemoglobin of 12 on last admission. INR 1.6. Trend CBC and transfuse if indicated for hemoglobin less than 8. ID -holding on antibiotics. Follow cultures. White count normal and no fevers. ONC - History of metastatic bladder cancer[place] [facility] [place] and previously had [place]UR[place] in March 2018. Completed chemotherapy 2017 and follow-up CTs without evidence of progressive metastatic disease. LINES/IV ACCESS - Peripheral IVs, will need HD cath DVT PROPHYLAXIS - SCDs Total of 55 minutes was spent in evaluation management and coordinating care on this patient. No family immediately available We will see how the patient does with dialysis today. Its well-tolerated and his encephalopathy continues to improve, he may be able to transfer out of the ICU later today. Once he leaves the ICU critical care services will sign off (2) COPD (chronic obstructive pulmonary disease): (3) Hypercholesteremia: (4) Hypertension: (5) Diabetes mellitus, type 2: (6) GERD (gastroesophageal reflux disease): (7) Bladder cancer metastasized to bone: (8) Peripheral arterial disease: (9) Pseudoaneurysm of femoral artery: Admission and Anticipated Discharge Date Admission Date: August 31, 2022 Subjective Patient seen and examined. EMR reviewed. The patient is better this morning. He denies any complaints. He remains confused but is less encephalopathic than yesterday. Has been hemodynamically stable. Review of Systems Review of Systems: Unobtainable due to reduced consciousness Physical Exam Constitutional: + ill appearing, + altered mental status and cooperative; no acute distress Neck: trachea midline, no thyromegaly Respiratory: normal respiratory effort, lungs clear to auscultation Cardiovascular: RRR, no murmur, no edema Gastrointestinal (Abdomen): normal bowel sounds, soft, nontender, no hepatosplenomegaly Musculoskeletal: Extremities: extremities normal to inspection Skin: no rashes, warm and dry Neurologic: Nonfocal exam Lymphatic: no cervical lymphadenopathy Results & Data Results & Data ([facility]) Vital Signs (Past 12 Hours) Vital Signs Temp Pulse Pulse Resp BP Pulse Ox O2 Del Method 09/01/22 07:30 37.1 C 99 H 18 121/64 99 09/01/22 07:26 93 H 18 95 Room Air 09/01/22 07:00 37.1 C 09/01/22 07:19 37.1 C 100 H 18 118/65 95 09/01/22 06:30 37.1 C 99 H 17 124/68 96 09/01/22 06:00 37.1 C 99 H 19 124/63 96 09/01/22 05:45 37.1 C 97 H 19 120/60 95 09/01/22 05:28 37.1 C 98 H 18 119/54 L 97 09/01/22 05:00 37.2 C 96 H 18 119/54 L 97 Room Air 09/01/22 04:00 37.1 C 101 H 19 127/60 93 Room Air 09/01/22 03:00 37.1 C 95 H 21 129/52 L 95 Room Air 09/01/22 03:13 95 H 18 96 Room Air 09/01/22 02:00 37.1 C 97 H 20 112/57 L 95 Room Air 09/01/22 01:00 37.2 C 99 H 20 128/50 L 96 Room Air 09/01/22 00:00 37.2 C 103 H 17 130/57 L 96 Room Air 08/31/22 23:00 37.1 C 100 H 17 128/56 L 97 Room Air 08/31/22 22:35 102 H 22 98 Nasal Cannula 08/31/22 22:00 37.0 C 101 H 20 132/63 100 Nasal Cannula 08/31/22 21:00 37.0 C 101 H 20 156/69 H 99 Nasal Cannula 08/31/22 20:45 100 H 26 H 100 Nasal Cannula O2 Flow Rate 09/01/22 07:30 09/01/22 07:26 09/01/22 07:00 09/01/22 07:19 09/01/22 06:30 09/01/22 06:00 09/01/22 05:45 09/01/22 05:28 09/01/22 05:00 09/01/22 04:00 09/01/22 03:00 09/01/22 03:13 09/01/22 02:00 09/01/22 01:00 09/01/22 00:00 08/31/22 23:00 08/31/22 22:35 2 08/31/22 22:00 2 08/31/22 21:00 2 08/31/22 20:45 2 Critical Care Results & Data Vital Signs (Past 12 Hours) Vital Signs Temp Pulse Pulse Resp BP Pulse Ox O2 Del Method 09/01/22 07:30 37.1 C 99 H 18 121/64 99 09/01/22 07:26 93 H 18 95 Room Air 09/01/22 07:00 37.1 C 09/01/22 07:19 37.1 C 100 H 18 118/65 95 09/01/22 06:30 37.1 C 99 H 17 124/68 96 09/01/22 06:00 37.1 C 99 H 19 124/63 96 09/01/22 05:45 37.1 C 97 H 19 120/60 95 09/01/22 05:28 37.1 C 98 H 18 119/54 L 97 09/01/22 05:00 37.2 C 96 H 18 119/54 L 97 Room Air 09/01/22 04:00 37.1 C 101 H 19 127/60 93 Room Air 09/01/22 03:00 37.1 C 95 H 21 129/52 L 95 Room Air 09/01/22 03:13 95 H 18 96 Room Air 09/01/22 02:00 37.1 C 97 H 20 112/57 L 95 Room Air 09/01/22 01:00 37.2 C 99 H 20 128/50 L 96 Room Air 09/01/22 00:00 37.2 C 103 H 17 130/57 L 96 Room Air 08/31/22 23:00 37.1 C 100 H 17 128/56 L 97 Room Air 08/31/22 22:35 102 H 22 98 Nasal Cannula 08/31/22 22:00 37.0 C 101 H 20 132/63 100 Nasal Cannula 08/31/22 21:00 37.0 C 101 H 20 156/69 H 99 Nasal Cannula 08/31/22 20:45 100 H 26 H 100 Nasal Cannula O2 Flow Rate 09/01/22 07:30 09/01/22 07:26 09/01/22 07:00 09/01/22 07:19 09/01/22 06:30 09/01/22 06:00 09/01/22 05:45 09/01/22 05:28 09/01/22 05:00 09/01/22 04:00 09/01/22 03:00 09/01/22 03:13 09/01/22 02:00 09/01/22 01:00 09/01/22 00:00 08/31/22 23:00 08/31/22 22:35 2 08/31/22 22:00 2 08/31/22 21:00 2 08/31/22 20:45 2 Lab & Micro Results (Past 24 Hours) RBC 2.27 M/uL (4.63-6.08) L 09/01/22 WBC 12.61 K/ul (4.8-10.8) H 09/01/22 Hgb 6.5 g/dl (14.0-18.0) L* 09/01/22 Hct 17.4 % (40.1-51.0) L* 09/01/22 MCV 76.7 fL (80.0-100.0) L 09/01/22 MCH 28.6 pg (25.0-34.0) 09/01/22 MCHC 37.4 g/dL (32.0-36.0) H 09/01/22 RDW Standard Deviation 41.8 fL (36.4-46.3) 09/01/22 RDW Coefficient of Variation 15.3 % (11.5-14.5) H 09/01/22 Plt Count 272 K/uL (130-400) 09/01/22 MPV 10.1 fL (9.4-12.4) 09/01/22 Nucleated Red Blood Cells % (auto) 0.2 % 09/01 Nucleated RBC Absolute Count (auto) 0.03 K/uL (0-0) H 08/18 01/07 Neutrophils (%) (Auto) 93.3 % 09/01/22 Lymphocytes (%) (Auto) 0.9 % 09/01/22 Monocytes # (Auto) 0.65 K/uL (0.24-0.82) 09/01/22 Eosinophils # (Auto) 0.00 K/uL (0-0.50) 09/01/22 Immature Granulocyte % (Auto) 0.4 % 09/01/22 Neutrophils # (Auto) 11.78 K/uL (1.4-6.5) H 09/01/22 Lymphocytes # (Auto) 0.11 K/uL (1.2-3.4) L 09/01/22 Monocytes # (Auto) 0.65 K/uL (0.24-0.82) 09/01/22 Eosinophils # (Auto) 0.00 K/uL (0-0.50) 09/01/22 Basophils # (Auto) 0.02 K/uL (0-0.2) 09/01/22 Immature Granulocyte # (Auto) 0.05 K/uL (0.00-0.02) H 09/01 Echinocytes 1+ 09/01/22 Target Cells 1+ 09/01/22 Na 133 mmol/L (136-145) L 09/01/22 K 2.3 mmol/L (3.5-5.1) L* 09/01/22 Cl 95 mmol/L (98-107) L 09/01/22 CO2 17 mmol/L (21-32) L 09/01/22 Anion Gap 21 (3-11) H 09/01/22 BUN 175 mg/dl (6-23) H 09/01/22 Creatinine 8.77 mg/dl (0.6-1.4) H* 09/01/22 Estimated GFR ( Amer) 6.7 ml/min 09/01/22 Estimated GFR (Non-Af Amer) 5.8 ml/min 09/01/22 BUN/Creatinine Ratio 20.0 (10-20) 09/01/22 Glu 239 mg/dl (70-99(Fasting)) H 09/01/22 Ca 5.5 mg/dl (8.5-10.1) L* 09/01/22 Phosphorus Level 7.4 mg/dl (2.5-4.9) H 08/31/22 Total Bilirubin 0.4 mg/dl (0.2-1.0) 09/01/22 Direct Bilirubin 0.1 mg/dl (0-0.2) 09/01/22 AST 42 U/L (13-39) H 09/01/22 ALT 72 U/L (7-52) H 09/01/22 Alkaline Phosphatase 112 U/L (34-104) H 09/01/22 TP 5.5 gm/dl (6.0-8.3) L 09/01/22 Albumin 2.7 gm/dl (3.4-5.0) L 09/01/22 Mg 2.0 mg/dl (1.7-2.4) 09/01/22 03:07 Calcium Level 5.5 mg/dl (8.5-10.1) L* 09/01/22 03:07 Ionized Calcium 0.69 mmol/L (1.12-1.32) L* 09/01/22 03:07 Prothromb Time International Ratio 1.5 (0.9-1.1) H 09/01/22 05 :05 Venous Blood pH 7.35 (7.36-7.41) L 09/01/22 03:07 Venous Blood Partial Pressure CO2 30 mmHg (38-50) L 09/01/22 03 :07 Venous Blood Partial Pressure O2 43 mmHg 09/01/22 03:07 Venous Blood HCO3 17 mmol/L 09/01/22 03:07 Venous Blood Base Excess -7.7 mEq/L 09/01/22 03:07 Venous Blood Oxygen Saturation 73.4 % 09/01/22 03:07 Microbiology 08/31/22 00:59 Aerobic Blood Culture - Preliminary Blood No growth in Aerobic bottle after 24 hours. Anaerobic Blood Culture - Preliminary No growth in Anaerobic bottle after 24 hours. 08/30/22 00:28 Aerobic Blood Culture - Preliminary Blood No growth in Aerobic bottle after 24 hours. Anaerobic Blood Culture - Preliminary No growth in Anaerobic bottle after 24 hours. Diagnostic Findings (Past 24 Hours) Chest X-Ray 08/31/22 07:50 XR chest 1V portable CLINICAL HISTORY: line placement TECHNIQUE: Single frontal radiograph of the chest was obtained. Comparison: Comparison is made to chest radiograph 08/31/2012 FINDINGS: A port catheter is seen. A right venous central line terminates in the mid SVC. The cardiomediastinal silhouette is stable. Prominence and cephalization of the vasculature is seen. No evidence of pleural effusion or pneumothorax. IMPRESSION: Right venous central line terminates in the mid SVC. Stable cardiomegaly and mild pulmonary edema. ACT 112: Negative or not required by law. Electronically signed by: Fritz You M.D. 08/31/2022 9:16 AM I & O Totals 24 Hours 08/31/22 09/01/22 09/02/22 06:59 06:59 06:59 Intake Total 2113.333 / 2113.333 7288.289 / 7288.289 131.983 / 131.983 Output Total 450 / 450 351 / 351 Balance 1663.333 / 2143.184 8432.289 / 6937.289 131.983 / 131.983 Cumulative 08/30/22 23:06 thru 09/01/22 07:10 Intake Total 9533.605 Output Total 801 Balance 8732.605 RT Ventilator Mngmt (Last Documented) Ventilator Ordered Settings Respiratory Rate 18 09/01/22 07:30 Fraction of Inspired Oxygen 100 08/31/22 00:17 Ventilator - PT Measurements Respiratory Rate 18 Coding Level of Care Code 91594 SUB INP/OBS CARE 3/50MIN Diagnoses Acute on chronic renal failure N17.9; N18.9 COPD (chronic obstructive pulmonary disease) J44.9 Hypercholesteremia E78.00 Hypertension I10 Hypertension type: unspecified Diabetes mellitus, type 2 E11.42; Z79.4 Diabetes mellitus retirement insulin use: with retirement use Diabetes mellitus complication status: with neurologic complications Diabetes mellitus complication detail: with polyneuropathy GERD (gastroesophageal reflux disease) K21.9 Bladder cancer metastasized to bone C67.9; C79.51 Peripheral arterial disease I73.9 Pseudoaneurysm of femoral artery I72.4 (1) Hypertension Hypertension type: unspecified Qualified Code(s): I10 - Essential (primary) hypertension (2) Diabetes mellitus, type 2 Diabetes mellitus retirement insulin use: with retirement use Diabetes mellitus complication status: with neurologic complications Diabetes mellitus complication detail: with polyneuropathy Qualified Code(s): E11.42 - Type 2 diabetes mellitus with diabetic polyneuropathy; 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
[2022-09-01] MEDS ORDERED: CALCIUM GLUCONATE 10% 2,000 MG in DEXTROSE 5% 50 ML IV ONE ×2 (08:37→18:17)
[2022-09-01] MEDS: ASPIRIN 81 MG ECTAB PO SCH (08:53)
[2022-09-01] MEDS: PANTOprazole 40 MG in SYRINGE 0 ML IV SCH ×2 (08:54→19:46)
--- NOTE | 2022-09-01 08:58 | Cardiology Consultation ---
Date of Consultation September 01, 2022 Assessment & Plan (1) Left ventricular dysfunction: (2) Elevated troponin: (3) Peripheral arterial disease: (4) Hypertension: (5) Hypercholesteremia: Plan 1. Left ventricular dysfunction: He has mild left ventricular dysfunction with wall motion abnormalities. This is new since 2019 but I do not believe he has had an interim evaluation. Some of this could be stress related due to his current presentation, however he does have wall motion abnormalities and elevated troponin and may have had an ischemic insult as well. His electrocardiogram does not suggest an acute myocardial infarction. We should treat this as an ischemic cardiomyopathy. I would like to start low-dose beta- blockade. 2. Elevated troponin: His troponin is quite elevated, he denies chest discomfort and his troponin shows a peak yesterday afternoon. It would not be at all surprising if he has significant coronary artery disease given his risk factors and his peripheral arterial disease. At this point however I do not think we should perform invasive evaluation. Following recovery will probably need to perform some kind of evaluation for ischemia. That would be either a stress test or catheterization, we can decide in the future. 3. Peripheral arterial disease: With known peripheral arterial disease his risk of coronary disease is quite high. He should be maintained on risk factor modification for atherosclerosis in general. 4. Hypertension: He carries a diagnosis of hypertension, and historically his blood pressure has been quite high. Currently it is controlled. That improvement may be due to his recent dialysis. I would like to start him on at least low-dose beta-blockade, in large part because of his probable myocardial ischemia and tachycardia. 5. Hyperlipidemia: He is on simvastatin as an outpatient, the only LDL measure ment I see is from June 2018 and that was somewhat high but I do not know his statin therapy at the time. It would probably not be sensible to repeat them now under the circumstances, however when he is improved we need to evaluate his cholesterol again and we may want to switch him to high-dose atorvastatin. At this point I am not altering his therapy, that is a long-term issue. History of Present Illness Reason for Consultation: Left ventricular dysfunction, elevated troponin Attending Physician: Rose Ann MD History of Present Illness This is a 62-year-old male with a history of diabetes mellitus, chronic kidney disease, hypertension, COPD and known peripheral arterial disease. To my knowledge he does not have documented coronary artery disease. He presented to the emergency room on August 30, 2022 with confusion and a fall. He is a poor historian but was complaining of shortness of breath on arrival. On evaluation he was in acute renal failure which what is felt to be poor prognosis for recovery. He required urgent dialysis. An echocardiogram was done on August 31, 2022 and this showed normal left ventricular size with mild left ventricular dysfunction (left ventricular ejection fraction 45-50) with wall motion abnormalities. He also had mild concentric left ventricular hypertrophy and a sclerotic aortic valve without stenosis. There was mild pulmonary hypertension. By comparison an echocardiogram done February 02, [address] [facility] is reported to show normal left ventricular size and function with ejection fraction of 60% and no wall motion abnormalities. An electrocardiogram done at that time shows sinus rhythm with an incomplete right bundle branch block pattern an electrocardiogram done this morning September 01, 2022 shows sinus rhythm with a nonspecific IVCD and lateral ST-T abnormalities. Troponin measurements have been elevated. On presentation the troponin was 151, that increased to a maximum of 3233 on August 31, 2022 at 1400, and decreased somewhat this morning to 2531. He seems less confused today although he remains a poor historian. He is oriented x2 (person and place) but not time. He denies cardiovascular symptoms now or in the past. Allergies Allergy/AdvReac Type Severity Reaction Status Date / Time lisinopril AdvReac Intermediate diarrhea, Verified 08/31/22 02:11 stomach cramping and pain losartan AdvReac Intermediate Diarrhea Verified 08/31/22 02:11 Home Medications Medication Instructions Recorded Confirmed Type aspirin 81 mg tablet,delayed 81 mg PO DAILY #90 tabs 04/26/21 08/31/22 Rx release pen needle, diabetic 32 gauge x #100 ea 03/14/22 07/03/22 Rx 5/32" (BD Ultra-Fine Fely Pen Needle) hydralazine 25 mg tablet 25 mg PO TID #90 tabs 05/06/22 08/31/22 Rx blood sugar diagnostic #360 ea 06/17/22 07/03/22 Rx lancets 33 gauge (OneTouch Delica #100 ea 07/02/22 07/03/22 Rx Lancets) bumetanide 2 mg tablet 2 mg PO DAILY 07/03/22 08/31/22 History ipratropium 20 mcg-albuterol 100 1 puff inhalation QID #4 grams 07/03/22 08/31/22 Rx mcg/actuation mist for inhalation (Combivent Respimat) valsartan 320 mg tablet (Diovan) 320 mg PO DAILY 07/03/22 08/31/22 History insulin lispro 100 unit/mL 6 unit (0.06 mL) subcut BIDM #15 mL 07/15/22 08/31/22 Rx subcutaneous pen (Humalog KwikPen (U-100) Insulin) insulin glargine 100 unit/mL (3 12 unit (0.12 mL) subcut BIDM 90 08/05/22 08/31/22 Rx mL) subcutaneous pen days #18 mL amlodipine 10 mg tablet 10 mg PO DAILY 08/31/22 08/31/22 History furosemide 20 mg tablet 40 mg PO DAILY 08/31/22 08/31/22 History simvastatin 40 mg tablet 40 mg PO QPM 08/31/22 08/31/22 History Patient History Medical History Bladder cancer metastasized to bone Cancer NEWLY DX WITH BLADDER CANCER, BLOODY URINE, STARTED CHEMO APR 2018, FINISHED JULY 2018 COPD (chronic obstructive pulmonary disease) Diabetes mellitus, type 2 Diverticulitis Elevated liver enzymes GERD (gastroesophageal reflux disease) H/O sepsis Related to ruptured sigmoid colon. Hematuria History of pseudoaneurysm 04/23/19- Repair of pseudoaneurysm of right femoral artery with bovine patch by Dr. 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 Rupture of bowel H/O ruptured sigmoid colon which resulted in right transverse colostomy, a later surgery for sigmoid resection, and later colostomy reversal; Spinal stenosis LUMBAR Ventral hernia Surgical History H/O cystoscopy History of bladder surgery (04/06/18) TURBT History of colostomy reversal History of surgery A-PORT PLACEMENT Hx of colostomy RUPTURED DIVERTICULITIS S/P aneurysm repair (04/2019) repair of pseudoaneurysm at the end of the bypass graft in right lower extremity S/P femoropopliteal bypass surgery (01/2019) right iliofemoral endarterectomy, right common femoral to popliteal artery bypass Status post chemotherapy Chemo 05/20/18 thru 08/12/18 for bladder cancer Family History Mother Hypertension Diabetes Father , in his 60's Prostate cancer Brother Stroke Hypertension Diabetes Lyme disease Brother No problems noted. Brother No problems noted. Sister No problems noted. Sister No problems noted. 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 Beliefs That Will Affect Care: None marital status: Current Living Situation: Parent Current Living Situation Comment: Lives at home with mom current occupational status: unemployed current occupation: Disability Feels Safe at Home: Yes Childhood Exposure to Second-Hand Smoke: No Diet Comment: regular caffeine: Yes (4 cups/day) during the past year weight has: remained stable Dental Care, Regularly: No Physical Activity Frequency: Daily Physical Activity Frequency Comment: house work Seatbelt Use: always Sunscreen Use: No Assistive Devices: None Review of Systems Review of Systems: Unobtainable due to cognitive status (I do not think his review of systems is reliable due to his mental status although he denies symptoms) Physical Exam Physical Exam: Constitutional: Alert, cooperative and in no distress. Oriented x2. HEENT: Unremarkable Neck: No jugular venous distention, carotid pulses are normal and equal bilaterally without bruits. Pulmonary: Clear to auscultation bilaterally. Cardiac: Regular rapid rhythm with no murmur, gallop or rub. Abdomen: Soft, nontender with normal bowel sounds. Extremities: +2 bilateral pretibial edema. Neurologic: No focal findings. Gait was not tested. Skin: No rash, ecchymoses or petechiae. Results & Data ([facility]) Vital Signs (Past 12 Hours) Vital Signs Temp Pulse Pulse Resp BP Pulse Ox O2 Del Method 09/01/22 08:39 37.2 C 101 H 18 118/63 94 09/01/22 08:30 37.1 C 100 H 20 118/65 95 09/01/22 08:00 37.1 C 101 H 17 94 09/01/22 08:00 113/69 09/01/22 07:30 37.1 C 99 H 17 100 09/01/22 07:30 121/64 09/01/22 07:01 37.1 C 99 H 20 95 09/01/22 07:01 118/65 09/01/22 07:00 37.1 C 100 H 17 95 09/01/22 08:00 Room Air 09/01/22 08:00 99 H 09/01/22 07:30 37.1 C 99 H 18 121/64 99 09/01/22 07:26 93 H 18 95 Room Air 09/01/22 07:00 37.1 C 09/01/22 07:19 37.1 C 100 H 18 118/65 95 09/01/22 06:30 37.1 C 99 H 17 124/68 96 09/01/22 06:00 37.1 C 99 H 19 124/63 96 09/01/22 05:45 37.1 C 97 H 19 120/60 95 09/01/22 05:28 37.1 C 98 H 18 119/54 L 97 09/01/22 05:00 37.2 C 96 H 18 119/54 L 97 Room Air 09/01/22 04:00 37.1 C 101 H 19 127/60 93 Room Air 09/01/22 03:00 37.1 C 95 H 21 129/52 L 95 Room Air 09/01/22 03:13 95 H 18 96 Room Air 09/01/22 02:00 37.1 C 97 H 20 112/57 L 95 Room Air 09/01/22 01:00 37.2 C 99 H 20 128/50 L 96 Room Air 09/01/22 00:00 37.2 C 103 H 17 130/57 L 96 Room Air 08/31/22 23:00 37.1 C 100 H 17 128/56 L 97 Room Air 08/31/22 22:35 102 H 22 98 Nasal Cannula 08/31/22 22:00 37.0 C 101 H 20 132/63 100 Nasal Cannula 08/31/22 21:00 37.0 C 101 H 20 156/69 H 99 Nasal Cannula O2 Flow Rate 09/01/22 08:39 09/01/22 08:30 09/01/22 08:00 09/01/22 08:00 09/01/22 07:30 09/01/22 07:30 09/01/22 07:01 09/01/22 07:01 09/01/22 07:00 09/01/22 08:00 09/01/22 08:00 09/01/22 07:30 09/01/22 07:26 09/01/22 07:00 09/01/22 07:19 09/01/22 06:30 09/01/22 06:00 09/01/22 05:45 09/01/22 05:28 09/01/22 05:00 09/01/22 04:00 09/01/22 03:00 09/01/22 03:13 09/01/22 02:00 09/01/22 01:00 09/01/22 00:00 08/31/22 23:00 08/31/22 22:35 2 08/31/22 22:00 2 08/31/22 21:00 2 Laboratory Results Cardiac Enzymes 08/31/22 08/31/22 09/01/22 Range/Units 08:05 14:01 03:07 AST 42 H (13-39) U/L Troponin I High Sens 212.3 H* D 3233.1 H* D (0-20) pg/ml 09/01/22 Range/Units 04:38 AST (13-39) U/L Troponin I High Sens 2531.4 H* D (0-20) pg/ml Coagulation 09/01/22 Range/Units 05:05 PT 15.9 H (9.0-12.0) Seconds CBC 09/01/22 Range/Units 03:07 WBC 12.61 H (4.8-10.8) K/ul RBC 2.27 L (4.63-6.08) M/uL Hgb 6.5 L* (14.0-18.0) g/dl Hct 17.4 L* (40.1-51.0) % Plt Count 272 (130-400) K/uL Neut # (Auto) 11.78 H (1.4-6.5) K/uL Lymph # (Auto) 0.11 L (1.2-3.4) K/uL [place] # (Auto) 0.65 (0.24-0.82) K/uL Eos # (Auto) 0.00 (0-0.50) K/uL Baso # (Auto) 0.02 (0-0.2) K/uL Comprehensive Metabolic Panel 08/31/22 08/31/22 08/31/22 Range/Units 08:05 14:01 16:02 Sodium 139 135 L 138 (136-145) mmol/L Potassium 3.1 L 5.7 H D 2.3 L* D (3.5-5.1) mmol/L Chloride 99 98 97 L (98-107) mmol/L Carbon Dioxide 6 L* 12 L 13 L (21-32) mmol/L BUN 272 H 156 H D 172 H (6-23) mg/dl Creatinine 13.97 H* 8.00 H* D 8.69 H* D (0.6-1.4) mg/dl Glucose 255 H 114 H 142 H (70-99(Fasting)) mg/dl Calcium 4.2 L* 5.3 L* 5.3 L* (8.5-10.1) mg/dl Direct Bilirubin (0-0.2) mg/dl AST (13-39) U/L ALT (7-52) U/L Alkaline Phosphatase (34-104) U/L Total Protein (6.0-8.3) gm/dl Albumin (3.4-5.0) gm/dl 08/31/22 08/31/22 09/01/22 Range/Units 17:36 21:37 03:07 Sodium 139 135 L 133 L (136-145) mmol/L Potassium 2.3 L* 2.2 L* 2.3 L* (3.5-5.1) mmol/L Chloride 97 L 95 L 95 L (98-107) mmol/L Carbon Dioxide 12 L 15 L 17 L (21-32) mmol/L BUN 167 H 165 H 175 H (6-23) mg/dl Creatinine 8.66 H* 8.88 H* 8.77 H* (0.6-1.4) mg/dl Glucose 154 H 194 H 239 H (70-99(Fasting)) mg/dl Calcium 5.3 L* 5.4 L* 5.5 L* (8.5-10.1) mg/dl Direct Bilirubin 0.1 (0-0.2) mg/dl AST 42 H (13-39) U/L ALT 72 H (7-52) U/L Alkaline Phosphatase 112 H (34-104) U/L Total Protein 5.5 L (6.0-8.3) gm/dl Albumin 2.7 L (3.4-5.0) gm/dl Intake and Output 08/31/22 09/01/22 09/01/22 22:59 06:59 14:59 Intake Total 2253.100 / 7288.289 2730.7 / 7288.289 524.930 / 524.930 Output Total 201 / 351 100 / 351 Balance 2052.100 / 6937.289 2630.7 / 6937.289 524.930 / 524.930 Intake: IV 2253.100 / 7288.289 2730.7 / 7288.289 134.930 / 134.930 Calcium Gluconate 10% 3,000 mg 130 / 130 In Dextrose 5% 100 ml @ 65 mls/ hr IV NOW ONE Rx#:[id number] Calcium Gluconate 10% 2,000 mg 70 / 140 70 / 140 In Dextrose 5% 50 ml @ 240 mls/ hr IV NOW ONE Rx#:[id number] D5w and 1/2Nss + 20Meq KCl 20 448.333 / 448.333 meq In 1,000 ml @ 100 mls/hr IV .Q10H [facility] Rx#:[id number] Dextrose 5% 1,000 ml Sodium 343.333 / 4229.239 8108 / 1418.333 Bicarbonate 8.4% 75 ml @ 100 mls/hr IV .[id number] [facility] Rx#: [id number] Insulin Regular 250 units In 5.601 / 22.456 10.7 / 22.456 4.930 / 4.930 Sodium Chloride 0.9% 247.5 ml @ 1.7 UNITS/HR 1.7 mls/hr IV . Q24H [facility] Rx#:[id number] Magnesium Sulfate / D5w 1 gm In 197.5 / 397.5 200 / 397.5 100 ml @ 50 mls/hr IV Q2H [facility] Rx#:[id number] Potassium Chloride / Wtr 10 meq 295 / 591.667 In 100 ml @ 100 mls/hr IV Q1H [facility] Rx#:[id number] Potassium Chloride / Wtr 20 meq 300 / 300 In 100 ml @ 50 mls/hr IV Q2H [facility] Rx#:[id number] Sodium Bicarbonate 8.4% 75 meq 1075 / 1075 In Dextrose 5% 1,000 ml @ 100 mls/hr IV .[id number] [facility] Rx#: [id number] Sodium Bicarbonate 8.4% 150 meq 893.333 / 1650.000 In Water, Sterile 1,000 ml @ 200 mls/hr IV .[id number] [facility] Rx#: [id number] Oral 0 / 0 Intake (Blood Product) Amt 0 / 0 310 / 310 Packed Cells, Leukoreduced 0 / 0 310 / 310 Unit [id number] Other 80 / 80 Packed Cells, Leukoreduced 80 / 80 Unit [id number] Output: Urine Amount (Catheter) 200 / 350 100 / 350 Ricardo/Indwelling 200 / 350 100 / 350 # Bowel Movements 0 Other: Weight 76.9 kg Weight Measurement Method Built [facility] Diagnostic Findings Telemetry: Sinus rhythm and sinus tachycardia with a heart rate around 100 bpm PG Care Time/CCT Total # of Minutes Spent Total Time Spent with Patient: Total time spent is greater than 50% in coordination of care (as documented) at patient's floor/unit and/or counseling patient: Coding Level of Care Code 52128 INT INP/OBS CARE 3/75MIN Diagnoses Left ventricular dysfunction I51.9 Elevated troponin R77.8 Peripheral arterial disease I73.9 Hypertension I10 Hypertension type: unspecified Hypercholesteremia E78.00 (1) Hypertension Hypertension type: unspecified Qualified Code(s): I10 - Essential (primary) hypertension
[2022-09-01] MEDS ORDERED: LANTUS PER UNIT CHARGE SQ SCH (09:00)
--- NOTE | 2022-09-01 09:11 | Nephrology Progress Note ---
Date of Service September 01, 2022 Assessment & Plan (1) Acute on chronic renal failure: Plan: Clinical findings unfortunately suggestive of ESKD. Advanced CKD at baseline. This has been complicated by poor oral intake, diuretics, ARB use, elevated CK, and superimposed ATN. Likelihood of renal recovery is very poor. AG/NAGMA and severe uremia improving. RIJ HD catheter placed by ICU team 08/31/22. First HD treatment completed 08/31/22. Orders for HD today were entered into the EHR and reviewed with the dialysis nurse. Plan for 3 hours with 160 optiflux and low Qb. Monitor for evidence of DDS. Will run with max available potassium bath. Additional KCl replacement is being provided IV. Close monitoring of labs throughout the day will be provided. HCO3 bath 38-40. Repeat metabolic profile to be obtained post dialysis. 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 CT obtained in the ER does not demonstrate obstruction. Ricardo draining clear yellow urine. CK improving. Continue IV water for hyperosmolar state and hydration. Hold valsartan and diuretics. Medications are currently appropriately dosed for kidney dysfunction. (2) Hypocalcemia: Plan: Secondary to a combination of vitamin D deficiency and CKD/MBD, complicated by hyperphosphatemia, and osteoblastic mets. Aggressive calcium replacement is being provided IV. Additional IV calcium gluconate ordered this AM. Max available calcium bath 2.5 to provide added replacement IV. Ergocalciferol 09382 units PO today. Start calcitriol 0.5 mcg daily. sPTH noted. (3) Hypokalemia: Plan: IV KCl ordered. High potassium bath. Continued close monitoring. ICU team providing replacement based on serial labs. (4) Hyperosmolality: Plan: Continue free water replacement with IVF. (5) Metabolic acidosis: Plan: NaHCO3 IV stopped. Monitor post HD. (6) Anemia: Plan: s/p 1 units PRBC transfusion support this AM. Additional 1 unit to be provided with dialysis. Notable IRMA noted complicated by anemia of CKD. Epogen will be provided once H/H stable post transfusion. (7) Left ventricular dysfunction: Plan: Discussed with Dr. Wade this AM. TTE reviewed. LVEF 45%. Akinesis and hypokinesis in inferior wall/septum noted. Trop trending down. No chest pain. Suspect noted underlying coronary disease but no evidence of unstable angina. RVSP 39. Start low dose carvedilol today. Admission and Anticipated Discharge Date Admission Date: August 31, 2022 Subjective No acute events overnight. Mental status improving. Oriented to person and place. Taking full liquid diet with assistance from RN. Remains encephalopathic and very weak. Carlos does not recall meeting me to speaking to his daughter yesterday. He does not remember dialysis treatment. He did express exasperation at the idea of having dialysis today but is not refusing treatment. Only short (1-2 word) answers are provided and Carlos remains confused and not able to demonstrate comprehension. No fevers or chills. Temp trending upward to 37.2. No concerning changes on telemetry. I discussed the patient with Dr. Castro this morning in the ICU. TTE was reviewed. No chest pain reported. BP has remained acceptable. 1 unit PRBC transfusion support provided this AM. No melena or hematochezia noted. IVF switched from 1/2 NaHCO3 to 1/2 NSS by ICU team. Additional IV KCl and calcium gluconate provided this AM. Approximately 100 ml of urine overnight. Review of Systems Review of Systems: All systems reviewed & are unremarkable except as noted in HPI & below Physical Exam Constitutional: well developed, + ill appearing and + lethargic Eyes: + anicteric sclerae; normal pupil size ENMT: Mouth: + dry oral mucous membranes and + poor dentition Neck: normal visual inspection and trachea midline Respiratory: + tachypneic Auscultation: lungs clear to auscultation bilater ally Cardiovascular: Rate/Rhythm: + tachycardic Heart Sounds: normal S1 and normal S2 Vessels: + JVD; + abnormal peripheral pulses Extremities: + edema (Increasing dependent edema BL LE); + abnormal capillary refill (improving evidence of distal cyanosis and livedo) Musculoskeletal: Extremities: + cyanosis (improving) Skin: normal turgor; no lesions Neurologic: Motor/Sensory: + asterixis; no tremor Psychiatric: Orientation: alert, oriented to person, oriented to place and cooperative; + not oriented to time Genitourinary: Ricardo draining clear yellow urine Results & Data ([facility]) Vital Signs (Past 12 Hours) Vital Signs Temp Pulse Pulse Resp BP Pulse Ox O2 Del Method 09/01/22 08:39 37.2 C 101 H 18 118/63 94 09/01/22 08:30 37.1 C 100 H 20 118/65 95 09/01/22 08:00 37.1 C 101 H 17 94 09/01/22 08:00 113/69 09/01/22 07:30 37.1 C 99 H 17 100 09/01/22 07:30 121/64 09/01/22 07:01 37.1 C 99 H 20 95 09/01/22 07:01 118/65 09/01/22 07:00 37.1 C 100 H 17 95 09/01/22 08:00 Room Air 09/01/22 08:00 99 H 09/01/22 07:30 37.1 C 99 H 18 121/64 99 09/01/22 07:26 93 H 18 95 Room Air 09/01/22 07:00 37.1 C 09/01/22 07:19 37.1 C 100 H 18 118/65 95 09/01/22 06:30 37.1 C 99 H 17 124/68 96 09/01/22 06:00 37.1 C 99 H 19 124/63 96 09/01/22 05:45 37.1 C 97 H 19 120/60 95 09/01/22 05:28 37.1 C 98 H 18 119/54 L 97 09/01/22 05:00 37.2 C 96 H 18 119/54 L 97 Room Air 09/01/22 04:00 37.1 C 101 H 19 127/60 93 Room Air 09/01/22 03:00 37.1 C 95 H 21 129/52 L 95 Room Air 09/01/22 03:13 95 H 18 96 Room Air 09/01/22 02:00 37.1 C 97 H 20 112/57 L 95 Room Air 09/01/22 01:00 37.2 C 99 H 20 128/50 L 96 Room Air 09/01/22 00:00 37.2 C 103 H 17 130/57 L 96 Room Air 08/31/22 23:00 37.1 C 100 H 17 128/56 L 97 Room Air 08/31/22 22:35 102 H 22 98 Nasal Cannula 08/31/22 22:00 37.0 C 101 H 20 132/63 100 Nasal Cannula O2 Flow Rate 09/01/22 08:39 09/01/22 08:30 09/01/22 08:00 09/01/22 08:00 09/01/22 07:30 09/01/22 07:30 09/01/22 07:01 09/01/22 07:01 09/01/22 07:00 09/01/22 08:00 09/01/22 08:00 09/01/22 07:30 09/01/22 07:26 09/01/22 07:00 09/01/22 07:19 09/01/22 06:30 09/01/22 06:00 09/01/22 05:45 09/01/22 05:28 09/01/22 05:00 09/01/22 04:00 09/01/22 03:00 09/01/22 03:13 09/01/22 02:00 09/01/22 01:00 09/01/22 00:00 08/31/22 23:00 08/31/22 22:35 2 08/31/22 22:00 2 Laboratory Results Laboratory Results - last 24 hr 08/31/22 08/31/22 08/31/22 00:59 07:00 08:05 WBC RBC Hgb Hct MCV MCH MCHC RDW Std Deviation RDW Coeff of Diane Plt Count MPV Immature Gran % (Auto) Neut % (Auto) Lymph % (Auto) [place] % (Auto) Eos % (Auto) Baso % (Auto) Neut # (Auto) Lymph # (Auto) [place] # (Auto) Eos # (Auto) Baso # (Auto) Immature Gran # (Auto) Absolute Nucleated RBC Nucleated RBC % (auto) Target Cells Echinocytes PT INR VBG pH VBG pCO2 VBG pO2 VBG HCO3 VBG O2 Saturation VBG Base Excess Sodium Potassium Chloride Carbon Dioxide Anion Gap BUN Creatinine Est Cr Clr Drug Dosing Est GFR ( Amer) Est GFR (Non-Af Amer) BUN/Creatinine Ratio Glucose POC Glucose Calcium Ionized Calcium Phosphorus Magnesium Iron TIBC Unsaturated IBC Transferrin % Sat Ferritin Total Bilirubin Direct Bilirubin AST ALT Alkaline Phosphatase Total Creatine Kinase Troponin I High Sens 212.3 H* D Total Protein Albumin 25-OH Vitamin D Total PTH Intact Urine WBC (Auto) Urine RBC (Auto) U Hyaline Cast (Auto) U Epithel Cells (Auto) Urine Bacteria (Auto) Ur Random Sodium Ur Random Urea Nitrogn Nasal Screen MRSA (PCR) Negative Hep Bs Antigen Hep Bs Ag Confirmation Hep Bs Antibody, Quant Hep B Core Total Ab Hepatitis C Ab (EIA) Hep C Ab Signal/Cutoff Blood Type A Positive Antibody Screen NEGATIVE Crossmatch See Detail 08/31/22 08/31/22 08/31/22 08:05 08:05 10:25 WBC RBC Hgb Hct MCV MCH MCHC RDW Std Deviation RDW Coeff of Diane Plt Count MPV Immature Gran % (Auto) Neut % (Auto) Lymph % (Auto) [place] % (Auto) Eos % (Auto) Baso % (Auto) Neut # (Auto) Lymph # (Auto) [place] # (Auto) Eos # (Auto) Baso # (Auto) Immature Gran # (Auto) Absolute Nucleated RBC Nucleated RBC % (auto) Target Cells Echinocytes PT INR VBG pH VBG pCO2 VBG pO2 VBG HCO3 VBG O2 Saturation VBG Base Excess Sodium Potassium Chloride Carbon Dioxide Anion Gap BUN Creatinine Est Cr Clr Drug Dosing Est GFR ( Amer) Est GFR (Non-Af Amer) BUN/Creatinine Ratio Glucose POC Glucose Calcium Ionized Calcium Phosphorus Magnesium Iron TIBC Unsaturated IBC Transferrin % Sat Ferritin Total Bilirubin Direct Bilirubin AST ALT Alkaline Phosphatase Total Creatine Kinase Troponin I High Sens Total Protein Albumin 25-OH Vitamin D Total PTH Intact Urine WBC (Auto) >30 H Urine RBC (Auto) >30 H U Hyaline Cast (Auto) 1-5 U Epithel Cells (Auto) 10-20 H Urine Bacteria (Auto) Negative Ur Random Sodium Ur Random Urea Nitrogn Nasal Screen MRSA (PCR) Hep Bs Antigen Pending Hep Bs Ag Confirmation Pending Hep Bs Antibody, Quant Pending Hep B Core Total Ab Pending Hepatitis C Ab (EIA) Pending Hep C Ab Signal/Cutoff Pending Blood Type Antibody Screen Crossmatch 08/31/22 08/31/22 08/31/22 10:25 10:25 10:56 WBC RBC Hgb Hct MCV MCH MCHC RDW Std Deviation RDW Coeff of Diane Plt Count MPV Immature Gran % (Auto) Neut % (Auto) Lymph % (Auto) [place] % (Auto) Eos % (Auto) Baso % (Auto) Neut # (Auto) Lymph # (Auto) [place] # (Auto) Eos # (Auto) Baso # (Auto) Immature Gran # (Auto) Absolute Nucleated RBC Nucleated RBC % (auto) Target Cells Echinocytes PT INR VBG pH VBG pCO2 VBG pO2 VBG HCO3 VBG O2 Saturation VBG Base Excess Sodium Potassium Chloride Carbon Dioxide Anion Gap BUN Creatinine Est Cr Clr Drug Dosing Est GFR ( Amer) Est GFR (Non-Af Amer) BUN/Creatinine Ratio Glucose POC Glucose 225 H Calcium Ionized Calcium Phosphorus Magnesium Iron TIBC Unsaturated IBC Transferrin % Sat Ferritin Total Bilirubin Direct Bilirubin AST ALT Alkaline Phosphatase Total Creatine Kinase Troponin I High Sens Total Protein Albumin 25-OH Vitamin D Total PTH Intact Urine WBC (Auto) Urine RBC (Auto) U Hyaline Cast (Auto) U Epithel Cells (Auto) Urine Bacteria (Auto) Ur Random Sodium 71 Ur Random Urea Nitrogn Cancelled Nasal Screen MRSA (PCR) Hep Bs Antigen Hep Bs Ag Confirmation Hep Bs Antibody, Quant Hep B Core Total Ab Hepatitis C Ab (EIA) Hep C Ab Signal/Cutoff Blood Type Antibody Screen Crossmatch 08/31/22 08/31/22 08/31/22 11:58 13:07 13:54 WBC RBC Hgb Hct MCV MCH MCHC RDW Std Deviation RDW Coeff of Diane Plt Count MPV Immature Gran % (Auto) Neut % (Auto) Lymph % (Auto) [place] % (Auto) Eos % (Auto) Baso % (Auto) Neut # (Auto) Lymph # (Auto) [place] # (Auto) Eos # (Auto) Baso # (Auto) Immature Gran # (Auto) Absolute Nucleated RBC Nucleated RBC % (auto) Target Cells Echinocytes PT INR VBG pH VBG pCO2 VBG pO2 VBG HCO3 VBG O2 Saturation VBG Base Excess Sodium Potassium Chloride Carbon Dioxide Anion Gap BUN Creatinine Est Cr Clr Drug Dosing Est GFR ( Amer) Est GFR (Non-Af Amer) BUN/Creatinine Ratio Glucose POC Glucose 171 H 143 H 140 H Calcium Ionized Calcium Phosphorus Magnesium Iron TIBC Unsaturated IBC Transferrin % Sat Ferritin Total Bilirubin Direct Bilirubin AST ALT Alkaline Phosphatase Total Creatine Kinase Troponin I High Sens Total Protein Albumin 25-OH Vitamin D Total PTH Intact Urine WBC (Auto) Urine RBC (Auto) U Hyaline Cast (Auto) U Epithel Cells (Auto) Urine Bacteria (Auto) Ur Random Sodium Ur Random Urea Nitrogn Nasal Screen MRSA (PCR) Hep Bs Antigen Hep Bs Ag Confirmation Hep Bs Antibody, Quant Hep B Core Total Ab Hepatitis C Ab (EIA) Hep C Ab Signal/Cutoff Blood Type Antibody Screen Crossmatch 08/31/22 08/31/22 08/31/22 14:01 14:01 15:21 WBC RBC Hgb Hct MCV MCH MCHC RDW Std Deviation RDW Coeff of Diane Plt Count MPV Immature Gran % (Auto) Neut % (Auto) Lymph % (Auto) [place] % (Auto) Eos % (Auto) Baso % (Auto) Neut # (Auto) Lymph # (Auto) [place] # (Auto) Eos # (Auto) Baso # (Auto) Immature Gran # (Auto) Absolute Nucleated RBC Nucleated RBC % (auto) Target Cells Echinocytes PT INR VBG pH 7.39 VBG pCO2 VBG pO2 VBG HCO3 VBG O2 Saturation VBG Base Excess Sodium 135 L Potassium 5.7 H D Chloride 98 Carbon Dioxide 12 L Anion Gap 25 H BUN 156 H D Creatinine 8.00 H* D Est Cr Clr Drug Dosing 9.9 Est GFR ( Amer) 7.5 Est GFR (Non-Af Amer) 6.5 BUN/Creatinine Ratio 19.5 Glucose 114 H POC Glucose 153 H Calcium 5.3 L* Ionized Calcium Phosphorus 7.4 H D Magnesium 1.2 L Iron TIBC Unsaturated IBC Transferrin % Sat Ferritin Total Bilirubin Direct Bilirubin AST ALT Alkaline Phosphatase Total Creatine Kinase Troponin I High Sens 3233.1 H* D Total Protein Albumin 25-OH Vitamin D Total PTH Intact Urine WBC (Auto) Urine RBC (Auto) U Hyaline Cast (Auto) U Epithel Cells (Auto) Urine Bacteria (Auto) Ur Random Sodium Ur Random Urea Nitrogn Nasal Screen MRSA (PCR) Hep Bs Antigen Hep Bs Ag Confirmation Hep Bs Antibody, Quant Hep B Core Total Ab Hepatitis C Ab (EIA) Hep C Ab Signal/Cutoff Blood Type Antibody Screen Crossmatch 08/31/22 08/31/22 08/31/22 16:02 16:02 16:07 WBC RBC Hgb Hct MCV MCH MCHC RDW Std Deviation RDW Coeff of Diane Plt Count MPV Immature Gran % (Auto) Neut % (Auto) Lymph % (Auto) [place] % (Auto) Eos % (Auto) Baso % (Auto) Neut # (Auto) Lymph # (Auto) [place] # (Auto) Eos # (Auto) Baso # (Auto) Immature Gran # (Auto) Absolute Nucleated RBC Nucleated RBC % (auto) Target Cells Echinocytes PT INR VBG pH 7.36 VBG pCO2 22 L VBG pO2 45 VBG HCO3 12 VBG O2 Saturation 76.9 VBG Base Excess -10.9 Sodium 138 Potassium 2.3 L* D Chloride 97 L Carbon Dioxide 13 L Anion Gap 28 H BUN 172 H Creatinine 8.69 H* D Est Cr Clr Drug Dosing 9.1 Est GFR ( Amer) 6.8 Est GFR (Non-Af Amer) 5.9 BUN/Creatinine Ratio 19.8 Glucose 142 H POC Glucose 174 H Calcium 5.3 L* Ionized Calcium Phosphorus 7.8 H Magnesium 1.2 L Iron TIBC Unsaturated IBC Transferrin % Sat Ferritin Total Bilirubin Direct Bilirubin AST ALT Alkaline Phosphatase Total Creatine Kinase Troponin I High Sens Total Protein Albumin 25-OH Vitamin D Total PTH Intact Urine WBC (Auto) Urine RBC (Auto) U Hyaline Cast (Auto) U Epithel Cells (Auto) Urine Bacteria (Auto) Ur Random Sodium Ur Random Urea Nitrogn Nasal Screen MRSA (PCR) Hep Bs Antigen Hep Bs Ag Confirmation Hep Bs Antibody, Quant Hep B Core Total Ab Hepatitis C Ab (EIA) Hep C Ab Signal/Cutoff Blood Type Antibody Screen Crossmatch 08/31/22 08/31/22 08/31/22 16:55 17:36 19:19 WBC RBC Hgb Hct MCV MCH MCHC RDW Std Deviation RDW Coeff of Diane Plt Count MPV Immature Gran % (Auto) Neut % (Auto) Lymph % (Auto) [place] % (Auto) Eos % (Auto) Baso % (Auto) Neut # (Auto) Lymph # (Auto) [place] # (Auto) Eos # (Auto) Baso # (Auto) Immature Gran # (Auto) Absolute Nucleated RBC Nucleated RBC % (auto) Target Cells Echinocytes PT INR VBG pH VBG pCO2 VBG pO2 VBG HCO3 VBG O2 Saturation VBG Base Excess Sodium 139 Potassium 2.3 L* Chloride 97 L Carbon Dioxide 12 L Anion Gap 30 H BUN 167 H Creatinine 8.66 H* Est Cr Clr Drug Dosing 9.1 Est GFR ( Amer) 6.8 Est GFR (Non-Af Amer) 5.9 BUN/Creatinine Ratio 19.3 Glucose 154 H POC Glucose 164 H 209 H Calcium 5.3 L* Ionized Calcium Phosphorus Magnesium Iron TIBC Unsaturated IBC Transferrin % Sat Ferritin Total Bilirubin Direct Bilirubin AST ALT Alkaline Phosphatase Total Creatine Kinase Troponin I High Sens Total Protein Albumin 25-OH Vitamin D Total PTH Intact Urine WBC (Auto) Urine RBC (Auto) U Hyaline Cast (Auto) U Epithel Cells (Auto) Urine Bacteria (Auto) Ur Random Sodium Ur Random Urea Nitrogn Nasal Screen MRSA (PCR) Hep Bs Antigen Hep Bs Ag Confirmation Hep Bs Antibody, Quant Hep B Core Total Ab Hepatitis C Ab (EIA) Hep C Ab Signal/Cutoff Blood Type Antibody Screen Crossmatch 08/31/22 08/31/22 08/31/22 20:30 20:57 21:37 WBC RBC Hgb Hct MCV MCH MCHC RDW Std Deviation RDW Coeff of Diane Plt Count MPV Immature Gran % (Auto) Neut % (Auto) Lymph % (Auto) [place] % (Auto) Eos % (Auto) Baso % (Auto) Neut # (Auto) Lymph # (Auto) [place] # (Auto) Eos # (Auto) Baso # (Auto) Immature Gran # (Auto) Absolute Nucleated RBC Nucleated RBC % (auto) Target Cells Echinocytes PT INR VBG pH VBG pCO2 VBG pO2 VBG HCO3 VBG O2 Saturation VBG Base Excess Sodium 135 L Potassium 2.2 L* Chloride 95 L Carbon Dioxide 15 L Anion Gap 25 H BUN 165 H Creatinine 8.88 H* Est Cr Clr Drug Dosing 8.9 Est GFR ( Amer) 6.6 Est GFR (Non-Af Amer) 5.7 BUN/Creatinine Ratio 18.6 Glucose 194 H POC Glucose 211 H Calcium 5.4 L* Ionized Calcium Phosphorus 7.4 H Magnesium 1.6 L Iron TIBC Unsaturated IBC Transferrin % Sat Ferritin Total Bilirubin Direct Bilirubin AST ALT Alkaline Phosphatase Total Creatine Kinase Troponin I High Sens Total Protein Albumin 25-OH Vitamin D Total PTH Intact Urine WBC (Auto) Urine RBC (Auto) U Hyaline Cast (Auto) U Epithel Cells (Auto) Urine Bacteria (Auto) Ur Random Sodium Ur Random Urea Nitrogn Pending Nasal Screen MRSA (PCR) Hep Bs Antigen Hep Bs Ag Confirmation Hep Bs Antibody, Quant Hep B Core Total Ab Hepatitis C Ab (EIA) Hep C Ab Signal/Cutoff Blood Type Antibody Screen Crossmatch 08/31/22 08/31/22 08/31/22 21:37 22:59 23:58 WBC RBC Hgb Hct MCV MCH MCHC RDW Std Deviation RDW Coeff of Diane Plt Count MPV Immature Gran % (Auto) Neut % (Auto) Lymph % (Auto) [place] % (Auto) Eos % (Auto) Baso % (Auto) Neut # (Auto) Lymph # (Auto) [place] # (Auto) Eos # (Auto) Baso # (Auto) Immature Gran # (Auto) Absolute Nucleated RBC Nucleated RBC % (auto) Target Cells Echinocytes PT INR VBG pH 7.38 VBG pCO2 26 L VBG pO2 44 VBG HCO3 15 VBG O2 Saturation 74.3 VBG Base Excess -8.0 Sodium Potassium Chloride Carbon Dioxide Anion Gap BUN Creatinine Est Cr Clr Drug Dosing Est GFR ( Amer) Est GFR (Non-Af Amer) BUN/Creatinine Ratio Glucose POC Glucose 252 H 274 H Calcium Ionized Calcium Phosphorus Magnesium Iron TIBC Unsaturated IBC Transferrin % Sat Ferritin Total Bilirubin Direct Bilirubin AST ALT Alkaline Phosphatase Total Creatine Kinase Troponin I High Sens Total Protein Albumin 25-OH Vitamin D Total PTH Intact Urine WBC (Auto) Urine RBC (Auto) U Hyaline Cast (Auto) U Epithel Cells (Auto) Urine Bacteria (Auto) Ur Random Sodium Ur Random Urea Nitrogn Nasal Screen MRSA (PCR) Hep Bs Antigen Hep Bs Ag Confirmation Hep Bs Antibody, Quant Hep B Core Total Ab Hepatitis C Ab (EIA) Hep C Ab Signal/Cutoff Blood Type Antibody Screen Crossmatch 09/01/22 09/01/22 09/01/22 00:59 01:58 03:03 WBC RBC Hgb Hct MCV MCH MCHC RDW Std Deviation RDW Coeff of Diane Plt Count MPV Immature Gran % (Auto) Neut % (Auto) Lymph % (Auto) [place] % (Auto) Eos % (Auto) Baso % (Auto) Neut # (Auto) Lymph # (Auto) [place] # (Auto) Eos # (Auto) Baso # (Auto) Immature Gran # (Auto) Absolute Nucleated RBC Nucleated RBC % (auto) Target Cells Echinocytes PT INR VBG pH VBG pCO2 VBG pO2 VBG HCO3 VBG O2 Saturation VBG Base Excess Sodium Potassium Chloride Carbon Dioxide Anion Gap BUN Creatinine Est Cr Clr Drug Dosing Est GFR ( Amer) Est GFR (Non-Af Amer) BUN/Creatinine Ratio Glucose POC Glucose 240 H 245 H 278 H Calcium Ionized Calcium Phosphorus Magnesium Iron TIBC Unsaturated IBC Transferrin % Sat Ferritin Total Bilirubin Direct Bilirubin AST ALT Alkaline Phosphatase Total Creatine Kinase Troponin I High Sens Total Protein Albumin 25-OH Vitamin D Total PTH Intact Urine WBC (Auto) Urine RBC (Auto) U Hyaline Cast (Auto) U Epithel Cells (Auto) Urine Bacteria (Auto) Ur Random Sodium Ur Random Urea Nitrogn Nasal Screen MRSA (PCR) Hep Bs Antigen Hep Bs Ag Confirmation Hep Bs Antibody, Quant Hep B Core Total Ab Hepatitis C Ab (EIA) Hep C Ab Signal/Cutoff Blood Type Antibody Screen Crossmatch 09/01/22 09/01/22 09/01/22 03:07 03:07 03:07 WBC RBC Hgb Hct MCV MCH MCHC RDW Std Deviation RDW Coeff of Diane Plt Count MPV Immature Gran % (Auto) Neut % (Auto) Lymph % (Auto) [place] % (Auto) Eos % (Auto) Baso % (Auto) Neut # (Auto) Lymph # (Auto) [place] # (Auto) Eos # (Auto) Baso # (Auto) Immature Gran # (Auto) Absolute Nucleated RBC Nucleated RBC % (auto) Target Cells Echinocytes PT INR VBG pH 7.35 L VBG pCO2 30 L VBG pO2 43 VBG HCO3 17 VBG O2 Saturation 73.4 VBG Base Excess -7.7 Sodium 133 L Potassium 2.3 L* Chloride 95 L Carbon Dioxide 17 L Anion Gap 21 H BUN 175 H Creatinine 8.77 H* Est Cr Clr Drug Dosing 9.0 Est GFR ( Amer) 6.7 Est GFR (Non-Af Amer) 5.8 BUN/Creatinine Ratio 20.0 Glucose 239 H POC Glucose Calcium 5.5 L* Ionized Calcium 0.69 L* Phosphorus Magnesium 2.0 Iron 132 TIBC TNP Unsaturated IBC < 55 L Transferrin % Sat TNP Ferritin 334.1 Total Bilirubin 0.4 Direct Bilirubin 0.1 AST 42 H ALT 72 H Alkaline Phosphatase 112 H Total Creatine Kinase 5662 H Troponin I High Sens Total Protein 5.5 L Albumin 2.7 L 25-OH Vitamin D Total PTH Intact Urine WBC (Auto) Urine RBC (Auto) U Hyaline Cast (Auto) U Epithel Cells (Auto) Urine Bacteria (Auto) Ur Random Sodium Ur Random Urea Nitrogn Nasal Screen MRSA (PCR) Hep Bs Antigen Hep Bs Ag Confirmation Hep Bs Antibody, Quant Hep B Core Total Ab Hepatitis C Ab (EIA) Hep C Ab Signal/Cutoff Blood Type Antibody Screen Crossmatch 09/01/22 09/01/22 09/01/22 03:07 03:07 03:07 WBC 12.61 H RBC 2.27 L Hgb 6.5 L* Hct 17.4 L* MCV 76.7 L D MCH 28.6 MCHC 37.4 H RDW Std Deviation 41.8 RDW Coeff of Diane 15.3 H Plt Count 272 MPV 10.1 Immature Gran % (Auto) 0.4 Neut % (Auto) 93.3 Lymph % (Auto) 0.9 [place] % (Auto) 5.2 Eos % (Auto) 0.0 Baso % (Auto) 0.2 Neut # (Auto) 11.78 H Lymph # (Auto) 0.11 L [place] # (Auto) 0.65 Eos # (Auto) 0.00 Baso # (Auto) 0.02 Immature Gran # (Auto) 0.05 H Absolute Nucleated RBC 0.03 H Nucleated RBC % (auto) 0.2 Target Cells 1+ Echinocytes 1+ PT INR VBG pH VBG pCO2 VBG pO2 VBG HCO3 VBG O2 Saturation VBG Base Excess Sodium Potassium Chloride Carbon Dioxide Anion Gap BUN Creatinine Est Cr Clr Drug Dosing Est GFR ( Amer) Est GFR (Non-Af Amer) BUN/Creatinine Ratio Glucose POC Glucose Calcium Ionized Calcium Phosphorus Magnesium Iron TIBC Unsaturated IBC Transferrin % Sat Ferritin Total Bilirubin Direct Bilirubin AST ALT Alkaline Phosphatase Total Creatine Kinase Troponin I High Sens Total Protein Albumin 25-OH Vitamin D Total < 7.0 L PTH Intact 400.0 H Urine WBC (Auto) Urine RBC (Auto) U Hyaline Cast (Auto) U Epithel Cells (Auto) Urine Bacteria (Auto) Ur Random Sodium Ur Random Urea Nitrogn Nasal Screen MRSA (PCR) Hep Bs Antigen Hep Bs Ag Confirmation Hep Bs Antibody, Quant Hep B Core Total Ab Hepatitis C Ab (EIA) Hep C Ab Signal/Cutoff Blood Type Antibody Screen Crossmatch 09/01/22 09/01/22 09/01/22 04:01 04:38 05:05 WBC RBC Hgb Hct MCV MCH MCHC RDW Std Deviation RDW Coeff of Diane Plt Count MPV Immature Gran % (Auto) Neut % (Auto) Lymph % (Auto) [place] % (Auto) Eos % (Auto) Baso % (Auto) Neut # (Auto) Lymph # (Auto) [place] # (Auto) Eos # (Auto) Baso # (Auto) Immature Gran # (Auto) Absolute Nucleated RBC Nucleated RBC % (auto) Target Cells Echinocytes PT 15.9 H INR 1.5 H VBG pH VBG pCO2 VBG pO2 VBG HCO3 VBG O2 Saturation VBG Base Excess Sodium Potassium Chloride Carbon Dioxide Anion Gap BUN Creatinine Est Cr Clr Drug Dosing Est GFR ( Amer) Est GFR (Non-Af Amer) BUN/Creatinine Ratio Glucose POC Glucose 274 H Calcium Ionized Calcium Phosphorus Magnesium Iron TIBC Unsaturated IBC Transferrin % Sat Ferritin Total Bilirubin Direct Bilirubin AST ALT Alkaline Phosphatase Total Creatine Kinase Troponin I High Sens 2531.4 H* D Total Protein Albumin 25-OH Vitamin D Total PTH Intact Urine WBC (Auto) Urine RBC (Auto) U Hyaline Cast (Auto) U Epithel Cells (Auto) Urine Bacteria (Auto) Ur Random Sodium Ur Random Urea Nitrogn Nasal Screen MRSA (PCR) Hep Bs Antigen Hep Bs Ag Confirmation Hep Bs Antibody, Quant Hep B Core Total Ab Hepatitis C Ab (EIA) Hep C Ab Signal/Cutoff Blood Type Antibody Screen Crossmatch 09/01/22 09/01/22 09/01/22 05:07 05:59 07:07 WBC RBC Hgb Hct MCV MCH MCHC RDW Std Deviation RDW Coeff of Diane Plt Count MPV Immature Gran % (Auto) Neut % (Auto) Lymph % (Auto) [place] % (Auto) Eos % (Auto) Baso % (Auto) Neut # (Auto) Lymph # (Auto) [place] # (Auto) Eos # (Auto) Baso # (Auto) Immature Gran # (Auto) Absolute Nucleated RBC Nucleated RBC % (auto) Target Cells Echinocytes PT INR VBG pH VBG pCO2 VBG pO2 VBG HCO3 VBG O2 Saturation VBG Base Excess Sodium Potassium Chloride Carbon Dioxide Anion Gap BUN Creatinine Est Cr Clr Drug Dosing Est GFR ( Amer) Est GFR (Non-Af Amer) BUN/Creatinine Ratio Glucose POC Glucose 295 H 243 H 203 H Calcium Ionized Calcium Phosphorus Magnesium Iron TIBC Unsaturated IBC Transferrin % Sat Ferritin Total Bilirubin Direct Bilirubin AST ALT Alkaline Phosphatase Total Creatine Kinase Troponin I High Sens Total Protein Albumin 25-OH Vitamin D Total PTH Intact Urine WBC (Auto) Urine RBC (Auto) U Hyaline Cast (Auto) U Epithel Cells (Auto) Urine Bacteria (Auto) Ur Random Sodium Ur Random Urea Nitrogn Nasal Screen MRSA (PCR) Hep Bs Antigen Hep Bs Ag Confirmation Hep Bs Antibody, Quant Hep B Core Total Ab Hepatitis C Ab (EIA) Hep C Ab Signal/Cutoff Blood Type Antibody Screen Crossmatch 09/01/22 07:54 WBC RBC Hgb Hct MCV MCH MCHC RDW Std Deviation RDW Coeff of Diane Plt Count MPV Immature Gran % (Auto) Neut % (Auto) Lymph % (Auto) [place] % (Auto) Eos % (Auto) Baso % (Auto) Neut # (Auto) Lymph # (Auto) [place] # (Auto) Eos # (Auto) Baso # (Auto) Immature Gran # (Auto) Absolute Nucleated RBC Nucleated RBC % (auto) Target Cells Echinocytes PT INR VBG pH VBG pCO2 VBG pO2 VBG HCO3 VBG O2 Saturation VBG Base Excess Sodium Potassium Chloride Carbon Dioxide Anion Gap BUN Creatinine Est Cr Clr Drug Dosing Est GFR ( Amer) Est GFR (Non-Af Amer) BUN/Creatinine Ratio Glucose POC Glucose 211 H Calcium Ionized Calcium Phosphorus Magnesium Iron TIBC Unsaturated IBC Transferrin % Sat Ferritin Total Bilirubin Direct Bilirubin AST ALT Alkaline Phosphatase Total Creatine Kinase Troponin I High Sens Total Protein Albumin 25-OH Vitamin D Total PTH Intact Urine WBC (Auto) Urine RBC (Auto) U Hyaline Cast (Auto) U Epithel Cells (Auto) Urine Bacteria (Auto) Ur Random Sodium Ur Random Urea Nitrogn Nasal Screen MRSA (PCR) Hep Bs Antigen Hep Bs Ag Confirmation Hep Bs Antibody, Quant Hep B Core Total Ab Hepatitis C Ab (EIA) Hep C Ab Signal/Cutoff Blood Type Antibody Screen Crossmatch PG Care Time/CCT Total # of Minutes Spent Total Time Spent with Patient: Total time spent is greater than 50% in coordination of care (as documented) at patient's floor/unit and/or counseling patient: 60 Coding Level of Care Code 57681 SUB INP/OBS CARE 3/50MIN Diagnoses Acute on chronic renal failure N17.9; N18.9 Hypocalcemia E83.51 Hypokalemia E87.6 Hyperosmolality E87.0 Metabolic acidosis E87.20 Anemia D64.9 Left ventricular dysfunction I51.9
[2022-09-01] MEDS: ONDANSETRON INJ 2 MG/ML 2 ML VIAL IV PRN ×2 (10:03→16:21)
[2022-09-01 10:05] LABS: Hematocrit (blood only) 20.6 % (40.1-51.0); Hemoglobin 7.7 g/dl (14.0-18.0)
[2022-09-01 10:33] LABS: BUN Creatinine Ratio 18.8 (10-20); Calcium 6.2 mg/dl (8.5-10.1); Est GFR (African American) 6.7 ml/min; Est GFR (Non-African American) 5.8 ml/min; Potassium 2.8 mmol/L (3.5-5.1)
[2022-09-01] MEDS ORDERED: POTASSIUM CHLORIDE / WTR 20 MEQ/100 ML PLCT IV ONE (11:20)
--- NOTE | 2022-09-01 13:43 | Pharmacy Report ---
Pharmacy Glycemic Short Note 2 - Date of Service September 01, 2022 - Glycemic Short BSG Results (Last 24 hours): 08/31/22 08/31/22 08/31/22 13:54 14:01 15:21 Glucose 114 H POC Glucose 140 H 153 H 08/31/22 08/31/22 08/31/22 16:02 16:07 16:55 Glucose 142 H POC Glucose 174 H 164 H 08/31/22 08/31/22 08/31/22 17:36 19:19 20:57 Glucose 154 H POC Glucose 209 H 211 H 08/31/22 08/31/22 08/31/22 21:37 22:59 23:58 Glucose 194 H POC Glucose 252 H 274 H 09/01/22 09/01/22 09/01/22 00:59 01:58 03:03 Glucose POC Glucose 240 H 245 H 278 H 09/01/22 09/01/22 09/01/22 03:07 04:01 05:07 Glucose 239 H POC Glucose 274 H 295 H 09/01/22 09/01/22 09/01/22 05:59 07:07 07:54 Glucose POC Glucose 243 H 203 H 211 H 09/01/22 09/01/22 09:49 11:07 Glucose 169 H POC Glucose 161 H OUTPATIENT ANTIDIABETIC REGIMEN: * Insulin Glargine 12 units BID, Insulin lispro 6 units BIDM ASSESSMENT: 09/01: * Insulin drip was discontinued this morning per Dr. Muñoz; drip rate was 1.7 units/hr at that time. Nurse had given Lantus 12 units based off of patient's home dose and Novolog with breakfast before drip discontinued. Novolog parameters based on wt and moderate stress. * Since patient with renal failure and dialysis, will wait to add HS basal dose depending on how his BSGs trend today. Overnight checks added. * IV fluids D51/2 NS running at 100 ml/hr. Patient received 40 meq of IV KCL this AM for low potassium. 08/31/22: * Patient admitted with acute renal failure, SCR 14.48, patient to undergo emergent Hemodialysis * Initial Bicarb 4, VpH 7.03, Anion gap 34 BSG 305 mg/dL : negative ketones in urine. Per Radiological Engineer unable to r/o DKA component with concomitant severe renal failure- to initiate insulin infusion at 2 units/ hr with goal range 150-250 mg/mL * Complicated by hypokalemia in renal failure; received replacement of 40 mEq, hemodialysis- monitoring closely. * Fluids adjust to D5 +1/2NS + 20 mEq KCl when BSG in goal range PLAN FOR INPATIENT GLYCEMIC CONTROL: * Insulin drip discontinued this AM * Basal insulin * Lantus 12 units SQ QAM, reassess tomorrow. * Bolus insulin * NovoLog per scale ACHS or Q6hrs while NPO * Goal Range: Low 120 mg/dL - High 160 mg/dL * Correction Factor: 30 mg/dL/unit * Nutritional / Prandial insulin per carb ratio of 1 unit per 10 grams CHO consumed
--- NOTE | 2022-09-01 15:14 | Hospitalist Progress Note ---
Date of Service September 01, 2022 Assessment & Plan (1) Acute kidney injury superimposed on CKD: Plan: 62yo male with history of CKD stage III, COPD, bladder cancer with metastasis to bone, DM and Hypertension presenting from home with confusion and severe lethargy. Found to have significant acute kidney injury, severe anion gap metabolic acidosis, DKA, acute metabolic encephalopathy secondary to uremia. 1. Neurology - patient nearly obtunded on admission and now improving as acidosis and uremia improving. CT of the head is NEGATIVE for acute intracranial abnormality. TSH and ammonia level normal. He does not drink alcohol. No drug use. -Frequent orientation -Management of acute renal failure as below 2. Cardiovascular - Patient with extensive history of peripheral vascular disease. 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 He had repair of pseudoaneurysm with bovine patch in 04/2019. He was previously following with Dr. Rajan. He has history of HTN as well as HLP Elevated troponin here that peaked at 3000 in setting of JEAN on CKD. No acute ischemic changes present on EKG Echocardiogram with wall motion abnormalities in the basal inferior septal and inferior wall with EF 45-50% Doubt acute coronary syndrome. Appreciate cardiology consultation-no chest discomfort likely has underlying CAD but no invasive evaluation to be performed at this time. Can do ischemic evaluation with stress test or catheterization in the future if he recovers overall. -Telemetry monitoring -Continue ASA 81mg po daily -No indication for heparinization -Started carvedilol 3.125 Mg p.o. twice daily for heart failure -Holding statin for rhabdomyolysis -Holding antihypertensive agents for now to include Valsartan, Hydralazine and Amlodipine -Holding diuretics Lasix and Bumex due to renal failure -Volume status to be managed with dialysis 3. Pulmonary - patient with COPD diagnosis based on history and exam. PFTs recommended in the past and declined. He continues to smoke. Diffuse wheezing present on exam. Continue duo nebs scheduled, supplemental oxygen as needed to keep pulse ox greater than 88% -DuoNebs q 4 hours -Albuterol q 2 hours PRN -Supplemental O2 as needed with goal O2 of 90% 4. Gastrointestinal - Patient with Heme POSITIVE stools in the ER. No brent blood per rectum. Hemorrhoids appreciated. Hgb 8.5 on arrival and now down to 6.5 without any evidence of gross bleeding. CT of the abdomen with mild rectal wall thickening with perirectal stranding possibly secondary to partial distention versus nonspecific proctitis. -Transfusing 2 units PRBCs on 09/01 -Follow CBC in the morning -Okay to continue aspirin as no active bleeding -started IV PPI 5. Nephrology - patient with CKD-III at baseline with baseline BUN of appx 50 and Cr of 2.5. He presents in acute renal failure - BUN of 277 and Cr of 14.48. Ricardo in place and making some urine. Most likely multifactorial - prerenal in setting of poor oral intake, potentially renal toxic medications Valsartan, Bumex and Lasix as well as rhabdomyolysis. He most likely has end-stage kidney disease and will be dialysis dependent CT of the abdomen comments on bilateral renal vascular calcifications with nonspecific bilateral perinephric stranding. Mild prostamegaly. UA with 3+ blood and protein, absence of RBCs -with myoglobinuria most likely secondary to rhabdomyolysis. No suggestion for UTI. Labs with high anion gap metabolic acidosis with pH=7.03 and HCO3=4, AG of 36. K is normal at 3.7 on admission and has since become severely low With severe hypocalcemia, hypokalemia. With hypovitaminosis D and secondary hyperparathyroidism. Vitamin D undetectable -Received urgent dialysis on 08/31 and again on 09/01. Right IJ central venous catheter in place for dialysis use -He will need a tunneled dialysis catheter if he decides to remain on dialysis- palliative consult pending -Maintain Ricardo catheter with strict I/Os -Initially received bicarbonate drip which is now discontinued -Nephrology consultation appreciated -Starting calcitriol, continue electrolyte replacement -Follow serial labs 6. Heme - patient with microcytic anemia with Hgb=8.5 and Hct=23.8 - significantly decreased from prior values of 12.2 and 36.4, respectively on 04/25/22. Heme + stools with hemorrhoids - may be contributing to GI losses Hgb down to 6.5 today as above Coagulopathy with INR of 1.6 History of metastatic bladder cancer - he follows with [facility]. 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 He completed chemotherapy x 4 cycles in 2018 with recurrence in 2019. He was treated with immunotherapy and developed colitis in 2019. Followup CTs with no evidence of progressive metastatic disease. Known pulmonary nodules, sclerotic T10 vertebra, multifocal osseous disease and shotty retroperitoneal lymph nodes -Monitor -Transfusion today -Monitor INR -give IV Venofer and epogen 7. Endocrine - patient with Type II DM on insulin therapy at home. Overall well controlled. Last HgbA1C= 6.1 on 04/25/22 -Hyperglycemia protocol per MICU With DKA--> was on insulin gtt, now on basal bolus insulin 8. ID - patient with leukocytosis WBC=13.79, he is tachypneic and hypothermic on admission. No obvious source of infection -Cultures sent will follow-NGTD -Hold antibiotics for now DVT proph-SCDs Dispo-continued stay in ICU Discussed care at length with daughter and her on 09/01. They think that patient would opt for hospice and would not want long-term dialysis. They would like to see if his mentation improves enough to speak for himself and make a decision on this. If he does choose to go with hospice, they would not be able to provide 24/7 care and he would need hospice at a medical facility.. We will consult palliative medicine on Friday to assist with ongoing goals of care. (2) Anemia: (3) Elevated troponin: (4) Left ventricular dysfunction: (5) Hypocalcemia: (6) Hypokalemia: (7) Metabolic acidosis: (8) COPD (chronic obstructive pulmonary disease): (9) Diabetes mellitus, type 2: (10) Elevated liver enzymes: (11) Bladder cancer metastasized to bone: (12) Hypertension: (13) GERD (gastroesophageal reflux disease): (14) Hypercholesteremia: (15) Rhabdomyolysis: Admission and Anticipated Discharge Date Admission Date: August 31, 2022 Subjective Patient is awake and alert but not really conversational. He denies pain. His family is at the bedside and reports he is better than previous but definitely not at his baseline mental status. He is currently getting dialysis again today and tolerating it. Again needing copious replacement of multiple electrolytes. Hemoglobin dropped this morning but no evidence of bleeding from anywhere as per nursing staff. Receiving his second unit of PRBCs with dialysis. Telemetry with normal sinus rhythm, brief SVT. Family spoke with me on the hallway after I saw the patient and brought up the fact that the patient previously had said that he would not want to go on dialysis and that is why it took so long for him to come to the hospital was because he was avoiding medical care. They think that he would be happier with going on hospice, however they do not have 24/ care availability at home Review of Systems Review of Systems: Unobtainable due to cognitive status Physical Exam Constitutional: + ill appearing Eyes: + anicteric sclerae Neck: trachea midline, no thyromegaly Respiratory: normal respiratory effort Auscultation: + wheezes (Bilateral); no crackles and no rhonchi Cardiovascular: Rate/Rhythm: regular rate and regular rhythm Heart Sounds: no murmur Extremities: + edema (2+ pitting edema to the knees bilaterally) Chest (Breasts): Chest: + vascular access device or port (Right IJ central venous catheter in place) Additional Comments: Left side of chest with Port-A-Cath in place Gastrointestinal (Abdomen): normal bowel sounds, soft, nontender, no hepatosplenomegaly Musculoskeletal: Extremities: + extremities abnormal to inspection (Mitts on bilateral hands), no cyanosis and no clubbing Skin: + ecchymosis (Numerous on arms) Neurologic: moves all extremities, awake and + confused Speech / Cognition: normal speech Psychiatric: Orientation: alert, oriented to person and cooperative Genitourinary: Ricardo catheter in place Results & Data Results & Data ([facility]) Vital Signs (Past 12 Hours) Vital Signs Temp Pulse Pulse Pulse Resp BP Pulse Ox 09/01/22 14:30 36.6 C 97 H 124/74 09/01/22 14:15 96 H 126/68 09/01/22 14:00 98 H 121/63 09/01/22 14:24 36.6 C 99 H 14 125/71 09/01/22 13:59 36.6 C 97 H 16 93 09/01/22 13:44 36.7 C 96 H 20 114/67 93 09/01/22 13:45 36.7 C 96 H 114/67 09/01/22 13:30 37.1 C 98 H 119/61 09/01/22 13:00 37.1 C 97 H 09/01/22 13:10 96 H 122/64 09/01/22 13:27 37.1 C 98 H 18 122/64 94 09/01/22 12:30 36.9 C 96 H 19 93 09/01/22 12:30 123/60 09/01/22 12:00 37.0 C 97 H 16 94 09/01/22 12:00 121/65 09/01/22 11:30 37.0 C 97 H 18 91 09/01/22 11:30 117/56 L 09/01/22 11:00 37.1 C 101 H 17 97 09/01/22 11:00 125/58 L 09/01/22 10:30 37.1 C 97 H 20 97 09/01/22 10:30 116/70 09/01/22 10:26 99 H 18 96 09/01/22 10:00 37.1 C 98 H 15 92 09/01/22 10:00 120/60 09/01/22 09:30 37.0 C 99 H 18 94 09/01/22 09:30 120/60 09/01/22 09:00 37.1 C 100 H 20 94 09/01/22 09:00 114/52 L 09/01/22 08:30 37.2 C 101 H 16 97 09/01/22 08:30 118/63 09/01/22 08:39 37.2 C 101 H 18 118/63 94 09/01/22 08:30 37.1 C 100 H 20 118/65 95 09/01/22 08:00 37.1 C 101 H 17 94 09/01/22 08:00 113/69 09/01/22 07:30 37.1 C 99 H 17 100 09/01/22 07:30 121/64 09/01/22 07:01 37.1 C 99 H 20 95 09/01/22 07:01 118/65 09/01/22 07:00 37.1 C 100 H 17 95 09/01/22 08:00 09/01/22 08:00 99 H 09/01/22 07:30 37.1 C 99 H 18 121/64 99 09/01/22 07:26 93 H 18 95 09/01/22 07:00 37.1 C 09/01/22 07:19 37.1 C 100 H 18 118/65 95 09/01/22 06:30 37.1 C 99 H 17 124/68 96 09/01/22 06:00 37.1 C 99 H 19 124/63 96 09/01/22 05:45 37.1 C 97 H 19 120/60 95 09/01/22 05:28 37.1 C 98 H 18 119/54 L 97 09/01/22 05:00 37.2 C 96 H 18 119/54 L 97 09/01/22 04:00 37.1 C 101 H 19 127/60 93 O2 Del Method 09/01/22 14:30 09/01/22 14:15 09/01/22 14:00 09/01/22 14:24 09/01/22 13:59 09/01/22 13:44 09/01/22 13:45 09/01/22 13:30 09/01/22 13:00 09/01/22 13:10 09/01/22 13:27 09/01/22 12:30 09/01/22 12:30 09/01/22 12:00 09/01/22 12:00 09/01/22 11:30 09/01/22 11:30 09/01/22 11:00 09/01/22 11:00 09/01/22 10:30 09/01/22 10:30 09/01/22 10:26 Room Air 09/01/22 10:00 09/01/22 10:00 09/01/22 09:30 09/01/22 09:30 09/01/22 09:00 09/01/22 09:00 09/01/22 08:30 09/01/22 08:30 09/01/22 08:39 09/01/22 08:30 09/01/22 08:00 09/01/22 08:00 09/01/22 07:30 09/01/22 07:30 09/01/22 07:01 09/01/22 07:01 09/01/22 07:00 09/01/22 08:00 Room Air 09/01/22 08:00 09/01/22 07:30 09/01/22 07:26 Room Air 09/01/22 07:00 09/01/22 07:19 09/01/22 06:30 09/01/22 06:00 09/01/22 05:45 09/01/22 05:28 09/01/22 05:00 Room Air 09/01/22 04:00 Room Air Laboratory Results Labs reviewed PG Care Time/CCT Total # of Minutes Spent Total Time Spent with Patient: Total time spent is greater than 50% in coordination of care (as documented) at patient's floor/unit and/or counseling patient: Coding Level of Care Code 35809 SUB INP/OBS CARE 3/50MIN Diagnoses Acute kidney injury superimposed on CKD N17.9; N18.9 Anemia D64.9 Elevated troponin R77.8 Left ventricular dysfunction I51.9 Hypocalcemia E83.51 Hypokalemia E87.6 Metabolic acidosis E87.20 COPD (chronic obstructive pulmonary disease) J44.9 Diabetes mellitus, type 2 E11.42; Z79.4 Diabetes mellitus complication detail: with polyneuropathy Diabetes mellitus complication status: with neurologic complications Diabetes mellitus chcf insulin use: with termite inspector use Elevated liver enzymes R74.8 Bladder cancer metastasized to bone C67.9; C79.51 Hypertension I10 Hypertension type: unspecified GERD (gastroesophageal reflux disease) K21.9 Hypercholesteremia E78.00 Rhabdomyolysis M62.82 (1) Diabetes mellitus, type 2 Diabetes mellitus complication detail: with polyneuropathy Diabetes mellitus complication status: with neurologic complications Diabetes mellitus chcf insulin use: with termite inspector use Qualified Code(s): E11.42 - Type 2 diabetes mellitus with diabetic polyneuropathy; Z79.4 - [facility] (current) use of insulin (2) Hypertension Hypertension type: unspecified Qualified Code(s): I10 - Essential (primary) hypertension
[2022-09-01] MEDS: carvediloL 3.125 MG TAB PO SCH ×2 (16:21→20:22)
[2022-09-01 17:34] LABS: Hematocrit (blood only) 23.1 % (40.1-51.0); Hemoglobin 8.6 g/dl (14.0-18.0)
[2022-09-01 18:01] LABS: BUN Creatinine Ratio 18.3 (10-20); Calcium 6.4 mg/dl (8.5-10.1); Creatinine Clr Calc Pharmacy 13.5 ml/min; Est GFR (Non-African American) 9.5 ml/min; Potassium 2.5 mmol/L (3.5-5.1)
[2022-09-01] MEDS ORDERED: ERGOCALCIFEROL 50,000 UNITS 1250 MCG CAP PO ONE (18:15)
[2022-09-01] MEDS: CALCITRIOL 0.25 MCG CAPSULE PO SCH (18:32)
[2022-09-01] MEDS ORDERED: EPOETIN ALFA 20,000 UNITS/ML VIAL IV ONE (18:38)
[2022-09-01 20:01] LABS: Hepatitis B Core Antibody Total NON-REACTIVE (NON-REACTIVE)
--- NOTE | 2022-09-01 21:16 | Electrocardiogram Report ---
Test Reason : Blood Pressure : / mmHG Vent. Rate : 069 BPM Atrial Rate : 069 BPM P-R Int : 200 ms QRS Dur : 138 ms QT Int : 574 ms P-R-T Axes : 000 107 074 degrees QTc Int : 615 ms Normal sinus rhythm Rightward axis Non-specific intra-ventricular conduction block Abnormal ECG When compared with ECG of 05-DEC-2020 18:19, Premature ventricular complexes are no longer Present Non-specific intra-ventricular conduction block has replaced Right bundle branch block Confirmed by Heriberto Castro ([id number]) on 09/01/2022 9:15:42 PM Referred By: REFERRED SELF Confirmed By:Heriberto Castro
--- NOTE | 2022-09-01 22:18 | Electrocardiogram Report ---
Test Reason : Blood Pressure : / mmHG Vent. Rate : 096 BPM Atrial Rate : 096 BPM P-R Int : 192 ms QRS Dur : 138 ms QT Int : 418 ms P-R-T Axes : 000 089 121 degrees QTc Int : 528 ms Sinus rhythm with Premature atrial complexes Non-specific intra-ventricular conduction block T wave abnormality, consider lateral ischemia Abnormal ECG When compared with ECG of 30-AUG-2022 23:36, (unconfirmed) Premature atrial complexes are now Present T wave inversion now evident in Lateral leads Confirmed by Heriberto Castro ([id number]) on 09/01/2022 10:18:04 PM Referred By: REFERRED SELF Confirmed By:Heriberto Castro
[2022-09-02] MEDS: INSULIN ASPART PER UNIT SC SCH ×6 (00:34→21:00)
[2022-09-02] MEDS: ONDANSETRON INJ 2 MG/ML 2 ML VIAL IV PRN (00:55)
[2022-09-02 02:08] LABS: Basophils # (auto) 0.01 K/uL (0-0.2); Basophils % (auto) 0.1 %; Eosinophils # (auto) 0.01 K/uL (0-0.50); Eosinophils % (auto) 0.1 %; Hematocrit (blood only) 22.6 % (40.1-51.0); Hemoglobin 8.3 g/dl (14.0-18.0); Immature Granulocytes # (auto) 0.05 K/uL (0.00-0.02); Immature Granulocytes % (auto) 0.5 %; Lymphocytes # (auto) 0.29 K/uL (1.2-3.4); Lymphocytes % (auto) 2.7 %; Mean Corpuscular Hemoglobin 29.3 pg (25.0-34.0); Mean Corpuscular Hgb Conc 36.7 g/dL (32.0-36.0); Mean Corpuscular Volume 79.9 fL (80.0-100.0); Mean Platelet Volume 9.8 fL (9.4-12.4); Monocytes # (auto) 0.93 K/uL (0.24-0.82); Monocytes % (auto) 8.8 %; Neutrophils % (auto) 87.8 %; Platelet Count 154 K/uL (130-400); RDW Coefficient of Variation 15.9 % (11.5-14.5); RDW Standard Deviation 46.4 fL (36.4-46.3); Red Blood Count 2.83 M/uL (4.63-6.08); White Blood Count 10.59 K/ul (4.8-10.8)
[2022-09-02] MEDS: ALBUT/IPRATROP 3MG/0.5MG NEB 3 ML VIAL NEB SCH ×6 (02:28→22:38)
[2022-09-02 02:42] LABS: Albumin Level 2.5 gm/dl (3.4-5.0); BUN Creatinine Ratio 18.7 (10-20); Bilirubin Direct 0.2 mg/dl (0-0.2); Bilirubin,Total 0.6 mg/dl (0.2-1.0); Calcium 6.3 mg/dl (8.5-10.1); Creatinine Clr Calc Pharmacy 12.6 ml/min; Est GFR (African American) 10.1 ml/min; Est GFR (Non-African American) 8.7 ml/min; Magnesium 1.7 mg/dl (1.7-2.4); Potassium 3.4 mmol/L (3.5-5.1); Total Protein 5.1 gm/dl (6.0-8.3)
[2022-09-02] MEDS ORDERED: STAT IV STA ×2 (02:50→20:02)
[2022-09-02] MEDS ORDERED: CALCIUM GLUCONATE 10% 2,000 MG in DEXTROSE 5% 50 ML IV ONE ×2 (03:00→20:05)
[2022-09-02] MEDS: POTASSIUM CHLORIDE / WTR 20 MEQ/100 ML PLCT IV SCH ×2 (03:08→05:12)
[2022-09-02] MEDS: MAGNESIUM SULFATE / D5W 1 GM/100 ML BAG IV SCH ×2 (03:08→05:12)
[2022-09-02] MEDS: D5W AND 1/2NSS 1,000 ML IV SCH (05:44)
[2022-09-02] MEDS ORDERED: IRON SUCROSE 100 MG in SYRINGE 0 ML IV ONE (07:00)
[2022-09-02] MEDS ORDERED: EPOETIN ALFA 20,000 UNITS/ML VIAL IV ONE (07:00)
--- NOTE | 2022-09-02 08:03 | Critical Care Progress Note ---
Date of Service September 02, 2022 Assessment & Plan (1) Acute on chronic renal failure: Plan: Reason critically ill: Patient is a 62 yo male here with a PMH significant for DM, PAD, bladder cx w/ mets, COPD, CKD, and HTN who presented with encephalopathy secondary to acute on chronic renal failure w/ anion gap metabolic acidosis. Neuro: - [facility] ICU- positive - mental status improving, most likely d/t improvement of electrolyte balance and anion gap MA Cardiac: - elevated troponin- peaked at 3222, downtrended; no ischemic changes on EKG, echo showed EF of 45-50% w/ akinesis of inferior septum - per cardiology, added 3.125 mg carvedilol BID w/ recommendation of outpatient f/u to discuss stress test vs. cath Respiratory: - hx of COPD, current ppd smoker - pt w/ O2 sats in the 90s on 2 L NC - continue duoneb q4hr, albuterol q2hr PRN GI: - nausea; IV zofran q6hr PRN - clear liquid diet - pantoprazole IV 40 mg BID for ulcer ppx Renal/electrolytes: - acute on chronic renal failure - hypocalcemia; d/t renal failure, continue calcitriol 0.5 mcg daily - AG=11; replace electrolytes as needed - continue to hold home valsartan, furosemide, hydralazine, and bumetanide - to proceed w/ dialysis today : - lara catheter in place Endo: - AG closed; insulin drip stopped - resume basal (8 units)/bolus insulin Heme: - IRMA complicated by anemia of CKD; no signs of active bleeding - Hgb yesterday 6.5 requiring 2 units of pRBCs, IV iron, and epogen - Hgb this AM 8.3 - continue to follow CBC Onc: - bladder cx w/ bone mets s/p chemotherapy in 2018 and recurrence in 2019 - palliative care consult placed to further discuss goals of care ID: - No concerns for infection at this point Integumentary: - skin breakdown notable on pt's left heel; protective pressure dressing applied Lines/IV access: peripheral IV, RIJ hemodialysis catheter DVT ppx: SCDs Dispo: stable for downgrade from ICU Please refer to Dr. Yepez's documentation for any further recommendations. (2) Elevated troponin: (3) Rhabdomyolysis: (4) Anemia: (5) Hypocalcemia: (6) COPD (chronic obstructive pulmonary disease): (7) Hypertension: (8) Diabetes mellitus, type 2: (9) Peripheral arterial disease: (10) Pseudoaneurysm of femoral artery: (11) Bladder cancer metastasized to bone: Admission and Anticipated Discharge Date Admission Date: August 31, 2022 Supervising Physician Co-Signing Physician Notes Dr. Kaye was resident physician during care of patient. I separately evaluated patient for morales portions of the history and the exam. I was present d uring the critical portion of medical decision making, and I discussed the case with the resident. I generally agree with the findings and plan. Improving encephalopathy likely metabolic secondary to renal disease and significant azotemia. Improving electrolyte abnormalities. Waiting goals of care discussion as mental status improves. Currently tolerating hemodialysis. May require permacath after goals of care further elucidated. Stable for downgrade out of ICU. Subjective Patient is a 62 yo male here with a PMH significant for DM, PAD, bladder cx w/ mets, COPD, CKD, and HTN who presented with encephalopathy secondary to acute on chronic renal failure w/ anion gap metabolic acidosis. Per nursing, pt more awake and alert than previous days. Pt feeling nauseous overnight. Pt denies pain this AM and shrugs his shoulders when asked how he is. Pt unable to tell his name but does state he is at [facility] when asked his location. Pt receiving dialysis today. Review of Systems Review of Systems: Unobtainable due to cognitive status Physical Exam Constitutional: NAD. Vitals WNL. Neck: No thyromegaly. Trachea midline. Respiratory: Wheezing heard throughout anteriorly. No crackles heard. Non labored breathing. Cardiovascular: RRR. No murmurs noted. Bilateral 2+ pitting edema present. Gastrointestinal (Abdomen): Distended. +BS. Nontender in all 4 quadrants. Psychiatric: Alert and oriented to place. Unable to state his name. Results & Data Results & Data ([facility]) Vital Signs (Past 12 Hours) Vital Signs Temp Pulse Pulse Pulse Resp BP BP 09/02/22 07:39 09/02/22 07:36 80 09/02/22 06:00 81 18 104/61 09/02/22 05:00 81 12 103/57 L 09/02/22 04:00 36.6 C 83 13 121/68 09/02/22 03:00 81 22 102/60 09/02/22 02:00 86 16 104/79 09/02/22 02:31 84 18 09/02/22 01:00 83 14 98/55 L 09/02/22 00:00 37.2 C 85 18 96/55 L 09/01/22 23:00 37.2 C 90 19 111/62 09/01/22 22:51 88 18 09/01/22 22:00 37.1 C 85 15 101/60 09/01/22 21:00 37.0 C 88 14 111/59 L 09/01/22 20:00 37.0 C 91 H 15 121/66 09/01/22 20:03 89 18 09/01/22 20:00 Pulse Ox O2 Del Method O2 Flow Rate 09/02/22 07:39 Nasal Cannula 2 09/02/22 07:36 09/02/22 06:00 95 Nasal Cannula 2 09/02/22 05:00 94 Nasal Cannula 2 09/02/22 04:00 98 Nasal Cannula 2 09/02/22 03:00 98 Nasal Cannula 2 09/02/22 02:00 100 Nasal Cannula 2 09/02/22 02:31 98 Nasal Cannula 2 09/02/22 01:00 99 Nasal Cannula 2 09/02/22 00:00 97 Nasal Cannula 2 09/01/22 23:00 97 Nasal Cannula 2 09/01/22 22:51 96 Nasal Cannula 2 09/01/22 22:00 96 Nasal Cannula 2 09/01/22 21:00 94 Nasal Cannula 2 09/01/22 20:00 96 Nasal Cannula 2 09/01/22 20:03 96 Nasal Cannula 2 09/01/22 20:00 Nasal Cannula 2 Resident Activity Tracking Resident Involvement: Resident Care Provided Care Provided: Adult Hospital Medicine (1) Diabetes mellitus, type 2 Diabetes mellitus complication detail: with polyneuropathy Diabetes mellitus complication status: with neurologic complications Diabetes mellitus penitentiary insulin use: with terminal makeup operator use Qualified Code(s): E11.42 - Type 2 diabetes mellitus with diabetic polyneuropathy; Z79.4 - penitentiary (current) use of insulin (2) Hypertension Hypertension type: unspecified Qualified Code(s): I10 - Essential (primary) hypertension
[2022-09-02] MEDS: ASPIRIN 81 MG ECTAB PO SCH (08:17)
[2022-09-02] MEDS: CALCITRIOL 0.25 MCG CAPSULE PO SCH (08:18)
[2022-09-02] MEDS: carvediloL 3.125 MG TAB PO SCH ×2 (08:19→20:56)
[2022-09-02] MEDS: LANTUS PER UNIT CHARGE SQ SCH (08:31)
[2022-09-02] MEDS: PANTOprazole 40 MG in SYRINGE 0 ML IV SCH ×2 (08:33→21:27)
--- NOTE | 2022-09-02 09:05 | Palliative Care Consultation ---
Date of Consultation September 02, 2022 Assessment & Plan (1) Palliative care encounter: Met with pt/family. Provided overview of Palliative Medicine, a subspecialty that provides specialized medical care for people living with a serious illness by offering a focus on quality of life. Palliative Medicine is often conflated with hospice: I advised patient/family that Palliative and hospice can be partners but we are not the same. It is important to understand the difference so that we may be informed, and not afraid. Palliative Medicine works to improve QOL through reduction of symptom burden/more control over their illness, for both the patient and family. Palliative medicine clinicians are board certified, specially-trained and another member of the patient's medical care team. We often provide an extra layer of support because our care is based on the needs of the patient, not the prognosis; as such, it's appropriate at any age/advancing stage of a serious illness and can be provided along with curative treatment. Palliative Medicine clinicians are also trained in advanced communication methodologies, to facilitate complex discussions about advanced illness planning, which are needed to help assure that the treatment choices match the patient's goals, aka delivering Goal Concordant care. Finally, we discussed that hospice is a visiting nurse service that focuses on care delivered at the very end of life for patients with terminal illness, with life expectancy less than 6 month. (2) Advanced care planning/counseling discussion: (3) Altered mental status: CAM ICU screen is positive for delirium. Patient does not have decisional capacity at this time. He appears to be waking up, albeit slow. Recommend continuing all mobilization maneuvers (PROM if unable to participate) and continue lightening sedation. Limit the use of sedating agents. Follow sleep protocol and please resume normal sensory support with eyeglasses/hearing aids etc if applicable. Open blinds and allow natural light in daytime, dim light and dampen sounds into the evening/nighttime hours to encourage re normalization of sleep cycles. Reinforce family for bedside visitation + Zoom visits if necessary. Nursing shares today the patient's daughter is unable to visit today but plans to be in tomorrow. There is concern shared that her insight and understanding of patient's medical issues may be somewhat limited, for example daughter expressed concern to nursing that patient's "creatinine has dropped very low very quickly" and she worries about this. Present on Admission?: Yes (4) Acute on chronic renal failure: Present on Admission?: Yes (5) Weakness generalized: Present on Admission?: Yes (6) COPD (chronic obstructive pulmonary disease): + Active smoker, refusing PFTs per chart review Present on Admission?: Yes (7) Bladder cancer metastasized to bone: Present on Admission?: Yes (8) Peripheral arterial disease: Present on Admission?: Yes Plan Patient with no acute palliative medicine symptom management needs at this time. He is delirious and does not have decisional capacity. His daughter will continue to be his healthcare proxy. She is not available today due to existing appointments but plans to come in tomorrow. His mentation is slowly improving with current medical interventions. His baseline mood may be what we see emerging. Palliative medicine will continue to follow this patient albeit a little more peripherally and will try to meet with the daughter as she is available. Continue delirium management protocols. Fabiola Sahu DNP Clinical Director, Palliative Medicine History of Present Illness Reason for Consultation: " On 09/01/22 @ 15:15 Rose Ann Wrote To Teresita Larsen goals of care,critically ill,new dialysis" Attending Physician: Rose Ann MD History of Present Illness 62yo male with CKD III, COPD/smoking related/refuses PFTs/active smoker; +bladder ca w/mets to bone, severe PVD s/p RLE fem-pop bypass grafting January 2019 & amputation right 5th toe 2/2 gangrene; pseudoaneurysm repair with boine patch Apr 2019; DM and HTN who presented from home 08/31/22 with AMS, nearly obtunded.per admitting note: "Patient reportedly slid out of a chair at home and was very confused. He has not been eating or drinking over the last week. His mother called EMS. Per EMS, patient with increased work of breathing. He was administered a DuoNeb in the field as well as a trial of CPAP and NRB. Blood sugar 267. Upon arrival to the ER patient hypothermic with T=31.6, tachypneic, HD stable. He had a brief trial of BiPAP but was unable to tolerate the mask. Currently on Oxymask 10 L/m with adequate oxygenation. Josue hugger warming blanket in place. Lab values as below show acute renal failure with high anion gap metabolic acidosis. pH=7.03, initial serum HCO3=4. YCC=816 and Cr=14.48. Ricardo catheter was placed with return of appx 450mL of clear, yellow urine. Bicarbonate drip started in the ER." AMS is felt to be multifactorial in origin though most attributed to ARF/uremia in setting of CKD: CQH=175/Supervisor Carding=14.48.His mentation has been improving with treatment and as of yeserdat's notes he is no longer obtunded though he does require frequent orientation. There were no focal deficits reported during ER evaluation and the head CT was negative for acute intracranial abnormality. 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 He completed chemotherapy x 4 cycles in 2017 with recurrence in 2018. He was treated with immunotherapy and developed colitis in 2019. At that time, his follow up CTs showed no evidence of progressive metastatic disease; he has known pulmonary nodules, sclerotic T10 vertebra, multifocal osseous disease and shotty retroperitoneal lymph nodes. Palliative medicine has been consulted for "goals of care,critically ill, new dialysis." Allergies Allergy/AdvReac Type Severity Reaction Status Date / Time lisinopril AdvReac Intermediate diarrhea, Verified 08/31/22 02:11 stomach cramping and pain losartan AdvReac Intermediate Diarrhea Verified 08/31/22 02:11 Home Medications Medication Instructions Recorded Confirmed Type aspirin 81 mg tablet,delayed 81 mg PO DAILY #90 tabs 04/26/21 08/31/22 Rx release pen needle, diabetic 32 gauge x #100 ea 03/14/22 07/03/22 Rx /32" (BD Ultra-Fine Fely Pen Needle) hydralazine 25 mg tablet 25 mg PO TID #90 tabs 05/06/22 08/31/22 Rx blood sugar diagnostic #360 ea 06/17/22 07/03/22 Rx lancets 33 gauge (OneTouch Delica #100 ea 07/02/22 07/03/22 Rx Lancets) bumetanide 2 mg tablet 2 mg PO DAILY 07/03/22 08/31/22 History ipratropium 20 mcg-albuterol 100 1 puff inhalation QID #4 grams 07/03/22 08/31/22 Rx mcg/actuation mist for inhalation (Combivent Respimat) valsartan 320 mg tablet (Diovan) 320 mg PO DAILY 07/03/22 08/31/22 History insulin lispro 100 unit/mL 6 unit (0.06 mL) subcut BIDM #15 mL 07/15/22 08/31/22 Rx subcutaneous pen (Humalog KwikPen (U-100) Insulin) insulin glargine 100 unit/mL (3 12 unit (0.12 mL) subcut BIDM 90 08/05/22 08/31/22 Rx mL) subcutaneous pen days #18 mL amlodipine 10 mg tablet 10 mg PO DAILY 08/31/22 08/31/22 History furosemide 20 mg tablet 40 mg PO DAILY 08/31/22 08/31/22 History simvastatin 40 mg tablet 40 mg PO QPM 08/31/22 08/31/22 History Patient History Medical History (Updated 09/02/22 @ 12:45 by Keena Ding MD) Advanced care planning/counseling discussion Altered mental status Bladder cancer metastasized to bone Cancer NEWLY DX WITH BLADDER CANCER, BLOODY URINE, STARTED CHEMO APR 2018, FINISHED JULY 2018 COPD (chronic obstructive pulmonary disease) +smoking related lung disease, +active smoker, refuses all PFTs Diabetes mellitus, type 2 Diverticulitis Elevated liver enzymes ESRD (end stage renal disease) GERD (gastroesophageal reflux disease) H/O sepsis Related to ruptured sigmoid colon. Hematuria History of pseudoaneurysm 04/23/19- Repair of pseudoaneurysm of right femoral artery with bovine patch by Dr. 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 Palliative care encounter Rupture of bowel H/O ruptured sigmoid colon which resulted in right transverse colostomy, a later surgery for sigmoid resection, and later colostomy reversal; Spinal stenosis LUMBAR Ventral hernia Weakness generalized Surgical History H/O cystoscopy History of bladder surgery (04/06/18) TURBT History of colostomy reversal History of surgery A-PORT PLACEMENT Hx of colostomy RUPTURED DIVERTICULITIS S/P aneurysm repair (04/2019) repair of pseudoaneurysm at the end of the bypass graft in right lower extremity S/P femoropopliteal bypass surgery (01/2019) right iliofemoral endarterectomy, right common femoral to popliteal artery bypass Status post chemotherapy Chemo 05/20/18 thru 08/12/18 for bladder cancer Family History Mother Hypertension Diabetes Father , in his 60's Prostate cancer Brother Stroke Hypertension Diabetes Lyme disease Brother No problems noted. Brother No problems noted. Sister No problems noted. Sister No problems noted. Daughter Skin cancer Hypertension Hypothyroidism Denies family history of Ovarian cancer Myocardial infarction Breast cancer Colorectal cancer Social History Smoking Status: Current every day smoker Tobacco Type: Cigarettes Age Started Using Tobacco: 14; packs per day: 1; Cigarettes Per Day: 20; Second Hand Exposure: Yes; Hx Alcohol Use: No Hx Substance Use: No Preferred Language: Turkmen Communication Ability: Effective Visual Impairment: No Limitations Hearing Ability: Normal Training Intern Required: No Beliefs That Will Affect Care: None marital status: Current Living Situation: Parent Current Living Situation Comment: Lives at home with mom current occupational status: unemployed current occupation: Disability Feels Safe at Home: Yes Childhood Exposure to Second-Hand Smoke: No Diet Comment: regular caffeine: Yes (4 cups/day) during the past year weight has: remained stable Dental Care, Regularly: No Physical Activity Frequency: Daily Physical Activity Frequency Comment: house work Seatbelt Use: always Sunscreen Use: No Assistive Devices: None Review of Systems Review of Systems: Unobtainable due to cognitive status Physical Exam Physical Exam: Patient is lying in bed with bilateral mitten restraints. He will open his eyes to his name. He is at times belligerent when trying to answer questions but is aware that he is at the [facility]. Is unable to tell me the date or the time. He cannot recall the events leading up to the admission. When these details were provided to him he replied that we were all lying to him and trying to mislead him. NCAT, PERRLA. Pharynx pink but slightly dry. Mucosa slightly dry. Neck is supple without JVD. There is no appreciable stridor. S1-S2. No appreciable murmur. Few coarse rhonchi, lung sounds overall diminished, intermittent bronchitic coug h noted. Abdomen soft and mildly distended. Bowel sounds present throughout. Nontender to palpation. Bilateral upper extremities and mittens. Generalized weakness noted. There is edema to the lower extremity +1. Skin is pale but warm to touch. There are scattered ecchymoses across both arms. Patient is awake to verbal and alert to self. He cannot tell me time or date. He is aware that he is in the hospital. CAM ICU delirium screen: + Positive for delirium. Results & Data ([facility]) Vital Signs (Past 12 Hours) Vital Signs Temp Pulse Pulse Pulse Resp BP BP 09/02/22 08:02 82 18 09/02/22 07:39 09/02/22 07:36 80 09/02/22 06:00 81 18 104/61 09/02/22 05:00 81 12 103/57 L 09/02/22 04:00 36.6 C 83 13 121/68 09/02/22 03:00 81 22 102/60 09/02/22 02:00 86 16 104/79 09/02/22 02:31 84 18 09/02/22 01:00 83 14 98/55 L 09/02/22 00:00 37.2 C 85 18 96/55 L 09/01/22 23:00 37.2 C 90 19 111/62 09/01/22 22:51 88 18 09/01/22 22:00 37.1 C 85 15 101/60 Pulse Ox O2 Del Method O2 Flow Rate 09/02/22 08:02 98 Nasal Cannula 2 09/02/22 07:39 Nasal Cannula 2 09/02/22 07:36 09/02/22 06:00 95 Nasal Cannula 2 09/02/22 05:00 94 Nasal Cannula 2 09/02/22 04:00 98 Nasal Cannula 2 09/02/22 03:00 98 Nasal Cannula 2 09/02/22 02:00 100 Nasal Cannula 2 09/02/22 02:31 98 Nasal Cannula 2 09/02/22 01:00 99 Nasal Cannula 2 09/02/22 00:00 97 Nasal Cannula 2 09/01/22 23:00 97 Nasal Cannula 2 09/01/22 22:51 96 Nasal Cannula 2 09/01/22 22:00 96 Nasal Cannula 2 Laboratory Results see HPI Diagnostic Findings see HPI PG Care Time/CCT Total # of Minutes Spent Total Time Spent: 68 Total Time Spent with Patient: Total time spent is greater than 50% in coordination of care (as documented) at patient's floor/unit and/or counseling patient: Coding Level of Care Code New Pt INP/OBS CONSULT LVL 5, 80 MIN Patient Type New History Comprehensive Exam Detailed Medical Decision Making High Complexity Diagnoses Palliative care encounter Z51.5 Advanced care planning/counseling discussion Z71.89 Altered mental status R41.82 Acute on chronic renal failure N17.9; N18.9 Weakness generalized R53.1 COPD (chronic obstructive pulmonary disease) J44.9 Bladder cancer metastasized to bone C67.9; C79.51 Peripheral arterial disease I73.9
[2022-09-02 09:15] LABS: Reticulocyte % 1.4 % (0.5-2.0); Reticulocytes # 0.04 10^6/uL (0.02-0.10)
--- NOTE | 2022-09-02 09:22 | Billing Data ---
Date of Service September 02, 2022 Coding Level of Care Code 43741 SUB INP/OBS CARE MIN
[2022-09-02 09:44] LABS: Fibrinogen 313 mg/dl (184-400); INR 1.3 (0.9-1.1); Partial Thromboplastin Ratio 1.3; Partial Thromboplastin Time 36.4 Seconds (21.0-31.0); Prothrombin Time 13.9 Seconds (9.0-12.0)
--- NOTE | 2022-09-02 12:40 | Pharmacy Report ---
Pharmacy Glycemic Short Note 2 - Date of Service September 02, 2022 - Glycemic Short BSG Results (Last 24 hours): 09/01/22 09/01/22 09/01/22 15:57 17:22 20:24 Glucose 96 POC Glucose 95 73 09/01/22 09/02/22 09/02/22 23:31 01:55 04:05 Glucose 84 POC Glucose 81 114 H 09/02/22 09/02/22 08:01 12:24 Glucose POC Glucose 132 H 89 OUTPATIENT ANTIDIABETIC REGIMEN: * Insulin Glargine 12 units BID, Insulin lispro 6 units BIDM ASSESSMENT: 09/02: * BSG trended down throughout the day yesterday, up to 132 mg/dL this morning with D5 + 1/2 NS @100 ml/hr running * Fluids discontinued, reduced lantus dose ~34% to 8 units * BSG 89 mg/dL at lunch, full liquid diet ordered, loosened carb ratio * HD planned for today 09/01: * Insulin drip was discontinued this morning per Dr. Muñoz; drip rate was 1.7 units/hr at that time. Nurse had given Lantus 12 units based off of patient's home dose and Novolog with breakfast before drip discontinued. Novolog parameters based on wt and moderate stress. * Since patient with renal failure and dialysis, will wait to add HS basal dose depending on how his BSGs trend today. Overnight checks added. * IV fluids D51/2 NS running at 100 ml/hr. Patient received 40 meq of IV KCL this AM for low potassium. 08/31/22: * Patient admitted with acute renal failure, SCR 14.48, patient to undergo emergent Hemodialysis * Initial Bicarb 4, VpH 7.03, Anion gap 34 BSG 305 mg/dL : negative ketones in urine. Per Patternmaker Apprentice Wood unable to r/o DKA component with concomitant severe renal failure- to initiate insulin infusion at 2 units/ hr with goal range 150-250 mg/mL * Complicated by hypokalemia in renal failure; received replacement of 40 mEq, hemodialysis- monitoring closely. * Fluids adjust to D5 +1/2NS + 20 mEq KCl when BSG in goal range PLAN FOR INPATIENT GLYCEMIC CONTROL: * Insulin drip discontinued this AM * Basal insulin * Lantus 8 units SQ QAM, reassess tomorrow. * Bolus insulin * NovoLog per scale ACHS or Q6hrs while NPO * Goal Range: Low 120 mg/dL - High 160 mg/dL * Correction Factor: 30 mg/dL/unit * Nutritional / Prandial insulin per carb ratio of 1 unit per 15 grams CHO consumed
--- NOTE | 2022-09-02 12:52 | Nephrology Progress Note ---
Date of Service September 02, 2022 Assessment & Plan (1) ESRD (end stage renal disease): (2) Altered mental status: (3) Anemia: (4) Metabolic acidosis: (5) Hypocalcemia: (6) Hypokalemia: Plan 62-year-old male with PMH of COPD, HTN, DM type II, CKD stage III, PAD, and bladder cancer admitted with AMS, Uremia, BUN >200, Cr 14 after he was found at home to be confused and obtunded. Started on HD via rt IJ TDC. Clinically started to improve, more awake, alert and somewhat oriented. --HD today with 3 K bath, K improved to 3.4 --dose meds for eGFR <10 --if pt agrees to continue on IHD, will need to set up outpt HD at [facility] Will follow. Admission and Anticipated Discharge Date Admission Date: August 31, 2022 Subjective Rajesh was seen and evaluated this morning. More alert this am. Denies any symptoms. BP acceptable. Tolerating HD. Review of Systems Review of Systems: detail ROS was not possible due to pts mental health status. Physical Exam Constitutional: WD/WN, vitals as above + ill appearing and comfortable; not in distress Eyes: + anicteric sclerae Neck: normal visual inspection Respiratory: normal respiratory effort; no respiratory distress Auscultation: lungs clear to auscultation bilaterally Cardiovascular: Rate/Rhythm: regular rate and regular rhythm Heart Sounds: normal S1 and normal S2 Extremities: no edema Skin: no rashes Neurologic: no focal motor deficits Psychiatric: Orientation: oriented to place and cooperative Results & Data ([facility]) Vital Signs (Past 12 Hours) Vital Signs Temp Pulse Pulse Pulse Resp BP BP 09/02/22 12:04 87 09/02/22 11:45 86 113/69 09/02/22 11:15 85 112/76 09/02/22 11:14 83 16 09/02/22 11:00 80 14 09/02/22 11:00 118/63 09/02/22 10:45 107/64 09/02/22 10:45 86 16 09/02/22 10:30 112/69 09/02/22 10:30 84 19 09/02/22 10:15 103/70 09/02/22 10:15 84 14 09/02/22 10:45 85 107/64 09/02/22 10:15 85 103/70 09/02/22 10:00 83 15 124/73 09/02/22 09:45 120/71 09/02/22 09:45 84 14 09/02/22 09:30 115/64 09/02/22 09:30 79 13 09/02/22 09:17 119/68 09/02/22 09:17 80 12 09/02/22 09:45 84 120/71 09/02/22 09:15 81 119/68 09/02/22 09:00 36.4 C L 79 09/02/22 09:00 82 15 09/02/22 09:00 105/61 09/02/22 08:00 84 13 09/02/22 08:00 103/61 09/02/22 07:00 80 13 09/02/22 07:00 105/58 L 09/02/22 08:02 82 18 09/02/22 07:39 09/02/22 07:36 80 09/02/22 06:00 81 18 104/61 09/02/22 05:00 81 12 103/57 L 09/02/22 04:00 36.6 C 83 13 121/68 09/02/22 03:00 81 22 102/60 09/02/22 02:00 86 16 104/79 09/02/22 02:31 84 18 09/02/22 01:00 83 14 98/55 L Pulse Ox O2 Del Method O2 Flow Rate 09/02/22 12:04 09/02/22 11:45 09/02/22 11:15 09/02/22 11:14 95 Nasal Cannula 2 09/02/22 11:00 95 09/02/22 11:00 09/02/22 10:45 09/02/22 10:45 94 Nasal Cannula 2 09/02/22 10:30 09/02/22 10:30 98 Nasal Cannula 2 09/02/22 10:15 09/02/22 10:15 98 Nasal Cannula 2 09/02/22 10:45 09/02/22 10:15 09/02/22 10:00 99 Nasal Cannula 2 09/02/22 09:45 09/02/22 09:45 99 Nasal Cannula 2 09/02/22 09:30 09/02/22 09:30 98 Nasal Cannula 2 09/02/22 09:17 09/02/22 09:17 100 Nasal Cannula 2 09/02/22 09:45 09/02/22 09:15 09/02/22 09:00 09/02/22 09:00 95 Nasal Cannula 2 09/02/22 09:00 09/02/22 08:00 99 Nasal Cannula 2 09/02/22 08:00 09/02/22 07:00 95 Nasal Cannula 2 09/02/22 07:00 09/02/22 08:02 98 Nasal Cannula 2 09/02/22 07:39 Nasal Cannula 2 09/02/22 07:36 09/02/22 06:00 95 Nasal Cannula 2 09/02/22 05:00 94 Nasal Cannula 2 09/02/22 04:00 98 Nasal Cannula 2 09/02/22 03:00 98 Nasal Cannula 2 09/02/22 02:00 100 Nasal Cannula 2 09/02/22 02:31 98 Nasal Cannula 2 09/02/22 01:00 99 Nasal Cannula 2 PG Care Time/CCT Total # of Minutes Spent Total Time Spent with Patient: Total time spent is greater than 50% in coordination of care (as documented) at patient's floor/unit and/or counseling patient: Coding Level of Care Code 25496 SUB INP/OBS CARE 3/50MIN Diagnoses ESRD (end stage renal disease) N18.6 Altered mental status R41.82 Anemia D64.9 Metabolic acidosis E87.20 Hypocalcemia E83.51 Hypokalemia E87.6
[2022-09-02 13:33] LABS: BUN Creatinine Ratio 16.5 (10-20); Creatinine Clr Calc Pharmacy 19.5 ml/min; Est GFR (African American) 17.2 ml/min; Est GFR (Non-African American) 14.8 ml/min; Potassium 3.4 mmol/L (3.5-5.1)
[2022-09-02 17:30] LABS: BUN Creatinine Ratio 16.5 (10-20); Calcium 6.7 mg/dl (8.5-10.1); Creatinine Clr Calc Pharmacy 18.7 ml/min; Est GFR (African American) 16.2 ml/min; Potassium 3.3 mmol/L (3.5-5.1)
--- NOTE | 2022-09-02 20:01 | Hospitalist Progress Note ---
Date of Service September 02, 2022 Assessment & Plan (1) Acute kidney injury superimposed on CKD: Plan: 62yo male with history of CKD stage III, COPD, bladder cancer with metastasis to bone, DM and Hypertension presenting from home with confusion and severe lethargy. Found to have significant acute kidney injury, severe anion gap metabolic acidosis, DKA, acute metabolic encephalopathy secondary to uremia. 1. Neurology - patient nearly obtunded on admission and now improving as acidosis and uremia improving. CT of the head is NEGATIVE for acute intracranial abnormality. TSH and ammonia level normal. He does not drink alcohol. No drug use. -Frequent orientation -Management of acute renal failure as below -Remains with mitts in place to prevent removal of lines 2. Cardiovascular - Patient with extensive history of peripheral vascular disease. 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 He had repair of pseudoaneurysm with bovine patch in 04/2019. He was previously following with Dr. Rajan. He has history of HTN as well as HLP Elevated troponin here that peaked at 3000 in setting of JEAN on CKD. No acute ischemic changes present on EKG Echocardiogram with wall motion abnormalities in the basal inferior septal and inferior wall with EF 45-50% Doubt acute coronary syndrome. Appreciate cardiology consultation-no chest discomfort likely has underlying CAD but no invasive evaluation to be performed at this time. Can do ischemic evaluation with stress test or catheterization in the future if he recovers overall. -Telemetry monitoring -Continue ASA 81mg po daily -No indication for heparinization -Started carvedilol 3.125 Mg p.o. twice daily for heart failure and presumed CAD -Cannot give BETHANIE inhibitors or ARB at this time due to renal failure, will eventually add back amlodipine and could do isosorbide rather than hydralazine but BPs are soft -Holding statin for rhabdomyolysis -Holding home antihypertensive agents to include Valsartan, Hydralazine and Amlodipine -Holding diuretics Lasix and Bumex due to renal failure -Volume status to be managed with dialysis 3. Pulmonary - patient with COPD diagnosis based on history and exam. PFTs recommended in the past and declined. He continues to smoke. Diffuse wheezing present on exam. Continue duo nebs scheduled, supplemental oxygen as needed to keep pulse ox greater than 88% -DuoNebs q 4 hours -Albuterol q 2 hours PRN -Supplemental O2 as needed with goal O2 of 90% 4. Gastrointestinal - Patient with Heme POSITIVE stools in the ER. No brent blood per rectum. Hemorrhoids appreciated. Hgb 8.5 on arrival and then down to 6.5 without any evidence of gross bleeding. CT of the abdomen with mild rectal wall thickening with perirectal stranding possibly secondary to partial distention versus nonspecific proctitis. Now with large volume loose stools, C. difficile negative. With elevated AST and ALT likely secondary to rhabdomyolysis-now improving -Transfussed 2 units PRBCs on 09/01 and hemoglobin now improved in the eights -Follow CBC, LFTs in the morning -Okay to continue aspirin as no active bleeding - continue IV PPI 5. Renal- patient with CKD-III at baseline with baseline BUN of appx 50 and Cr of 2.5. He presents in acute renal failure - BUN of 277 and Cr of 14.48. Ricardo in place and making some urine. Most likely multifactorial - prerenal in setting of poor oral intake, potentially renal toxic medications Valsartan, Bumex and Lasix as well as rhabdomyolysis. He most likely has end-stage kidney disease and will be dialysis dependent CT of the abdomen comments on bilateral renal vascular calcifications with nonspecific bilateral perinephric stranding. Mild prostamegaly. UA with 3+ blood and protein, absence of RBCs -with myoglobinuria most likely secondary to rhabdomyolysis. No suggestion for UTI. Labs with high anion gap metabolic acidosis with pH=7.03 and HCO3=4, AG of 36. K is normal at 3.7 on admission and has since become severely low With severe hypocalcemia, hypokalemia, and some hypomagnesemia With hypovitaminosis D and secondary hyperparathyroidism. Vitamin D undetectable He does now have evidence of some peripheral edema likely from copious IV fluids and electrolyte replacement-to be managed with dialysis Also with rhabdomyolysis which is now improving -Received urgent dialysis on 08/31 and again on 09/01, 09/02.with right IJ central venous catheter in place for dialysis use -He will need a tunneled dialysis catheter if he decides to remain on dialysis- palliative consult appreciated -Maintain Ricardo catheter with strict I/Os -Initially received bicarbonate drip which is now discontinued -Nephrology consultation appreciated -Started calcitriol, continue electrolyte replacement-give more potassium and calcium and magnesium today -Follow serial labs, CK 6. Heme - patient with microcytic anemia with Hgb=8.5 and Hct=23.8 - significantly decreased from prior values of 12.2 and 36.4, respectively on 04/25/22. Heme + stools with hemorrhoids - may be contributing to GI losses Hgb further down to 6.5 on hospital day #2 as above Coagulopathy with INR of 1.6-possibly vitamin K deficiency versus shock liver? History of metastatic bladder cancer - he follows with [facility]. 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 He completed chemotherapy x 4 cycles in 2018 with recurrence in 2018. He was treated with immunotherapy and developed colitis in 2019. Followup CTs with no evidence of progressive metastatic disease. Known pulmonary nodules, sclerotic T10 vertebra, multifocal osseous disease and shotty retroperitoneal lymph nodes Iron studies performed and unable to calculate transferrin saturation but had evidence of iron deficiency a few months ago B12 and folate were normal in April 2022 -Monitor CBC -Transfusion as needed for hemoglobin less than 8-none needed today -Monitor INR, consider giving vitamin K -give IV Venofer and epogen as per nephrology -Follow-up with oncology as an outpatient 7. Endocrine - patient with Type II DM on insulin therapy at home. Overall well controlled. Last HgbA1C= 6.1 on 04/25/22. With possible DKA on admission given severe metabolic acidosis and hyperglycemia now resolved. -Was on insulin gtt, now on basal bolus insulin -Check hemoglobin A1c in the morning 8. ID - patient with leukocytosis WBC=13.79, he is tachypneic and hypothermic on admission. No obvious source of infection. Leukocytosis now resolved Urinalysis without evidence of infection. With some diarrhea which is C. difficile negative. -Cultures sent will follow-NGTD -Hold antibiotics for now DVT proph-SCDs. Holding off on anticoagulation due to severe anemia and drop in hemoglobin but if hemoglobin remains stable, could start SQ heparin tomorrow Dispo-downgrade out of ICU to PCU today Discussed care at length with daughter and her on 09/01. They think that patient would opt for hospice and would not want long-term dialysis. They would like to see if his mentation improves enough to speak for himself and make a decision on this. If he does choose to go with hospice, they would not be able to provide 24/7 care and he would need hospice at a medical facility.. We will consult palliative medicine on Friday to assist with ongoing goals of care-alfonso lennon-plan for family meeting tomorrow. (2) Anemia: (3) Elevated troponin: (4) Left ventricular dysfunction: (5) Hypocalcemia: (6) Hypokalemia: (7) Metabolic acidosis: (8) COPD (chronic obstructive pulmonary disease): (9) Diabetes mellitus, type 2: (10) Elevated liver enzymes: (11) Bladder cancer metastasized to bone: (12) Hypertension: (13) GERD (gastroesophageal reflux disease): (14) Hypercholesteremia: (15) Rhabdomyolysis: Admission and Anticipated Discharge Date Admission Date: August 31, 2022 Subjective Patient remains lethargic but awake. Still confused and pulling at things at times. He is able to tell me that his foot hurts and asked me to lift it up off the bed. Other than that, he knows his name and was able to say that he is at [facility]. Had third session of dialysis today. No other acute events except nurse reports he is having large volumes of liquid foul-smelling stool that tested negative for C. difficile. Review of Systems Review of Systems: Unobtainable due to cognitive status Physical Exam Constitutional: + ill appearing Eyes: + anicteric sclerae Neck: trachea midline, no thyromegaly (With right-sided central line coming from IJ) Respiratory: normal respiratory effort Auscultation: + wheezes (Bilateral); no crackles and no rhonchi Cardiovascular: Rate/Rhythm: regular rate and regular rhythm Heart Sounds: no murmur Extremities: + edema (2+ pitting edema to the knees bilaterally) Chest (Breasts): Chest: + vascular access device or port (Right IJ central venous catheter in place) Gastrointestinal (Abdomen): normal bowel sounds, soft, nontender, no hepatosplenomegaly Musculoskeletal: Extremities: + extremities abnormal to inspection (Mitts on bilateral hands), no cyanosis and no clubbing Skin: + ecchymosis (Numerous on arms) Neurologic: moves all extremities, awake and + confused Speech / Cognition: normal speech Psychiatric: Orientation: alert, oriented to person, oriented to place and cooperative Genitourinary: Ricardo catheter in place Results & Data Results & Data ([facility]) Vital Signs (Past 12 Hours) Vital Signs Temp Pulse Pulse Resp BP BP Pulse Ox 09/02/22 19:38 84 16 97 09/02/22 16:00 82 09/02/22 18:00 85 15 98 09/02/22 18:00 123/71 09/02/22 17:00 88 17 100 09/02/22 17:00 122/65 09/02/22 16:00 89 19 97 09/02/22 16:00 117/66 09/02/22 15:00 80 20 97 09/02/22 15:00 113/60 09/02/22 10:00 84 16 99 09/02/22 10:00 124/73 09/02/22 18:06 09/02/22 15:16 80 16 97 09/02/22 14:00 81 20 98 09/02/22 14:00 108/60 09/02/22 13:00 80 14 98 09/02/22 13:00 121/66 09/02/22 12:19 122/74 09/02/22 12:19 86 19 98 09/02/22 12:00 86 21 98 09/02/22 12:00 126/72 09/02/22 11:45 113/69 09/02/22 11:45 83 16 96 09/02/22 11:30 122/73 09/02/22 11:30 85 13 97 09/02/22 11:15 86 16 100 09/02/22 11:15 112/76 09/02/22 12:19 36.4 C L 85 122/74 09/02/22 12:04 87 09/02/22 11:45 86 113/69 09/02/22 11:15 85 112/76 09/02/22 11:14 83 16 95 09/02/22 11:00 80 14 95 09/02/22 11:00 118/63 09/02/22 10:45 107/64 09/02/22 10:45 86 16 94 09/02/22 10:30 112/69 09/02/22 10:30 84 19 98 09/02/22 10:15 103/70 09/02/22 10:15 84 14 98 09/02/22 10:45 85 107/64 09/02/22 10:15 85 103/70 09/02/22 10:00 83 15 124/73 99 09/02/22 09:45 120/71 09/02/22 09:45 84 14 99 09/02/22 09:30 115/64 09/02/22 09:30 79 13 98 09/02/22 09:17 119/68 09/02/22 09:17 80 12 100 09/02/22 09:45 84 120/71 09/02/22 09:15 81 119/68 09/02/22 09:00 36.4 C L 79 09/02/22 09:00 82 15 95 09/02/22 09:00 105/61 09/02/22 08:02 82 18 98 O2 Del Method O2 Flow Rate 09/02/22 19:38 Nasal Cannula 2 09/02/22 16:00 09/02/22 18:00 09/02/22 18:00 09/02/22 17:00 Nasal Cannula 2 09/02/22 17:00 09/02/22 16:00 09/02/22 16:00 09/02/22 15:00 09/02/22 15:00 09/02/22 10:00 09/02/22 10:00 09/02/22 18:06 Nasal Cannula 2 09/02/22 15:16 Nasal Cannula 2 09/02/22 14:00 Nasal Cannula 2 09/02/22 14:00 Nasal Cannula 2 09/02/22 13:00 Nasal Cannula 2 09/02/22 13:00 09/02/22 12:19 09/02/22 12:19 09/02/22 12:00 Nasal Cannula 2 09/02/22 12:00 09/02/22 11:45 09/02/22 11:45 Nasal Cannula 2 09/02/22 11:30 09/02/22 11:30 Nasal Cannula 2 09/02/22 11:15 Nasal Cannula 2 09/02/22 11:15 09/02/22 12:19 09/02/22 12:04 09/02/22 11:45 09/02/22 11:15 09/02/22 11:14 Nasal Cannula 2 09/02/22 11:00 09/02/22 11:00 09/02/22 10:45 09/02/22 10:45 Nasal Cannula 2 09/02/22 10:30 09/02/22 10:30 Nasal Cannula 2 09/02/22 10:15 09/02/22 10:15 Nasal Cannula 2 09/02/22 10:45 09/02/22 10:15 09/02/22 10:00 Nasal Cannula 2 09/02/22 09:45 09/02/22 09:45 Nasal Cannula 2 09/02/22 09:30 09/02/22 09:30 Nasal Cannula 2 09/02/22 09:17 09/02/22 09:17 Nasal Cannula 2 09/02/22 09:45 09/02/22 09:15 09/02/22 09:00 09/02/22 09:00 Nasal Cannula 2 09/02/22 09:00 09/02/22 08:02 Nasal Cannula 2 Laboratory Results Labs reviewed PG Care Time/CCT Total # of Minutes Spent Total Time Spent with Patient: Total time spent is greater than 50% in coordination of care (as documented) at patient's floor/unit and/or counseling patient: Coding Level of Care Code 22613 SUB INP/OBS CARE 3/50MIN Diagnoses Acute kidney injury superimposed on CKD N17.9; N18.9 Anemia D64.9 Elevated troponin R77.8 Left ventricular dysfunction I51.9 Hypocalcemia E83.51 Hypokalemia E87.6 Metabolic acidosis E87.20 COPD (chronic obstructive pulmonary disease) J44.9 Diabetes mellitus, type 2 E11.42; Z79.4 Diabetes mellitus complication detail: with polyneuropathy Diabetes mellitus complication status: with neurologic complications 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 insulin 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: with extermination supervisor use Elevated liver enzymes R74.8 Bladder cancer metastasized to bone C67.9; C79.51 Hypertension I10 Hypertension type: unspecified GERD (gastroesophageal reflux disease) K21.9 Hypercholesteremia E78.00 Rhabdomyolysis M62.82 (1) Diabetes mellitus, type 2 Diabetes mellitus complication detail: with polyneuropathy Diabetes mellitus complication status: with neurologic complications Diabetes mellitus custodial insulin use: with custodial use Qualified Code(s): E11.42 - Type 2 diabetes mellitus with diabetic polyneuropathy; 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
[2022-09-02] MEDS ORDERED: POTASSIUM CHLORIDE / WTR 20 MEQ/100 ML PLCT IV ONE (20:10)
[2022-09-03] MEDS: ALBUT/IPRATROP 3MG/0.5MG NEB 3 ML VIAL NEB SCH ×6 (02:07→22:37)
[2022-09-03 04:16] LABS: Basophils # (auto) 0.02 K/uL (0-0.2); Basophils % (auto) 0.2 %; Eosinophils % (auto) 0.8 %; Hematocrit (blood only) 25.3 % (40.1-51.0); Hemoglobin 8.8 g/dl (14.0-18.0); Immature Granulocytes # (auto) 0.09 K/uL (0.00-0.02); Immature Granulocytes % (auto) 0.7 %; Lymphocytes # (auto) 0.44 K/uL (1.2-3.4); Lymphocytes % (auto) 3.4 %; Mean Corpuscular Hemoglobin 28.6 pg (25.0-34.0); Mean Corpuscular Hgb Conc 34.8 g/dL (32.0-36.0); Mean Corpuscular Volume 82.1 fL (80.0-100.0); Mean Platelet Volume 10.1 fL (9.4-12.4); Monocytes # (auto) 1.15 K/uL (0.24-0.82); Monocytes % (auto) 8.8 %; Neutrophils # (auto) 11.23 K/uL (1.4-6.5); Neutrophils % (auto) 86.1 %; Nucleated RBC # (auto) 0.02 K/uL (0-0); Nucleated RBC % (auto) 0.2 %; Platelet Count 136 K/uL (130-400); RDW Coefficient of Variation 16.5 % (11.5-14.5); RDW Standard Deviation 49.6 fL (36.4-46.3); Red Blood Count 3.08 M/uL (4.63-6.08); White Blood Count 13.03 K/ul (4.8-10.8)
[2022-09-03 04:43] LABS: Albumin Level 2.5 gm/dl (3.4-5.0); BUN Creatinine Ratio 19.9 (10-20); Bilirubin Direct 0.2 mg/dl (0-0.2); Bilirubin,Total 0.7 mg/dl (0.2-1.0); Calcium 6.9 mg/dl (8.5-10.1); Creatinine Clr Calc Pharmacy 20.2 ml/min; Est GFR (African American) 17.8 ml/min; Est GFR (Non-African American) 15.4 ml/min; Magnesium 1.9 mg/dl (1.7-2.4); Phosphorus 6.4 mg/dl (2.5-4.9); Potassium 3.8 mmol/L (3.5-5.1); Total Protein 5.3 gm/dl (6.0-8.3)
[2022-09-03 08:19] LABS: Estimated Average Glucose 154 mg/dl
[2022-09-03] MEDS: ASPIRIN 81 MG ECTAB PO SCH (08:23)
[2022-09-03] MEDS: carvediloL 3.125 MG TAB PO SCH ×2 (08:23→22:16)
[2022-09-03] MEDS: INSULIN ASPART PER UNIT SC SCH ×4 (08:28→22:17)
[2022-09-03 08:57] LABS: HBSAG NON-REACTIVE (NON-REACTIVE); Hepatitis B Surface Ab, Quant <5 mIU/mL (> OR = 10)
[2022-09-03] MEDS: PANTOprazole 40 MG in SYRINGE 0 ML IV SCH ×2 (10:21→22:18)
[2022-09-03] MEDS: CALCITRIOL 0.25 MCG CAPSULE PO SCH (10:21)
[2022-09-03 10:56] LABS: Urea Nitrogen, Random Urine 393 mg/dL
--- NOTE | 2022-09-03 11:03 | Hospitalist Progress Note ---
Date of Service September 03, 2022 Assessment & Plan (1) Acute kidney injury superimposed on CKD: Plan: CKD stage 3 - baseline Cr low 2's. presented with profound JEAN/Acute renal failure - likely multifactorial in etiology (rhabdomyolysis, ARB use, prerenal from poor PO intake, etc). s/p temporary dialysis catheter placement R IJ - has received 3 HD treatments to date with improvement in indices and some improvement in mentation. appreciate nephro assistance. BMP in am. It is uncertain if patient desires ongoing HD treatments. Hoping mentation clears further to be able to tell us, but his family believes he likely would not want such. re-eval tomorrow. (2) ESRD (end stage renal disease): Plan: at this point nephrology believes he likely has achieved ESRD status see above (3) Anemia: Plan: s/p 2 units PRBCs earlier this stay. H/H stable since then. CBC am. 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 improved s/p copious IV replacement. corrected total calcium today is nearing normal. defer on IV replacement today. (6) Hypokalemia: Plan: normalized BMP am (7) Metabolic acidosis: Plan: 2nd to acute renal failure +/- DKA -- resolved (8) COPD (chronic obstructive pulmonary disease): Plan: suspected diffuse wheezing on exam - some of which could be pulmonary edema, some of which could be undiagnosed COPD cont nebs starting steroids for gout which will help (9) Diabetes mellitus, type 2: Plan: appreciate pharmacy assistance required IV insulin early on - now off such and over to basal-bolus Rx (10) Elevated liver enzymes: Plan: 2nd to rhabdomyolysis? other? repeat CPK + LFTS in am (11) Bladder cancer metastasized to bone: Plan: noted uncertain about the status of this issue (12) Hypertension: Plan: ARB on hold cont low-dose coreg (13) GERD (gastroesophageal reflux disease): Plan: PPI IV (14) Hypercholesteremia: Plan: holding statin 2nd to #14 (15) Rhabdomyolysis: Plan: improving biochemically repeat level CPK am rhabdo was 2nd to fall at home (16) Gout: Plan: b/l feet - podagra solumedrol IV x 1 and re-eval tomorrow uric acid in am (17) Acute metabolic encephalopathy: Plan: 2nd to JEAN, other factors cont supportive care (18) Ischemic cardiomyopathy: Plan: echo c/w such with multiple wall motion abnormalities EF 45-50% cont asa cont coreg (19) Systolic CHF: Plan: EF 45-50% based on echo this admission dialysis will provide volume control cont coreg not BETHANIE/ARB candidate at this time due to acute renal failure Plan tobacco dependence - provide nicoderm patch 21mg/day updated pt's daughter Rachana by phone this evening she reports she is coming to hospital tomorrow to visit will inform palliative she is coming - will try to coordinate goals of care discussion very poor prognosis overall Admission and Anticipated Discharge Date Admission Date: August 31, 2022 Subjective patient awake during the visit, but confused - did not know why he was in the hospital (although he knew he was at "[facility]") stated several times - "everything is fine" I explained to him he had required HD when he arrived here due to his kidneys failing he stared for a moment I asked him if he knew what that meant I asked him if he would want to continue dialysis - he shook his head "no" he was unable to provide any meaningful history due to his confusion he did deny pain in any location except "my feet" he could not tell me when it started Review of Systems Review of Systems: Unobtainable due to cognitive status Physical Exam Physical Exam: gen - looks ill, disheveled, confused, mild tachypnea noted neck - right IJ CVC clean heart - RRR, s1 s2 lungs - diffuse wheezing b/l, mild tachypnea abd - soft NT ND BS+ ext - trace edema, pulses 2+ b/l musculo - left great toe podagra - mod-severe; right great toe podagra - mild psych - oriented to person/place but not time Results & Data Results & Data ([facility]) Vital Signs (Past 12 Hours) Vital Signs Temp Pulse Pulse Resp BP Pulse Ox O2 Del Method 09/03/22 09:22 Nasal Cannula 09/03/22 09:18 86 09/03/22 07:18 75 20 98 Nasal Cannula 09/03/22 06:01 36.7 C 09/03/22 04:00 76 14 97 09/03/22 04:00 107/64 09/03/22 02:07 84 16 95 Nasal Cannula 09/03/22 01:33 75 09/03/22 00:00 79 15 97 09/03/22 00:00 112/63 O2 Flow Rate 09/03/22 09:22 2 09/03/22 09:18 09/03/22 07:18 2 09/03/22 06:01 09/03/22 04:00 09/03/22 04:00 09/03/22 02:07 2 09/03/22 01:33 09/03/22 00:00 09/03/22 00:00 Laboratory Results Laboratory Results - last 24 hr 08/31/22 08/31/22 09/03/22 08:05 20:30 03:56 Sodium 137 Potassium 3.8 Chloride 103 Carbon Dioxide 24 Anion Gap 10 BUN 78 H Creatinine 3.92 H D Est Cr Clr Drug Dosing 20.2 Est GFR ( Amer) 17.8 Est GFR (Non-Af Amer) 15.4 BUN/Creatinine Ratio 19.9 Glucose 71 POC Glucose Estimat Average Glucose Hemoglobin A1c Calcium 6.9 L Phosphorus 6.4 H Magnesium 1.9 Total Bilirubin 0.7 Direct Bilirubin 0.2 AST 75 H ALT 78 H Alkaline Phosphatase 174 H Total Creatine Kinase Total Protein 5.3 L Albumin 2.5 L Ur Random Urea Nitrogn 393 Hep Bs Antigen NON-REACTIVE Hep Bs Ag Confirmation TNP Hep Bs Antibody, Quant <5 L 09/03/22 09/03/22 09/03/22 03:56 03:56 08:26 Sodium Potassium Chloride Carbon Dioxide Anion Gap BUN Creatinine Est Cr Clr Drug Dosing Est GFR ( Amer) Est GFR (Non-Af Amer) BUN/Creatinine Ratio Glucose POC Glucose 75 Estimat Average Glucose 154 Hemoglobin A1c 7.0 H Calcium Phosphorus Magnesium Total Bilirubin Direct Bilirubin AST ALT Alkaline Phosphatase Total Creatine Kinase 1753 H Total Protein Albumin Ur Random Urea Nitrogn Hep Bs Antigen Hep Bs Ag Confirmation Hep Bs Antibody, Quant 09/03/22 09/03/22 09/03/22 11:54 16:17 21:32 Sodium Potassium Chloride Carbon Dioxide Anion Gap BUN Creatinine Est Cr Clr Drug Dosing Est GFR ( Amer) Est GFR (Non-Af Amer) BUN/Creatinine Ratio Glucose POC Glucose 78 141 H 170 H Estimat Average Glucose Hemoglobin A1c Calcium Phosphorus Magnesium Total Bilirubin Direct Bilirubin AST ALT Alkaline Phosphatase Total Creatine Kinase Total Protein Albumin Ur Random Urea Nitrogn Hep Bs Antigen Hep Bs Ag Confirmation Hep Bs Antibody, Quant PG Care Time/CCT Total # of Minutes Spent Total Time Spent with Patient: Total time spent is greater than 50% in coordination of care (as documented) at patient's floor/unit and/or counseling patient: Coding Level of Care Code 33903 SUB INP/OBS CARE 3/50MIN Diagnoses Acute kidney injury superimposed on CKD N17.9; N18.9 ESRD (end stage renal disease) N18.6 Anemia D64.9 Elevated troponin R77.8 Hypocalcemia E83.51 Hypokalemia E87.6 Metabolic acidosis E87.20 COPD (chronic obstructive pulmonary disease) J44.9 Diabetes mellitus, type 2 E11.42; Z79.4 Diabetes mellitus complication detail: with polyneuropathy Diabetes mellitus complication status: with neurologic complications Diabetes mellitus senior care insulin use: with senior care use Elevated liver enzymes R74.8 Bladder cancer metastasized to bone C67.9; C79.51 Hypertension I10 Hypertension type: unspecified GERD (gastroesophageal reflux disease) K21.9 Hypercholesteremia E78.00 Rhabdomyolysis M62.82 Gout M10.9 Acute metabolic encephalopathy G93.41 Ischemic cardiomyopathy I25.5 Systolic CHF I50.20 (1) Diabetes mellitus, type 2 Diabetes mellitus complication detail: with polyneuropathy Diabetes mellitus complication status: with neurologic complications 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
[2022-09-03] MEDS ORDERED: methylPREDNISolone 40 MG in SYRINGE 0 ML IV ONE (11:15)
[2022-09-03] MEDS: CALCIUM CARBONATE 500 MG CHEWABLE TAB PO SCH ×2 (11:56→18:30)
--- NOTE | 2022-09-03 12:21 | Nephrology Progress Note ---
Date of Service September 03, 2022 Assessment & Plan (1) ESRD (end stage renal disease): (2) Altered mental status: (3) Anemia: (4) Metabolic acidosis: (5) Hypocalcemia: (6) Hypokalemia: Plan 62-year-old male with PMH of COPD, HTN, DM type II, CKD stage III, PAD, and bladder cancer admitted with AMS, Uremia, BUN >200, Cr 14 after he was found at home to be confused and obtunded. Started on HD via rt IJ TDC. Clinically much improve, more awake, alert and oriented. --Had HD yesterday, K improved to 3.7 --dose meds for eGFR <10 --if pt agrees to continue on IHD, will need to set up outpt HD at [place] Will follow. Admission and Anticipated Discharge Date Admission Date: August 31, 2022 Subjective Rajesh was seen and evaluated this morning. Awake and alert and he was upset as he was not getting what he wants to eat. Denies any symptoms. BP acceptable. Review of Systems Review of Systems: detail ROS was not possible due to pts mental health status. Physical Exam Constitutional: WD/WN, vitals as above + ill appearing and comfortable; not in distress Respiratory: normal respiratory effort; no respiratory distress A uscultation: + crackles; no wheezes Cardiovascular: Rate/Rhythm: regular rate and regular rhythm Heart Sounds: normal S1 and normal S2 Extremities: no edema Skin: no rashes Neurologic: no focal motor deficits Psychiatric: Orientation: oriented to place and cooperative Results & Data ([facility]) Vital Signs (Past 12 Hours) Vital Signs Temp Pulse Pulse Resp BP Pulse Ox O2 Del Method 09/03/22 11:12 75 18 93 Nasal Cannula 09/03/22 09:22 Nasal Cannula 09/03/22 09:18 86 09/03/22 07:18 75 20 98 Nasal Cannula 09/03/22 06:01 36.7 C 09/03/22 04:00 76 14 97 09/03/22 04:00 107/64 09/03/22 02:07 84 16 95 Nasal Cannula 09/03/22 01:33 75 O2 Flow Rate 09/03/22 11:12 2 09/03/22 09:22 2 09/03/22 09:18 09/03/22 07:18 2 09/03/22 06:01 09/03/22 04:00 09/03/22 04:00 09/03/22 02:07 2 09/03/22 01:33 PG Care Time/CCT Total # of Minutes Spent Total Time Spent with Patient: Total time spent is greater than 50% in coordination of care (as documented) at patient's floor/unit and/or counseling patient: Coding Level of Care Code 89235 SUB INP/OBS CARE 2/35MIN Diagnoses ESRD (end stage renal disease) N18.6 Altered mental status R41.82 Anemia D64.9 Metabolic acidosis E87.20 Hypocalcemia E83.51 Hypokalemia E87.6
--- NOTE | 2022-09-03 12:29 | Pharmacy Report ---
Pharmacy Glycemic Short Note 2 - Date of Service September 03, 2022 - Glycemic Short BSG Results (Last 24 hours): 09/02/22 09/02/22 09/02/22 12:24 12:38 15:46 Glucose 91 POC Glucose 89 84 09/02/22 09/02/22 09/03/22 16:55 20:59 03:56 Glucose 87 71 POC Glucose 89 09/03/22 09/03/22 08:26 11:54 Glucose POC Glucose 75 78 OUTPATIENT ANTIDIABETIC REGIMEN: * Insulin Glargine 12 units BID, Insulin lispro 6 units BIDM ASSESSMENT: 09/03: * Fasting BSG 71 this morning. Lantus dose was held. Lunch BSG remains on the lower end at 78 mg/dL. PO intake minimal. Will hold any further basal insulin today and reassess tomorrow. Continue with conservative NovoLog scale and goal range. 09/02: * BSG trended down throughout the day yesterday, up to 132 mg/dL this morning with D5 + 1/2 NS @100 ml/hr running * Fluids discontinued, reduced lantus dose ~34% to 8 units * BSG 89 mg/dL at lunch, full liquid diet ordered, loosened carb ratio * HD planned for today 09/01: * Insulin drip was discontinued this morning per Dr. Muñoz; drip rate was 1.7 units/hr at that time. Nurse had given Lantus 12 units based off of patient's home dose and Novolog with breakfast before drip discontinued. Novolog parameters based on wt and moderate stress. * Since patient with renal failure and dialysis, will wait to add HS basal dose depending on how his BSGs trend today. Overnight checks added. * IV fluids D51/2 NS running at 100 ml/hr. Patient received 40 meq of IV KCL this AM for low potassium. 08/31/22: * Patient admitted with acute renal failure, SCR 14.48, patient to undergo emergent Hemodialysis * Initial Bicarb 4, VpH 7.03, Anion gap 34 BSG 305 mg/dL : negative ketones in urine. Per [employer] C[employer] Helper unable to r/o DKA component with concomitant severe renal failure- to initiate insulin infusion at 2 units/ hr with goal range 150-250 mg/mL * Complicated by hypokalemia in renal failure; received replacement of 40 mEq, hemodialysis- monitoring closely. * Fluids adjust to D5 +1/2NS + 20 mEq KCl when BSG in goal range PLAN FOR INPATIENT GLYCEMIC CONTROL: * Insulin drip discontinued this AM * Basal insulin * Hold, reassess tomorrow. * Bolus insulin * NovoLog per scale ACHS or Q6hrs while NPO * Goal Range: Low 120 mg/dL - High 160 mg/dL * Correction Factor: 30 mg/dL/unit * Nutritional / Prandial insulin per carb ratio of 1 unit per 15 grams CHO consumed
[2022-09-03] MEDS: NICOTINE 21 MG/24 HR TDSY TD SCH ×2 (22:16→22:33)
[2022-09-04] MEDS: ALBUT/IPRATROP 3MG/0.5MG NEB 3 ML VIAL NEB SCH ×6 (02:03→23:28)
[2022-09-04 04:58] LABS: Hematocrit (blood only) 26.7 % (40.1-51.0); Hemoglobin 9.2 g/dl (14.0-18.0); Mean Corpuscular Hemoglobin 28.7 pg (25.0-34.0); Mean Corpuscular Hgb Conc 34.5 g/dL (32.0-36.0); Mean Corpuscular Volume 83.2 fL (80.0-100.0); Platelet Count 162 K/uL (130-400); RDW Coefficient of Variation 16.5 % (11.5-14.5); RDW Standard Deviation 49.7 fL (36.4-46.3); Red Blood Count 3.21 M/uL (4.63-6.08); White Blood Count 19.01 K/ul (4.8-10.8)
[2022-09-04 05:32] LABS: BUN Creatinine Ratio 17.7 (10-20); Calcium 6.6 mg/dl (8.5-10.1); Est GFR (African American) 11.5 ml/min; Est GFR (Non-African American) 9.9 ml/min; Phosphorus 7.8 mg/dl (2.5-4.9); Potassium 3.9 mmol/L (3.5-5.1); Uric Acid 6.4 mg/dl (2.6-7.2)
[2022-09-04] MEDS ORDERED: STAT IV STA (07:49)
[2022-09-04] MEDS ORDERED: CALCIUM GLUCONATE 10% 1,000 MG in DEXTROSE 5% 50 ML IV ONE (08:00)
[2022-09-04] MEDS: INSULIN ASPART PER UNIT SC SCH ×4 (08:54→20:32)
[2022-09-04] MEDS: carvediloL 3.125 MG TAB PO SCH ×2 (08:56→20:32)
[2022-09-04] MEDS: CALCIUM CARBONATE 500 MG CHEWABLE TAB PO SCH ×3 (08:56→20:32)
[2022-09-04] MEDS: LANTUS PER UNIT CHARGE SQ SCH (08:57)
[2022-09-04] MEDS: ASPIRIN 81 MG ECTAB PO SCH (08:57)
[2022-09-04] MEDS: NICOTINE 21 MG/24 HR TDSY TD SCH (08:58)
[2022-09-04] MEDS: PANTOprazole 40 MG in SYRINGE 0 ML IV SCH ×2 (09:06→20:33)
[2022-09-04] MEDS: CALCITRIOL 0.25 MCG CAPSULE PO SCH (09:06)
--- NOTE | 2022-09-04 12:31 | Hospitalist Progress Note ---
Date of Service September 04, 2022 Assessment & Plan (1) Acute kidney injury superimposed on CKD: Plan: CKD stage 3 - baseline Cr low 2's. presented with profound JEAN/Acute renal failure - likely multifactorial in etiology (rhabdomyolysis, ARB use, prerenal from poor PO intake, etc) - all in the setting of CKD. s/p temporary dialysis catheter placement R IJ - had received 3 HD treatments prior, and 4th one today. patient was very consistent in his desires to NOT pursue ongoing dialysis after today's session. he cited multiple reasons for not wanting such including just wanting to go home, not being able to get transportation to HD sessions, etc. daughter Rachana stated he has been declining significantly over the last 2-3 months on global scale. patient and his family will continue to think about options for his care but he is leaning heavily towards NOT wanting ongoing HD. again he was counseled, in the presence of his daughter, that without HD he would likely from his kidney disease in the next few weeks or days. he was consistent about not wanting HD; I do believe he has enough capacity today to understand the ramifications of these decisions. (2) ESRD (end stage renal disease): Plan: at this point nephrology believes he likely has achieved ESRD status see above #1 (3) Anemia: Plan: s/p 2 units PRBCs earlier this stay. H/H stable since then. CBC am. 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 improved s/p copious IV replacement. corrected total calcium today is about 7.5. gave additional IV replacement today (calcium gluconate 1gm IV x 1). remains on calcitriol daily and calcium carbonate TID (6) Hypokalemia: Plan: normalized BMP am (7) Metabolic acidosis: Plan: 2nd to acute renal failure +/- DKA -- resolved (8) COPD (chronic obstructive pulmonary disease): Plan: suspected diffuse wheezing on exam - some of which could be pulmonary edema, some of which could be undiagnosed COPD wheezing improved today s/p IV solumedrol and nebs (9) Diabetes mellitus, type 2: Plan: appreciate pharmacy assistance required IV insulin early on - now off such and over to basal-bolus Rx (10) Elevated liver enzymes: Plan: 2nd to rhabdomyolysis? other? repeat CPK again improved; LFTs are about the same (11) Bladder cancer metastasized to bone: Plan: noted uncertain about the status of this issue (12) Hypertension: Plan: ARB on hold cont low-dose coreg (13) GERD (gastroesophageal reflux disease): Plan: PPI IV (14) Hypercholesteremia: Plan: holding statin 2nd to #14 (15) Rhabdomyolysis: Plan: improving biochemically once again; level now well under 1000 rhabdo was 2nd to fall at home (16) Gout: Plan: b/l feet - podagra improved following steroids yesterday solumedrol IV x 1 again today uric acid 6.4 (17) Acute metabolic encephalopathy: Plan: 2nd to JEAN, other factors improved cont supportive care (18) Ischemic cardiomyopathy: Plan: echo c/w such with multiple wall motion abnormalities EF 45-50% cont asa cont coreg no ischemic symptoms at this time (19) Systolic CHF: Plan: EF 45-50% based on echo this admission dialysis will provide volume control for now cont coreg not BETHANIE/ARB candidate at this time due to acute renal failure Plan tobacco dependence - cont nicoderm patch 21mg/day updated pt's daughter Rachana extensively at bedside today appreciate Ms Sahu's consultation from palliative care if patient continues to refuse ongoing dialysis then remove temporary HD catheter from right IJ, perhaps as early as tomorrow total time today - complex care coordination - about 55 minutes including counseling the patient and his daughter, speaking with palliative, etc Admission and Anticipated Discharge Date Admission Date: August 31, 2022 Subjective patient quite irritable during the visit, stating repeatedly "just let me go home" he was receiving his HD treatment during my visit his sister in law as well as his daughter, Rachana, were both at bedside Rachana felt that his mentation had improved and was nearing his typical baseline during my visit he stated he was in the hospital "because of my kidneys" but thought he was in [facility] I explained to him that if he went home without dialysis services that he would from his kidney disease he stated once "well, it is what it is" and, on another time, he reported "how am I gonna be able to get to dialysis treatments?" he was upset about his restraints, stating "this is one of the worst places I've ever been" we told him the restraints had been in place due to his prior confusion and the concern he would dislodge his right IJ HD catheter reported some ongoing b/l foot pain but not as severe Review of Systems Review of Systems: gen - tired, weak cv - no chest pain pulm - mild dyspnea, mild cough GI - no abd pain Physical Exam Physical Exam: gen - looks ill, disheveled; confusion improved; tachypnea improved; more awake/alert today neck - right IJ CVC clean; currently in use for dialysis heart - RRR, s1 s2, no murmur lungs - diffuse wheezing b/l improved today; tachypnea improved today abd - soft NT ND BS+ ext - trace edema, pulses 2+ b/l musculo - left great toe podagra - improved; right great toe podagra - resolved; each big toe less tender to palpation today psych - oriented to person, place ([facility]) but not location ([facility]) neuro - speech mildly dysarthric Results & Data Results & Data ([facility]) Vital Signs (Past 12 Hours) Vital Signs Temp Pulse Pulse Pulse Resp BP Pulse Ox 09/04/22 11:00 114/70 09/04/22 11:00 87 13 93 09/04/22 10:45 86 15 94 09/04/22 10:45 128/65 09/04/22 10:33 82 13 92 09/04/22 10:33 114/56 L 09/04/22 10:00 78 15 91 09/04/22 10:00 124/60 09/04/22 08:00 75 15 100 09/04/22 08:00 128/72 09/04/22 07:00 72 12 99 09/04/22 11:30 85 109/60 09/04/22 11:00 85 119/62 09/04/22 10:30 82 93/55 L 09/04/22 10:15 78 103/53 L 09/04/22 10:00 36.7 C 78 114/62 09/04/22 09:44 36.7 C 78 09/04/22 08:00 78 09/04/22 10:00 77 18 98 09/04/22 07:25 74 20 98 09/04/22 06:00 82 20 129/69 99 09/04/22 05:00 73 14 97 09/04/22 04:00 73 16 99 09/04/22 04:00 128/70 09/04/22 03:00 78 18 97 09/04/22 03:00 36.7 C 09/04/22 02:00 73 12 98 09/04/22 02:00 114/67 09/04/22 01:00 71 15 98 09/04/22 02:03 72 18 98 O2 Del Method O2 Flow Rate 09/04/22 11:00 09/04/22 11:00 09/04/22 10:45 09/04/22 10:45 09/04/22 10:33 09/04/22 10:33 09/04/22 10:00 Nasal Cannula 2 09/04/22 10:00 09/04/22 08:00 Nasal Cannula 2 09/04/22 08:00 09/04/22 07:00 Nasal Cannula 2 09/04/22 11:30 09/04/22 11:00 09/04/22 10:30 09/04/22 10:15 09/04/22 10:00 09/04/22 09:44 09/04/22 08:00 09/04/22 10:00 Nasal Cannula 2 09/04/22 07:25 Nasal Cannula 2 09/04/22 06:00 09/04/22 05:00 09/04/22 04:00 09/04/22 04:00 09/04/22 03:00 09/04/22 03:00 09/04/22 02:00 09/04/22 02:00 09/04/22 01:00 09/04/22 02:03 Nasal Cannula 2 Laboratory Results Laboratory Results - last 24 hr 09/03/22 09/03/22 09/04/22 16:17 21:32 04:46 WBC RBC Hgb Hct MCV MCH MCHC RDW Std Deviation RDW Coeff of Diane Plt Count MPV Sodium 137 Potassium 3.9 Chloride 102 Carbon Dioxide 19 L Anion Gap 16 H BUN 100 H D Creatinine 5.65 H* D Est Cr Clr Drug Dosing 14.0 Est GFR ( Amer) 11.5 Est GFR (Non-Af Amer) 9.9 BUN/Creatinine Ratio 17.7 Glucose 206 H POC Glucose 141 H 170 H Uric Acid 6.4 Calcium 6.6 L Phosphorus 7.8 H Total Creatine Kinase 715 H 09/04/22 09/04/22 04:46 08:24 WBC 19.01 H RBC 3.21 L Hgb 9.2 L Hct 26.7 L MCV 83.2 MCH 28.7 MCHC 34.5 RDW Std Deviation 49.7 H RDW Coeff of Diane 16.5 H Plt Count 162 MPV 10.0 Sodium Potassium Chloride Carbon Dioxide Anion Gap BUN Creatinine Est Cr Clr Drug Dosing Est GFR ( Amer) Est GFR (Non-Af Amer) BUN/Creatinine Ratio Glucose POC Glucose 171 H Uric Acid Calcium Phosphorus Total Creatine Kinase PG Care Time/CCT Total # of Minutes Spent Total Time Spent with Patient: Total time spent is greater than 50% in coordination of care (as documented) at patient's floor/unit and/or counseling patient: Coding Level of Care Code 95277 SUB INP/OBS CARE 3/50MIN Diagnoses Acute kidney injury superimposed on CKD N17.9; N18.9 ESRD (end stage renal disease) N18.6 Anemia D64.9 Elevated troponin R77.8 Hypocalcemia E83.51 Hypokalemia E87.6 Metabolic acidosis E87.20 COPD (chronic obstructive pulmonary disease) J44.9 Diabetes mellitus, type 2 E11.42; Z79.4 Diabetes mellitus complication detail: with polyneuropathy Diabetes mellitus complication status: with neurologic complications Diabetes mellitus 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 Elevated liver enzymes R74.8 Bladder cancer metastasized to bone C67.9; C79.51 Hypertension I10 Hypertension type: unspecified GERD (gastroesophageal reflux disease) K21.9 Hypercholesteremia E78.00 Rhabdomyolysis M62.82 Gout M10.9 Acute metabolic encephalopathy G93.41 Ischemic cardiomyopathy I25.5 Systolic CHF I50.20 (1) Diabetes mellitus, type 2 Diabetes mellitus complication detail: with polyneuropathy Diabetes mellitus complication status: with neurologic complications Diabetes mellitus snf insulin use: with snf use Qualified Code(s): E11.42 - Type 2 diabetes mellitus with diabetic polyneuropathy; Z79.4 - snf (current) use of insulin (2) Hypertension Hypertension type: unspecified Qualified Code(s): I10 - Essential (primary) hypertension
[2022-09-04] MEDS ORDERED: methylPREDNISolone 30 MG in SYRINGE 0 ML IV ONE (12:45)
--- NOTE | 2022-09-04 13:39 | Nephrology Progress Note ---
Date of Service September 04, 2022 Assessment & Plan (1) ESRD (end stage renal disease): (2) Altered mental status: (3) Anemia: (4) Metabolic acidosis: (5) Hypocalcemia: (6) Hypokalemia: Plan 62-year-old male with PMH of COPD, HTN, DM type II, CKD stage III, PAD, and bladder cancer admitted with AMS, Uremia, BUN >200, Cr 14 after he was found at home to be confused and obtunded. Started on HD via rt IJ TDC. Clinically much improve, more awake, alert and oriented. --Plan for dialysis this morning as his regular schedule, for 4 hour on a aim for 2 L UF. --dose meds for eGFR <10 --if pt agrees to continue on IHD, will need to set up outpt HD at [facility] Will follow. Admission and Anticipated Discharge Date Admission Date: August 31, 2022 Subjective Rajesh was seen and evaluated this morning. Awake and alert. Denies any symptoms. BP acceptable. Review of Systems Review of Systems: detail ROS was Otherwise unremarkable. Physical Exam Constitutional: WD/WN, vitals as above + ill appearing and comfortable; not in distress Respiratory: normal respiratory effort; no respiratory distress Auscultation: lungs clear to auscultation bilaterally and + crackles; no wheezes Cardiovascular: Rate/Rhythm: regular rate and regular rhythm Heart Sounds: normal S1 and normal S2 Extremities: no edema Neurologic: no focal motor deficits Psychiatric: Orientation: oriented to place and cooperative Results & Data ([facility]) Vital Signs (Past 12 Hours) Vital Signs Temp Pulse Pulse Pulse Resp BP Pulse Ox 09/04/22 12:30 80 123/77 09/04/22 12:00 81 122/64 09/04/22 11:00 114/70 09/04/22 11:00 87 13 93 09/04/22 10:45 86 15 94 09/04/22 10:45 128/65 09/04/22 10:33 82 13 92 09/04/22 10:33 114/56 L 09/04/22 10:00 78 15 91 09/04/22 10:00 124/60 09/04/22 08:00 75 15 100 09/04/22 08:00 128/72 09/04/22 07:00 72 12 99 09/04/22 11:30 85 109/60 09/04/22 11:00 85 119/62 09/04/22 10:30 82 93/55 L 09/04/22 10:15 78 103/53 L 09/04/22 10:00 36.7 C 78 114/62 09/04/22 09:44 36.7 C 78 09/04/22 08:00 78 09/04/22 10:00 77 18 98 09/04/22 07:25 74 20 98 09/04/22 06:00 82 20 129/69 99 09/04/22 05:00 73 14 97 09/04/22 04:00 73 16 99 09/04/22 04:00 128/70 09/04/22 03:00 78 18 97 09/04/22 03:00 36.7 C 09/04/22 02:00 73 12 98 09/04/22 02:00 114/67 09/04/22 02:03 72 18 98 O2 Del Method O2 Flow Rate 09/04/22 12:30 09/04/22 12:00 09/04/22 11:00 09/04/22 11:00 09/04/22 10:45 09/04/22 10:45 09/04/22 10:33 09/04/22 10:33 09/04/22 10:00 Nasal Cannula 2 09/04/22 10:00 09/04/22 08:00 Nasal Cannula 2 09/04/22 08:00 09/04/22 07:00 Nasal Cannula 2 09/04/22 11:30 09/04/22 11:00 09/04/22 10:30 09/04/22 10:15 09/04/22 10:00 09/04/22 09:44 09/04/22 08:00 09/04/22 10:00 Nasal Cannula 2 09/04/22 07:25 Nasal Cannula 2 09/04/22 06:00 09/04/22 05:00 09/04/22 04:00 09/04/22 04:00 09/04/22 03:00 09/04/22 03:00 09/04/22 02:00 09/04/22 02:00 09/04/22 02:03 Nasal Cannula 2 PG Care Time/CCT Total # of Minutes Spent Total Time Spent with Patient: Total time spent is greater than 50% in coordination of care (as documented) at patient's floor/unit and/or counseling patient: Coding Level of Care Code 78578 SUB INP/OBS CARE MIN Diagnoses ESRD (end stage renal disease) N18.6 Altered mental status R41.82 Anemia D64.9 Metabolic acidosis E87.20 Hypocalcemia E83.51 Hypokalemia E87.6
--- NOTE | 2022-09-04 14:09 | Palliative Care Progress Note ---
Date of Service September 04, 2022 Assessment & Plan (1) Palliative care encounter: Plan: Met with pt/family. Provided overview of Palliative Medicine, a subspecialty that provides specialized medical care for people living with a serious illness by offering a focus on quality of life. Palliative Medicine is often conflated with hospice: I advised patient/family that Palliative and hospice can be partners but we are not the same. It is important to understand the difference so that we may be informed, and not afraid. Palliative Medicine works to improve QOL through reduction of symptom burden/more control over their illness, for both the patient and family. Palliative medicine clinicians are board certified, specially-trained and another member of the patient's medical care team. We often provide an extra layer of support because our care is based on the needs of the patient, not the prognosis; as such, it's appropriate at any age/advancing stage of a serious illness and can be provided along with curative treatment. Palliative Medicine clinicians are also trained in advanced communication methodologies, to facilitate complex discussions about advanced illness planning, which are needed to help assure that the treatment choices match the patient's goals, aka delivering Goal Concordant care. Finally, we discussed that hospice is a visiting nurse service that focuses on care delivered at the very end of life for patients with terminal illness, with life expectancy less than 6 month. Patient was advised by Dr. Brizuela that he will need dialysis for the remainder of his life. This would require 3 times a week commitment. Patient states mary dykes that he does not want dialysis. He does not wish to commit to an ongoing medical therapy. He states that he just wants to be discharged so he can return home. When questioned if he understood the implications of that decision he replied that he understood he would but that "everyone has to go at some time and it is what it is." Patient was queried multiple times about pursuing dialysis. He consistently replied he would not accept this therapy and would not continue it outside of the hospital. Furthermore he adds that he wants his restraints removed and be discharged home "right now." His daughter and his sister at the bedside. They repeatedly try to encourage him to consider pursuing dialysis, indicating that they would try to help support him and that he would have assistance with transportation to his appointments for dialysis. Patient repeatedly and again consistently stated he does not wish to pursue dialysis with therapy and he accepts that his mortality would be from end-stage renal failure without continue dialysis. He states that for this period of time he may have remaining he wishes to be at home. His daughter and his sister are supportive of his choices and reinforced that they would continue to provide support and care for him as they are able. Patient resides in a private home with his mother who was in her 80s as well as a brother who was in his 50s and has had a stroke. Both of family members that he resides with has their own medical issues that limit their ability to provide [id number] care for him. (2) Advanced care planning/counseling discussion: Plan: A 45-minute discussion was held in two parts: at the patient's bedside and then in a private room with patient's daughter and his sister. I have provided education about the hospice benefit to both patient and his family.. Hospice is an interdisciplinary program offered by nurses, nurses aides, social workers, chaplains and a medical customer service representative for patients with a terminal condition and a life expectancy of less than 6 months. The goal would be to improve the quality of life of the patient in their home setting (home, skilled nursing, inpatient hospice setting) by providing symptoms management, psychosocial and spiritual support. However, they cannot offer 24 hours care and if the family is unable to provide that care, they will have to consider personal care with out of pocket cost vs. skilled nursing placement. Patient's daughter Rachana states that she has an aunt and uncle who live nearby who would likely be able to help care for patient in addition to his mother and brother who are side of the house with him. She wants to have a family meeting with her family later this evening before committing to the idea of home with hospice, noting that she first needs to check with her grandmother if it would be okay for patient to come home for end-of-life care in the grandmother's home. She notes that her aunt who lives nearby is a retired RN and would likely be able to provide a significant portion of his care and medication management. Rachana herself lives about an hour away I would not be able to come by on a regular basis but is able to commit to being there throughout the weekend to provide ongoing care for patient. She asked and we discussed the prognosis of end-stage renal disease and the cessation of hemodialysis. I advised her that the low anticipated survival without dialysis in this setting would be approximately 2 weeks noting that patients who have more complex her advanced comorbidities may have less time than those who may have been healthier before their end-stage renal disease struck them. She verbalized understanding and indicates she may need to apply for FMLA to provide the time off. (3) ESRD (end stage renal disease): Plan: Patient consistently declines the offer of continued hemodialysis. He does not wish to pursue this therapy in the outpatient setting and understands that it will be what causes his end-of-life. He wants to focus what ever time he has remaining at home and with his family. He understands that the cessation of dialysis will ultimately lead to his . We talked about what the process of end-of-life would be for an end-stage renal disease patient. Pt/family were educated re EOL w/ESRD:Pt stopping dialysis may live anywhere from one week to several weeks, depending on the amount of kidney function they have left and their overall medical condition.In hospitalized patients who stopped dialysis,confusion/agitation was reported to affect 70% of patients, followed by pain (55%), dyspnea (48%), nausea (36%), twitching/seizures (27%), anxiety/psychological distress (27%), pruritis (24%), and peripheral edema (21%). Advised thatmean survival following dialysis withdrawal is 8-10 days (although rarely can be many weeks); would note that advanced age, multiple comorbidities+frailty, I anticipate this will be shorter anticipated survival. Encouraged family to notify others who may want to visit or speak with pt, as periods of lucidity will decline as ESRD progresses along this EOL trajectory. I addressedthe likelihood of progressive encephalopathy. Reassuredpatient/familythat symptoms can be adequately treatedbut drugs with sedating side effects may be necessary to ensure comfort. Discusseddiet: provide pt witha liberal, pleasure-based dietto focus on comfort and QOL, acknowledging that this mayworsen symptoms from edema. (Sources: - https://www.mypcnow.org/fast-fact/biutbwvzemtvctd-ol-iftukkyh-receiving-dialysis / -Melly SN. End-of-life care preferences and needs: perceptions of patients with chronic kidney disease. Clinical Journal of the [place] Society of Nephrology: CJASN. 2010;5:195-204. -Jose D KF, Mike B, Moises V and Hola METZ. Employment among Patients Starting Dialysis in the [place]. Clinical Journal of the [place] Society of Nephrology: CJASN. 2018. -Karson GIANG, Demar MJ, Josh DM. Practical considerations in dialysis withdrawal. To have that option is a blessing. CECE. 2003; 289:4076-8023. -Melly SN and Millie GS. Impact of pain and symptom burden on the health- related quality of life of hemodialysis patients. Journal of Pain and Symptom Management. 2010;39:477-85.) (4) Acute metabolic encephalopathy: (5) Ischemic cardiomyopathy: (6) Systolic CHF: (7) Left ventricular dysfunction: (8) Weakness generalized: (9) COPD (chronic obstructive pulmonary disease): Plan Patient's family is supportive of his decision to return home with the addition of hospice and the cessation of dialysis. They need to meet as an extended family tonight to determine if returning home to his mother's house is acceptable to her and if the additional family members who live closer are able and willing to help provide supplemental care for him at home. His daughter Rachana will update the medical team tomorrow with that decision. I have updated Dr. Snyder, nursing and Debo from case management. Fabiola Sahu DNP Clinical Director, Palliative Medicine Admission and Anticipated Discharge Date Admission Date: August 31, 2022 Subjective Patient is seen at bedside together with his daughter Rachana and his sister. He is awake and alert and able to follow simple commands. He is upset that his hands remain in bilateral mittens however his periodic agitation is such that the concern for him pulling out his lines remains high and therefore the mittens have had to stay on. He denies any acute pain or distress. He is tolerating his dialysis sessions. His mentation has substantially improved and his family report that he is back to his usual baseline as far as mood and comprehension. Review of Systems Review of Systems: All systems reviewed & are unremarkable except as noted in Subjective Physical Exam Physical Exam: Chronically ill-appearing male, resting in bed, dialysis in progress. There is some mild distress noted with anxiety and some pressured speech. There is very mild bitemporal wasting. Pupils are equal, round and reactive to light. His extraocular movements today are intact. His pharynx is pink but his dentition is bordering poor. His neck is supple and without stridor. Lungs are without any coarse rhonchi. Heart tones are S1-S2. Abdomen is softly distended. He is wearing bilateral mittens to his upper extremities. There is +1 edema to his lower extremities. There is generalized weakness throughout. He is awake alert and oriented to person and place. He tells me the year is 2021. His skin is pale but warm to touch. There is scattered ecchymoses noted. Results & Data ([facility]) Vital Signs (Past 12 Hours) Vital Signs Temp Pulse Pulse Pulse Resp BP Pulse Ox 09/04/22 12:30 80 123/77 09/04/22 12:00 81 122/64 09/04/22 11:00 114/70 09/04/22 11:00 87 13 93 09/04/22 10:45 86 15 94 09/04/22 10:45 128/65 09/04/22 10:33 82 13 92 09/04/22 10:33 114/56 L 09/04/22 10:00 78 15 91 09/04/22 10:00 124/60 09/04/22 08:00 75 15 100 09/04/22 08:00 128/72 09/04/22 07:00 72 12 99 09/04/22 11:30 85 109/60 09/04/22 11:00 85 119/62 09/04/22 10:30 82 93/55 L 09/04/22 10:15 78 103/53 L 09/04/22 10:00 36.7 C 78 114/62 09/04/22 09:44 36.7 C 78 09/04/22 08:00 78 09/04/22 10:00 77 18 98 09/04/22 07:25 74 20 98 09/04/22 06:00 82 20 129/69 99 09/04/22 05:00 73 14 97 09/04/22 04:00 73 16 99 09/04/22 04:00 128/70 09/04/22 03:00 78 18 97 09/04/22 03:00 36.7 C 09/04/22 02:00 73 12 98 09/04/22 02:00 114/67 09/04/22 02:03 72 18 98 O2 Del Method O2 Flow Rate 09/04/22 12:30 09/04/22 12:00 09/04/22 11:00 09/04/22 11:00 09/04/22 10:45 09/04/22 10:45 09/04/22 10:33 09/04/22 10:33 09/04/22 10:00 Nasal Cannula 2 09/04/22 10:00 09/04/22 08:00 Nasal Cannula 2 09/04/22 08:00 09/04/22 07:00 Nasal Cannula 2 09/04/22 11:30 09/04/22 11:00 09/04/22 10:30 09/04/22 10:15 09/04/22 10:00 09/04/22 09:44 09/04/22 08:00 09/04/22 10:00 Nasal Cannula 2 09/04/22 07:25 Nasal Cannula 2 09/04/22 06:00 09/04/22 05:00 09/04/22 04:00 09/04/22 04:00 09/04/22 03:00 09/04/22 03:00 09/04/22 02:00 09/04/22 02:00 09/04/22 02:03 Nasal Cannula 2 Laboratory Results Data reviewed Diagnostic Findings Data reviewed PG Care Time/CCT Total # of Minutes Spent Total Time Spent: 85 Total Time Spent with Patient: Total time spent is greater than 50% in coordination of care (as documented) at patient's floor/unit and/or counseling patient: I spent 85 minutes overall addressing this complex case: 5 in medical data review/discussion with referring provider(s) and/or preparation for the visit 15 in direct interaction with the patient and family 45 Advance Care Planning/Goals of Care discussions as detailed above in note (must be >16min) 5 in subsequent review and synthesis of assessment and plan 15 in communicating with other providers regarding the patient's case: [] Advanced Care Planning 03297 Advanced Care Planning 30 Min [place] [address] SUB INP/OBS CARE 3/50MIN Patient Type Established History Comprehensive Exam Comprehensive Medical Decision Making High Complexity Diagnoses Palliative care encounter Z51.5 Advanced care planning/counseling discussion Z71.89 ESRD (end stage renal disease) N18.6 Acute metabolic encephalopathy G93.41 Ischemic cardiomyopathy I25.5 Systolic CHF I50.20 Left ventricular dysfunction I51.9 Weakness generalized R53.1 COPD (chronic obstructive pulmonary disease) J44.9 Additional Codes Advanced Care Planning - 09182 Advanced Care Planning 30 Min: 80195 Advanced Care Planning 30 Min ([id number])
--- NOTE | 2022-09-04 15:10 | Pharmacy Report ---
Pharmacy Glycemic Short Note 2 - Date of Service September 04, 2022 - Glycemic Short BSG Results (Last 24 hours): 09/03/22 09/03/22 09/04/22 16:17 21:32 04:46 Glucose 206 H POC Glucose 141 H 170 H 09/04/22 09/04/22 08:24 14:06 Glucose POC Glucose 171 H 103 H OUTPATIENT ANTIDIABETIC REGIMEN: * Insulin Glargine 12 units BID, Insulin lispro 6 units BIDM ASSESSMENT: 09/04: * Fasting BSG elevated today and BSGs did trend up last evening after patient was ordered a diet * Lantus dosing resumed this morning and novolog scale was tightened slightly. * Patient is tolerating a diet 09/03: * Fasting BSG 71 this morning. Lantus dose was held. Lunch BSG remains on the lower end at 78 mg/dL. PO intake minimal. Will hold any further basal insulin today and reassess tomorrow. Continue with conservative NovoLog scale and goal range. 09/02: * BSG trended down throughout the day yesterday, up to 132 mg/dL this morning with D5 + 1/2 NS @100 ml/hr running * Fluids discontinued, reduced lantus dose ~34% to 8 units * BSG 89 mg/dL at lunch, full liquid diet ordered, loosened carb ratio * HD planned for today 09/01: * Insulin drip was discontinued this morning per Dr. Muñoz; drip rate was 1.7 units/hr at that time. Nurse had given Lantus 12 units based off of patient's home dose and Novolog with breakfast before drip discontinued. Novolog parameters based on wt and moderate stress. * Since patient with renal failure and dialysis, will wait to add HS basal dose depending on how his BSGs trend today. Overnight checks added. * IV fluids D51/2 NS running at 100 ml/hr. Patient received 40 meq of IV KCL this AM for low potassium. 08/31/22: * Patient admitted with acute renal failure, SCR 14.48, patient to undergo emergent Hemodialysis * Initial Bicarb 4, VpH 7.03, Anion gap 34 BSG 305 mg/dL : negative ketones in urine. Per Business Writer unable to r/o DKA component with concomitant severe renal failure- to initiate insulin infusion at 2 units/ hr with goal range 150-250 mg/mL * Complicated by hypokalemia in renal failure; received replacement of 40 mEq, hemodialysis- monitoring closely. * Fluids adjust to D5 +1/2NS + 20 mEq KCl when BSG in goal range PLAN FOR INPATIENT GLYCEMIC CONTROL: * Insulin drip discontinued this AM * Basal insulin * 8 units sc qam * Bolus insulin * NovoLog per scale ACHS or Q6hrs while NPO * Goal Range: Low 120 mg/dL - High 150 mg/dL * Correction Factor: 30 mg/dL/unit * Nutritional / Prandial insulin per carb ratio of 1 unit per 12 grams CHO consumed
[2022-09-05] MEDS: ALBUT/IPRATROP 3MG/0.5MG NEB 3 ML VIAL NEB SCH ×2 (02:29→07:22)
[2022-09-05 04:56] LABS: Hematocrit (blood only) 24.6 % (40.1-51.0); Hemoglobin 8.4 g/dl (14.0-18.0); Mean Corpuscular Hemoglobin 28.8 pg (25.0-34.0); Mean Corpuscular Hgb Conc 34.1 g/dL (32.0-36.0); Mean Corpuscular Volume 84.2 fL (80.0-100.0); Mean Platelet Volume 11.1 fL (9.4-12.4); Nucleated RBC # (auto) 0.02 K/uL (0-0); Nucleated RBC % (auto) 0.1 %; Platelet Count 165 K/uL (130-400); RDW Coefficient of Variation 16.1 % (11.5-14.5); RDW Standard Deviation 49.5 fL (36.4-46.3); Red Blood Count 2.92 M/uL (4.63-6.08); White Blood Count 16.07 K/ul (4.8-10.8)
[2022-09-05 05:49] LABS: BUN Creatinine Ratio 17.5 (10-20); Calcium 6.5 mg/dl (8.5-10.1); Creatinine Clr Calc Pharmacy 25.6 ml/min; Est GFR (African American) 23.8 ml/min; Est GFR (Non-African American) 20.5 ml/min; Potassium 3.5 mmol/L (3.5-5.1)
[2022-09-05] MEDS: INSULIN ASPART PER UNIT SC SCH ×4 (08:26→20:46)
[2022-09-05] MEDS: LANTUS PER UNIT CHARGE SQ SCH (08:27)
[2022-09-05] MEDS: CALCITRIOL 0.25 MCG CAPSULE PO SCH (08:30)
[2022-09-05] MEDS: carvediloL 3.125 MG TAB PO SCH ×2 (08:30→20:25)
[2022-09-05] MEDS: ASPIRIN 81 MG ECTAB PO SCH (08:30)
[2022-09-05] MEDS: NICOTINE 21 MG/24 HR TDSY TD SCH ×2 (08:30→08:39)
[2022-09-05] MEDS: CALCIUM CARBONATE 500 MG CHEWABLE TAB PO SCH ×3 (08:30→16:44)
[2022-09-05] MEDS: PANTOprazole 40 MG in SYRINGE 0 ML IV SCH ×2 (08:30→20:25)
[2022-09-05] MEDS ORDERED: LANTUS PER UNIT CHARGE SQ SCH (09:00)
[2022-09-05] MEDS ORDERED: ALBUT/IPRATROP 3MG/0.5MG NEB 3 ML VIAL NEB PRN (10:00)
--- NOTE | 2022-09-05 14:04 | Pharmacy Report ---
Pharmacy Glycemic Short Note 2 - Date of Service September 05, 2022 - Glycemic Short BSG Results (Last 24 hours): 09/04/22 09/04/22 09/04/22 14:06 17:08 20:29 Glucose POC Glucose 103 H 212 H 150 H 09/05/22 09/05/22 09/05/22 04:27 07:24 11:14 Glucose 227 H POC Glucose 219 H 177 H OUTPATIENT ANTIDIABETIC REGIMEN: * Insulin Glargine 12 units BID, Insulin lispro 6 units BIDM ASSESSMENT: 09/05: * Lantus increased this AM for fasting BSG 219 mg/dL- monitor * Continue current novolog parameters 09/04: * Fasting BSG elevated today and BSGs did trend up last evening after patient was ordered a diet * Lantus dosing resumed this morning and novolog scale was tightened slightly. * Patient is tolerating a diet 09/03: * Fasting BSG 71 this morning. Lantus dose was held. Lunch BSG remains on the lower end at 78 mg/dL. PO intake minimal. Will hold any further basal insulin today and reassess tomorrow. Continue with conservative NovoLog scale and goal range. 09/02: * BSG trended down throughout the day yesterday, up to 132 mg/dL this morning with D5 + 1/2 NS @100 ml/hr running * Fluids discontinued, reduced lantus dose ~34% to 8 units * BSG 89 mg/dL at lunch, full liquid diet ordered, loosened carb ratio * HD planned for today 09/01: * Insulin drip was discontinued this morning per Dr. Muñoz; drip rate was 1.7 units/hr at that time. Nurse had given Lantus 12 units based off of patient's home dose and Novolog with breakfast before drip discontinued. Novolog parameters based on wt and moderate stress. * Since patient with renal failure and dialysis, will wait to add HS basal dose depending on how his BSGs trend today. Overnight checks added. * IV fluids D51/2 NS running at 100 ml/hr. Patient received 40 meq of IV KCL this AM for low potassium. 08/31/22: * Patient admitted with acute renal failure, SCR 14.48, patient to undergo emergent Hemodialysis * Initial Bicarb 4, VpH 7.03, Anion gap 34 BSG 305 mg/dL : negative ketones in urine. Per Protective Clothing Issuer unable to r/o DKA component with concomitant severe renal failure- to initiate insulin infusion at 2 units/ hr with goal range 150-250 mg/mL * Complicated by hypokalemia in renal failure; received replacement of 40 mEq, hemodialysis- monitoring closely. * Fluids adjust to D5 +1/2NS + 20 mEq KCl when BSG in goal range PLAN FOR INPATIENT GLYCEMIC CONTROL: * Insulin drip discontinued this AM * Basal insulin * 12 units sc qam * Bolus insulin * NovoLog per scale ACHS or Q6hrs while NPO * Goal Range: Low 120 mg/dL - High 150 mg/dL * Correction Factor: 30 mg/dL/unit * Nutritional / Prandial insulin per carb ratio of 1 unit per 12 grams CHO consumed
--- NOTE | 2022-09-05 14:57 | Nephrology Progress Note ---
Date of Service September 05, 2022 Assessment & Plan (1) ESRD (end stage renal disease): (2) Altered mental status: (3) Anemia: (4) Metabolic acidosis: (5) Hypocalcemia: (6) Hypokalemia: Plan 62-year-old male with PMH of COPD, HTN, DM type II, CKD stage III, PAD, and bladder cancer admitted with AMS, Uremia, BUN >200, Cr 14 after he was found at home to be confused and obtunded. Started on HD via rt IJ TDC. Clinically much improve, more awake, alert and oriented. -- Since he decided not to consider dialysis in going home with hospice, will sign off. However if any changes in his decision and he would like to continue dialysis will be available to provide dialysis care. Admission and Anticipated Discharge Date Admission Date: August 31, 2022 Too Mena was seen and evaluated this morning. He was awake and alert and just wanted to know when he will be getting discharged. Has been having discussion with palliative Care and his family as he decided not to consider dialysis going forward and just go home on hospice. Review of Systems Review of Systems: detail ROS was Otherwise unremarkable. Physical Exam Constitutional: WD/WN, vitals as above + ill appearing and comfortable; not in distress Eyes: + anicteric sclerae Neck: normal visual inspection Respiratory: normal respiratory effort; no respiratory distress Auscultation: lungs clear to auscultation bilaterally and + crackles; no wheezes Cardiovascular: Rate/Rhythm: regular rate and regular rhythm Heart Sounds: normal S1 and normal S2 Extremities: no edema Skin: no rashes Neurologic: no focal motor deficits Psychiatric: Orientation: oriented to place and cooperative Results & Data ([facility]) Vital Signs (Past 12 Hours) Vital Signs Temp Pulse Resp BP Pulse Ox O2 Del Method 09/05/22 08:00 Room Air 09/05/22 12:00 87 21 94 Room Air 09/05/22 11:00 86 17 91 09/05/22 10:00 89 16 93 09/05/22 09:30 90 19 97 09/05/22 09:30 133/67 09/05/22 09:15 129/62 09/05/22 09:15 94 H 22 97 09/05/22 09:00 92 H 19 100 09/05/22 09:00 124/69 09/05/22 08:45 89 16 97 09/05/22 08:45 120/58 L 09/05/22 08:30 95 H 18 97 09/05/22 08:30 126/69 09/05/22 08:15 88 17 96 09/05/22 08:15 123/56 L 09/05/22 08:00 92 H 21 96 09/05/22 08:00 122/62 09/05/22 07:46 92 H 21 93 09/05/22 07:46 126/78 09/05/22 07:30 124/63 09/05/22 07:30 91 H 16 95 Room Air 09/05/22 07:15 131/71 09/05/22 07:15 89 14 99 09/05/22 07:00 88 15 98 09/05/22 07:00 134/68 09/05/22 06:45 135/75 09/05/22 06:45 92 H 18 95 09/05/22 06:36 95 H 14 97 09/05/22 06:36 138/73 09/05/22 06:15 86 17 97 09/05/22 06:15 122/66 09/05/22 06:00 85 15 98 09/05/22 06:00 117/68 09/05/22 05:45 126/67 09/05/22 05:45 85 15 98 09/05/22 05:30 89 16 98 09/05/22 05:30 126/69 09/05/22 12:16 37 C 09/05/22 08:00 94 H 09/05/22 05:15 88 16 97 09/05/22 05:15 118/60 09/05/22 05:00 87 13 99 09/05/22 05:00 118/58 L 09/05/22 04:45 82 18 98 09/05/22 04:45 120/60 09/05/22 04:15 84 19 98 09/05/22 04:15 124/67 09/05/22 04:00 81 14 99 09/05/22 04:00 121/70 09/05/22 03:45 83 15 97 09/05/22 03:45 117/64 09/05/22 03:30 80 14 99 09/05/22 03:30 124/64 09/05/22 03:15 81 15 97 09/05/22 03:15 126/66 09/05/22 03:00 79 15 98 09/05/22 03:00 121/63 09/05/22 03:00 36.8 C PG Care Time/CCT Total # of Minutes Spent Total Time Spent with Patient: Total time spent is greater than 50% in coordination of care (as documented) at patient's floor/unit and/or counseling patient: Coding Level of Care Code 86259 SUB INP/OBS CARE 2/35MIN Diagnoses ESRD (end stage renal disease) N18.6 Altered mental status R41.82 Anemia D64.9 Metabolic acidosis E87.20 Hypocalcemia E83.51 Hypokalemia E87.6
[2022-09-05] MEDS ORDERED: methylPREDNISolone 40 MG in SYRINGE 0 ML IV ONE (18:45)
--- NOTE | 2022-09-05 19:36 | Hospitalist Progress Note ---
Date of Service September 05, 2022 Assessment & Plan (1) Acute kidney injury superimposed on CKD: Plan: CKD stage 3 - baseline Cr low 2's. presented with profound JEAN/Acute renal failure - likely multifactorial in etiology (rhabdomyolysis, ARB use, prerenal from poor PO intake, etc) - all in the setting of CKD. s/p temporary dialysis catheter placement R IJ with 4 HD treatments to date. patient has been very consistent in his desires to NOT pursue ongoing dialysis outside the hospital. he cited multiple reasons for not wanting such including just wanting to go home, not being able to get transportation to HD sessions, etc. daughter Rachana stated he has been declining significantly over the last 2-3 months on global scale. after many discussions plan will be as follows - HD session tomorrow AM, then pull IJ line, then d/c home w/ hospice. this was discussed with pt's daughter by phone this evening. (2) ESRD (end stage renal disease): Plan: at this point nephrology believes he likely has achieved ESRD status see above #1 (3) Anemia: Plan: s/p 2 units PRBCs earlier this stay. no further blood checks. 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 improved s/p copious IV replacement and PO replacement but still low. due to impending hospice status no further Rx. (6) Hypokalemia: Plan: normalized (7) Metabolic acidosis: Plan: 2nd to acute renal failure +/- DKA -- resolved (8) COPD (chronic obstructive pulmonary disease): Plan: suspected diffuse wheezing on exam - some of which could be pulmonary edema, some of which could be undiagnosed COPD give another dose of solumedrol today for this + gout (9) Diabetes mellitus, type 2: Plan: appreciate pharmacy assistance required IV insulin early on - now off such and over to basal-bolus Rx dc insulin at discharge (10) Elevated liver enzymes: Plan: 2nd to rhabdomyolysis? no further LFTs (11) Bladder cancer metastasized to bone: Plan: suspect this is playing a role in his chronic faliure to thrive (12) Hypertension: Plan: ARB on hold cont low-dose coreg (13) GERD (gastroesophageal reflux disease): Plan: PPI IV (14) Hypercholesteremia: Plan: holding statin 2nd to #14 (15) Rhabdomyolysis: Plan: improved, level now well under 1000 rhabdo was 2nd to fall at home (16) Gout: Plan: b/l feet - podagra improved following steroids yesterday solumedrol IV x 1 again today (40mg) uric acid 6.4 (17) Acute metabolic encephalopathy: Plan: 2nd to JEAN, other factors (18) Ischemic cardiomyopathy: Plan: echo c/w such with multiple wall motion abnormalities EF 45-50% cont asa cont coreg no ischemic symptoms at this time (19) Systolic CHF: Plan: EF 45-50% based on echo this admission cont coreg not BETHANIE/ARB candidate at this time due to acute renal failure Plan tobacco dependence - cont nicoderm patch 21mg/day updated pt's daughter Rachana extensively by phone this evening appreciate Ms Sahu's consultation from palliative care d/c home tomorrow with hospice following his HD treatment care d/w Dr Ding - nephrology Admission and Anticipated Discharge Date Admission Date: August 31, 2022 Subjective patient irritated he hasn't gone home yet "just let me go home - why haven't you sent me home?" denies abd pain denies chest pain c/o b/l foot pain but improved from yesterday very little PO intake slept much of the day he still knows he is in the hospital but otherwise a bit confused Review of Systems Review of Systems: Unobtainable due to cognitive status Physical Exam Physical Exam: gen - looks ill, disheveled; confusion improved but still present; tachypnea remains neck - right IJ CVC clean heart - RRR, s1 s2, no murmur lungs - diffuse wheezing with tachypnea and mild retractions (subcostal) abd - soft NT ND BS+ ext - trace edema, pulses 2+ b/l musculo - left great toe podagra - improved; right great toe podagra - resolved; neither toe painful to palpation psych - oriented to person and place Results & Data Results & Data ([facility]) Vital Signs (Past 12 Hours) Vital Signs Temp Pulse Resp BP Pulse Ox O2 Del Method O2 Flow Rate 09/05/22 18:30 92 H 21 95 09/05/22 18:30 126/72 09/05/22 18:15 94 H 23 96 09/05/22 18:15 122/71 09/05/22 18:00 91 H 17 90 09/05/22 18:00 122/81 09/05/22 17:45 119/66 09/05/22 17:45 92 H 23 95 09/05/22 17:30 92 H 25 H 94 09/05/22 17:30 121/67 Nasal Cannula 2 09/05/22 17:15 92 H 25 H 97 09/05/22 17:15 130/66 09/05/22 17:00 96 H 27 H 93 09/05/22 17:00 126/66 09/05/22 16:45 98 H 26 H 95 09/05/22 16:45 116/63 09/05/22 16:31 105 H 33 H 95 09/05/22 16:31 142/85 H 09/05/22 16:15 94 H 24 94 09/05/22 16:15 139/79 09/05/22 16:00 93 H 24 94 09/05/22 16:00 138/72 09/05/22 15:45 125/67 09/05/22 15:45 90 18 94 Oxymask 2 09/05/22 15:44 89 96 09/05/22 15:44 121/66 09/05/22 15:00 86 93 09/05/22 14:00 87 18 96 09/05/22 13:00 90 22 88 L 09/05/22 15:57 36.6 C 09/05/22 08:00 Room Air 09/05/22 12:00 87 21 94 Room Air 09/05/22 11:00 86 17 91 09/05/22 10:00 89 16 93 09/05/22 09:30 90 19 97 09/05/22 09:30 133/67 09/05/22 09:15 129/62 09/05/22 09:15 94 H 22 97 09/05/22 09:00 92 H 19 100 09/05/22 09:00 124/69 09/05/22 08:45 89 16 97 09/05/22 08:45 120/58 L 09/05/22 08:30 95 H 18 97 09/05/22 08:30 126/69 09/05/22 08:15 88 17 96 09/05/22 08:15 123/56 L 09/05/22 08:00 92 H 21 96 09/05/22 08:00 122/62 09/05/22 07:46 92 H 21 93 09/05/22 07:46 126/78 09/05/22 12:16 37 C 09/05/22 08:00 94 H Laboratory Results Laboratory Results - last 24 hr 09/04/22 09/05/22 09/05/22 20:29 04:27 04:27 WBC 16.07 H RBC 2.92 L Hgb 8.4 L Hct 24.6 L MCV 84.2 MCH 28.8 MCHC 34.1 RDW Std Deviation 49.5 H RDW Coeff of Diane 16.1 H Plt Count 165 MPV 11.1 Absolute Nucleated RBC 0.02 H Nucleated RBC % (auto) 0.1 Sodium 136 Potassium 3.5 Chloride 101 Carbon Dioxide 27 Anion Gap 8 BUN 54 H D Creatinine 3.09 H D Est Cr Clr Drug Dosing 25.6 Est GFR ( Amer) 23.8 Est GFR (Non-Af Amer) 20.5 BUN/Creatinine Ratio 17.5 Glucose 227 H POC Glucose 150 H Calcium 6.5 L 09/05/22 09/05/22 09/05/22 07:24 11:14 16:16 WBC RBC Hgb Hct MCV MCH MCHC RDW Std Deviation RDW Coeff of Diane Plt Count MPV Absolute Nucleated RBC Nucleated RBC % (auto) Sodium Potassium Chloride Carbon Dioxide Anion Gap BUN Creatinine Est Cr Clr Drug Dosing Est GFR ( Amer) Est GFR (Non-Af Amer) BUN/Creatinine Ratio Glucose POC Glucose 219 H 177 H 88 Calcium PG Care Time/CCT Total # of Minutes Spent Total Time Spent with Patient: Total time spent is greater than 50% in coordination of care (as documented) at patient's floor/unit and/or counseling patient: Coding Level of Care Code 62141 SUB INP/OBS CARE 2/35MIN Diagnoses Acute kidney injury superimposed on CKD N17.9; N18.9 ESRD (end stage renal disease) N18.6 Anemia D64.9 Elevated troponin R77.8 Hypocalcemia E83.51 Hypokalemia E87.6 Metabolic acidosis E87.20 COPD (chronic obstructive pulmonary disease) J44.9 Diabetes mellitus, type 2 E11.42; Z79.4 Diabetes mellitus complication detail: with polyneuropathy Diabetes mellitus complication status: with neurologic complications Diabetes mellitus bed bug exterminator insulin use: with bed bug exterminator use Elevated liver enzymes R74.8 Bladder cancer metastasized to bone C67.9; C79.51 Hypertension I10 Hypertension type: unspecified GERD (gastroesophageal reflux disease) K21.9 Hypercholesteremia E78.00 Rhabdomyolysis M62.82 Gout M10.9 Acute metabolic encephalopathy G93.41 Ischemic cardiomyopathy I25.5 Systolic CHF I50.20 (1) Diabetes mellitus, type 2 Diabetes mellitus complication detail: with polyneuropathy Diabetes mellitus complication status: with neurologic complications Diabetes mellitus prison insulin use: with bed bug exterminator use Qualified Code(s): E11.42 - Type 2 diabetes mellitus with diabetic polyneuropathy; Z79.4 - retirement (current) use of insulin (2) Hypertension Hypertension type: unspecified Qualified Code(s): I10 - Essential (primary) hypertension
[2022-09-06] MEDS: INSULIN ASPART PER UNIT SC SCH ×2 (08:13→11:46)
[2022-09-06] MEDS: NICOTINE 21 MG/24 HR TDSY TD SCH (09:17)
[2022-09-06] MEDS: CALCIUM CARBONATE 500 MG CHEWABLE TAB PO SCH ×3 (09:17→13:29)
[2022-09-06] MEDS: LANTUS PER UNIT CHARGE SQ SCH (09:18)
[2022-09-06] MEDS: ASPIRIN 81 MG ECTAB PO SCH (09:18)
[2022-09-06] MEDS: CALCITRIOL 0.25 MCG CAPSULE PO SCH (09:18)
[2022-09-06] MEDS: carvediloL 3.125 MG TAB PO SCH (09:18)
[2022-09-06] MEDS: PANTOprazole 40 MG in SYRINGE 0 ML IV SCH (10:46)
--- NOTE | 2022-09-06 13:15 | Palliative Care Progress Note ---
Date of Service September 06, 2022 Assessment & Plan (1) Palliative care encounter: Plan: From prior d/w pt when he was more lucid and clear than he is today, he has decided to forego HD. He elected hospice at home and understands his anticipated survival is days to weeks. (2) ESRD (end stage renal disease): Plan: Patient consistently declines the offer of continued hemodialysis. He does not wish to pursue this therapy in the outpatient setting and understands that it will be what causes his end-of-life. He wants to focus what ever time he has remaining at home and with his family. He understands that the cessation of dialysis will ultimately lead to his . We talked about what the process of end-of-life would be for an end-stage renal disease patient. Pt/family were educated re EOL w/ESRD:Pt stopping dialysis may live anywhere from one week to several weeks, depending on the amount of kidney function they have left and their overall medical condition.In hospitalized patients who stopped dialysis,confusion/agitation was reported to affect 70% of patients, followed by pain (55%), dyspnea (48%), nausea (36%), twitching/seizures (27%), anxiety/psychological distress (27%), pruritis (24%), and peripheral edema (21%). Advised thatmean survival following dialysis withdrawal is 8-10 days (although rarely can be many weeks); would note that advanced age, multiple comorb idities+frailty, I anticipate this will be shorter anticipated survival. Encouraged family to notify others who may want to visit or speak with pt, as periods of lucidity will decline as ESRD progresses along this EOL trajectory. I addressedthe likelihood of progressive encephalopathy. Reassuredpatient/familythat symptoms can be adequately treatedbut drugs with sedating side effects may be necessary to ensure comfort. Discusseddiet: provide pt witha liberal, pleasure-based dietto focus on comfort and QOL, acknowledging that this mayworsen symptoms from edema. (Sources: - https://www.mypcnow.org/fast-fact/enhqytwuvfbyuxs-qu-wehampbm-receiving-dialysis / -Melly SN. End-of-life care preferences and needs: perceptions of patients with chronic kidney disease. Clinical Journal of the [place] Society of Nephrology: CJASN. 2010;5:195-204. -Jose D MILLS, Mike B, Moises V and Hola METZ. Employment among Patients Starting Dialysis in the [place]. Clinical Journal of the [place] [employer] Nephrology: CJASN. 2018. -Karson GIANG, Demar MJ, Josh DM. Practical considerations in dialysis withdrawal. To have that option is a blessing. CECE. 2003; 289:0281-0142. -Melly SN and Millie GS. Impact of pain and symptom burden on the health- related quality of life of hemodialysis patients. Journal of Pain and Symptom Management. 2010;39:477-85.) (3) Acute metabolic encephalopathy: (4) Systolic CHF: (5) Left ventricular dysfunction: (6) Weakness generalized: (7) COPD (chronic obstructive pulmonary disease): Plan Home with hospice later today, CM coordinating with [facility] hospice. HD in progress today. Case d/w Dr Wen, anticipate survival of days to a week at most. Family is aware. Fabiola Sahu DNP Clinical Director, Palliative Medicine Admission and Anticipated Discharge Date Admission Date: August 31, 2022 Subjective On HD anticipated DC today with hospice a little more confused today, asked me where he was and could not answer many routine questions Review of Systems Review of Systems: Unobtainable due to cognitive status Physical Exam Physical Exam: Chronically ill-appearing male, resting in bed, dialysis in progress. There is some mild distress noted with anxiety and some pressured speech. There is very mild bitemporal wasting. Pupils are equal, round and reactive to light. His extraocular movements today are intact. His pharynx is pink but his dentition is bordering poor. His neck is supple and without stridor. Lungs are without any coarse rhonchi. Heart tones are S1-S2. Abdomen is softly distended. He is wearing bilateral mittens to his upper extremities. There is +1 edema to his lower extremities. There is generalized weakness throughout. He is awake alert and oriented to person and place. He tells me the year is 2021. His skin is pale but warm to touch. There is scattered ecchymoses noted. Results & Data ([facility]) Vital Signs (Past 12 Hours) Vital Signs Temp Pulse Pulse Resp BP BP BP 09/06/22 08:00 83 09/06/22 10:27 01/20/23 11:30 77 110/64 09/06/22 11:00 85 120/66 09/06/22 10:45 89 116/66 09/06/22 10:30 89 88/44 L 09/06/22 10:15 93 H 121/68 09/06/22 10:00 87 111/63 09/06/22 09:50 89 117/62 09/06/22 09:26 36.4 C L 89 09/06/22 07:00 36.5 C 88 19 119/66 09/06/22 03:26 36.8 C 79 18 120/59 L Pulse Ox O2 Del Method O2 Flow Rate 09/06/22 08:00 09/06/22 10:27 Nasal Cannula 2 09/06/22 11:30 09/06/22 11:00 09/06/22 10:45 09/06/22 10:30 09/06/22 10:15 09/06/22 10:00 09/06/22 09:50 09/06/22 09:26 09/06/22 07:00 96 Nasal Cannula 3 09/06/22 03:26 94 Nasal Cannula 2.0 PG Care Time/CCT Total # of Minutes Spent Total Time Spent: 45 Total Time Spent with Patient: Total time spent is greater than 50% in coordination of care (as documented) at patient's floor/unit and/or counseling patient: Prolonged Care Time Prolonged Care Time: No Critical Care Time: No Critical Care Time Critical Care Time: No Coding [place] [address] SUB INP/OBS CARE 3/50MIN Patient Type Established History Detailed Exam Detailed Medical Decision Making Moderate Complexity Diagnoses Palliative care encounter Z51.5 ESRD (end stage renal disease) N18.6 Acute metabolic encephalopathy G93.41 Systolic CHF I50.20 Left ventricular dysfunction I51.9 Weakness generalized R53.1 COPD (chronic obstructive pulmonary disease) J44.9
--- NOTE | 2022-09-06 13:23 | Pharmacy Report ---
Pharmacy Glycemic Short Note 2 - Date of Service September 06, 2022 - Glycemic Short BSG Results (Last 24 hours): 09/05/22 09/05/22 09/06/22 16:16 20:35 07:33 POC Glucose 88 108 H 179 H 09/06/22 11:08 POC Glucose 94 OUTPATIENT ANTIDIABETIC REGIMEN: * Insulin Glargine 12 units BID, Insulin lispro 6 units BIDM ASSESSMENT: 09/06: * Plan for patient to be discharged with hospice today/will be stopping insulin on discharge * Fasting this AM 179 mg/dL- patient received 12 units of basal * Undergoing HD session this morning BSG 94 mg/dL. Will continue current insulin for remainder of stay. 09/05: * Lantus increased this AM for fasting BSG 219 mg/dL- monitor * Continue current novolog parameters 09/04: * Fasting BSG elevated today and BSGs did trend up last evening after patient was ordered a diet * Lantus dosing resumed this morning and novolog scale was tightened slightly. * Patient is tolerating a diet 09/03: * Fasting BSG 71 this morning. Lantus dose was held. Lunch BSG remains on the lower end at 78 mg/dL. PO intake minimal. Will hold any further basal insulin today and reassess tomorrow. Continue with conservative NovoLog scale and goal range. 09/02: * BSG trended down throughout the day yesterday, up to 132 mg/dL this morning with D5 + 1/2 NS @100 ml/hr running * Fluids discontinued, reduced lantus dose ~34% to 8 units * BSG 89 mg/dL at lunch, full liquid diet ordered, loosened carb ratio * HD planned for today 09/01: * Insulin drip was discontinued this morning per Dr. Muñoz; drip rate was 1.7 units/hr at that time. Nurse had given Lantus 12 units based off of patient's home dose and Novolog with breakfast before drip discontinued. Novolog parameters based on wt and moderate stress. * Since patient with renal failure and dialysis, will wait to add HS basal dose depending on how his BSGs trend today. Overnight checks added. * IV fluids D51/2 NS running at 100 ml/hr. Patient received 40 meq of IV KCL this AM for low potassium. 08/31/22: * Patient admitted with acute renal failure, SCR 14.48, patient to undergo emergent Hemodialysis * Initial Bicarb 4, VpH 7.03, Anion gap 34 BSG 305 mg/dL : negative ketones in urine. Per Celery Packer unable to r/o DKA component with concomitant severe renal failure- to initiate insulin infusion at 2 units/ hr with goal range 150-250 mg/mL * Complicated by hypokalemia in renal failure; received replacement of 40 mEq, hemodialysis- monitoring closely. * Fluids adjust to D5 +1/2NS + 20 mEq KCl when BSG in goal range PLAN FOR INPATIENT GLYCEMIC CONTROL: * Basal insulin * 12 units sc qam * Bolus insulin * NovoLog per scale ACHS or Q6hrs while NPO * Goal Range: Low 120 mg/dL - High 150 mg/dL * Correction Factor: 30 mg/dL/unit * Nutritional / Prandial insulin per carb ratio of 1 unit per 12 grams CHO consumed
--- NOTE | 2022-09-06 13:44 | Nephrology Progress Note ---
Date of Service September 06, 2022 Assessment & Plan (1) ESRD (end stage renal disease): (2) Altered mental status: (3) Anemia: (4) Metabolic acidosis: (5) Hypocalcemia: (6) Hypokalemia: Plan 62-year-old male with PMH of COPD, HTN, DM type II, CKD stage III, PAD, and bladder cancer admitted with AMS, Uremia, BUN >200, Cr 14 after he was found at home to be confused and obtunded. Started on HD via rt IJ TDC. Clinically much improve, more awake, alert and oriented. -- Having another dialysis treatment today as per family request prior to going home with hospice. -- appreciate intensive care help with removing dialysis catheter if patient going home with hospice. Will be available for any further questions or concerns. Admission and Anticipated Discharge Date Admission Date: August 31, 2022 Too Mena was seen and evaluated this morning. He was awake and alert, was tolerating dialysis. Has been having discussion with palliative Care and his family as he decided not to consider dialysis going forward and just go home on hospice. Review of Systems Review of Systems: detail ROS was Otherwise unremarkable. Physical Exam Constitutional: WD/WN, vitals as above + ill appearing and comfortable; not in distress Eyes: + anicteric sclerae Neck: normal visual inspection Respiratory: normal respiratory effort; no respiratory distress Auscultation: lungs clear to auscultation bilaterally and + crackles; no wheezes Cardiovascular: Rate/Rhythm: regular rate and regular rhythm Heart Sounds: normal S1 and normal S2 Extremities: no edema Skin: no rashes Neurologic: no focal motor deficits Psychiatric: Orientation: oriented to place and cooperative Results & Data ([facility]) Vital Signs (Past 12 Hours) Vital Signs Temp Pulse Pulse Resp BP BP BP 09/06/22 13:30 91 H 148/72 H 09/06/22 13:00 81 129/71 09/06/22 12:30 81 137/73 09/06/22 12:00 82 126/72 09/06/22 08:00 83 09/06/22 10:27 09/06/22 11:30 77 110/64 09/06/22 11:00 85 120/66 09/06/22 10:45 89 116/66 09/06/22 10:30 89 88/44 L 09/06/22 10:15 93 H 121/68 09/06/22 10:00 87 111/63 09/06/22 09:50 89 117/62 09/06/22 09:26 36.4 C L 89 09/06/22 07:00 36.5 C 88 19 119/66 09/06/22 03:26 36.8 C 79 18 120/59 L Pulse Ox O2 Del Method O2 Flow Rate 09/06/22 13:30 09/06/22 13:00 09/06/22 12:30 09/06/22 12:00 09/06/22 08:00 09/06/22 10:27 Nasal Cannula 2 09/06/22 11:30 09/06/22 11:00 09/06/22 10:45 09/06/22 10:30 09/06/22 10:15 09/06/22 10:00 09/06/22 09:50 09/06/22 09:26 09/06/22 07:00 96 Nasal Cannula 3 09/06/22 03:26 94 Nasal Cannula 2.0 PG Care Time/CCT Total # of Minutes Spent Total Time Spent with Patient: Total time spent is greater than 50% in coordination of care (as documented) at patient's floor/unit and/or counseling patient: Coding Level of Care Code 71707 SUB INP/OBS CARE 2/35MIN Diagnoses ESRD (end stage renal disease) N18.6 Altered mental status R41.82 Anemia D64.9 Metabolic acidosis E87.20 Hypocalcemia E83.51 Hypokalemia E87.6
--- NOTE | 2022-09-06 14:49 | Discharge Summary ---
Date of Service September 06, 2022 Admission HPI Per Admitting Provider Carlos Bucio is a 62yo male with history of COPD, HTN, DM, CKD-III, Peripheral arterial disease and bladder cancer presenting from home with confusion. Patient nearly obtunded during my encounter. Is unable to provide history or participate in exam. History obtained through discussion with ER staff, nursing and chart review. Patient reportedly slid out of a chair at home and was very confused. He has not been eating or drinking over the last week. His mother called EMS. Per EMS, patient with increased work of breathing. He was administered a DuoNeb in the field as well as a trial of CPAP and NRB. Blood sugar 267. Upon arrival to the ER patient hypothermic with T=31.6, tachypneic, HD stable. He had a brief trial of BiPAP but was unable to tolerate the mask. Currently on Oxymask 10 L/m with adequate oxygenation. Josue hugger warming blanket in place. Lab values as below show acute renal failure with high anion gap metabolic acidosis. pH=7.03, initial serum HCO3=4. THK=439 and Cr=14.48. Lara catheter was placed with return of appx 450mL of clear, yellow urine. Bicarbonate drip started in the ER. ER Course: Solumedrol 125mg IV Albuterol 3mL neb Ativan 1mg IV NSS x 1L bolus Sodium bicarbonate 100mEq in H20 at 200mL/hr Calcium gluconate 1gm Discharge Exam gen - looks ill, disheveled; confusion improved but still present; tachypnea r emains neck - right IJ CVC clean heart - RRR, s1 s2, no murmur lungs - diffuse wheezing with tachypnea and mild retractions (subcostal) abd - soft NT ND BS+ ext - trace edema, pulses 2+ b/l musculo - left great toe podagra - improved; right great toe podagra - resolved; neither toe painful to palpation psych - oriented to person and place Discharge Data Allergies Allergy/AdvReac Type Severity Reaction Status Date / Time lisinopril AdvReac Intermediate diarrhea, Verified 08/31/22 02:11 stomach cramping and pain losartan AdvReac Intermediate Diarrhea Verified 08/31/22 02:11 Consultations 08/31/22 02:52 Consult Nephrology Routine ED Decision to Admit Stat 08/31/22 07:51 Consult Finishing Inspector Routine 09/01/22 08:24 Consult Cardiology Routine 09/01/22 15:15 Consult Palliative Care Routine Ordered Studies 08/30/22 23:57 CT head/brain wo con Urgent 08/31/22 01:30 CT abd pelvis wo con Urgent 08/31/22 06:53 US point of care ultrasound Stat Hospital Course (1) Acute kidney injury superimposed on CKD: CKD stage 3 - baseline Cr low 2's. presented with profound JEAN/Acute renal failure - likely multifactorial in etiology (rhabdomyolysis, ARB use, prerenal from poor PO intake, etc) - all in the setting of CKD. s/p temporary dialysis catheter placement R IJ with 4 HD treatments to date. patient has been very consistent in his desires to NOT pursue ongoing dialysis outside the hospital. he cited multiple reasons for not wanting such including just wanting to go home, not being able to get transportation to HD sessions, etc. daughter Rachana stated he has been declining significantly over the last 2-3 months on global scale. after many discussions plan will be as follows - HD session tomorrow AM, then pull IJ line, then d/c home w/ hospice. this was discussed with pt's daughter by phone this evening. (2) ESRD (end stage renal disease): at this point nephrology believes he likely has achieved ESRD status see above #1 (3) Anemia: s/p 2 units PRBCs earlier this stay. no further blood checks. 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 improved s/p copious IV replacement and PO replacement but still low. due to impending hospice status no further Rx. (6) Hypokalemia: normalized (7) Metabolic acidosis: 2nd to acute renal failure +/- DKA -- resolved (8) COPD (chronic obstructive pulmonary disease): suspected diffuse wheezing on exam - some of which could be pulmonary edema, some of which could be undiagnosed COPD give another dose of solumedrol today for this + gout (9) Diabetes mellitus, type 2: appreciate pharmacy assistance required IV insulin early on - now off such and over to basal-bolus Rx dc insulin at discharge (10) Elevated liver enzymes: 2nd to rhabdomyolysis? no further LFTs (11) Bladder cancer metastasized to bone: suspect this is playing a role in his chronic faliure to thrive (12) Hypertension: ARB on hold cont low-dose coreg (13) GERD (gastroesophageal reflux disease): PPI IV (14) Hypercholesteremia: holding statin 2nd to #14 (15) Rhabdomyolysis: improved, level now well under 1000 rhabdo was 2nd to fall at home (16) Gout: b/l feet - podagra improved following steroids yesterday solumedrol IV x 1 again today (40mg) uric acid 6.4 (17) Acute metabolic encephalopathy: 2nd to JEAN, other factors (18) Ischemic cardiomyopathy: echo c/w such with multiple wall motion abnormalities EF 45-50% cont asa cont coreg no ischemic symptoms at this time (19) Systolic CHF: EF 45-50% based on echo this admission cont coreg not BETHANIE/ARB candidate at this time due to acute renal failure Plan tobacco dependence - cont nicoderm patch 21mg/day updated pt's daughter Rachana extensively by phone this evening appreciate Ms Mckeonpat's consultation from palliative care d/c home tomorrow with hospice following his HD treatment care d/w Dr Ding - nephrology Discharge Plan Discharge Items Patient Disposition: Hospice - Home Reason For Visit: Acute on Chronic Kidney Failure Discharge Diagnosis: 1. Acute on Chronic Kidney Failure with need for Dialysis 2. Transition to Hospice at home Activity: As commented below Activity Comment: bedrest Non-emergency contact: Specialist Call non-emergency contact if: you have any medication questions, your symptoms worsen, your pain is not controlled and your pain is worsening Follow-up/Referrals: Donna Cano DO [Primary Care Provider] - Diet: Regular Addtl Attending Provider Instructions: Mr Bucio is transitioning to home with hospice services. If you have questions, concerns, needs, uncontrolled pain, uncontrolled nausea or vomiting, worsening breathing - anything - please contact the Hospice Agency ([facility]) FIRST. Most problems can be addressed by the Hospice agency within your home. 1. Please continue oxygen 2 liters via nasal cannula [id number]. 2. Maintain lara catheter. 3. For pain or difficulty breathing/air hunger - * morphine liquid - 0.25ml (5mg) by mouth every 3 hours as needed 4. For excess oral secretions you may use - * atropine drops - 3 drops under the tongue every 6 hours as needed * as time goes on the frequency of this medication can be adjusted by hospice if necessary 5. For nausea or vomiting - * ondansetron ODT - 4mg by mouth every 6 hours as needed; please use this first for nausea/vomiting * if nausea and/or vomiting persist may use haloperidol 2mg by mouth every 6 hours as needed 6. For anxiety/agitation/sleep - * lorazepam 0.5mg by mouth every 6 hours as needed 7. For severe agitation not relieved by the lorazepam you can use haloperidol 2mg by mouth every 6 hours as needed 8. For wheezing/cough - you may continue combivent inhaler 1 puff four times daily Again please contact the Hospice Agency first for any questions, concerns, needs, uncontrolled symptoms, etc. You can call hospice any time, night or day. Please enjoy being home, Mr Bucio, and the [facility] Care team will keep you in our thoughts & prayers. -Dr Wen Pending Studies at Discharge: No Stand-Alone Forms: [facility] Medications and DC Order Prescriptions: New ondansetron 4 mg tablet,disintegrating 4 mg PO Q6H PRN (Reason: nausea and vomiting) Qty: 14 0RF haloperidol 2 mg tablet 2 mg PO Q8H PRN (Reason: agitation/sleep/persistent nausea) Qty: 10 0RF lorazepam [Ativan] 0.5 mg tablet 0.5 mg PO Q4H PRN (Reason: agitation/anxiety/sleep) Qty: 20 0RF morphine concentrate 100 mg/5 mL (20 mg/mL) solution 5 mg PO Q3H PRN (Reason: pain or difficulty breathing/air hunger) Qty: 15 0RF Rx Instructions: for end-of-life/hospice care atropine 1 % drops 3 drp sublingual Q6H PRN (Reason: excess oral secretions) Qty: 2 0RF Rx Instructions: for end-of-life care/hospice Continued Combivent Respimat 20-100 mcg/actuation mist 1 puff inhalation QID Qty: 4 4RF Rx Instructions: space evenly during waking hours Discontinued aspirin 81 mg tablet,delayed release (DR/EC) 81 mg PO DAILY Qty: 90 1RF (DME) pen needle, diabetic [BD Ultra-Fine Fely Pen Needle] 32 gauge x 5/32" needle See Dose Instructions .ROUTE .MEDSUPPLY Qty: 100 3RF Dose Instruction: As directed Rx Instructions: Test 1-3 times daily or as needed hydralazine 25 mg tablet 25 mg PO TID Qty: 90 2RF Rx Instructions: LAST FILLED 07/01/22 FOR 30 TABS/30 DAYS (DME) blood sugar diagnostic Strip See Dose Instructions .ROUTE .MEDSUPPLY Qty: 360 3RF Rx Instructions: Test blood sugars 4 times a day (DME) lancets [OneTouch Delica Lancets] 33 gauge misc See Dose Instructions .ROUTE .MEDSUPPLY Qty: 100 3RF Rx Instructions: Testing blood sugar 4 times daily insulin lispro [Humalog KwikPen Insulin] 100 unit/mL insulin pen 6 unit SQ BIDM Qty: 15 3RF Rx Instructions: Takes with breakfast and evening meal insulin glargine 100 unit/mL (3 mL) insulin pen 12 unit subcut BIDM 90 Days Qty: 18 1RF Rx Instructions: With breakfast and evening meal patient changed dose valsartan [Diovan] 320 mg tablet 320 mg PO DAILY bumetanide 2 mg tablet 2 mg PO DAILY simvastatin 40 mg tablet 40 mg PO QPM amlodipine 10 mg tablet 10 mg PO DAILY furosemide 20 mg tablet 40 mg PO DAILY Discharge Orders: Discharge Order (Routine); Ordered 09/06/22 Ordered By: Shahid Wen Admission Data Admit Date/Time: 08/31/22 03:12 Attending Provider: Shahid Wen Admit Provider: Sharon Marcial Primary Care Provider: Donna Cano Other Providers: Sharon Marcial ; Christian Crespo ; Randy Muñoz ; Lincoln Anguiano ; Camden Stroud ; Beka Armijo ; Shamar Lindsey ; Heriberto Castro ; Tomy Carlson Jr ; Allan Sommer ; Rachana Holly ; Charissa Gallardo ; Spenser Snell ; Blane Box ; Anthony Warren ; Carine Naik ; Debo Dubois ; Nathaniel Jones ; Aniket Borja Andrew Shine ; Shamar French V. 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
== END 2022-09-06 16:58 | disposition hospice, home (50) | DRG 682 ==
LOC: ED 23:15 → 1E 08-31 03:12 → SUATTDRO 08-31 03:12 → 1E 08-31 06:51